=== PATIENT | female | born 1945 | race Caucasian/White ===

== ENCOUNTER → 2016-02-11 | Outpatient (CLI) | payer OTHER ==
[~2016-02-11] MED LIST: ACET-1311 PO; AMLO-110 PO; AMOX875T PO; ATRIN INH; BISA10SU38 PR; CBCI IV; CHOL20007 PO; CLC100X PO; CMBIN INH; CPR500 PO; CRG3125 PO; DAPT500I INJ; DILANTIN PO; DLN30 PO; DULCOLOX SUPP RE; DULO-24 PO; EXELON PO; FERR1TAB13 PO; FRRS300 PO; FURO-85 PO; GABA1CAP5 PO; HLD1X PO; IPRA1AER2 INH; LCTX PO; METO25TA3 PO; MOML PO; MRLP17X PO; MULT-506 PO; NITR100C41 PO; ONDA8TAB6 PO; OXYC1TAB3 PO; PHEN-310 PO; PHEN64.8 PO; POLY335019 PO; PROC1TAB5 PO; QUET1TAB91 PO; RIVA1.5C6 PO; RIVASTIGMINE PO; SDMC1 PO; SENN1TAB66 PO; SODI1000 PO; SODIENE PR; ZNTT/150 PO
[2016-02-11 08:27] LABS: HEMATOCRIT 26.9 % (37-47); MEAN CORPUSCULAR HEMOGLOBIN 29.8 pg (25-34); MEAN CORPUSCULAR HGB CONC 33.1 g/dl (32-36); MEAN PLATELET VOLUME 10.5 fL (7.4-10.4); PLATELET COUNT 243 K/uL (130-400); RED BLOOD COUNT 2.99 M/uL (4.2-5.4); WHITE BLOOD COUNT 4.95 K/uL (4.8-10.8)
== END ==
LOC: C.LABCC 07:49
PROVIDERS: ATTEND Internal Medicine
DX: D64.9 Anemia, unspecified (principal)

== ENCOUNTER → 2016-02-13 | Outpatient (CLI) | payer OTHER ==
[~2016-02-13] MED LIST changes: +AMLO2.5T PO; -NITR100C41 PO; +NITR100C43 PO
[2016-02-13 12:09] LABS: BASO % 1.4 %; BASO ABS # 0.08 K/uL (0-0.2); COMPLETE YES; EOS % 6.3 %; HEMATOCRIT 27.9 % (37-47); IG% 0.2 %; LYMPH % 31.1 %; LYMPH ABS # 1.72 K/uL (1.2-3.4); MEAN CELL VOLUME 90.6 fL (80-100); MEAN CORPUSCULAR HEMOGLOBIN 30.2 pg (25-34); MEAN CORPUSCULAR HGB CONC 33.3 g/dl (32-36); MEAN PLATELET VOLUME 10.4 fL (7.4-10.4); PLATELET COUNT 269 K/uL (130-400); RED BLOOD COUNT 3.08 M/uL (4.2-5.4); WHITE BLOOD COUNT 5.53 K/uL (4.8-10.8)
== END ==
LOC: C.LABCC 11:44
PROVIDERS: ATTEND Internal Medicine
DX: R31.9 Hematuria, unspecified (principal)

== ENCOUNTER → 2016-02-18 | Outpatient (CLI) | payer OTHER ==
[~2016-02-18] MED LIST changes: -AMLO2.5T PO; +NITR100C41 PO; -NITR100C43 PO
[2016-02-18 08:47] LABS: BASO % 1.3 %; BASO ABS # 0.06 K/uL (0-0.2); COMPLETE YES; EOS % 6.9 %; HEMATOCRIT 27.4 % (37-47); IG% 0.2 %; LYMPH % 38.8 %; MEAN CELL VOLUME 89.5 fL (80-100); MEAN CORPUSCULAR HEMOGLOBIN 30.1 pg (25-34); MEAN CORPUSCULAR HGB CONC 33.6 g/dl (32-36); MEAN PLATELET VOLUME 10.4 fL (7.4-10.4); MONO % 9.7 %; NEUT % 43.1 %; PLATELET COUNT 235 K/uL (130-400); RED BLOOD COUNT 3.06 M/uL (4.2-5.4); WHITE BLOOD COUNT 4.64 K/uL (4.8-10.8)
== END ==
LOC: C.LABCC 08:18
PROVIDERS: ATTEND Internal Medicine
DX: D64.9 Anemia, unspecified (principal)

== ENCOUNTER → 2016-02-20 | Outpatient (CLI) | payer OTHER ==
[~2016-02-20] MED LIST changes: -CLC100X PO
[2016-02-20 09:10] LABS: BASO % 0.7 %; BASO ABS # 0.04 K/uL (0-0.2); COMPLETE YES; HEMATOCRIT 28.9 % (37-47); IG% 0.2 %; LYMPH % 29.1 %; LYMPH ABS # 1.56 K/uL (1.2-3.4); MEAN CELL VOLUME 91.2 fL (80-100); MEAN CORPUSCULAR HEMOGLOBIN 30.3 pg (25-34); MEAN CORPUSCULAR HGB CONC 33.2 g/dl (32-36); MEAN PLATELET VOLUME 10.4 fL (7.4-10.4); PLATELET COUNT 226 K/uL (130-400); RED BLOOD COUNT 3.17 M/uL (4.2-5.4); WHITE BLOOD COUNT 5.37 K/uL (4.8-10.8)
== END ==
LOC: C.LABCC 08:56
PROVIDERS: ATTEND Internal Medicine
DX: R31.9 Hematuria, unspecified (principal)

== ENCOUNTER → 2016-02-21 | Outpatient (CLI) | payer OTHER ==
[2016-02-21 08:46] LABS: PHENOBARBITAL 13.2 mcg/mL (15.0-40.0)
== END ==
LOC: C.LABCC 07:50
PROVIDERS: ATTEND Internal Medicine
DX: G40.909 Epilepsy, unspecified, not intractable, without status epilepticus (principal)

== ENCOUNTER 2016-03-03 06:50 | Day surgery (SDC) | payer OTHER ==
[2016-02-18 09:04] VITALS: BMI 29.0
--- NOTE | 2016-02-18 09:38 | PAT Medication Instructions ---
Service Date Feb 18, 2016. Current Home Medication List Acetaminophen (Tylenol), 650 MG PO Q6 PRN for Pain Bisacodyl (Dulcolax), 1 SUPP NM PRN Duloxetine Hcl (Cymbalta), 40 MG PO QAM Furosemide (Lasix), 20 MG PO QAM Gabapentin (Neurontin), 400 MG PO TID Haloperidol (Haloperidol), 1 MG PO TID Ipratropium/Albuterol (Combivent), 2 PUFFS INH Q4 PRN for WHILE AWAKE FOR COPD Magnesium Hydroxide (Milk Of Magnesia), 30 ML PO PRN Multivitamin (Multivitamin), 1 TABLET PO QAM Oxycodone Ir (Roxicodone Ir), 5 MG PO Q8 PRN for Pain Phenobarbital (Phenobarbital), 64.8 MG PO DAILY Phenytoin Sodium (Dilantin), 60 MG PO TID Quetiapine Fumarate (Seroquel), 25 MG PO HS Ranitidine (Zantac), 150 MG PO BID Sennosides-Docusate Sodium (Senna/Docusate Sodium), 1 TAB PO BID Sodium Chloride (External) (Sodium Chloride), 1,000 MG PO QAM Sodium Phosphate/Biphosphate (Fleet Enema), 1 EA NM DAILY PRN for PRN [Exelon], 1.5 MG PO BID Medication Instructions For Your Scheduled Surgery - Hold the following medications the morning of surgery: Bisacodyl (Dulcolax), 1 SUPP NM PRN Furosemide (Lasix), 20 MG PO QAM Multivitamin (Multivitamin), 1 TABLET PO QAM Magnesium Hydroxide (Milk Of Magnesia), 30 ML PO PRN Sennosides-Docusate Sodium (Senna/Docusate Sodium), 1 TAB PO BID Sodium Chloride (External) (Sodium Chloride), 1,000 MG PO QAM Sodium Phosphate/Biphosphate (Fleet Enema), 1 EA NM DAILY PRN for PRN - Take the following medications the morning of surgery with a sip of water OTHERWISE NOTHING TO EAT OR DRINK AFTER MIDNIGHT: Acetaminophen (Tylenol), 650 MG PO Q6 PRN for Pain (may take if needed up to 4 hours prior to surgery) Duloxetine Hcl (Cymbalta), 40 MG PO QAM Phenytoin Sodium (Dilantin), 60 MG PO TID Ranitidine (Zantac), 150 MG PO BID Gabapentin (Neurontin), 400 MG PO TID Haloperidol (Haloperidol), 1 MG PO TID Oxycodone Ir (Roxicodone Ir), 5 MG PO Q8 PRN for Pain (may take if needed up to 4 hours prior to surgery) [Exelon], 1.5 MG PO BID Ipratropium/Albuterol (Combivent), 2 PUFFS INH Q4 PRN for WHILE AWAKE FOR COPD - Take the following medications as scheduled the night before surgery: Acetaminophen (Tylenol), 650 MG PO Q6 PRN for Pain Bisacodyl (Dulcolax), 1 SUPP NM PRN Phenytoin Sodium (Dilantin), 60 MG PO TID Ranitidine (Zantac), 150 MG PO BID Gabapentin (Neurontin), 400 MG PO TID Haloperidol (Haloperidol), 1 MG PO TID Oxycodone Ir (Roxicodone Ir), 5 MG PO Q8 PRN for Pain Quetiapine Fumarate (Seroquel), 25 MG PO HS [Exelon], 1.5 MG PO BID Phenobarbital (Phenobarbital), 64.8 MG PO DAILY Magnesium Hydroxide (Milk Of Magnesia), 30 ML PO PRN Sennosides-Docusate Sodium (Senna/Docusate Sodium), 1 TAB PO BID Ipratropium/Albuterol (Combivent), 2 PUFFS INH Q4 PRN for WHILE AWAKE FOR COPD Sodium Phosphate/Biphosphate (Fleet Enema), 1 EA NM DAILY PRN for PRN If you have any questions please call us at [phone] (Nae Newby PA-C ) or [phone] or [phone]
--- NOTE | 2016-02-18 10:33 | DIAGNOSTIC IMAGING REPORT ---
TWO VIEW CHEST CLINICAL HISTORY: Preoperative examination. FINDINGS: PA and lateral chest radiographs are compared to study dated 01/17/2012. The heart is mildly enlarged and there is atherosclerotic calcification of the thoracic aorta. The pulmonary vasculature is noncongested. Chronic interstitial thickening is unchanged. There is chronic elevation of left hemidiaphragm with left basilar atelectasis. No airspace consolidation or large pleural effusion is identified. There is no pneumothorax. The skeletal structures are osteopenic. Degenerative change and kyphoscoliosis are noted in the thoracic spine. Compression deformities are seen in the lower thoracic and upper lumbar region. Fusion hardware is noted in the lower cervical spine. Chronic deformity of the right proximal humerus is similar to previous. Surgical clips are present in the right upper quadrant of the abdomen. IMPRESSION: Cardiomegaly and chronic changes as above. There is no active disease in the chest. Electronically signed by: Buzz Alvarez M.D. 02/18/2016 10:31 AM Dictated Date/Time: 02/18/2016 10:30 AM
[2016-02-18 11:02] LABS: BASO % 0.7 %; BASO ABS # 0.03 K/uL (0-0.2); COMPLETE YES; EOS % 3.8 %; HEMATOCRIT 28.4 % (37-47); LYMPH % 26.3 %; LYMPH ABS # 1.17 K/uL (1.2-3.4); MEAN CELL VOLUME 89.6 fL (80-100); MEAN CORPUSCULAR HGB CONC 32.4 g/dl (32-36); MEAN PLATELET VOLUME 10.1 fL (7.4-10.4); MONO % 11.5 %; NEUT % 57.7 %; PLATELET COUNT 225 K/uL (130-400); RED BLOOD COUNT 3.17 M/uL (4.2-5.4); WHITE BLOOD COUNT 4.45 K/uL (4.8-10.8)
[2016-02-18 11:15] LABS: URINE APPEARANCE CLEAR (CLEAR); URINE BILIRUBIN NEG (NEG); URINE COLOR YELLOW; URINE NITRITE NEG (NEG); URINE PH 5.5 (4.5-7.5); UROBILINOGEN NEG (NEG)
[2016-02-18 11:27] LABS: BUN/CREATININE RATIO 8.4 (10-20); CALCIUM 8.6 mg/dl (8.5-10.1); CREATININE 1.9 mg/dl (0.60-1.20); POTASSIUM 3.2 mmol/L (3.5-5.1)
[2016-02-18 11:44] LABS: MANUAL MICROSCOPIC REQUIRED? NO; REVIEW REQ? NO
[~2016-03-03] VITALS: Ht 157.5 cm; Wt 73.4 kg
[~2016-03-03 06:50] MED LIST changes: -AMLO-110 PO; -AMOX875T PO; -ATRIN INH; -CBCI IV; -CHOL20007 PO; +CIPROFLOXACIN / D5W 400 MG IV SCH; -CPR500 PO; -CRG3125 PO; -DAPT500I INJ; -DILANTIN PO; -DULCOLOX SUPP RE; -FERR1TAB13 PO; -FRRS300 PO; -IPRA1AER2 INH; -LCTX PO; -METO25TA3 PO; -MRLP17X PO; -NITR100C41 PO; -ONDA8TAB6 PO; -PHEN-310 PO; -POLY335019 PO; -PROC1TAB5 PO; -RIVA1.5C6 PO; -RIVASTIGMINE PO; -SDMC1 PO; +SODIUM CHLORIDE 0.9% 1000ML 1,000 ML IV SCH
[2016-03-03 07:23] VITALS: BP_SYST 168; BP_SYST 180; BP_DIAS 63; BP_DIAS 74; PULSE 59; TEMP 36.8; O2SAT 94; Ht 157.5 cm; Wt 73.4 kg
[2016-03-03] MEDS ORDERED: FENTANYL CITRATE INJ 50 MCG/1 ML 2 ML VIAL ONE (07:52)
[2016-03-03] MEDS ORDERED: PROPOFOL IV EMULSION 10 MG/ML 20 ML VIAL IV ONE (07:55)
[2016-03-03] MEDS ORDERED: ONDANSETRON INJ 2 MG/ML 2 ML VIAL ONE (07:55)
[2016-03-03] MEDS ORDERED: DEXAMETHASONE SOD INJ 4 MG/ML VIAL ONE (07:55)
[2016-03-03] MEDS ORDERED: LIDOCAINE HCL 2% 2 ML VIAL (20MG/ML) ONE (07:55)
--- NOTE | 2016-03-03 08:30 | History & Physical Bridge Note ---
H&P Re-Evaluation Bridge Note: I have examined the patient, reviewed the History & Physical and in the interval since the performance of the History & Physical I have noted the following changes of clinical significance: No changes noted
[2016-03-03] MEDS ORDERED: EpHEDrine SULFATE INJ 50 MG/ML AMP IV PRN (09:15)
[2016-03-03] MEDS ORDERED: PROMETHAZINE HCL INJ 12.5 MG in SODIUM CHLORIDE 0.9% 50ML 50 ML IV PRN (09:15)
[2016-03-03] MEDS ORDERED: FENTANYL CITRATE INJ 50 MCG/1 ML 2 ML VIAL IV PRN (09:15)
[2016-03-03] MEDS ORDERED: ATROPINE SULFATE 0.1 MG/ML 5ML SYR IV PRN (09:15)
[2016-03-03] MEDS ORDERED: NALOXONE HCL 0.4 MG/1 ML VIAL/CARP IV PRN (09:15)
[2016-03-03] MEDS ORDERED: ONDANSETRON INJ 2 MG/ML 2 ML VIAL IV PRN (09:15)
[2016-03-03] MEDS ORDERED: FLUMAZENIL 0.1 MG/1 ML 10 ML VIAL IV PRN (09:15)
[2016-03-03] MEDS ORDERED: LABETALOL HCL IV 5 MG/ML 20ML IV PRN (09:15)
[2016-03-03] MEDS ORDERED: EpHEDrine SULFATE INJ 50 MG/ML AMP ONE (09:20)
[2016-03-03] MEDS ORDERED: EpHEDrine SULFATE 50MG/5ML SYR ONE (09:20)
[2016-03-03] MEDS ORDERED: PHENYLEPHRINE 100MCG/ML 5ML SYR ONE (09:20)
[2016-03-03] MEDS ORDERED: WATER, STERILE FOR INJ 10 ML VIAL ONE (09:28)
--- NOTE | 2016-03-03 10:16 | [facility] Post Operative Brief Note ---
Immediate Operative Summary Operative Date Mar 03, 2016. Pre-Operative Diagnosis Hematuria Post-Operative Diagnosis Hematuria Procedure(s) Performed Cystoscopy, Left retrograde ureteroscopy brush biopsy stent Surgeon Dr. Kelvin Fagan [employer] Ha[employer] Operator Surgeon(s) None Estimated Blood Loss 1cc Findings distal left ureteral tumor Specimens brush biopsy tumor Drains 6f stent left ureter
--- NOTE | 2016-03-03 10:18 | Discharge Instructions ---
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 Post Anesthesia Instructions: If you have had General Anesthesia or IV Sedation: * Do not drive today. * Resume driving when surgeon permits. * Do not make important decisions or sign legal documents today. * Call surgeon for: 1. Temperature elevations greater than 101 degrees F. 2. Uncontrollable pain. 3. Excessive bleeding. 4. Persistent nausea and vomiting. 5. Medication intolerance (nausea, vomiting or rash). * For nausea and vomiting use only clear liquids such as: tea, soda, bouillon until nausea subsides, then gradually increase diet as tolerated. * If you have any concerns or questions, call your surgeon's office. If physician is unavailable and it is an emergency, call 911 or go to the nearest emergency room. . Diet Recommendations Recommended Home Diet: resume previous diet Procedures Procedures Performed: Cystoscopy, Left retrograde ureteroscopy brush biopsy stent Pending Studies Studies pending at discharge: no Medical Emergencies . Who to Call and When: Medical Emergencies: If at any time you feel your situation is an emergency, please call 911 immediately. . Non-Emergent Contact Non-Emergency issues call your: Urologist . . "Provider Documentation" section prepared by Kelvin Fagan.
[2016-03-03] MEDS ORDERED: OXYCODONE/ACETAMINOPHEN 5-325 TAB PO PRN (10:30)
--- NOTE | 2016-03-03 11:01 | Anesthesiology Progress Note ---
Anesthesia Post Op Note Date & Time Mar 03, 2016 at 11:00 Vital Signs Pain Intensity: 0 Vital Signs Past 12 Hours Date Time Temp Pulse Resp B/P Pulse Ox O2 Delivery O2 Flow Rate FiO2 03/03/16 10:47 36.3 18 130/72 98 2 03/03/16 10:43 128/59 03/03/16 10:39 68 20 03/03/16 10:39 68 20 98 03/03/16 10:38 132/54 03/03/16 10:34 70 15 03/03/16 10:34 70 15 98 03/03/16 10:33 133/67 03/03/16 10:29 70 11 03/03/16 10:29 70 11 98 03/03/16 10:28 137/60 03/03/16 10:24 73 22 03/03/16 10:24 73 22 91 03/03/16 10:23 140/73 03/03/16 10:19 68 19 03/03/16 10:19 68 19 100 03/03/16 10:18 146/64 03/03/16 10:14 36.0 67 16 140/62 100 Mask 10 03/03/16 10:14 68 13 100 03/03/16 10:14 68 13 03/03/16 07:23 36.8 59 18 168/63 94 Room Air Notes Mental Status: alert / awake / arousable, participated in evaluation Pt Amnestic to Procedure: Yes Nausea / Vomiting: adequately controlled Pain: adequately controlled Airway Patency, RR, SpO2: stable & adequate BP & HR: stable & adequate Hydration State: stable & adequate Anesthetic Complications: no major complications apparent
[2016-03-03 11:10] VITALS: BP 134/57; PULSE 69; TEMP 36.4; O2SAT 94
[2016-03-03 11:45] VITALS: BP 135/50; PULSE 70; O2SAT 92
--- NOTE | 2016-03-03 12:01 | DIAGNOSTIC IMAGING REPORT ---
RETROGRADE INCLUDES KUB HISTORY: Hydronephrosis. FLUOROSCOPY TIME: 71 seconds. FINDINGS: 6 fluoroscopic spot images were submitted for review. Initial images demonstrate retrograde contrast opacification of the distal left ureter. The distal left ureter is distended. This is followed by placement of a right lower and the left ureter and balloon dilatation at the ureterovesical junction. A left ureteral stent was identified and appears be located within the left renal pelvis. Only the proximal portion of the stent was visualized on this study. IMPRESSION: Fluoroscopy provided for balloon dilatation of the distal left ureter and a left ureteral stent placement. Electronically signed by: Dereck Vick M.D. 03/03/2016 11:59 AM Dictated Date/Time: 03/03/2016 11:57 AM
[2016-03-03 12:10] VITALS: BP 136/59; PULSE 69; TEMP 36.5; O2SAT 93
--- NOTE | 2016-03-05 13:30 | OPERATIVE REPORT ---
DATE OF OPERATION: 03/03/2016 PREOPERATIVE DIAGNOSIS: Left hydroureteronephrosis in a solitary kidney. POSTOPERATIVE DIAGNOSIS: Same plus a distal ureteral tumor. PROCEDURE: Cystoscopy, left retrograde pyelogram, left ureteroscopy with brush biopsy of abnormal mucosa and placement of indwelling double J left ureteral stent 6-Malagasy x multilength. FINDINGS: Cystoscopic exam revealed normal urethra. Bladder showed no urethral abnormalities. Left retrograde showed a filling defect in the distal left ureter with proximal hydroureteronephrosis. Ureteroscopy confirmed that this was a tumor. SURGEON: Dr. Fagan. ANESTHESIA: General. DRAINS: 6 Malagasy x multilength left ureteral stent. COMPLICATIONS: None. SPECIMENS: [place] biopsy left ureteral tumor. INDICATIONS: The patient is a 70-year-old white female who was seen in the office for evaluation of hematuria. She has had a right nephrectomy in the past for renal cell carcinoma. Workup including a CT showed left-sided hydroureteronephrosis down to the level of the bladder. She is being brought in now for cystoscopy, retrograde and ureteroscopy. OPERATION AND FINDINGS: PROCEDURE: After the induction of an adequate general anesthetic and appropriate time-out, the patient was placed in the dorsal lithotomy position, lower abdomen and genitalia were prepped with Hibiclens, draped in a sterile fashion. Using a 22-Malagasy cystoscope, routine cystoscopic exam was performed with the above noted findings with the 30 and 70 degree lenses. Next, using a 4.8 Malagasy cone tipped catheter, a left retrograde pyelogram was performed with the above noted findings. Next, the cone tipped catheter was removed and a 0.038 guidewire was passed up the left ureter under fluoroscopic guidance until positioned in the renal pelvis. The ureter was very tortuous. Initially tried just to do ureteroscopy but was unable to get a scope to enter into the ureteral orifice, so a balloon dilator was used to dilate the intramural tunnel, which was dilated to 10 atmospheres and then until all wasting was gone and then deflated and removed. Rigid ureteroscopy was then done, appeared to be tumor in the distal ureter. I did take pictures of it but apparently they did not print. I then used brush to biopsy the abnormal area. That was handed off the table as a specimen and then the guidewire was rethreaded through the cystoscope and a 6-Malagasy multilength stent was passed up the left ureter until positioned in the renal pelvis confirmed by fluoroscopy. The guidewire was removed. There was good curl at the bladder level. The patient's bladder was then drained, cystoscope and sheath were removed. All needle, sponge and instrument counts were correct at the end of the case. The patient tolerated the procedure well and went to the recovery room in stable condition. I attest to the content of the Intraoperative Record and any orders documented therein. Any exceptio ns are noted below.
[2016-04-28] MEDS ORDERED: RIVASTIGMINE PO (14:44)
[2016-04-28] MEDS ORDERED: DILANTIN PO (14:44)
[2016-04-28] MEDS ORDERED: AMLO-110 PO (14:44)
[2016-04-28] MEDS ORDERED: METO25TA3 PO (14:44)
[2016-04-28] MEDS ORDERED: DULCOLOX SUPP RE (14:45)
[2016-07-01] MEDS ORDERED: CHOL20007 PO (09:56)
[2016-07-01] MEDS ORDERED: LCTX PO (09:56)
[2016-07-01] MEDS ORDERED: AMOX875T PO (09:56)
[2016-07-04] MEDS ORDERED: NITR100C41 PO (04:39)
[2016-07-08] MEDS ORDERED: FRRS300 PO (09:47)
[2016-07-08] MEDS ORDERED: CBCI IV (09:47)
[2016-07-08] MEDS ORDERED: OXYC1TAB3 PO (09:47)
[2016-07-08] MEDS ORDERED: MRLP17X PO (09:48)
[2016-07-27] MEDS ORDERED: OXYC1TAB3 PO (11:29)
[2016-07-27] MEDS ORDERED: CPR500 PO (11:29)
[2016-10-03] MEDS ORDERED: OXYC1TAB3 PO (13:42)
[2016-10-03] MEDS ORDERED: AMLO-110 PO (13:42)
[2016-10-03] MEDS ORDERED: CRG3125 PO (13:42)
== END 2016-03-03 12:30 ==
LOC: C.ACU 06:50
PROVIDERS: ATTEND Urology
DX: C66.2 Malignant neoplasm of left ureter (principal); R31.9 Hematuria, unspecified; Z85.528 Personal history of other malignant neoplasm of kidney; Z90.5 Acquired absence of kidney; G40.909 Epilepsy, unspecified, not intractable, without status epilepticus; H61.23 Impacted cerumen, bilateral; H90.3 Sensorineural hearing loss, bilateral; J44.9 Chronic obstructive pulmonary disease, unspecified; I10 Essential (primary) hypertension; E03.9 Hypothyroidism, unspecified; F03.90 Unspecified dementia, unspecified severity, without behavioral disturbance, psychotic disturbance, mood disturbance, and anxiety; Z79.899 Other long term (current) drug therapy; N32.89 Other specified disorders of bladder

== ENCOUNTER → 2016-03-06 | Outpatient (CLI) | payer OTHER ==
[~2016-03-06] MED LIST changes: +AMLO-110 PO; +AMOX875T PO; +ATRIN INH; +CBCI IV; +CHOL20007 PO; -CIPROFLOXACIN / D5W 400 MG IV SCH; +CPR500 PO; +CRG3125 PO; +DAPT500I INJ; +DILANTIN PO; +DULCOLOX SUPP RE; +FERR1TAB13 PO; +FRRS300 PO; +IPRA1AER2 INH; +LCTX PO; +METO25TA3 PO; +MRLP17X PO; +NITR100C41 PO; +ONDA8TAB6 PO; +PHEN-310 PO; +POLY335019 PO; +PROC1TAB5 PO; +RIVA1.5C6 PO; +RIVASTIGMINE PO; +SDMC1 PO; -SODIUM CHLORIDE 0.9% 1000ML 1,000 ML IV SCH
[2016-03-06 08:51] LABS: BASO ABS # 0.05 K/uL (0-0.2); EOS % 6.3 %; HEMATOCRIT 24.8 % (37-47); LYMPH % 37.7 %; LYMPH ABS # 1.87 K/uL (1.2-3.4); MEAN CELL VOLUME 88.3 fL (80-100); MEAN CORPUSCULAR HEMOGLOBIN 29.5 pg (25-34); MEAN CORPUSCULAR HGB CONC 33.5 g/dl (32-36); MEAN PLATELET VOLUME 10.8 fL (7.4-10.4); MONO % 11.9 %; NEUT % 43.1 %; PLATELET COUNT 198 K/uL (130-400); RED BLOOD COUNT 2.81 M/uL (4.2-5.4); WHITE BLOOD COUNT 4.96 K/uL (4.8-10.8)
[2016-03-06 09:12] LABS: COMPLETE YES; LARGE PLATELETS 1+
== END ==
LOC: C.LABCC 08:38
PROVIDERS: ATTEND Internal Medicine
DX: D64.9 Anemia, unspecified (principal)

== ENCOUNTER → 2016-03-11 | Outpatient (CLI) | payer OTHER ==
[2016-03-11 08:10] LABS: BASO % 0.8 %; BASO ABS # 0.04 K/uL (0-0.2); COMPLETE YES; EOS % 6.7 %; HEMATOCRIT 27.5 % (37-47); IG% 0.2 %; LYMPH % 37.1 %; LYMPH ABS # 1.87 K/uL (1.2-3.4); MEAN CELL VOLUME 90.2 fL (80-100); MEAN CORPUSCULAR HEMOGLOBIN 29.5 pg (25-34); MEAN CORPUSCULAR HGB CONC 32.7 g/dl (32-36); MEAN PLATELET VOLUME 10.6 fL (7.4-10.4); MONO % 10.3 %; NEUT % 44.9 %; PLATELET COUNT 258 K/uL (130-400); RED BLOOD COUNT 3.05 M/uL (4.2-5.4); WHITE BLOOD COUNT 5.04 K/uL (4.8-10.8)
[2016-03-11 08:17] LABS: BLOOD UREA NITROGEN 19 mg/dl (7-18); BUN/CREATININE RATIO 11.9 (10-20); CALCIUM 8.5 mg/dl (8.5-10.1); CARBON DIOXIDE 25 mmol/L (21-32); CHLORIDE 109 mmol/L (98-107); GLUCOSE 88 mg/dl (70-99); POTASSIUM 3.8 mmol/L (3.5-5.1); SODIUM 144 mmol/L (136-145)
== END ==
LOC: C.LABCC 07:52
PROVIDERS: ATTEND Internal Medicine
DX: N18.9 Chronic kidney disease, unspecified (principal)

== ENCOUNTER → 2016-03-14 | Outpatient (CLI) | payer OTHER ==
[2016-03-14 08:22] LABS: BASO % 1.1 %; BASO ABS # 0.06 K/uL (0-0.2); COMPLETE YES; EOS % 6.8 %; HEMATOCRIT 30.7 % (37-47); LYMPH % 43.1 %; LYMPH ABS # 2.36 K/uL (1.2-3.4); MEAN CELL VOLUME 90.8 fL (80-100); MEAN CORPUSCULAR HEMOGLOBIN 29.9 pg (25-34); MEAN CORPUSCULAR HGB CONC 32.9 g/dl (32-36); MEAN PLATELET VOLUME 10.4 fL (7.4-10.4); MONO % 9.9 %; NEUT % 39.1 %; PLATELET COUNT 275 K/uL (130-400); RED BLOOD COUNT 3.38 M/uL (4.2-5.4); WHITE BLOOD COUNT 5.48 K/uL (4.8-10.8)
== END ==
LOC: C.LABCC 08:09
PROVIDERS: ATTEND Internal Medicine
DX: D64.9 Anemia, unspecified (principal)

== ENCOUNTER → 2016-04-24 | Outpatient (CLI) | payer OTHER ==
[2016-04-24 08:51] LABS: BASO % 0.5 %; BASO ABS # 0.03 K/uL (0-0.2); COMPLETE YES; EOS % 7.2 %; HEMATOCRIT 33.2 % (37-47); IG% 0.2 %; LYMPH % 40.9 %; LYMPH ABS # 2.28 K/uL (1.2-3.4); MEAN CELL VOLUME 88.1 fL (80-100); MEAN PLATELET VOLUME 10.3 fL (7.4-10.4); MONO % 10.1 %; NEUT % 41.1 %; PLATELET COUNT 213 K/uL (130-400); RED BLOOD COUNT 3.77 M/uL (4.2-5.4); WHITE BLOOD COUNT 5.57 K/uL (4.8-10.8)
[2016-04-24 09:05] LABS: ALT/SGPT 14 U/L (12-78); AST/SGOT 15 U/L (15-37); BLOOD UREA NITROGEN 8 mg/dl (7-18); BUN/CREATININE RATIO 8.4 (10-20); CALCIUM 8.9 mg/dl (8.5-10.1); CARBON DIOXIDE 26 mmol/L (21-32); CHLORIDE 104 mmol/L (98-107); CREATININE 0.91 mg/dl (0.60-1.20); GLUCOSE 88 mg/dl (70-99); POTASSIUM 3.7 mmol/L (3.5-5.1); SODIUM 139 mmol/L (136-145)
[2016-04-24 09:15] LABS: ALB/GLOB RATIO 0.9 (0.9-2); ALKALINE PHOSPHATASE 190 U/L (45-117); FERRITIN 11.2 ng/ml (8.0-388.0); TOTAL IRON BINDING CAPACITY 255 mcg/dl (250-450)
== END ==
LOC: C.LABCC 08:26
PROVIDERS: ATTEND Internal Medicine
DX: D64.9 Anemia, unspecified (principal); G40.909 Epilepsy, unspecified, not intractable, without status epilepticus; F20.9 Schizophrenia, unspecified; Z51.81 Encounter for therapeutic drug level monitoring; Z79.899 Other long term (current) drug therapy

== ENCOUNTER → 2016-04-27 | Outpatient (CLI) | payer OTHER ==
[~2016-04-27] MED LIST changes: +AMLO2.5T PO; -NITR100C41 PO; +NITR100C43 PO
[2016-04-28 01:26] LABS: MANUAL MICROSCOPIC REQUIRED? YES; URINE APPEARANCE CLEAR (CLEAR); URINE BILIRUBIN NEG (NEG); URINE COLOR YELLOW; URINE NITRITE NEG (NEG); URINE PH 5.5 (4.5-7.5); URINE SPECIFIC GRAVITY <= 1.005 (1.000-1.030); UROBILINOGEN NEG (NEG)
[2016-04-28 01:37] LABS: REVIEW REQ? NO
[2016-04-28 01:57] LABS: URINE BACTERIA NEG (NEG); URINE RBC 0-4 /hpf (0-4); ZZUR CULT IF INDIC CLEAN CATCH NO
== END | disposition home or self-care (01) ==
LOC: C.LABCC 20:15
PROVIDERS: ATTEND Internal Medicine
DX: D64.9 Anemia, unspecified (principal); F20.9 Schizophrenia, unspecified

== ENCOUNTER 2016-04-30 11:02 | Inpatient (IN) | payer OTHER ==
[~2016-04-30] VITALS: Ht 157.5 cm; Wt 74.6 kg
[2016-04-30] VITALS (7 sets, daily range): BP systolic 95–170; BP diastolic 56–78; PULSE 80–108; TEMP 36.6–39.2; O2SAT 79–100; Ht 157.5 cm; Wt 74.6 kg
[~2016-04-30 11:02] MED LIST changes: -AMLO2.5T PO; -AMOX875T PO; -ATRIN INH; -BISA10SU38 PR; -CBCI IV; -CHOL20007 PO; -CPR500 PO; -CRG3125 PO; -DAPT500I INJ; -DILANTIN PO; -EXELON PO; -FERR1TAB13 PO; -FRRS300 PO; -FURO-85 PO; -IPRA1AER2 INH; -LCTX PO; -MRLP17X PO; -NITR100C43 PO; -ONDA8TAB6 PO; -PHEN-310 PO; -POLY335019 PO; -PROC1TAB5 PO; -RIVA1.5C6 PO; -SDMC1 PO
[2016-04-30] MEDS ORDERED: SODIUM CHLORIDE 0.9% 1000ML 500 ML IV ONE (11:19)
--- NOTE | 2016-04-30 11:50 | EMERGENCY ROOM VISIT NOTE ---
History Report prepared by Corina: Cordell Berg Under the Supervision of: Dr. Paulo Villa M.D. First contact with patient: 11:08 Chief Complaint: FEVER Stated Complaint: FEVER/AMS History of Present Illness The patient is a 70 year old female who presents to the Emergency Room with complaints of a constant fever since yesterday. Per the nursing staff states that the patient was diagnosed with a UTI yesterday, and put on oral antibiotics. Additionally the nursing staff states that the patient was hypotensive this morning. They state that the patient has a history of a nephrectomy and renal cancer. The nursing staff states that the patient additionally fell this morning, and she does not remember falling. The patient denies any leg pain and shortness of breath. She additionally states that she could not sleep well last night Source of History: patient, nursing staff Onset: yesterday Position: other (global) Quality: other (fever) Timing: constant Associated Symptoms: No SOB Review of Systems All systems have been listed, reviewed, and are negative other than those previously mentioned. Please see Additional Medical History Sheet. 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 (15) Seizure (16) Seizure (17) Sepsis (18) Spinal Surgery (19) UTI (urinary tract infection) Family History Hypertension Social History Smoking Status: Former Smoker Alcohol Use: none Drug Use: none Marital Status: Housing Status: assisted living Occupation Status: retired, disabled Current/Historical Medications Scheduled Amlodipine (Norvasc), 5 MG PO QAM Duloxetine Hcl (Cymbalta), 40 MG PO QAM Gabapentin (Neurontin), 400 MG PO TID Haloperidol (Haloperidol), 1 MG PO TID Ipratropium-Albuterol (Combivent Respimat), 1 PUFFS INH QID Magnesium Hydroxide (Milk Of Magnesia), 30 ML PO PRN Metoprolol Succ (Toprol Xl) (Toprol-Xl), 25 MG PO QAM Multivitamin (Multivitamin), 1 TABLET PO QAM Phenobarbital (Phenobarbital), 64.8 MG PO DAILY Phenytoin Sodium (Dilantin), 60 MG PO TID Quetiapine Fumarate (Seroquel), 25 MG PO HS Ranitidine (Zantac), 150 MG PO BID Rivastigmine Tartrate (Exelon), 1.5 MG PO BID Sennosides-Docusate Sodium (Senna/Docusate Sodium), 1 TAB PO BID Sodium Chloride (Sodium Chloride), 1 TAB PO DAILY Scheduled PRN Acetaminophen (Tylenol), 650 MG PO Q6 PRN for Pain Oxycodone Ir (Roxicodone Ir), 5 MG PO Q8 PRN for Pain Allergies Coded Allergies: Banana (Verified Allergy, Unknown, RAW -ROOF OF MOUTH SWELLS, 04/30/16) Sulfa Antibiotics (Verified Allergy, Unknown, mouth swells, bumps on roof of mouth, 04/30/16) Physical Exam Vital Signs Date Time Temp Pulse Resp B/P Pulse Ox O2 Delivery O2 Flow Rate FiO2 04/30/16 13:39 78 18 143/64 95 Room Air 04/30/16 13:32 74 04/30/16 12:34 77 18 121/55 95 Room Air 04/30/16 12:16 74 18 99/45 92 Room Air 04/30/16 11:51 93 Room Air 04/30/16 11:11 70 04/30/16 11:06 37.1 73 16 88/44 91 Room Air Physical Exam GENERAL: Patient awake, alert, oriented x 3. Patient follows commands. Patient does not appear toxic. Patient is adequately hydrated and well- nourished. SKIN: No erythema, pallor, cyanosis or rash HEENT: Normal head, pupils equal, reactive to light and accommodation. Oral cavity us dry and posterior pharynx appears normal. Neck: Without adenopathy, no neck vein distention. LUNGS: Clear to auscultation. No wheezes, no rales, no rhonchi. HEART: No murmurs. No gallops. No rubs ABDOMEN: No masses, no rebound, no hepatomegaly or splenomegaly. EXTREMITIES: No signs of trauma. No pedal or pretibial edema. No calf or thigh tenderness. NEUROLOGIC: Cranial nerves II-XII within normal limits. No gross motor sensory function deficits. Medical Decision & Procedures ER Provider Diagnostic Interpretation: X ray results are stated below per my interpretation and the radiologist's interpretation. SINGLE VIEW CHEST CLINICAL HISTORY: Sepsis. FINDINGS: An AP, portable, upright chest radiograph is compared to study dated 02/18/2016. The examination is degraded by portable technique and patient rotation. A right subclavian central venous catheter is new from previous. The heart is enlarged and there is atherosclerotic calcification of the thoracic aorta. The pulmonary vasculature is noncongested. There is chronic interstitial thickening and elevation of left hemidiaphragm with left basilar atelectasis. No airspace consolidation is seen typical for pneumonia and there is no large pleural effusion. No pneumothorax is seen. The skeletal structures are osteopenic. Advanced degenerative change is noted in the thoracic spine. Chronic posttraumatic deformity is present in the right shoulder. Fusion hardware is seen in the lower cervical spine. Surgical clips are noted in the upper abdomen. IMPRESSION: Cardiomegaly and chronic changes as above. There is no acute cardiopulmonary abnormality. Electronically signed by: Buzz Alvarez M.D. 04/30/2016 12:00 PM Dictated Date/Time: 04/30/2016 11:57 AM Laboratory Results 04/30/16 11:40 Red Blood Count 3.50, Mean Corpuscular Volume 88.0, Mean Corpuscular Hemoglobin 30.0, Mean Corpuscular Hemoglobin Concent 34.1, Mean Platelet Volume 10.0, Neutrophils (%) (Auto) 80.3, Lymphocytes (%) (Auto) 9.0, Monocytes (%) (Auto) 10.0, Eosinophils (%) (Auto) 0.1, Basophils (%) (Auto) 0.2, Neutrophils # (Auto ) 15.40, Lymphocytes # (Auto) 1.73, Monocytes # (Auto) 1.91, Eosinophils # (Auto ) 0.01, Basophils # (Auto) 0.03 04/30/16 11:40 Test 04/30/16 11:40 04/30/16 11:47 04/30/16 12:13 White Blood Count 19.15 K/uL (4.8-10.8) Red Blood Count 3.50 M/uL (4.2-5.4) Hemoglobin 10.5 g/dL (12.0-16.0) Hematocrit 30.8 % (37-47) Mean Corpuscular Volume 88.0 fL (80-100) Mean Corpuscular Hemoglobin 30.0 pg (25-34) Mean Corpuscular Hemoglobin Concent 34.1 g/dl (32-36) Platelet Count 188 K/uL (130-400) Mean Platelet Volume 10.0 fL (7.4-10.4) Neutrophils (%) (Auto) 80.3 % Lymphocytes (%) (Auto) 9.0 % Monocytes (%) (Auto) 10.0 % Eosinophils (%) (Auto) 0.1 % Basophils (%) (Auto) 0.2 % Neutrophils # (Auto) 15.40 K/uL (1.4-6.5) Lymphocytes # (Auto) 1.73 K/uL (1.2-3.4) Monocytes # (Auto) 1.91 K/uL (0.11-0.59) Eosinophils # (Auto) 0.01 K/uL (0-0.5) Basophils # (Auto) 0.03 K/uL (0-0.2) RDW Standard Deviation 45.1 fL (36.4-46.3) RDW Coefficient of Variation 13.9 % (11.5-14.5) Immature Granulocyte % (Auto) 0.4 % Immature Granulocyte # (Auto) 0.07 K/uL (0.00-0.02) Prothrombin Time 13.9 SECONDS (9.0-12.0) Prothromb Time International Ratio 1.3 (0.9-1.1) Activated Partial Thromboplast Time 31.8 SECONDS (21.0-31.0) Partial Thromboplastin Ratio 1.2 Anion Gap 8.0 mmol/L (3-11) Est Creatinine Clear Calc Drug Dose 18.1 ml/min Estimated GFR () 19.9 Estimated GFR (Non- 17.2 BUN/Creatinine Ratio 8.1 (10-20) Calcium Level 8.0 mg/dl (8.5-10.1) Total Bilirubin 0.3 mg/dl (0.2-1) Aspartate Amino Transf (AST/SGOT) 8 U/L (15-37) Alanine Aminotransferase (ALT/SGPT) 11 U/L (12-78) Alkaline Phosphatase 135 U/L (45-117) Total Protein 6.9 gm/dl (6.4-8.2) Albumin 2.8 gm/dl (3.4-5.0) Globulin 4.1 gm/dl (2.5-4.0) Albumin/Globulin Ratio 0.7 (0.9-2) Bedside Lactic Acid Venous 1.28 mmol/L (0.90-1.70) Urine Color YELLOW Urine Appearance CLOUDY (CLEAR) Urine pH 6.5 (4.5-7.5) Urine Specific [place] 1.008 (1.000-1.030) Urine Protein 2+ (NEG) Urine Glucose (UA) NEG (NEG) Urine Ketones NEG (NEG) Urine Occult Blood 2+ (NEG) Urine Nitrite POS (NEG) Urine Bilirubin NEG (NEG) Urine Urobilinogen NEG (NEG) Urine Leukocyte Esterase LARGE (NEG) Urine WBC (Auto) >30 /hpf (0-5) Urine RBC (Auto) 0-4 /hpf (0-4) Urine Hyaline Casts (Auto) 1-5 /lpf (0-5) Urine Epithelial Cells (Auto) 0-5 /lpf (0-5) Urine Bacteria (Auto) 2+ (NEG) Laboratory results as stated above per my review. Medications Administered Medications (Trade) Dose Ordered Sig/Benito Route Start Time Stop Time Status Last Admin Dose Admin Sodium Chloride 500 ml @ 999 mls/hr Q31M ONCE IV 04/30/16 11:19 04/30/16 11:49 DC 04/30/16 11:10 999 MLS/HR Sodium Chloride 1,000 ml @ 500 mls/hr Q2H STAT IV 04/30/16 12:34 04/30/16 14:33 DC 04/30/16 12:38 500 MLS/HR Daptomycin/Sodium Chloride (Cubicin IV/Nss 50ml) 59 ml @ 120 mls/hr NOW STAT IV 04/30/16 13:04 04/30/16 13:33 DC 04/30/16 13:35 120 MLS/HR Piperacillin Sod/ Tazobactam Sod (Zosyn Iv) 4.5 gm NOW STAT IV 04/30/16 13:37 04/30/16 13:38 DC 04/30/16 13:45 4.5 GM Procedure Central Venous Catheter Indication: Hypotension/ sepsis Catheter type: triple lumen Location: Right Subclavian Verbal consent was obtained after the risks and benefits were explained. At this time, the risks of the procedure are less than the risks of NOT performing the procedure. The patient was placed in the Trendelenburg position and the skin was prepped in the standard fashion with chlorhexidine and full sterile drapes applied. The proper landmarks were identified. She was anesthetized with 1% lidocaine without epinephrine, and the needle was inserted through the skin in the standard fashion. The needle was carefully advanced into blood vessel lumen. The guidewire was placed uneventfully. The vessel is dilated and the catheter was placed. It was sutured into position. There was good blood return from all ports. The patient tolerated the procedure well and there were no complications. Post procedure x-ray was normal. ECG Indication: other (fever) Rate (beats per minute): 71 Rhythm: normal sinus Findings: 1st degree AV block, no ectopy ED Course 1113: Past medical records reviewed. The patient was evaluated in room C9. A complete history and physical examination was performed. 1119: Sodium Chloride 500 ml @ 999 mls/hr IV 1234: Sodium Chloride 1000 ml @ 500 mls/hr IV 1304: Daptomycin 450mg/ Sodium Chloride 59ml @ 120 mls/hr IV 1337: Zosyn 4.5gm IV 1357: I discussed the patient's case with Dr. Doss. He is going to evaluate the patient for further treatment 1435: I reevaluated the patient, and she is doing better. Her blood pressure is much better at 171/90. Medical Decision Nurses notes reviewed. Medical history sheet reviewed. Differential diagnosis includes but is not limited to: UTI, pyelonephritis, sepsis, metabolic disorder. The patient is here with fever and hypotension. She was evaluated for sepsis. Because of her hypotension a central line was placed in a right subclavian area. The patient tolerated the procedure well. She was given large volumes of fluid. Multiple labs and imaging were obtained. Please see above. The patient's white count is elevated. Lactic acid is not elevated. Antibiotics were administered after blood cultures were obtained. Most likely the source of her fever/sepsis is her urine. I discussed care with the patient and with the hospitalist. Blood pressure rebounded significantly prior to her leaving the ED. Consults Time Called: 1350 Consulting Physician: Win Dang Returned Call: [phone] I discussed the patient's case with Dr. Doss. He is going to evaluate the patient for further treatment. Impression Primary Impression: Sepsis Additional Impressions: UTI (urinary tract infection) Renal insufficiency Scribe Attestation The scribe's documentation has been prepared under my direction and personally reviewed by me in its entirety. I confirm that the note above accurately reflects all work, treatment, procedures, and medical decision making performed by me. Departure Information Dispostion Being Evaluated By Hospitalist Referrals [facility] (PCP) Patient Instructions My [facility] Health Problem Qualifiers
[2016-04-30 11:54] LABS: BASO % 0.2 %; BASO ABS # 0.03 K/uL (0-0.2); COMPLETE YES; EOS % 0.1 %; HEMATOCRIT 30.8 % (37-47); IG% 0.4 %; LYMPH ABS # 1.73 K/uL (1.2-3.4); MEAN CORPUSCULAR HGB CONC 34.1 g/dl (32-36); NEUT % 80.3 %; PLATELET COUNT 188 K/uL (130-400); WHITE BLOOD COUNT 19.15 K/uL (4.8-10.8)
--- NOTE | 2016-04-30 12:01 | DIAGNOSTIC IMAGING REPORT ---
SINGLE VIEW CHEST CLINICAL HISTORY: Sepsis. FINDINGS: An AP, portable, upright chest radiograph is compared to study dated 02/18/2016. The examination is degraded by portable technique and patient rotation. A right subclavian central venous catheter is new from previous. The heart is enlarged and there is atherosclerotic calcification of the thoracic aorta. The pulmonary vasculature is noncongested. There is chronic interstitial thickening and elevation of left hemidiaphragm with left basilar atelectasis. No airspace consolidation is seen typical for pneumonia and there is no large pleural effusion. No pneumothorax is seen. The skeletal structures are osteopenic. Advanced degenerative change is noted in the thoracic spine. Chronic posttraumatic deformity is present in the right shoulder. Fusion hardware is seen in the lower cervical spine. Surgical clips are noted in the upper abdomen. IMPRESSION: Cardiomegaly and chronic changes as above. There is no acute cardiopulmonary abnormality. Electronically signed by: Buzz Alvarez M.D. 04/30/2016 12:00 PM Dictated Date/Time: 04/30/2016 11:57 AM
[2016-04-30 12:09] LABS: INR 1.3 (0.9-1.1); PARTIAL THROMBOPLASTIN RATIO 1.2; PROTHROMBIN TIME (PATIENT) 13.9 SECONDS (9.0-12.0)
[2016-04-30 12:18] LABS: BUN/CREATININE RATIO 8.1 (10-20); CREATININE 2.7 mg/dl (0.60-1.20)
[2016-04-30 12:20] LABS: ALB/GLOB RATIO 0.7 (0.9-2)
[2016-04-30] MEDS ORDERED: SODIUM CHLORIDE 0.9% 1000ML 1,000 ML IV STA (12:34)
[2016-04-30] MEDS ORDERED: IPRA1AER2 INH (12:55)
[2016-04-30] MEDS ORDERED: ATRIN INH (12:55)
[2016-04-30] MEDS ORDERED: DAPTOmycin IV 450 MG in SODIUM CHLORIDE 0.9% 50ML 50 ML IV STA (13:04)
[2016-04-30] MEDS ORDERED: RIVA1.5C6 PO (13:06)
[2016-04-30] MEDS ORDERED: SDMC1 PO (13:06)
[2016-04-30 13:16] LABS: URINE APPEARANCE CLOUDY (CLEAR); URINE BILIRUBIN NEG (NEG); URINE COLOR YELLOW; URINE EPITHELIAL CELL AUTO 0-5 /lpf (0-5); URINE NITRITE POS (NEG); URINE PH 6.5 (4.5-7.5); URINE SPECIFIC GRAVITY 1.008 (1.000-1.030); UROBILINOGEN NEG (NEG); ZZURINE CULT IF INDIC CATH YES
[2016-04-30] MEDS ORDERED: PIPERACILLIN/TAZOBACTAM 4.5 GM/100ML D5W IV STA (13:37)
[2016-04-30 13:39] LABS: MANUAL MICROSCOPIC REQUIRED? NO; REVIEW REQ? NO
[2016-04-30] MEDS ORDERED: OXYCODONE HCL IR 5 MG TAB (IMMEDIATE RELEASE) PO PRN (14:15)
[2016-04-30] MEDS ORDERED: MAGNESIUM HYDROXIDE SUSP 30 ML UDC PO PRN (14:15)
[2016-04-30] MEDS ORDERED: ONDANSETRON INJ 2 MG/ML 2 ML VIAL IV PRN (14:15)
--- NOTE | 2016-04-30 14:26 | History and Physical ---
History & Physical Date & Time of Service: Apr 30, 2016 at 14:15 Chief Complaint: Fever/Ams Primary Care Physician: Lewis [facility] History of Present Illness Source: patient Pt is a 70 yo female with hx of schizophrenia, CKD, DM, seizure D/O, who presents to the ER from [facility] with complaints of a constant fever that started yesterday. Pt is a poor historian thus hx obtained from ER records and detention noted. Pt was recently diagnosed with UTI yesterday and was placed on PO antibiotic. Fevers however continued throughout the day, and pt was noted to be severely hypotensive this AM and thusly fell this AM. No LOC reported and pt denies any pain. Upon questioning, pt denies any distress, and does not recall why she is here. She is alert and oriented only to name. Pt denies any headache, fever, chills, abd pain, sob, or urinary sx. 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 Status: Chronic (15) Seizure Status: Chronic (16) Seizure Status: Resolved (17) Spinal Surgery Status: Resolved Family History Hypertension Social History Smoking Status: Former Smoker Drug Use: none Marital Status: Housing status: detention Occupational Status: retired, disabled Immunizations History of Influenza Vaccine: Unknown Influenza Vaccine Date: Nov 10, 2004 History of Tetanus Vaccine?: Unknown History of Pneumococcal: Unknown History of Hepatitis B Vaccine: Unknown Multi-Drug Resistant Organisms History of MDRO: No Allergies Coded Allergies: Banana (Verified Allergy, Unknown, RAW -ROOF OF MOUTH SWELLS, 04/30/16) Sulfa Antibiotics (Verified Allergy, Unknown, mouth swells, bumps on roof of mouth, 04/30/16) Home Medications Scheduled Amlodipine (Norvasc), 5 MG PO QAM Duloxetine Hcl (Cymbalta), 40 MG PO QAM Gabapentin (Neurontin), 400 MG PO TID Haloperidol (Haloperidol), 1 MG PO TID Ipratropium-Albuterol (Combivent Respimat), 1 PUFFS INH QID Magnesium Hydroxide (Milk Of Magnesia), 30 ML PO PRN Metoprolol Succ (Toprol Xl) (Toprol-Xl), 25 MG PO QAM Multivitamin (Multivitamin), 1 TABLET PO QAM Phenobarbital (Phenobarbital), 64.8 MG PO DAILY Phenytoin Sodium (Dilantin), 60 MG PO TID Quetiapine Fumarate (Seroquel), 25 MG PO HS Ranitidine (Zantac), 150 MG PO BID Rivastigmine Tartrate (Exelon), 1.5 MG PO BID Sennosides-Docusate Sodium (Senna/Docusate Sodium), 1 TAB PO BID Sodium Chloride (Sodium Chloride), 1 TAB PO DAILY Scheduled PRN Acetaminophen (Tylenol), 650 MG PO Q6 PRN for Pain Oxycodone Ir (Roxicodone Ir), 5 MG PO Q8 PRN for Pain Review of Systems Constitutional: No chills, No fever Eyes: No eye pain, No worsening of vision ENT: No hearing loss, No nasal symptoms Respiratory: No cough, No sputum Cardiovascular: No chest pain, No orthopnea Abdomen: No nausea, No pain Musculoskeletal: No joint pain, No muscle pain Genitourinary - Female: No dysuria, No urinary frequency, No urinary urgency Neurologic: No paralysis, No weakness Integumentary: No itch, No rash Physical Exam Vital Signs Date Time Temp Pulse Resp B/P Pulse Ox O2 Delivery O2 Flow Rate FiO2 04/30/16 13:39 78 18 143/64 95 Room Air 04/30/16 13:32 74 04/30/16 12:34 77 18 121/55 95 Room Air 04/30/16 12:16 74 18 99/45 92 Room Air 04/30/16 11:51 93 Room Air 04/30/16 11:11 70 04/30/16 11:06 37.1 73 16 88/44 91 Room Air General Appearance: WD/WN, no apparent distress Neck: supple, no adenopathy Respiratory/Chest: lungs clear, normal breath sounds Cardiovascular: no edema, no gallop Abdomen/GI: non tender, soft Back: normal inspection, no CVA tenderness Neurologic/Psych: alert, + disoriented Diagnostics Laboratory Results Results Past 24 Hours Test 04/30/16 11:40 04/30/16 11:47 04/30/16 12:13 Range/Units White Blood Count 19.15 4.8-10.8 K/uL Red Blood Count 3.50 4.2-5.4 M/uL Hemoglobin 10.5 12.0-16.0 g/dL Hematocrit 30.8 37-47 % Mean Corpuscular Volume 88.0 80-100 fL Mean Corpuscular Hemoglobin 30.0 25-34 pg Mean Corpuscular Hemoglobin Concent 34.1 32-36 g/dl Platelet Count 188 130-400 K/uL Mean Platelet Volume 10.0 7.4-10.4 fL Neutrophils (%) (Auto) 80.3 % Lymphocytes (%) (Auto) 9.0 % Monocytes (%) (Auto) 10.0 % Eosinophils (%) (Auto) 0.1 % Basophils (%) (Auto) 0.2 % Neutrophils # (Auto) 15.40 1.4-6.5 K/uL Lymphocytes # (Auto) 1.73 1.2-3.4 K/uL Monocytes # (Auto) 1.91 0.11-0.59 K/uL Eosinophils # (Auto) 0.01 0-0.5 K/uL Basophils # (Auto) 0.03 0-0.2 K/uL RDW Standard Deviation 45.1 36.4-46.3 fL RDW Coefficient of Variation 13.9 11.5-14.5 % Immature Granulocyte % (Auto) 0.4 % Immature Granulocyte # (Auto) 0.07 0.00-0.02 K/uL Prothrombin Time 13.9 9.0-12.0 SECONDS Prothromb Time International Ratio 1.3 0.9-1.1 Activated Partial Thromboplast Time 31.8 21.0-31.0 SECONDS Partial Thromboplastin Ratio 1.2 Sodium Level 138 136-145 mmol/L Potassium Level 4.0 3.5-5.1 mmol/L Chloride Level 103 98-107 mmol/L Carbon Dioxide Level 27 21-32 mmol/L Anion Gap 8.0 3-11 mmol/L Blood Urea Nitrogen 22 7-18 mg/dl Creatinine 2.70 0.60-1.20 mg/dl Est Creatinine Clear Calc Drug Dose 18.1 ml/min Estimated GFR () 19.9 Estimated GFR (Non- 17.2 BUN/Creatinine Ratio 8.1 10-20 Random Glucose 115 70-99 mg/dl Calcium Level 8.0 8.5-10.1 mg/dl Total Bilirubin 0.3 0.2-1 mg/dl Aspartate Amino Transf (AST/SGOT) 8 15-37 U/L Alanine Aminotransferase (ALT/SGPT) 11 12-78 U/L Alkaline Phosphatase 135 45-117 U/L Total Protein 6.9 6.4-8.2 gm/dl Albumin 2.8 3.4-5.0 gm/dl Globulin 4.1 2.5-4.0 gm/dl Albumin/Globulin Ratio 0.7 0.9-2 Bedside Lactic Acid Venous 1.28 0.90-1.70 mmol/L Urine Color YELLOW Urine Appearance CLOUDY CLEAR Urine pH 6.5 4.5-7.5 Urine Specific [place] 1.008 1.000-1.030 Urine Protein 2+ NEG Urine Glucose (UA) NEG NEG Urine Ketones NEG NEG Urine Occult Blood 2+ NEG Urine Nitrite POS NEG Urine Bilirubin NEG NEG Urine Urobilinogen NEG NEG Urine Leukocyte Esterase LARGE NEG Urine WBC (Auto) >30 0-5 /hpf Urine RBC (Auto) 0-4 0-4 /hpf Urine Hyaline Casts (Auto) 1-5 0-5 /lpf Urine Epithelial Cells (Auto) 0-5 0-5 /lpf Urine Bacteria (Auto) 2+ NEG Microbiology Results 04/30/16 Blood Culture, Received Pending 04/30/16 Blood Culture, Received Pending 04/30/16 Urine Culture, Received Pending Impression Assessment and Plan Pt is a 70 yo female who presents from [facility] with 1 day hx of fevers, hypotension noted to be in sepsis upon arrival to ER Severe sepsis with hypotension likely secondary to urinary source. WBC on admission is 19. Afebrile byt BP on arrival 88/44. Due to poor access central line was placed. Lactate WNL. COnt on zosyn renally dosed that was started in ER. Will also cont IV NS at 100 cc/hr. Blood cx pending Urine cx pending CKD stage 3 - Cont IVF, baseline Cr 1.6-1.9. Likely worsening from sepsis with hypotension as noted above. Cont to trend PRP COPD - Cont combivent at this time. Stable Seizure D/O - Cont dilantin and phenobarb, check level Schizophrenia - Cont haldol and seroquel HTN - Hold all antihypertensives due to sepsis Hx of renal cell CA and nephrectomy FULL CODE VTE Prophylaxis VTE Risk Assessment Done? Y/N: Yes Risk Level: Moderate
[2016-04-30] MEDS ORDERED: PIPERACILL/TAZOBAC CONSULT ACTIVE PRN (14:45)
[2016-04-30] MEDS: SODIUM CHLORIDE 0.9% 1000ML 1,000 ML IV SCH (15:40)
[2016-04-30] MEDS: ACETAMINOPHEN 325 MG TAB PO PRN (15:47)
[2016-04-30 16:20] LABS: PHENOBARBITAL 13.8 mcg/mL (15.0-40.0)
[2016-04-30] MEDS: IPRATROPIUM BROMIDE/ALBUTEROL respimat INH INH SCH ×2 (17:00→20:24)
[2016-04-30] MEDS: PHENYTOIN SODIUM ER 30 MG CAP PO SCH (20:39)
[2016-04-30] MEDS: RIVASTIGMINE TARTRATE (EXELON) 1.5 MG CAP PO SCH (20:40)
[2016-04-30] MEDS: GABAPENTIN 400 MG CAP PO SCH (20:41)
[2016-04-30] MEDS: DOCUSATE SODIUM/SENNA 50/8.6MG TAB PO SCH (20:41)
[2016-04-30] MEDS: QUETIAPINE FUMARATE 25 MG TAB PO SCH (20:42)
[2016-04-30] MEDS: RANITIDINE HCL 150 MG TAB PO SCH (20:42)
[2016-04-30] MEDS: HALOPERIDOL 1 MG TAB PO SCH (20:44)
[2016-04-30] MEDS ORDERED: HALOPERIDOL 1 MG TAB PO SCH (21:00)
[2016-04-30] MEDS: HEPARIN SOD 5000 UNIT/0.5 ML CARP SQ SCH (22:38)
[2016-04-30] MEDS: PIPERACILL/TAZOBAC IV 3.375 GM in DEXTROSE 5% 100ML 100 ML IV SCH (22:39)
[2016-05-01] VITALS (10 sets, daily range): BP systolic 95–161; BP diastolic 59–78; PULSE 69–102; TEMP 36.3–39.3; O2SAT 91–100
[2016-05-01] MEDS: SODIUM CHLORIDE 0.9% 1000ML 1,000 ML IV SCH ×3 (01:44→21:26)
[2016-05-01] MEDS: HEPARIN SOD 5000 UNIT/0.5 ML CARP SQ SCH ×3 (05:47→21:26)
[2016-05-01 06:17] LABS: BASO % 0.1 %; BASO ABS # 0.02 K/uL (0-0.2); COMPLETE YES; EOS % 0.3 %; HEMATOCRIT 29.2 % (37-47); IG% 0.3 %; LYMPH % 4.4 %; MEAN CELL VOLUME 88.2 fL (80-100); MEAN CORPUSCULAR HEMOGLOBIN 29.9 pg (25-34); MEAN CORPUSCULAR HGB CONC 33.9 g/dl (32-36); MEAN PLATELET VOLUME 9.9 fL (7.4-10.4); MONO % 5.1 %; NEUT % 89.8 %; PLATELET COUNT 142 K/uL (130-400); RED BLOOD COUNT 3.31 M/uL (4.2-5.4); WHITE BLOOD COUNT 20.27 K/uL (4.8-10.8)
[2016-05-01 06:51] LABS: BUN/CREATININE RATIO 9.9 (10-20); CALCIUM 7.6 mg/dl (8.5-10.1); CREATININE 2.4 mg/dl (0.60-1.20); POTASSIUM 3.9 mmol/L (3.5-5.1)
[2016-05-01] MEDS: ACETAMINOPHEN 325 MG TAB PO PRN ×2 (07:35→19:35)
--- NOTE | 2016-05-01 07:51 | Clinical Documentation Query ---
CLINICAL DOCUMENTATION QUERY 70 year old female who presents to the Emergency Room with complaints of a constant fever and constant confusion. She has been diagnosed with Severe sepsis 2/2 urinary source. Query #1/2 In your clinical opinion is this patient being managed for: ( ) Metabolic/Septic encephalopathy treated with IVF's and IV antibiotics. ( ) Other explanation of clinical findings (Please Explain) ( ) Unable to determine (Please Define) ( ) Need to Discuss ( ) Not Agree The medical record reflects the following clinical findings, treatment, and risk factors. Clinical Indicators: Confusion. H&P PE revealed patient is alert and disoriented. Nursing assessments show patient is Oriented to self, disoriented and confused. Fever 39.2, Hypotension 88/44, hypoxia 79%, leukocytosis 20.27, and ILIA (BUN 22, Creatinine 2.70, GFR 17.2) are all present. Treatment: multiple IVF boluses, IV Daptomycin, IV Zosyn, Haldol, Tylenol, Risk Factors: Age, Sepsis, ILIA, Hypoxia, Metabolic Encephalopathy Risk Factors: * severe electrolyte imbalances, * acute and chronic renal failure, * sepsis, * hypoxia, * severe nutritional deficiencies, * SIRS d/t a non-infection process (walters, trauma) Clinical Indicators: The main features of reversible metabolic encephalopathy are confusion, typified by disorientation and inattentiveness and accompanied in certain special instances by asterixis, tremor, and myoclonus, usually without signs of focal cerebral disease. This state may progress in stages to one of stupor and coma. Slowing of the background rhythms in the electroencephalogram (EEG) reflects the severity of the metabolic disturbance. Seizures may or may not occur, most being associated with particular underlying causes of encephalopathy such as hyponatremia and hyperosmolarity. Treatment: * Metabolic encephalopathy is reversible if treated promptly and prior to permanent brain damage. * The primary plan of care is treatment of the underlying cause. Ref: Wolfgang and Armaan's Principles of Neurology 10th edition, 2014 [facility] Query #2/2 In your clinical opinion is this patient being managed for: ( ) ILIA on CKD 3 treated with IVF's and daily PRP monitoring. ( ) Other explanation of clinical findings (Please Explain) ( ) Unable to determine (Please Define) ( ) Need to Discuss ( ) Not Agree The medical record reflects the following clinical findings, treatment, and risk factors. Clinical Indicators: BUN 22, Creatinine 2.70, GFR 17.2, Cumulative labs over past year reveal a creatinine baseline around 1.90. Treatment: multiple IVF boluses, daily PRP's Risk Factors: Age, sepsis, hypotension, underlying CKD 3 Please clarify and document your clinical opinion in the progress notes and discharge summary. Terms such as "probable", "suspected", "likely", "questionable", "possible", or "still to be ruled out" are acceptable. IF IN AGREEMENT, YOU MUST DOCUMENT ABOVE DIAGNOSTIC STATEMENT IN DAILY PROGRESS NOTES AND DISCHARGE SUMMARY. This document is not part of the patient's record. MIESHA Criteria * The MIESHA criteria differ from the RIFLE criteria in several ways. The RIFLE criteria are defined as changes within 7 days, while the MIESHA criteria suggest using 48 hours. * The MIESHA classification includes less severe injury in the criteria and MIESHA also avoids using the glomerular filtration rate as a marker in ILIA, as there is no dependable way to measure glomerular filtration rate and estimated glomerular filtration rate are unreliable in ILIA. * The criteria: Abrupt (within 48 h) reduction in kidney function currently defined as an absolute increase in serum creatinine of 0.3 mg/dL or more (=26.4 umol/L) or A percentage increase in serum creatinine of 50% or more (1.5-fold from baseline) or A reduction in urine output (documented oliguria of < 0.5 mL/kg/h for >6 h) * *volume status must be optimized and urinary tract obstruction excluded when using oliguria as diagnostic criteria. KDIGO Criteria * In 2012 the Kidney Disease Improving Global Outcomes (KDIGO) released their clinical practice guidelines for acute kidney injury (ILIA), which build off of the RIFLE criteria and the MIESAH criteria. * KDIGO defines ILIA as any of the following: Increase in serum creatinine by 0.3mg/dL or more within 48 hours or Increase in serum creatinine to 1.5 times baseline or more within the last 7 days or Urine output less than 0.5 mL/kg/h for 6 hours Thank You, Isaias Rodriguez, ERLIN [phone]
[2016-05-01] MEDS ORDERED: METOPROLOL SUCC 25MG EXT REL TAB PO SCH (09:00)
[2016-05-01] MEDS: DULOXETINE HCL 20 MG CAP PO SCH (09:44)
[2016-05-01] MEDS: PHENYTOIN SODIUM ER 30 MG CAP PO SCH ×3 (09:45→20:37)
[2016-05-01] MEDS: RIVASTIGMINE TARTRATE (EXELON) 1.5 MG CAP PO SCH ×2 (09:46→20:38)
[2016-05-01] MEDS: GABAPENTIN 400 MG CAP PO SCH ×3 (09:47→20:36)
[2016-05-01] MEDS: HALOPERIDOL 1 MG TAB PO SCH ×3 (09:47→20:38)
[2016-05-01] MEDS: PHENOBARBITAL 32.4 MG TAB PO SCH (09:48)
[2016-05-01] MEDS: DOCUSATE SODIUM/SENNA 50/8.6MG TAB PO SCH ×2 (09:48→20:37)
[2016-05-01] MEDS: SODIUM CHLORIDE 1 GM TAB PO SCH (09:49)
[2016-05-01] MEDS: RANITIDINE HCL 150 MG TAB PO SCH ×2 (09:49→20:37)
[2016-05-01] MEDS: PIPERACILL/TAZOBAC IV 3.375 GM in DEXTROSE 5% 100ML 100 ML IV SCH ×2 (09:50→21:25)
[2016-05-01] MEDS: IPRATROPIUM BROMIDE/ALBUTEROL respimat INH INH SCH ×4 (09:53→20:36)
--- NOTE | 2016-05-01 10:40 | Hospitalist Progress Note ---
Hospitalist Progress Note Date of Service May 01, 2016. Subjective Pt evaluation today including: conversation w/ patient, chart review, lab review Voiding: mejia catheter in place All Other Systems: Reviewed and Negative Medications Medications (Trade) Dose Ordered Sig/Benito Route Start Time Stop Time Status Last Admin Dose Admin Sodium Chloride 500 ml @ 999 mls/hr Q31M ONCE IV 04/30/16 11:19 04/30/16 11:49 DC 04/30/16 11:10 999 MLS/HR Sodium Chloride 1,000 ml @ 500 mls/hr Q2H STAT IV 04/30/16 12:34 04/30/16 14:33 DC 04/30/16 12:38 500 MLS/HR Daptomycin/Sodium Chloride (Cubicin IV/Nss 50ml) 59 ml @ 120 mls/hr NOW STAT IV 04/30/16 13:04 04/30/16 13:33 DC 04/30/16 13:35 120 MLS/HR Piperacillin Sod/ Tazobactam Sod (Zosyn Iv) 4.5 gm NOW STAT IV 04/30/16 13:37 04/30/16 13:38 DC 04/30/16 13:45 4.5 GM Heparin Sodium (Porcine) 5000 unit 5,000 unit Q8 SQ 04/30/16 22:00 05/30/16 21:59 05/01/16 05:47 5,000 UNIT Sodium Chloride (Nss 1000ml) 1,000 ml @ 100 mls/hr Q10H IV 04/30/16 15:30 05/30/16 15:29 05/01/16 01:44 100 MLS/HR Acetaminophen (Tylenol Tab) 650 mg Q4H PRN PO 04/30/16 14:15 05/30/16 14:14 05/01/16 07:35 650 MG Duloxetine HCl (Cymbalta Cap) 40 mg QAM PO 05/01/16 09:00 05/31/16 08:59 05/01/16 09:44 40 MG Gabapentin (Neurontin Cap) 400 mg TID PO 04/30/16 21:00 05/30/16 20:59 05/01/16 09:47 400 MG Albuterol/ Ipratropium (Combivent Respimat Inh) 1 puffs QID INH 04/30/16 17:00 05/30/16 16:59 05/01/16 09:53 1 PUFFS Phenytoin Sodium (Dilantin Er Cap) 60 mg TID PO 04/30/16 21:00 05/30/16 20:59 05/01/16 09:45 60 MG Quetiapine Fumarate (seroQUEL TAB) 25 mg HS PO 04/30/16 21:00 05/30/16 20:59 04/30/16 20:42 25 MG Ranitidine HCl (zANTac TAB) 150 mg BID PO 04/30/16 21:00 05/30/16 20:59 05/01/16 09:49 150 MG Senna/Docusate Sodium (Senokot S Tab) 1 tab BID PO 04/30/16 21:00 05/30/16 20:59 05/01/16 09:48 1 TAB Sodium Chloride (Sodium Chloride Tab) 1 gm DAILY PO 05/01/16 09:00 05/31/16 08:59 05/01/16 09:49 1 GM Phenobarbital (Phenobarbital Tab) 64.8 mg DAILY PO 05/01/16 09:00 05/31/16 08:59 05/01/16 09:48 64.8 MG Rivastigmine Tartrate 1.5 mg 1.5 mg BID PO 04/30/16 21:00 05/30/16 20:59 05/01/16 09:46 1.5 MG Piperacillin Sod/ Tazobactam Sod/ Dextrose (Zosyn Iv/D5 100ml) 115 ml @ 28.75 mls/ hr Q12@1000,2200 IV 04/30/16 22:00 05/05/16 21:59 05/01/16 09:50 28.75 MLS/HR Haloperidol (Haldol Tab) 1 mg TID PO 04/30/16 21:00 05/30/16 20:59 05/01/16 09:47 1 MG Objective Vital Signs Date Time Temp Pulse Resp B/P Pulse Ox O2 Delivery O2 Flow Rate FiO2 05/01/16 08:22 Room Air 05/01/16 08:00 Room Air 05/01/16 07:36 38.3 92 24 161/78 91 Room Air 147/66 05/01/16 04:00 Room Air 05/01/16 03:05 36.3 69 20 103/63 93 Room Air 05/01/16 00:00 Room Air 04/30/16 23:08 36.6 80 17 98/60 92 Room Air 04/30/16 20:00 96 Nasal Cannula 2.0 04/30/16 18:57 37.4 84 20 95/61 96 Nasal Cannula 2.0 04/30/16 16:45 39.2 104 16 109/56 100 Nasal Cannula 4.0 04/30/16 16:00 100 Nasal Cannula 4.0 04/30/16 15:42 37.8 137/78 79 04/30/16 15:18 39.2 108 18 170/66 91 Room Air 04/30/16 15:00 89 18 150/67 94 Room Air 04/30/16 14:30 86 18 93 Room Air 04/30/16 13:39 78 18 143/64 95 Room Air 04/30/16 13:32 74 04/30/16 12:34 77 18 121/55 95 Room Air 04/30/16 12:16 74 18 99/45 92 Room Air 04/30/16 11:51 93 Room Air 04/30/16 11:11 70 04/30/16 11:06 37.1 73 16 88/44 91 Room Air Physical Exam General Appearance: WD/WN, no apparent distress Eyes: sclerae normal ENT: hearing grossly normal Neck: supple Respiratory/Chest: lungs clear Cardiovascular: regular rate, rhythm Abdomen: normal bowel sounds Extremities: normal range of motion Neurologic/Psychiatric: alert Skin: normal color Laboratory Results Last 24 Hours Test 04/30/16 11:40 04/30/16 11:47 04/30/16 12:13 04/30/16 15:20 White Blood Count 19.15 K/uL Red Blood Count 3.50 M/uL Hemoglobin 10.5 g/dL Hematocrit 30.8 % Mean Corpuscular Volume 88.0 fL Mean Corpuscular Hemoglobin 30.0 pg Mean Corpuscular Hemoglobin Concent 34.1 g/dl Platelet Count 188 K/uL Mean Platelet Volume 10.0 fL Neutrophils (%) (Auto) 80.3 % Lymphocytes (%) (Auto) 9.0 % Monocytes (%) (Auto) 10.0 % Eosinophils (%) (Auto) 0.1 % Basophils (%) (Auto) 0.2 % Neutrophils # (Auto) 15.40 K/uL Lymphocytes # (Auto) 1.73 K/uL Monocytes # (Auto) 1.91 K/uL Eosinophils # (Auto) 0.01 K/uL Basophils # (Auto) 0.03 K/uL RDW Standard Deviation 45.1 fL RDW Coefficient of Variation 13.9 % Immature Granulocyte % (Auto) 0.4 % Immature Granulocyte # (Auto) 0.07 K/uL Prothrombin Time 13.9 SECONDS Prothromb Time International Ratio 1.3 Activated Partial Thromboplast Time 31.8 SECONDS Partial Thromboplastin Ratio 1.2 Sodium Level 138 mmol/L Potassium Level 4.0 mmol/L Chloride Level 103 mmol/L Carbon Dioxide Level 27 mmol/L Anion Gap 8.0 mmol/L Blood Urea Nitrogen 22 mg/dl Creatinine 2.70 mg/dl Est Creatinine Clear Calc Drug Dose 18.1 ml/min Estimated GFR () 19.9 Estimated GFR (Non- 17.2 BUN/Creatinine Ratio 8.1 Random Glucose 115 mg/dl Calcium Level 8.0 mg/dl Total Bilirubin 0.3 mg/dl Aspartate Amino Transf (AST/SGOT) 8 U/L Alanine Aminotransferase (ALT/SGPT) 11 U/L Alkaline Phosphatase 135 U/L Total Protein 6.9 gm/dl Albumin 2.8 gm/dl Globulin 4.1 gm/dl Albumin/Globulin Ratio 0.7 Bedside Lactic Acid Venous 1.28 mmol/L Urine Color YELLOW Urine Appearance CLOUDY Urine pH 6.5 Urine Specific [place] 1.008 Urine Protein 2+ Urine Glucose (UA) NEG Urine Ketones NEG Urine Occult Blood 2+ Urine Nitrite POS Urine Bilirubin NEG Urine Urobilinogen NEG Urine Leukocyte Esterase LARGE Urine WBC (Auto) >30 /hpf Urine RBC (Auto) 0-4 /hpf Urine Hyaline Casts (Auto) 1-5 /lpf Urine Epithelial Cells (Auto) 0-5 /lpf Urine Bacteria (Auto) 2+ Phenytoin (Dilantin) Level 8.0 mcg/mL Phenobarbital Level 13.8 mcg/mL Test 05/01/16 06:10 White Blood Count 20.27 K/uL Red Blood Count 3.31 M/uL Hemoglobin 9.9 g/dL Hematocrit 29.2 % Mean Corpuscular Volume 88.2 fL Mean Corpuscular Hemoglobin 29.9 pg Mean Corpuscular Hemoglobin Concent 33.9 g/dl Platelet Count 142 K/uL Mean Platelet Volume 9.9 fL Neutrophils (%) (Auto) 89.8 % Lymphocytes (%) (Auto) 4.4 % Monocytes (%) (Auto) 5.1 % Eosinophils (%) (Auto) 0.3 % Basophils (%) (Auto) 0.1 % Neutrophils # (Auto) 18.20 K/uL Lymphocytes # (Auto) 0.90 K/uL Monocytes # (Auto) 1.03 K/uL Eosinophils # (Auto) 0.06 K/uL Basophils # (Auto) 0.02 K/uL RDW Standard Deviation 46.0 fL RDW Coefficient of Variation 14.2 % Immature Granulocyte % (Auto) 0.3 % Immature Granulocyte # (Auto) 0.06 K/uL Sodium Level 139 mmol/L Potassium Level 3.9 mmol/L Chloride Level 107 mmol/L Carbon Dioxide Level 22 mmol/L Anion Gap 10.0 mmol/L Blood Urea Nitrogen 24 mg/dl Creatinine 2.40 mg/dl Est Creatinine Clear Calc Drug Dose 20.4 ml/min Estimated GFR () 22.9 Estimated GFR (Non- 19.8 BUN/Creatinine Ratio 9.9 Random Glucose 91 mg/dl Calcium Level 7.6 mg/dl Diagnostic Results SINGLE VIEW CHEST CLINICAL HISTORY: Sepsis. FINDINGS: An AP, portable, upright chest radiograph is compared to study dated 02/18/2016. The examination is degraded by portable technique and patient rotation. A right subclavian central venous catheter is new from previous. The heart is enlarged and there is atherosclerotic calcification of the thoracic aorta. The pulmonary vasculature is noncongested. There is chronic interstitial thickening and elevation of left hemidiaphragm with left basilar atelectasis. No airspace consolidation is seen typical for pneumonia and there is no large pleural effusion. No pneumothorax is seen. The skeletal structures are osteopenic. Advanced degenerative change is noted in the thoracic spine. Chronic posttraumatic deformity is present in the right shoulder. Fusion hardware is seen in the lower cervical spine. Surgical clips are noted in the upper abdomen. IMPRESSION: Cardiomegaly and chronic changes as above. There is no acute cardiopulmonary abnormality. Electronically signed by: Buzz Alvarez M.D. 04/30/2016 12:00 PM Assessment and Plan (1) Sepsis Assessment & Plan: Patient presented with sepsis from a urinary source and has responded well to iv hydration and broad spectrum antibiotics, gram negative rods are growing in the urine I am awaiting ID with sensitivities prior to changing Zosyn. She is clinically responding to Zosyn. (2) UTI (urinary tract infection) Assessment & Plan: continue zosyn await culture results bactrim allergy (3) Renal insufficiency Assessment & Plan: Acute renal failure secondary to sepsis responding to iv hydration. creatine was .91 earlier this month will continue iv hydration.
[2016-05-01] MEDS: QUETIAPINE FUMARATE 25 MG TAB PO SCH (20:38)
[2016-05-02] VITALS (13 sets, daily range): BP systolic 119–185; BP diastolic 65–83; PULSE 83–99; TEMP 36.5–39.1; O2SAT 91–94
[2016-05-02] MEDS: ACETAMINOPHEN 325 MG TAB PO PRN ×2 (03:54→20:47)
[2016-05-02] MEDS: HEPARIN SOD 5000 UNIT/0.5 ML CARP SQ SCH (06:09)
[2016-05-02 06:39] LABS: BUN/CREATININE RATIO 10.4 (10-20); CALCIUM 7.6 mg/dl (8.5-10.1); POTASSIUM 3.5 mmol/L (3.5-5.1)
[2016-05-02 07:12] LABS: HEMATOCRIT 26.3 % (37-47); MEAN CELL VOLUME 87.1 fL (80-100); MEAN CORPUSCULAR HEMOGLOBIN 29.5 pg (25-34); MEAN CORPUSCULAR HGB CONC 33.8 g/dl (32-36); MEAN PLATELET VOLUME 10.4 fL (7.4-10.4); PLATELET COUNT 146 K/uL (130-400); RED BLOOD COUNT 3.02 M/uL (4.2-5.4); WHITE BLOOD COUNT 8.76 K/uL (4.8-10.8)
[2016-05-02 07:13] LABS: BASO % 0.2 %; BASO ABS # 0.02 K/uL (0-0.2); COMPLETE YES; EOS % 0.1 %; IG% 0.2 %; LYMPH % 7.4 %; LYMPH ABS # 0.65 K/uL (1.2-3.4); MONO % 5.4 %; NEUT % 86.7 %
[2016-05-02] MEDS: DULOXETINE HCL 20 MG CAP PO SCH (09:11)
[2016-05-02] MEDS: RIVASTIGMINE TARTRATE (EXELON) 1.5 MG CAP PO SCH ×2 (09:11→20:45)
[2016-05-02] MEDS: DOCUSATE SODIUM/SENNA 50/8.6MG TAB PO SCH ×2 (09:11→20:45)
[2016-05-02] MEDS: GABAPENTIN 400 MG CAP PO SCH ×3 (09:11→20:45)
[2016-05-02] MEDS: IPRATROPIUM BROMIDE/ALBUTEROL respimat INH INH SCH ×4 (09:11→20:46)
[2016-05-02] MEDS: SODIUM CHLORIDE 0.9% 1000ML 1,000 ML IV SCH ×2 (09:11→17:43)
[2016-05-02] MEDS: PHENYTOIN SODIUM ER 30 MG CAP PO SCH ×3 (09:12→20:45)
[2016-05-02] MEDS: RANITIDINE HCL 150 MG TAB PO SCH ×2 (09:12→20:45)
[2016-05-02] MEDS: SODIUM CHLORIDE 1 GM TAB PO SCH (09:12)
[2016-05-02] MEDS: HALOPERIDOL 1 MG TAB PO SCH ×3 (09:12→20:45)
[2016-05-02] MEDS: PIPERACILL/TAZOBAC IV 3.375 GM in DEXTROSE 5% 100ML 100 ML IV SCH (09:21)
[2016-05-02] MEDS: PHENOBARBITAL 32.4 MG TAB PO SCH (09:21)
[2016-05-02] MEDS ORDERED: NURSING VERBAL MED ORDER ONE (11:30)
[2016-05-02 14:26] LABS: BASO % 0.3 %; BASO ABS # 0.02 K/uL (0-0.2); EOS % 0.3 %; HEMATOCRIT 26.6 % (37-47); IG% 0.3 %; LYMPH % 9.4 %; LYMPH ABS # 0.65 K/uL (1.2-3.4); MEAN CORPUSCULAR HEMOGLOBIN 29.4 pg (25-34); MEAN PLATELET VOLUME 9.7 fL (7.4-10.4); MONO % 3.8 %; NEUT % 85.9 %; PLATELET COUNT 138 K/uL (130-400); RED BLOOD COUNT 3.13 M/uL (4.2-5.4); WHITE BLOOD COUNT 6.92 K/uL (4.8-10.8)
[2016-05-02 14:37] LABS: COMPLETE YES; MEAN CORPUSCULAR HGB CONC 34.6 g/dl (32-36)
[2016-05-02] MEDS ORDERED: AMLODIPINE BESYLATE 5 MG TAB PO ONE (17:30)
[2016-05-02] MEDS: CEFTRIAXONE SOD INJ 2000 MG in DEXTROSE 5% 50ML IV SCH (19:53)
[2016-05-02] MEDS: QUETIAPINE FUMARATE 25 MG TAB PO SCH (20:45)
--- NOTE | 2016-05-02 21:03 | Hospitalist Progress Note ---
Hospitalist Progress Note Date of Service May 02, 2016. Subjective Pt evaluation today including: conversation w/ patient patient still not feeling well low grade temp Constitutional: + fever All Other Systems: Reviewed and Negative Objective Vital Signs Date Time Temp Pulse Resp B/P Pulse Ox O2 Delivery O2 Flow Rate FiO2 05/02/16 19:39 38.0 99 21 152/70 92 Room Air 05/02/16 17:30 96 185/83 05/02/16 16:00 93 Room Air 05/02/16 16:00 37.5 89 20 162/79 93 Room Air 05/02/16 12:53 37.3 84 19 134/71 93 Room Air 05/02/16 12:05 91 Room Air 05/02/16 08:13 37.5 83 20 119/65 91 05/02/16 07:15 Room Air 05/02/16 04:59 37.8 93 17 119/73 05/02/16 04:00 Room Air 05/02/16 03:51 39.1 95 18 181/77 93 Room Air 05/02/16 01:45 36.5 05/02/16 00:28 38.0 05/02/16 00:02 38.2 87 18 132/67 92 Room Air 05/02/16 00:00 Room Air 05/01/16 21:22 38.7 102 16 102/62 93 Physical Exam General Appearance: no apparent distress Eyes: sclerae normal ENT: hearing grossly normal Neck: trachea midline Respiratory/Chest: chest non-tender Cardiovascular: regular rate, rhythm Abdomen: normal bowel sounds, non tender Laboratory Results Last 24 Hours Test 05/02/16 05:54 05/02/16 14:12 White Blood Count 8.76 K/uL 6.92 K/uL Red Blood Count 3.02 M/uL 3.13 M/uL Hemoglobin 8.9 g/dL 9.2 g/dL Hematocrit 26.3 % 26.6 % Mean Corpuscular Volume 87.1 fL 85.0 fL Mean Corpuscular Hemoglobin 29.5 pg 29.4 pg Mean Corpuscular Hemoglobin Concent 33.8 g/dl 34.6 g/dl Platelet Count 146 K/uL 138 K/uL Mean Platelet Volume 10.4 fL 9.7 fL Neutrophils (%) (Auto) 86.7 % 85.9 % Lymphocytes (%) (Auto) 7.4 % 9.4 % Monocytes (%) (Auto) 5.4 % 3.8 % Eosinophils (%) (Auto) 0.1 % 0.3 % Basophils (%) (Auto) 0.2 % 0.3 % Neutrophils # (Auto) 7.59 K/uL 5.95 K/uL Lymphocytes # (Auto) 0.65 K/uL 0.65 K/uL Monocytes # (Auto) 0.47 K/uL 0.26 K/uL Eosinophils # (Auto) 0.01 K/uL 0.02 K/uL Basophils # (Auto) 0.02 K/uL 0.02 K/uL RDW Standard Deviation 45.1 fL 43.8 fL RDW Coefficient of Variation 14.2 % 14.2 % Immature Granulocyte % (Auto) 0.2 % 0.3 % Immature Granulocyte # (Auto) 0.02 K/uL 0.02 K/uL Red Blood Cell Morphology Unremarkable Sodium Level 137 mmol/L Potassium Level 3.5 mmol/L Chloride Level 107 mmol/L Carbon Dioxide Level 22 mmol/L Anion Gap 8.0 mmol/L Blood Urea Nitrogen 21 mg/dl Creatinine 2.00 mg/dl Est Creatinine Clear Calc Drug Dose 24.6 ml/min Estimated GFR () 28.6 Estimated GFR (Non- 24.7 BUN/Creatinine Ratio 10.4 Random Glucose 95 mg/dl Calcium Level 7.6 mg/dl Assessment and Plan (1) Sepsis Assessment & Plan: Sensitivities discussed with pharmacy will change zosyn to ceftriaxone. (2) UTI (urinary tract infection) (3) Renal insufficiency Assessment & Plan: continue iv hydration
[2016-05-03] VITALS (10 sets, daily range): BP systolic 135–174; BP diastolic 71–84; PULSE 70–87; TEMP 36.6–37.1; O2SAT 93–98
[2016-05-03] MEDS: SODIUM CHLORIDE 0.9% 1000ML 1,000 ML IV SCH ×2 (04:12→13:12)
[2016-05-03 06:37] LABS: BASO % 0.3 %; BASO ABS # 0.02 K/uL (0-0.2); COMPLETE YES; HEMATOCRIT 27.3 % (37-47); IG% 0.3 %; LYMPH % 11.3 %; LYMPH ABS # 0.76 K/uL (1.2-3.4); MEAN CELL VOLUME 84.3 fL (80-100); MEAN CORPUSCULAR HEMOGLOBIN 29.6 pg (25-34); MEAN CORPUSCULAR HGB CONC 35.2 g/dl (32-36); MEAN PLATELET VOLUME 9.6 fL (7.4-10.4); MONO % 10.4 %; NEUT % 76.7 %; PLATELET COUNT 143 K/uL (130-400); RED BLOOD COUNT 3.24 M/uL (4.2-5.4)
[2016-05-03 07:10] LABS: BUN/CREATININE RATIO 9.4 (10-20); CREATININE 1.8 mg/dl (0.60-1.20); POTASSIUM 3.3 mmol/L (3.5-5.1)
[2016-05-03] MEDS: SODIUM CHLORIDE 1 GM TAB PO SCH (07:17)
[2016-05-03] MEDS: RIVASTIGMINE TARTRATE (EXELON) 1.5 MG CAP PO SCH ×2 (07:17→21:20)
[2016-05-03] MEDS: IPRATROPIUM BROMIDE/ALBUTEROL respimat INH INH SCH ×4 (07:17→21:20)
[2016-05-03] MEDS: DULOXETINE HCL 20 MG CAP PO SCH (07:18)
[2016-05-03] MEDS: HALOPERIDOL 1 MG TAB PO SCH ×3 (07:18→21:21)
[2016-05-03] MEDS: DOCUSATE SODIUM/SENNA 50/8.6MG TAB PO SCH ×2 (07:18→21:21)
[2016-05-03] MEDS: RANITIDINE HCL 150 MG TAB PO SCH ×2 (07:18→21:20)
[2016-05-03] MEDS: PHENYTOIN SODIUM ER 30 MG CAP PO SCH ×3 (07:19→21:20)
[2016-05-03] MEDS: GABAPENTIN 400 MG CAP PO SCH ×3 (07:19→21:20)
[2016-05-03] MEDS: PHENOBARBITAL 32.4 MG TAB PO SCH (08:02)
[2016-05-03] MEDS ORDERED: METOPROLOL SUCC 25MG EXT REL TAB PO SCH (09:00)
[2016-05-03] MEDS: ACETAMINOPHEN 325 MG TAB PO PRN (11:37)
--- NOTE | 2016-05-03 16:14 | Hospitalist Progress Note ---
Hospitalist Progress Note Date of Service May 03, 2016. Subjective Pt evaluation today including: conversation w/ patient, lab review patient complaining of pain from the mejia will dc Medications Medications (Trade) Dose Ordered Sig/Benito Route Start Time Stop Time Status Last Admin Dose Admin Ceftriaxone Sodium/Dextrose (Rocephin Inj/D5 50ml) 70 ml @ 140 mls/hr DAILY@1999 IV 05/02/16 20:00 05/07/16 19:59 05/02/16 19:53 140 MLS/HR Amlodipine Besylate (Norvasc Tab) 5 mg NOW ONCE PO 05/02/16 17:30 05/02/16 17:36 DC 05/02/16 18:12 5 MG Metoprolol Succinate (Toprol Xl Tab) 25 mg QAM PO 05/03/16 09:00 06/02/16 08:59 05/03/16 07:22 25 MG Objective Vital Signs Date Time Temp Pulse Resp B/P Pulse Ox O2 Delivery O2 Flow Rate FiO2 05/03/16 12:00 94 Room Air 05/03/16 11:51 36.7 75 18 160/77 96 Room Air 05/03/16 08:00 94 Room Air 05/03/16 07:56 36.9 82 18 162/80 94 Room Air 05/03/16 04:00 Room Air 05/03/16 03:53 36.7 79 19 135/71 93 Room Air 05/03/16 00:01 94 Room Air 05/02/16 22:58 37.6 96 18 127/74 94 Room Air 05/02/16 22:25 37.6 05/02/16 20:00 Room Air 05/02/16 19:39 38.0 99 21 152/70 92 Room Air 05/02/16 17:30 96 185/83 Physical Exam General Appearance: WD/WN, no apparent distress ENT: hearing grossly normal Neck: trachea midline Respiratory/Chest: lungs clear Cardiovascular: regular rate, rhythm Abdomen: normal bowel sounds, non tender Extremities: non-tender Laboratory Results Last 24 Hours Test 05/03/16 06:05 White Blood Count 6.70 K/uL Red Blood Count 3.24 M/uL Hemoglobin 9.6 g/dL Hematocrit 27.3 % Mean Corpuscular Volume 84.3 fL Mean Corpuscular Hemoglobin 29.6 pg Mean Corpuscular Hemoglobin Concent 35.2 g/dl Platelet Count 143 K/uL Mean Platelet Volume 9.6 fL Neutrophils (%) (Auto) 76.7 % Lymphocytes (%) (Auto) 11.3 % Monocytes (%) (Auto) 10.4 % Eosinophils (%) (Auto) 1.0 % Basophils (%) (Auto) 0.3 % Neutrophils # (Auto) 5.13 K/uL Lymphocytes # (Auto) 0.76 K/uL Monocytes # (Auto) 0.70 K/uL Eosinophils # (Auto) 0.07 K/uL Basophils # (Auto) 0.02 K/uL RDW Standard Deviation 44.2 fL RDW Coefficient of Variation 14.2 % Immature Granulocyte % (Auto) 0.3 % Immature Granulocyte # (Auto) 0.02 K/uL Sodium Level 141 mmol/L Potassium Level 3.3 mmol/L Chloride Level 110 mmol/L Carbon Dioxide Level 21 mmol/L Anion Gap 10.0 mmol/L Blood Urea Nitrogen 17 mg/dl Creatinine 1.80 mg/dl Est Creatinine Clear Calc Drug Dose 27.4 ml/min Estimated GFR () 32.5 Estimated GFR (Non- 28.0 BUN/Creatinine Ratio 9.4 Random Glucose 88 mg/dl Calcium Level 8.0 mg/dl Assessment and Plan (1) Sepsis Assessment & Plan: resolving continue ceftriaxone for Ecoli UTI. CHRISTIAN mejia (2) UTI (urinary tract infection) (3) Renal insufficiency improving with iv hydration
[2016-05-03] MEDS: QUETIAPINE FUMARATE 25 MG TAB PO SCH (21:20)
[2016-05-03] MEDS: CEFTRIAXONE SOD INJ 2000 MG in DEXTROSE 5% 50ML IV SCH (21:20)
[2016-05-04] VITALS (11 sets, daily range): BP systolic 129–174; BP diastolic 68–83; PULSE 64–117; TEMP 36.5–37.7; O2SAT 93–98
[2016-05-04] MEDS: SODIUM CHLORIDE 0.9% 1000ML 1,000 ML IV SCH ×3 (00:19→20:53)
[2016-05-04] MEDS ORDERED: METOPROLOL SUCC 50MG EXT REL TAB PO STA (01:27)
[2016-05-04] MEDS: ACETAMINOPHEN 325 MG TAB PO PRN (03:53)
[2016-05-04 06:20] LABS: BASO % 0.4 %; BASO ABS # 0.02 K/uL (0-0.2); COMPLETE YES; EOS % 3.4 %; IG% 0.2 %; LYMPH % 16.2 %; LYMPH ABS # 0.77 K/uL (1.2-3.4); MEAN CELL VOLUME 85.4 fL (80-100); MEAN CORPUSCULAR HEMOGLOBIN 29.3 pg (25-34); MEAN CORPUSCULAR HGB CONC 34.3 g/dl (32-36); MEAN PLATELET VOLUME 10.1 fL (7.4-10.4); MONO % 20.6 %; NEUT % 59.2 %; PLATELET COUNT 153 K/uL (130-400); RED BLOOD COUNT 3.28 M/uL (4.2-5.4); WHITE BLOOD COUNT 4.76 K/uL (4.8-10.8)
[2016-05-04 06:50] LABS: BUN/CREATININE RATIO 9.5 (10-20); CALCIUM 8.1 mg/dl (8.5-10.1); CREATININE 1.5 mg/dl (0.60-1.20)
[2016-05-04] MEDS: RANITIDINE HCL 150 MG TAB PO SCH ×2 (07:18→21:09)
[2016-05-04] MEDS: GABAPENTIN 400 MG CAP PO SCH ×3 (07:18→21:08)
[2016-05-04] MEDS: METOPROLOL SUCC 25MG EXT REL TAB PO SCH ×2 (07:18→21:09)
[2016-05-04] MEDS: DULOXETINE HCL 20 MG CAP PO SCH (07:19)
[2016-05-04] MEDS: HALOPERIDOL 1 MG TAB PO SCH ×3 (07:19→21:08)
[2016-05-04] MEDS: PHENYTOIN SODIUM ER 30 MG CAP PO SCH ×3 (07:19→21:10)
[2016-05-04] MEDS: DOCUSATE SODIUM/SENNA 50/8.6MG TAB PO SCH ×2 (07:20→21:09)
[2016-05-04] MEDS: SODIUM CHLORIDE 1 GM TAB PO SCH (07:20)
[2016-05-04] MEDS: RIVASTIGMINE TARTRATE (EXELON) 1.5 MG CAP PO SCH ×2 (07:20→21:10)
[2016-05-04] MEDS: IPRATROPIUM BROMIDE/ALBUTEROL respimat INH INH SCH ×4 (07:21→21:07)
[2016-05-04] MEDS: PHENOBARBITAL 32.4 MG TAB PO SCH (07:22)
--- NOTE | 2016-05-04 16:40 | Hospitalist Progress Note ---
Hospitalist Progress Note Date of Service May 04, 2016. Subjective Pt evaluation today including: conversation w/ patient patient feels better All Other Systems: Reviewed and Negative Medications Medications (Trade) Dose Ordered Sig/Benito Route Start Time Stop Time Status Last Admin Dose Admin Metoprolol Succinate (Toprol Xl Tab) 25 mg BID PO 05/04/16 09:00 06/03/16 08:59 05/04/16 07:18 25 MG Metoprolol Succinate (Toprol Xl Tab) 25 mg NOW STAT PO 05/04/16 01:27 05/04/16 01:31 DC 05/04/16 02:33 25 MG Objective Vital Signs Date Time Temp Pulse Resp B/P Pulse Ox O2 Delivery O2 Flow Rate FiO2 05/04/16 16:00 94 Room Air 05/04/16 15:37 37.0 117 20 147/83 93 Room Air 05/04/16 12:22 36.7 67 18 148/82 98 Room Air 05/04/16 12:00 94 Room Air 05/04/16 08:14 36.6 64 18 139/68 93 Room Air 05/04/16 08:00 94 Room Air 05/04/16 04:43 36.5 05/04/16 04:02 Room Air 05/04/16 03:34 37.7 73 23 150/72 94 Room Air 05/04/16 01:00 78 174/75 05/04/16 00:02 Room Air 05/03/16 23:51 36.6 87 17 174/71 94 Room Air 05/03/16 20:01 36.6 70 16 154/84 98 Room Air 05/03/16 20:00 Room Air Physical Exam General Appearance: no apparent distress Eyes: normal inspection, sclerae normal Neck: supple, trachea midline Respiratory/Chest: lungs clear Cardiovascular: regular rate, rhythm Abdomen: normal bowel sounds, non tender Extremities: normal range of motion Neurologic/Psychiatric: alert, normal mood/affect Laboratory Results Last 24 Hours Test 05/04/16 05:49 White Blood Count 4.76 K/uL Red Blood Count 3.28 M/uL Hemoglobin 9.6 g/dL Hematocrit 28.0 % Mean Corpuscular Volume 85.4 fL Mean Corpuscular Hemoglobin 29.3 pg Mean Corpuscular Hemoglobin Concent 34.3 g/dl Platelet Count 153 K/uL Mean Platelet Volume 10.1 fL Neutrophils (%) (Auto) 59.2 % Lymphocytes (%) (Auto) 16.2 % Monocytes (%) (Auto) 20.6 % Eosinophils (%) (Auto) 3.4 % Basophils (%) (Auto) 0.4 % Neutrophils # (Auto) 2.82 K/uL Lymphocytes # (Auto) 0.77 K/uL Monocytes # (Auto) 0.98 K/uL Eosinophils # (Auto) 0.16 K/uL Basophils # (Auto) 0.02 K/uL RDW Standard Deviation 45.2 fL RDW Coefficient of Variation 14.4 % Immature Granulocyte % (Auto) 0.2 % Immature Granulocyte # (Auto) 0.01 K/uL Sodium Level 143 mmol/L Potassium Level 3.0 mmol/L Chloride Level 110 mmol/L Carbon Dioxide Level 23 mmol/L Anion Gap 10.0 mmol/L Blood Urea Nitrogen 14 mg/dl Creatinine 1.50 mg/dl Est Creatinine Clear Calc Drug Dose 33.0 ml/min Estimated GFR () 40.5 Estimated GFR (Non- 34.9 BUN/Creatinine Ratio 9.5 Random Glucose 93 mg/dl Calcium Level 8.1 mg/dl Assessment and Plan (1) Sepsis Assessment & Plan: Resolved will convert ceftriaxone to oral 1st generation cephalosporin on discharge. (2) UTI (urinary tract infection) (3) Renal insufficiency improving with iv hydration continue iv today check bmp tomorrow
[2016-05-04] MEDS: CEFTRIAXONE SOD INJ 2000 MG in DEXTROSE 5% 50ML IV SCH (21:03)
[2016-05-04] MEDS: QUETIAPINE FUMARATE 25 MG TAB PO SCH (21:11)
[2016-05-05 00:50] VITALS: BP 163/84; PULSE 63; TEMP 36.7; O2SAT 94
[2016-05-05] MEDS: SODIUM CHLORIDE 0.9% 1000ML 1,000 ML IV SCH ×2 (04:16→17:58)
[2016-05-05 06:05] LABS: BASO % 0.3 %; BASO ABS # 0.02 K/uL (0-0.2); COMPLETE YES; EOS % 3.8 %; HEMATOCRIT 28.4 % (37-47); IG% 0.2 %; LYMPH % 13.9 %; LYMPH ABS # 0.81 K/uL (1.2-3.4); MEAN CELL VOLUME 83.5 fL (80-100); MEAN CORPUSCULAR HEMOGLOBIN 28.8 pg (25-34); MEAN CORPUSCULAR HGB CONC 34.5 g/dl (32-36); MONO % 19.9 %; NEUT % 61.9 %; PLATELET COUNT 181 K/uL (130-400); WHITE BLOOD COUNT 5.83 K/uL (4.8-10.8)
[2016-05-05 06:44] LABS: BUN/CREATININE RATIO 8.5 (10-20); CALCIUM 7.9 mg/dl (8.5-10.1); CREATININE 1.2 mg/dl (0.60-1.20); POTASSIUM 2.9 mmol/L (3.5-5.1)
[2016-05-05 07:22] VITALS: BP 156/79; PULSE 66; TEMP 36.7; O2SAT 97
[2016-05-05 08:00] VITALS: O2SAT 97
[2016-05-05] MEDS: GABAPENTIN 400 MG CAP PO SCH ×3 (08:40→20:08)
[2016-05-05] MEDS: DOCUSATE SODIUM/SENNA 50/8.6MG TAB PO SCH ×2 (08:41→20:08)
[2016-05-05] MEDS: RIVASTIGMINE TARTRATE (EXELON) 1.5 MG CAP PO SCH ×2 (08:41→20:07)
[2016-05-05] MEDS: RANITIDINE HCL 150 MG TAB PO SCH ×2 (08:41→20:09)
[2016-05-05] MEDS: DULOXETINE HCL 20 MG CAP PO SCH (08:43)
[2016-05-05] MEDS: PHENYTOIN SODIUM ER 30 MG CAP PO SCH ×3 (08:43→20:06)
[2016-05-05] MEDS: IPRATROPIUM BROMIDE/ALBUTEROL respimat INH INH SCH ×4 (08:44→20:06)
[2016-05-05] MEDS: SODIUM CHLORIDE 1 GM TAB PO SCH (08:45)
[2016-05-05] MEDS: HALOPERIDOL 1 MG TAB PO SCH ×3 (08:45→20:07)
[2016-05-05] MEDS: PHENOBARBITAL 32.4 MG TAB PO SCH (08:52)
[2016-05-05] MEDS: METOPROLOL SUCC 25MG EXT REL TAB PO SCH ×2 (10:50→20:09)
[2016-05-05 16:00] VITALS: O2SAT 94
[2016-05-05 16:24] VITALS: BP 151/81; PULSE 58; TEMP 36.3; O2SAT 97
[2016-05-05 20:00] VITALS: O2SAT 97
[2016-05-05] MEDS: CEFTRIAXONE SOD INJ 2000 MG in DEXTROSE 5% 50ML IV SCH (20:06)
[2016-05-05] MEDS: QUETIAPINE FUMARATE 25 MG TAB PO SCH (21:43)
[2016-05-06] VITALS: O2SAT 97
[2016-05-06] MEDS: SODIUM CHLORIDE 0.9% 1000ML 1,000 ML IV SCH (01:05)
[2016-05-06 02:21] VITALS: BP 189/75; PULSE 62; TEMP 36.6; O2SAT 96
[2016-05-06 08:40] LABS: BASO % 0.5 %; BASO ABS # 0.03 K/uL (0-0.2); COMPLETE YES; EOS % 4.9 %; HEMATOCRIT 29.9 % (37-47); IG% 0.3 %; LYMPH % 16.6 %; LYMPH ABS # 0.98 K/uL (1.2-3.4); MEAN CELL VOLUME 85.2 fL (80-100); MEAN CORPUSCULAR HEMOGLOBIN 29.9 pg (25-34); MEAN CORPUSCULAR HGB CONC 35.1 g/dl (32-36); MEAN PLATELET VOLUME 9.8 fL (7.4-10.4); MONO % 13.4 %; NEUT % 64.3 %; PLATELET COUNT 258 K/uL (130-400); RED BLOOD COUNT 3.51 M/uL (4.2-5.4); WHITE BLOOD COUNT 5.91 K/uL (4.8-10.8)
[2016-05-06] MEDS: RANITIDINE HCL 150 MG TAB PO SCH ×2 (08:42→19:55)
[2016-05-06] MEDS: HALOPERIDOL 1 MG TAB PO SCH ×3 (08:42→19:54)
[2016-05-06] MEDS: DOCUSATE SODIUM/SENNA 50/8.6MG TAB PO SCH ×2 (08:42→19:55)
[2016-05-06] MEDS: DULOXETINE HCL 20 MG CAP PO SCH (08:43)
[2016-05-06] MEDS: PHENYTOIN SODIUM ER 30 MG CAP PO SCH ×3 (08:43→19:57)
[2016-05-06] MEDS: SODIUM CHLORIDE 1 GM TAB PO SCH (08:43)
[2016-05-06] MEDS: METOPROLOL SUCC 25MG EXT REL TAB PO SCH ×2 (08:43→19:55)
[2016-05-06] MEDS: GABAPENTIN 400 MG CAP PO SCH ×3 (08:43→19:57)
[2016-05-06] MEDS: IPRATROPIUM BROMIDE/ALBUTEROL respimat INH INH SCH ×4 (08:44→19:53)
[2016-05-06] MEDS: RIVASTIGMINE TARTRATE (EXELON) 1.5 MG CAP PO SCH ×2 (08:44→19:56)
[2016-05-06] MEDS: PHENOBARBITAL 32.4 MG TAB PO SCH (08:48)
[2016-05-06 08:56] VITALS: BP 185/82; PULSE 70; TEMP 36.6; O2SAT 97
[2016-05-06 08:59] LABS: BUN/CREATININE RATIO 4.9 (10-20); CALCIUM 8.4 mg/dl (8.5-10.1); CREATININE 1.3 mg/dl (0.60-1.20); POTASSIUM 2.7 mmol/L (3.5-5.1)
[2016-05-06 10:10] LABS: MAGNESIUM 1.8 mg/dl (1.8-2.4)
[2016-05-06 10:15] VITALS: BP 153/53
[2016-05-06] MEDS ORDERED: D5W AND 1/2NSS + 40MEQ KCL 1,000 ML IV SCH (11:30)
[2016-05-06] MEDS: POTASSIUM CHLORIDE 20 MEQ TABCR PO SCH ×2 (11:55→19:56)
--- NOTE | 2016-05-06 12:47 | Hospitalist Progress Note ---
Hospitalist Progress Note Date of Service May 06, 2016. (Inna Jhaveri ., HILARIOC) Subjective Pt evaluation today including: conversation w/ patient, physical exam, chart review, lab review, review of inpatient medication list Pain: None PO Intake: Tolerating PO diet Voiding: no voiding problems Patient reports feeling well. She states that she had some dysuria earlier this morning, although she just went to the bathroom prior to my examination and she states that it has resolved. Patient tolerating PO diet well. The patient denies fevers, chills, sweats, chest pain, palpitations, claudication, cough, wheezing, shortness of breath, nausea, vomiting, abdominal pain, hematuria, urinary retention, paralysis, weakness, numbness and tingling. Additional Comments: See HPI for pertinent positives and negatives. All other systems reviewed and negative. (Inna Jhaveri, REJI-C) Objective Vital Signs Date Time Temp Pulse Resp B/P Pulse Ox O2 Delivery O2 Flow Rate FiO2 05/06/16 08:56 36.6 70 16 185/82 97 05/06/16 08:00 Room Air 05/06/16 02:21 36.6 62 18 189/75 96 Room Air 0.0 05/06/16 00:00 97 Room Air 05/05/16 20:00 97 Room Air 05/05/16 16:24 36.3 58 18 151/81 97 Room Air 05/05/16 16:00 94 Room Air (Inna Jhaveri, REJI-C) Physical Exam General Appearance: WD/WN, no apparent distress, + obese Eyes: normal inspection, PERRL, sclerae normal ENT: normal ENT inspection, hearing grossly normal, pharynx normal Neck: supple, no JVD, trachea midline Respiratory/Chest: lungs clear, normal breath sounds, no respiratory distress Cardiovascular: regular rate, rhythm, no gallop, no murmur Abdomen: normal bowel sounds, non tender, soft Extremities: non-tender, normal inspection, + swelling (1+ pitting edema ) Neurologic/Psychiatric: alert, normal mood/affect, + disoriented (disoriented to time) Skin: normal color, warm/dry, no rash (Inna Jhaveri, REJI-C) Laboratory Results Last 24 Hours Test 05/06/16 08:00 White Blood Count 5.91 K/uL Red Blood Count 3.51 M/uL Hemoglobin 10.5 g/dL Hematocrit 29.9 % Mean Corpuscular Volume 85.2 fL Mean Corpuscular Hemoglobin 29.9 pg Mean Corpuscular Hemoglobin Concent 35.1 g/dl Platelet Count 258 K/uL Mean Platelet Volume 9.8 fL Neutrophils (%) (Auto) 64.3 % Lymphocytes (%) (Auto) 16.6 % Monocytes (%) (Auto) 13.4 % Eosinophils (%) (Auto) 4.9 % Basophils (%) (Auto) 0.5 % Neutrophils # (Auto) 3.80 K/uL Lymphocytes # (Auto) 0.98 K/uL Monocytes # (Auto) 0.79 K/uL Eosinophils # (Auto) 0.29 K/uL Basophils # (Auto) 0.03 K/uL RDW Standard Deviation 46.3 fL RDW Coefficient of Variation 14.7 % Immature Granulocyte % (Auto) 0.3 % Immature Granulocyte # (Auto) 0.02 K/uL Sodium Level 146 mmol/L Potassium Level 2.7 mmol/L Chloride Level 112 mmol/L Carbon Dioxide Level 25 mmol/L Anion Gap 9.0 mmol/L Blood Urea Nitrogen 6 mg/dl Creatinine 1.30 mg/dl Est Creatinine Clear Calc Drug Dose 38.1 ml/min Estimated GFR () 48.1 Estimated GFR (Non- 41.5 BUN/Creatinine Ratio 4.9 Random Glucose 104 mg/dl Calcium Level 8.4 mg/dl Magnesium Level 1.8 mg/dl (Inna Jhaveri, PA-C) Assessment and Plan (1) Sepsis (2) UTI (urinary tract infection) (3) Renal insufficiency 70 y/o female with a history of hypertension, seizure disorder, schizophrenia, dementia, COPD, history of renal cell carcinoma and left ureteral cancer who presented to the ED from [facility] with fevers, hypertension, UTI dx 1 day [employer] and a fall. Patient septicum arrival to the ED with hypotension, WBC>12k, and known infectious source. Sepsis secondary to UTI--improving -Admitted to telemetry. Transferred to [facility] on 05/04 -Urine culture positive for Escherichia coli -Blood cultures no growth 2 -Continue Rocephin 1 gm IV. Today day #7 of abx, will D/C after tonight's dose -Patient remains afebrile without leukocytosis Hypokalemia--worsening -Potassium 2.7 on 04/28 -Start KCl 20 mEq PO BID -Change IV fluids to D5 1/2NSS +40 mEq KCl at 100 cc/hr -Continue to monitor ILIA on CKD stage III--improving. Baseline creatinine 0.8-0.9 -Creatinine 2.7 on arrival -Creatinine down to 1.3 on 05/06 -Continue IVF as above HTN--hypertensive currently -Resume Norvasc 5 mg PO qd -Continue Toprol 25 mg PO qd Seizure disorder -Continue phenytoin 60 mg PO TID, phenobarbital 64.8 mg PO qd, and gabapentin 400 mg PO TID Schizophrenia -Continue haloperidol 1 mg PO TID, Cymbalta 40 mg PO qd, and Seroquel 25 mg PO qhs Dementia -Continue rivastigmine 1.5 mg PO BID COPD -Continue Combivent QID Code Status -Level I, FULL RESUSCITATION STATUS This chart was completed in part utilizing [employer] Speech Voice Recognition software. Attempts were made to minimize the grammatical errors, random word insertions, pronoun errors and incomplete sentences. Any formal questions or concerns about the content, text or information contained within the body of this dictation should be directly addressed to the provider for clarification. (Inna Jhaveri ., PA-C) Attending Attestation: Pt seen/examined, chart reviewed, care plan d/w REJI Jhaveri. I agree w/ the nelson components of her documentation. No events overnight. Patient pleasantly confused during the visit. Staff report no problems. VSS BPs high gen - nad mouth - MMM heart - RRR lungs - CTA b/l abd - soft ext - no edema skin - right subclavian CVC clean A/P: 1. recent sepsis / severe sepsis 2nd to UTI - resolved. 2. UTI - day #7 of abx; abx d/c today. 3. hypokalemia - mag normal. Replace IV + PO. 4. sepsis-associated ATN leading to acute kidney injury - daily the Cr continues to improved. BMP am. 5. hyperkalemia - change fluids to hypotonic; BMP am. dispo - [facility] Rufina DOWNS MD (Juan Miguel Downs MD)
[2016-05-06] MEDS ORDERED: AMLODIPINE BESYLATE 5 MG TAB PO ONE (15:30)
[2016-05-06 17:23] VITALS: BP 174/94; PULSE 62; TEMP 36.3; O2SAT 100
[2016-05-06] MEDS: QUETIAPINE FUMARATE 25 MG TAB PO SCH (19:58)
[2016-05-07] VITALS (8 sets, daily range): BP systolic 143–176; BP diastolic 63–81; PULSE 60–67; TEMP 36.4–36.8; O2SAT 93–97
[2016-05-07 05:48] LABS: BASO % 0.7 %; BASO ABS # 0.05 K/uL (0-0.2); COMPLETE YES; EOS % 6.1 %; HEMATOCRIT 28.2 % (37-47); IG% 0.1 %; LYMPH ABS # 1.31 K/uL (1.2-3.4); MEAN CELL VOLUME 85.5 fL (80-100); MEAN CORPUSCULAR HEMOGLOBIN 29.4 pg (25-34); MEAN CORPUSCULAR HGB CONC 34.4 g/dl (32-36); MEAN PLATELET VOLUME 9.7 fL (7.4-10.4); MONO % 12.9 %; NEUT % 61.2 %; PLATELET COUNT 282 K/uL (130-400); WHITE BLOOD COUNT 6.89 K/uL (4.8-10.8)
[2016-05-07 06:19] LABS: BUN/CREATININE RATIO 4.1 (10-20); CALCIUM 8.2 mg/dl (8.5-10.1); CREATININE 1.2 mg/dl (0.60-1.20); POTASSIUM 2.9 mmol/L (3.5-5.1)
[2016-05-07] MEDS: DULOXETINE HCL 20 MG CAP PO SCH (07:43)
[2016-05-07] MEDS: PHENYTOIN SODIUM ER 30 MG CAP PO SCH ×2 (07:43→13:19)
[2016-05-07] MEDS: HALOPERIDOL 1 MG TAB PO SCH ×2 (07:43→13:19)
[2016-05-07] MEDS: RIVASTIGMINE TARTRATE (EXELON) 1.5 MG CAP PO SCH (07:43)
[2016-05-07] MEDS: GABAPENTIN 400 MG CAP PO SCH ×2 (07:44→13:19)
[2016-05-07] MEDS: DOCUSATE SODIUM/SENNA 50/8.6MG TAB PO SCH (07:44)
[2016-05-07] MEDS: RANITIDINE HCL 150 MG TAB PO SCH (07:45)
[2016-05-07] MEDS: METOPROLOL SUCC 25MG EXT REL TAB PO SCH (07:45)
[2016-05-07] MEDS: PHENOBARBITAL 32.4 MG TAB PO SCH (07:47)
[2016-05-07] MEDS: IPRATROPIUM BROMIDE/ALBUTEROL respimat INH INH SCH ×2 (07:47→11:29)
[2016-05-07] MEDS ORDERED: POTASSIUM CHLORIDE 20 MEQ TABCR PO SCH (08:00)
[2016-05-07] MEDS ORDERED: AMLODIPINE BESYLATE 5 MG TAB PO SCH (08:00)
[2016-05-07] MEDS ORDERED: POTASSIUM CHLORIDE 20 MEQ TABCR PO ONE (10:15)
[2016-05-07] MEDS ORDERED: ACETAMINOPHEN 325 MG TAB PO ONE (10:45)
--- NOTE | 2016-05-07 11:15 | Discharge Instructions ---
Discharge Instructions Date of Service May 07, 2016. (Inna Jhaveri PA-C) Admission Reason for Admission: Sepsis, Uti (Inna Jhaveri PA-C) Discharge Discharge Diagnosis / Problem: Sepsis due to UTI (Inna Jhaveri PA-C) Discharge Goals Goal(s): Decrease discomfort, Improve function, Diagnostic testing, Therapeutic intervention (Inna Jhaveri PA-C) Activity Recommendations Activity Level: Assistance Required Therapies: Physical Therapy, Occupational Therapy Exercise/Sports Limitations: as tolerated Shower/Bathe: no limitations . (Inna Jhaveri PA-C) Additional Information Patient informed of condition: Yes Advance Directives: No DNR: No Level of Care: Skilled Communicable Disease: No Prognosis: Improving [place] Catheter: No (Inna Jhaveri PA-C) Instructions / Follow-Up Instructions / Follow-Up You were admitted to the hospital after presenting to the emergency room with fevers, low blood pressure and a serious infection, or sepsis. You had been diagnosed with a urinary tract infection (UTI) one day prior to arrival to the emergency room. This is likely the source of your sepsis. You were placed on IV antibiotics and IV fluids. Your urine was tested and was positive for an organism called Escherichia coli. You were treated with a week-long course of IV antibiotics, and your infection did seem to resolve. When he arrived. You also had impaired kidney function, likely due to your low blood pressure and sepsis. This has been improving with IV fluids and with the resolution of the infection. You also found to have a low serum potassium, which has been treated with oral and IV supplementation. Prior to discharge, your blood pressure became elevated. One of your blood pressure medications was increased in order to treat this. You are now medically stable to return to [facility]. Medications: *Please take amlodipine 5 mg by mouth twice a day. This is an increase from your previous dose, which was 5 mg once a day. *Continue your home medications as prescribed. Follow up: *Please follow-up with your primary care provider in one week regarding your hospital stay. Please seek medical attention if you experiences fevers, chills, sweats, chest pain, shortness of breath, lightheadedness, loss of consciousness, nausea, vomiting, numbness or tingling. (Inna Jhaveri PA-C) Instructions / Follow-Up Attending Attestation: Pt seen & examined and care plan d/w REJI Jhaveri. I agree with her discharge instructions as outlined. Juan Miguel Weiner MD (Juan Miguel Weiner MD) Current Hospital Diet Patient's current hospital diet: AHA Diet (Heart Healthy) (Inna Jhaveri PA-C) Discharge Diet Recommended Diet: AHA Diet (Heart Healthy) (Inna Jhaveri PA-C) Pending Studies Studies pending at discharge: no (Inna Jhaveri PA-C) Physician Orders On Transfer Special Precautions: Fall precautions Dressing Changes: Central line placed while inpatient. Routine bandage changes IV Therapy: None Vital Signs: Routine Additional Orders: Amlodipine increased to 5 mg PO BID (Inna Jhaveri PA-C) Medical Emergencies . Who to Call and When: Medical Emergencies: If at any time you feel your situation is an emergency, please call 911 immediately. . (Inna Jhaveri PA-C) Non-Emergent Contact Non-Emergency issues call your: Primary Care Provider Call Non-Emergent contact if: you have a fever, you have any medication questions . (Inna Jhaveri PA-C) Past History Medical & Surgical History: (1) Sepsis (2) UTI (urinary tract infection) (3) Renal insufficiency (Inna Jhaveri PA-C) . "Provider Documentation" section prepared by Inna Jhaveri. (Inna Jhaveri PA-C) Core Measure Problem Core Measures: None (Inna Jhaveri PA-C)
[2016-05-07] MEDS ORDERED: LOSARTAN POTASSIUM 25 MG TAB PO STA (12:35)
[2016-05-07 13:30] LABS: BUN/CREATININE RATIO 3.6 (10-20); CALCIUM 8.5 mg/dl (8.5-10.1); CREATININE 1.1 mg/dl (0.60-1.20); POTASSIUM 3.9 mmol/L (3.5-5.1)
[2016-05-07] MEDS ORDERED: AMLO-110 PO (13:38)
--- NOTE | 2016-05-07 13:51 | Discharge Summary ---
Discharge Summary Date of Service May 07, 2016. (Inna Jhaveri PA-C) Discharge Summary Admission Date: Apr 30, 2016 at 14:06 Discharge Date: May 07, 2016 Discharge Disposition: long term facility ([facility]) Principal Diagnosis: Sepsis secondary to UTI Problems/Secondary Diagnoses: (1) Dementia Status: Chronic (2) Osteoporosis Nos Status: Chronic (3) Paranoid Schizo-Chronic Status: Chronic Immunizations: Have You Had Influenza Vaccine: Unknown Influenza Vaccine Date: Nov 10, 2004 History of Tetanus Vaccine?: Unknown History of Pneumococcal: Unknown History of Hepatitis B Vaccine: Unknown (Inna Jhaveri PA-C) Problems/Secondary Diagnoses: 1. COPD 2. CAD with h/o [place] 3. depression 4. hypertension 5. h/o prior alcoholism 6. hypothyroidism 7. history of renal cell cancer 8. seizure disorder 9. CKD stage 3 10. acute kidney injury - resolved Procedures: central line placement Consultations: PT, OT (Juan Miguel Weiner MD) Medication Reconciliation Changed Medications: Amlodipine (Norvasc) 5 Mg Tab 5 MG PO BID for 30 Days, #60 TAB (Changed from: QAM) Continued Medications: Acetaminophen (Tylenol) 325 Mg Tab 650 MG PO Q6 PRN for Pain, 0 Refills NEEDED FOR MILD PAIN, DO NOT EXCEED 3000MG APAP/24 HOURS. Duloxetine Hcl (Cymbalta) 20 Mg Cap 40 MG PO QAM Gabapentin (Neurontin) 400 Mg Cap 400 MG PO TID GIVE AT 0030/0830/1630 Haloperidol (Haloperidol) 1 Mg Tab 1 MG PO TID GIVE AT 0130,0930,1630 Ipratropium-Albuterol (Combivent Respimat) 1 Aer Aer 1 PUFFS INH QID, INH Magnesium Hydroxide (Milk Of Magnesia) 30 Ml Susp 30 ML PO PRN, ML Metoprolol Succ (Toprol Xl) (Toprol-Xl) 25 Mg Tabcr 25 MG PO QAM, #30 TAB Multivitamin (Multivitamin) Tab 1 TABLET PO QAM, 0 Refills ONE A DAY WOMAN'S. Oxycodone Ir (Roxicodone Ir) 5 Mg Tab 5 MG PO Q8 PRN for Pain Phenobarbital (Phenobarbital) 64.8 Mg Tab 64.8 MG PO DAILY GIVE AT 2030 Phenytoin Sodium (Dilantin) 30 Mg Cap 60 MG PO TID [id number] Quetiapine Fumarate (Seroquel) 25 Mg Tab 25 MG PO HS Ranitidine (Zantac) 150 Mg Tab 150 MG PO BID DOSE TIMES 929 & 2029 Rivastigmine Tartrate (Exelon) 1.5 Mg Cap 1.5 MG PO BID, CAP 8911-4227 Sennosides-Docusate Sodium (Senna/Docusate Sodium) 1 Tab Tab 1 TAB PO BID Sodium Chloride (Sodium Chloride) 1 Gm Tab 1 TAB PO DAILY 929 Referrals At Discharge Follow up Referrals: Physician Referral - Within 1 Week with Jorje Romo M.D. Discharge Exam Patient complains of a 5/10 dull headache but otherwise reports feeling well. Patient is pleasant but disoriented. The patient denies fevers, chills, sweats , chest pain, palpitations, claudication, cough, wheezing, shortness of breath, nausea, vomiting, abdominal pain, dysuria, hematuria, urinary retention, paralysis, weakness, numbness and tingling. Review of Systems: Constitutional: No chills, No fever, No sweats Eyes: No diplopia, No eye pain, No worsening of vision ENT: No hearing loss, No sore throat, No trouble swallowing Respiratory: No cough, No shortness of breath, No wheezing Cardiovascular: No chest pain, No claudication, No palpitations Abdomen: No nausea, No pain, No vomiting Musculoskeletal: No calf pain, No joint pain, No muscle pain Genitourinary - Female: No dysuria, No hematuria, No urinary retention Neurologic: No numbness/tingling, No paralysis, No weakness Integumentary: No color change, No itch, No rash Physical Exam: General Appearance: WD/WN, no apparent distress, + obese Eyes: normal inspection, PERRL, EOMI ENT: normal ENT inspection, hearing grossly normal, pharynx normal Neck: supple, no JVD, trachea midline Respiratory/Chest: lungs clear, normal breath sounds, no respiratory distress Cardiovascular: regular rate, rhythm, no gallop, no murmur Abdomen / GI: normal bowel sounds, soft, + tenderness (RLQ mildly TTP) Extremities: normal inspection, no calf tenderness, no pedal edema Neurologic/Psychiatric: alert, normal mood/affect, + disoriented ( disoriented to time, somewhat oriented to place) Skin: normal color, warm/dry, no rash (Inna Jhaveri, ELKE) Hospital Course (1) Sepsis (2) UTI (urinary tract infection) (3) Renal insufficiency 70 y/o female with a history of hypertension, seizure disorder, schizophrenia, dementia, COPD, history of renal cell carcinoma and left ureteral cancer who presented to the ED from [facility] with fevers, hypertension, UTI dx 1 day [employer] and a fall. Patient septicum arrival to the ED with hypotension, WBC>12k, and known infectious source. Sepsis secondary to UTI--resolved -Admitted to telemetry. Transferred to [facility] on 05/04 -Urine culture positive for Escherichia coli -Blood cultures no growth 2 -Rocephin 1 gm IV. Patient received total of 7 days antibiotics while inpatient -Patient remains afebrile without leukocytosis Hypokalemia--resolved -Potassium 2.7 on 04/28 -KCl 20 mEq PO BID -D5 1/2NSS +40 mEq KCl at 100 cc/hr x 1 bag -Repeat potassium morning of 05/07 was 2.9, patient given total of KCl 60 mEq. Potassium checked again at 1200 and was 3.9 ILIA on CKD stage III--improving. Baseline creatinine 0.8-0.9 -Creatinine 2.7 on arrival -Creatinine down to 1.2 prior to discharge -Encourage PO hydration HTN--hypertensive currently -Increase amlodipine to 5 mg PO BID -Continue Toprol 25 mg PO qd Seizure disorder -Continue phenytoin 60 mg PO TID, phenobarbital 64.8 mg PO qd Chronic pain -Continue gabapentin 400 mg PO TID Schizophrenia -Continue haloperidol 1 mg PO TID and Seroquel 25 mg PO qhs Depression -Continue Cymbalta 40 mg PO qd Dementia -Continue rivastigmine 1.5 mg PO BID COPD -Continue Combivent QID Code Status -Level I, FULL RESUSCITATION STATUS Dispo -Patient a bed hold at [facility], medically stable to return. This chart was completed in part utilizing [employer] Speech Voice Recognition software. Attempts were made to minimize the grammatical errors, random word insertions, pronoun errors and incomplete sentences. Any formal questions or concerns about the content, text or information contained within the body of this dictation should be directly addressed to the provider for clarification. Total Time Spent: Greater than 30 minutes This includes examination of the patient, discharge planning, medication reconciliation, and communication with other providers. (Inna Jhaveri ., PA-C) Attending Discharge Note & Attestation: Pt seen/examined, chart reviewed, and care plan d/w REJI Jhaveri on day of discharge. I agree with the nelson components of her discharge summary. 70yo female with multiple medical problems including dementia and schizophrenia who presented with severe sepsis 2nd to e. coli UTI. She was treated in the customary fashion with copious hydration and IV antibiotic therapy. She made gradual improvement in all symptoms. She completed her full course of antibiotics while hospitalized. Other medical problems remained stable while here. Discharge exam - gen - NAD mouth - MMM neck - no JVD heart - RRR, s1, s2 lungs - CTA b/l abd - soft, NT, BS+ ext - no edema Juan Miguel Weiner MD Total Time Spent: Greater than 30 minutes (Juan Miguel Weiner MD) Discharge Instructions Please refer to the electronic Patient Visit Report (Discharge Instructions) for additional information. (Inna Jhaveri ., PA-C) Additional Copies To Jorje Romo M.D.
[2016-07-01] MEDS ORDERED: LCTX PO (09:56)
[2016-07-01] MEDS ORDERED: AMOX875T PO (09:56)
[2016-07-01] MEDS ORDERED: CHOL20007 PO (09:56)
[2016-07-04] MEDS ORDERED: NITR100C41 PO (04:39)
[2016-07-08] MEDS ORDERED: FRRS300 PO (09:47)
[2016-07-08] MEDS ORDERED: CBCI IV (09:47)
[2016-07-08] MEDS ORDERED: OXYC1TAB3 PO (09:47)
[2016-07-08] MEDS ORDERED: MRLP17X PO (09:48)
[2016-07-27] MEDS ORDERED: OXYC1TAB3 PO (11:29)
[2016-07-27] MEDS ORDERED: CPR500 PO (11:29)
== END 2016-05-07 16:47 | DRG 871 ==
LOC: ENRESERVTM → CANRESERV → ENRESERVDT → EDBD 11:02 → C.EDC 11:04 → C.2T 14:06 → C.MED 05-04 18:07 → C.MS4W 05-04 23:42
PROVIDERS: ADMIT Hospitalist; ATTEND Internal Medicine
DX: A41.51 Sepsis due to Escherichia coli [E. coli] (principal); N39.0 Urinary tract infection, site not specified; F20.0 Paranoid schizophrenia; N17.0 Acute kidney failure with tubular necrosis; N18.3 Chronic kidney disease, stage 3 (moderate); I12.9 Hypertensive chronic kidney disease with stage 1 through stage 4 chronic kidney disease, or unspecified chronic kidney disease; E11.21 Type 2 diabetes mellitus with diabetic nephropathy; J44.9 Chronic obstructive pulmonary disease, unspecified; F03.90 Unspecified dementia, unspecified severity, without behavioral disturbance, psychotic disturbance, mood disturbance, and anxiety; F32.9 Major depressive disorder, single episode, unspecified; F10.21 Alcohol dependence, in remission; I25.10 Atherosclerotic heart disease of native coronary artery without angina pectoris; Z87.891 Personal history of nicotine dependence; G40.909 Epilepsy, unspecified, not intractable, without status epilepticus; E87.6 Hypokalemia; R65.20 Severe sepsis without septic shock; I25.2 Old myocardial infarction

== ENCOUNTER 2016-05-15 06:47 | Inpatient (IN) | payer OTHER ==
[2016-04-28 14:48] VITALS: Ht 157.5 cm; Wt 69.4 kg
--- NOTE | 2016-04-28 15:25 | PAT Medication Instructions ---
Service Date Apr 28, 2016. Current Home Medication List Acetaminophen (Tylenol), 650 MG PO Q6 PRN for Pain Amlodipine (Norvasc), 5 MG PO QAM Duloxetine Hcl (Cymbalta), 40 MG PO QAM Gabapentin (Neurontin), 400 MG PO TID Haloperidol (Haloperidol), 1 MG PO TID Ipratropium/Albuterol (Combivent), 2 PUFFS INH Q4 PRN for WHILE AWAKE FOR COPD Magnesium Hydroxide (Milk Of Magnesia), 30 ML PO PRN Metoprolol Succ (Toprol Xl) (Toprol-Xl), 25 MG PO QAM Multivitamin (Multivitamin), 1 TABLET PO QAM Oxycodone Ir (Roxicodone Ir), 5 MG PO Q8 PRN for Pain Phenobarbital (Phenobarbital), 64.8 MG PO DAILY Phenytoin Sodium (Dilantin), 60 MG PO TID Quetiapine Fumarate (Seroquel), 25 MG PO HS Ranitidine (Zantac), 150 MG PO BID Sennosides-Docusate Sodium (Senna/Docusate Sodium), 1 TAB PO BID Sodium Chloride (External) (Sodium Chloride), 1,000 MG PO QAM Sodium Phosphate/Biphosphate (Fleet Enema), [address] DAILY PRN for PRN [Dulcolox Supp], 1 DOSE RE PRN [Rivastigmine], 1.5 MG PO BID Medication Instructions For Your Scheduled Surgery - Hold the following medications the morning of surgery: [Dulcolox Supp], 1 DOSE RE PRN Sodium Phosphate/Biphosphate (Fleet Enema), [address] DAILY PRN for PRN Sennosides-Docusate Sodium (Senna/Docusate Sodium), 1 TAB PO BID Ranitidine (Zantac), 150 MG PO BID Multivitamin (Multivitamin), 1 TABLET PO QAM Magnesium Hydroxide (Milk Of Magnesia), 30 ML PO PRN Sodium Chloride (External) (Sodium Chloride), 1,000 MG PO QAM - Take the following medications the morning of surgery with a sip of water: Phenytoin Sodium (Dilantin), 60 MG PO TID Phenobarbital (Phenobarbital), 64.8 MG PO DAILY Oxycodone Ir (Roxicodone Ir), 5 MG PO Q8 PRN for Pain (okay to take up to 4 hours prior to surgery if needed) Metoprolol Succ (Toprol Xl) (Toprol-Xl), 25 MG PO QAM Ipratropium/Albuterol (Combivent), 2 PUFFS INH Q4 PRN for WHILE AWAKE FOR COPD Haloperidol (Haloperidol), 1 MG PO TID Gabapentin (Neurontin), 400 MG PO TID Duloxetine Hcl (Cymbalta), 40 MG PO QAM Amlodipine (Norvasc), 5 MG PO QAM Acetaminophen (Tylenol), 650 MG PO Q6 PRN for Pain [Rivastigmine], 1.5 MG PO BID - Take the following medications as scheduled the night before surgery: [Dulcolox Supp], 1 DOSE RE PRN Sodium Phosphate/Biphosphate (Fleet Enema), [address] DAILY PRN for PRN Sennosides-Docusate Sodium (Senna/Docusate Sodium), 1 TAB PO BID Ranitidine (Zantac), 150 MG PO BID Quetiapine Fumarate (Seroquel), 25 MG PO HS Phenytoin Sodium (Dilantin), 60 MG PO TID Oxycodone Ir (Roxicodone Ir), 5 MG PO Q8 PRN for Pain Multivitamin (Multivitamin), 1 TABLET PO QAM Magnesium Hydroxide (Milk Of Magnesia), 30 ML PO PRN Ipratropium/Albuterol (Combivent), 2 PUFFS INH Q4 PRN for WHILE AWAKE FOR COPD Haloperidol (Haloperidol), 1 MG PO TID Gabapentin (Neurontin), 400 MG PO TID Acetaminophen (Tylenol), 650 MG PO Q6 PRN for Pain [Rivastigmine], 1.5 MG PO BID If you have any questions please call us at [phone] (Thania Alcantara PA-C) or [phone] or [phone]
[2016-04-28 16:23] LABS: URINE APPEARANCE TURBID (CLEAR); URINE BILIRUBIN NEG (NEG); URINE COLOR YELLOW; URINE NITRITE POS (NEG); URINE PH 6.5 (4.5-7.5); UROBILINOGEN NEG (NEG)
[2016-04-28 16:30] LABS: MANUAL MICROSCOPIC REQUIRED? NO; REVIEW REQ? NO
[~2016-05-15] VITALS: Ht 157.5 cm; Wt 69.4 kg
[2016-05-15] VITALS (8 sets, daily range): BP systolic 103–147; BP diastolic 61–78; PULSE 53–69; TEMP 36.4–36.8; O2SAT 87–100
[~2016-05-15 06:47] MED LIST changes: +CEFAZOLIN 2000 MG/60 ML D5W IV SCH; -CMBIN INH; -DULCOLOX SUPP RE; +HEPARIN SOD 5000 UNIT/0.5 ML CARP SQ SCH; +IPRA1AER2 INH; +LACTATED RINGER'S 1000ML 1,000 ML IV SCH; +RIVA1.5C6 PO; -RIVASTIGMINE PO; +SDMC1 PO; -SODI1000 PO; -SODIENE PR
[2016-05-15] MEDS ORDERED: AMLO-110 PO (07:25)
[2016-05-15 07:28] LABS: HEMATOCRIT 29.1 % (37-47); MEAN CELL VOLUME 88.2 fL (80-100); MEAN CORPUSCULAR HEMOGLOBIN 29.1 pg (25-34); MEAN PLATELET VOLUME 9.3 fL (7.4-10.4); PLATELET COUNT 415 K/uL (130-400); WHITE BLOOD COUNT 5.97 K/uL (4.8-10.8)
[2016-05-15 07:30] LABS: PARTIAL THROMBOPLASTIN RATIO 1.1; PROTHROMBIN TIME (PATIENT) 11.2 SECONDS (9.0-12.0)
[2016-05-15] MEDS ORDERED: LIDOCAINE HCL 2% 2 ML VIAL (20MG/ML) ONE (08:02)
[2016-05-15] MEDS ORDERED: PROPOFOL IV EMULSION 10 MG/ML 20 ML VIAL IV ONE (08:02)
[2016-05-15] MEDS ORDERED: CISATRACURIUM BESYLATE IV SOLN 2 MG/ML 10 ML VIAL ONE ×2 (08:02→10:57)
[2016-05-15] MEDS ORDERED: FENTANYL CITRATE INJ 50 MCG/1 ML 2 ML VIAL ONE (08:02)
[2016-05-15] MEDS ORDERED: MIDAZOLAM HCL 1 MG/ML 2ML VIAL ONE (08:02)
--- NOTE | 2016-05-15 08:03 | History & Physical Bridge Note ---
H&P Re-Evaluation Bridge Note: I have examined the patient, reviewed the History & Physical and in the interval since the performance of the History & Physical I have noted the following changes of clinical significance: No changes noted Plan for left distal ureterectomy with ureteral reimplant. Cystoscopy.
[2016-05-15] MEDS ORDERED: BUPIVACAINE 0.5 % 5 MG/1 ML MPF 30ML VIAL ONE (08:18)
[2016-05-15] MEDS ORDERED: GELATIN SPONGE SZ 100 ONE (08:18)
[2016-05-15] MEDS ORDERED: ONDANSETRON INJ 2 MG/ML 2 ML VIAL IV PRN ×2 (08:45→12:00)
[2016-05-15] MEDS ORDERED: MEPERIDINE HCL 25 MG/ML CARP IV PRN (08:45)
[2016-05-15] MEDS ORDERED: HYDROmorphone INJ 1 MG/ML SYR IV PRN ×2 (08:45→12:00)
[2016-05-15] MEDS ORDERED: ATROPINE SULFATE 0.1 MG/ML 5ML SYR IV PRN (08:45)
[2016-05-15] MEDS ORDERED: EpHEDrine SULFATE INJ 50 MG/ML AMP IV PRN (08:45)
[2016-05-15] MEDS ORDERED: EpHEDrine SULFATE 50MG/5ML SYR ONE (08:46)
[2016-05-15] MEDS ORDERED: PHENYLEPHRINE 100MCG/ML 5ML SYR ONE (08:46)
[2016-05-15] MEDS ORDERED: MAGNESIUM HYDROXIDE SUSP 30 ML UDC PO PRN (12:00)
[2016-05-15] MEDS ORDERED: OXYBUTYNIN CHLORIDE 5 MG TAB PO PRN (12:00)
[2016-05-15] MEDS ORDERED: ONDANSETRON INJ 2 MG/ML 2 ML VIAL ONE (12:06)
--- NOTE | 2016-05-15 12:09 | [facility] Post Operative Brief Note ---
Immediate Operative Summary Operative Date May 15, 2016. 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 Jorje Ken; Dr. Edward Chou Product Safety Coordinator Surgeon(s) RUDI Solis Estimated Blood Loss 100 mL Findings Distal left ureteral tumor - details as per dictation. Specimens Frozen Section #1: Left distal ureter margin (question of CIS) Sent to lab at 1027. Results called and reported to Dr. Ken at 1053. #2: Left distal ureter Special Information: Check margin opposite stitch Sent to lab at 1104. Results called and reported to Dr. Ken at 1135 (no evidence of malignancy) Permanent specimens A: Left ureter distal margin B: Left pelvic lymph nodes C: Left ureter Drains MONIQUE; mejia Anesthesia Gen Complication(s) None Disposition Recovery Room / PACU (stable)
[2016-05-15] MEDS: FENTANYL CITRATE INJ 50 MCG/1 ML 2 ML VIAL IV PRN ×2 (12:39→12:46)
[2016-05-15 12:46] LABS: HEMATOCRIT 27.7 % (37-47); MEAN CELL VOLUME 87.7 fL (80-100); MEAN CORPUSCULAR HEMOGLOBIN 28.5 pg (25-34); MEAN PLATELET VOLUME 9.5 fL (7.4-10.4); PLATELET COUNT 372 K/uL (130-400); RED BLOOD COUNT 3.16 M/uL (4.2-5.4)
[2016-05-15 12:53] LABS: MEAN CORPUSCULAR HGB CONC 32.5 g/dl (32-36)
--- NOTE | 2016-05-15 12:56 | OPERATIVE REPORT ---
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 PROCEDURE PERFORMED: 1. Cystoscopy. 2. Stent removal. 3. Robotic-assisted laparoscopic left distal ureterectomy with psoas hitch and ureteral reimplant. 4. Left pelvic lymph node dissection. ANESTHESIA: General. ESTIMATED BLOOD LOSS: 100 mL URINE OUTPUT: Not recorded. SPECIMEN: 1. Distal left ureter for frozen section. Initial return questioned CIS in the specimen. 2. Second frozen section of distal left ureter, no evidence of malignancy. 3. Permanent margin of distal left ureter. 4. Left distal ureteral segment. 5. Left pelvic lymph nodes. SURGEON: Dr. Jorje Ken. OPERATIONS ADMINISTRATIVE ASSISTANT: Dr. Edward Chou. SECOND OPERATIONS ADMINISTRATIVE ASSISTANT: RUDI Pyle. COMPLICATIONS: There were no complications. DESCRIPTION OF THE PROCEDURE: Amrita Brewer was identified in the preoperative holding area. Appropriate informed consents were reviewed and completed, and the patient was transported to the operating suite. Upon arrival, she received appropriate preoperative antibiotics in the form of Ancef. Adequate general anesthesia was achieved. She was placed in dorsal lithotomy position where she was sterilely prepped and draped in standard fashion. I began the case by passing a 22-[place]orese cystoscope per urethra. Full inspection of the bladder was carried out. There was mild irritation circumferentially around the bladder consistent with stent-driven cystitis. A left ureteral stent was easily seen protruding from the left ureteral orifice. There were no papillary tumors appreciated within the bladder at all. After examining the full bladder, I grasped the distal end of the stent, withdrew it. At that point, we concluded the cystoscopic portion of the case. Following appropriate sterile prep and drape to the entire abdomen, we began the second portion of our case. A Veress needle was passed per umbilicus. A Quintanilla catheter was inserted into the bladder. This was a 3-way catheter. After insufflating the abdomen to 15 mmHg, I entered with a supraumbilical 12 mm Visiport and 10 mm 0-degree lens. Inspection revealed no evidence of Veress trauma nor significant adhesive disease. I inspected the anterior abdominal wall for adhesions and everything was free. I placed ports essentially in a standard robotic prostatectomy template. I placed these each sequentially under direct vision without difficulty. We then docked the robot after placing the patient in steep Trendelenburg position. I was easily able to identify the left ureter which was extremely dilated and appeared to be quite tortuous. I was able to circumferentially dissect around to the level of the external iliac artery and elevate it, control this with a vessel loop. I then dissected distally following the ureter with care to preserve as much periureteral tissue as possible and I carried this down toward the bladder itself. As I neared the extreme distal ureter, I moved my dissection away from the ureter itself and I dissected onto the surrounding detrusor muscle. Before the ureter from the bladder, I placed a single 0 silk stitch approximately 5-6 cm above the level of the bladder. This was to control any proximal migration of disease tissue following my transection. Distally, I then dissected lateral to the ureter until I entered the mucosa. I was able to enter the mucosa and inspect from the inside of the bladder and see the ureteral orifice just medial to my cystotomy. I placed a 2-0 Vicryl stitch at that time through the mucosa and I continued to make a circumferential incision around the ureter with care to make sure I included the true ureteral orifice as well as the full intramural ureter. After entirely excising this, I collected the specimen in an EndoCatch bag and left it in the abdomen. Of note, I did resect the most proximal extent of this specimen, was excised from the remaining portion of the ureter and sent off the table as a frozen section. I then proceeded to close the bladder first with a layer of 2-0 Vicryl, followed by an imbricating layer utilizing a 3-0 V-Loc stitch. Of note, she is mononephric. There was limited concern of entrapment of the right ureter. I then tested the bladder by irrigating the bladder via the 3-way Quintanilla catheter and there was no evidence of any persistent leak. At that time, I concluded that closure. I did receive a call back from pathology revealing that there was some concern for carcinoma in situ in the distal margin specimen. I then turned my attention to the remaining portion of the ureter that was still intact and connected to the bladder neck, and I took an additional margin. I marked the distal aspect of this with a 4-0 Vicryl and asked for the specimen to be checked on the margin opposite the stitch. Ultimately, this was returned as no evidence of malignancy. I then proceeded to begin my lymph node dissection. Lymph node dissection was carried out by identifying the external iliac artery and vein, elevating the fat off both structures as well as behind them, and using a split and roll technique, removing the lymph node packet and the overlying fat. I carried this distally as far as the obturator nerve and traced the nerve up until it crossed underneath and behind the vessels. The intervening packet was completely excised utilizing a combination of monopolar and bipolar electrocautery. This was collected in an EndoCatch bag and placed in the upper abdomen. We then turned our attention to the psoas hitch. In the midst of lymph node dissection, the psoas muscle was well exposed. Of note, she is a relatively frail woman who has limited musculature and her psoas tendon was visualized but appeared to be quite thin. I dropped the bladder as I would for prostatectomy by incising the peritoneum lateral to the umbilical ligaments on the right and left and then ultimately incising the umbilical ligaments as well. I particularly mobilized the right lateral aspect of the bladder. Bladder was certainly quite redundant and easily able to be manipulated up to the psoas muscle. Utilizing a 2-0 V-Loc stitch, I placed a psoas hitch stitch through the tendon of the psoas muscle with care to avoid any entrapment of the genitofemoral nerve. I then passed this through the left lateral aspect of the bladder and adjacent to the dome and I sutured this in place, holding the bladder against the psoas muscle. A second 0 Vicryl stitch was placed approximately 2 cm away in the same fashion. Bladder appeared to be quite secure at that time without significant tension. I refilled the bladder at that time. This allowed it to be modestly distended. I made an incision in the dome of the bladder after manipulating the ureter down against it to see what appropriate location for a ureteral neocystostomy would be. I incised through the detrusor muscle and left the mucosa intact. As this was pooching up for an appropriate length, I then felt comfortable with my site. I turned my attention to the distal left ureter. I made a transverse incision approximately 1 cm proximal to the extreme distal end of this ureter. This was carried through approximately three-quarters of the ureteral wall. I left this intact and utilized this distal aspect as a handle to help manipulate the ureter. I then spatulated the posterior aspect of the ureter for approximately a centimeter and a half. Of note, this was an extremely hydronephrotic ureter which was probably already 1 cm at least in diameter. After the spatulation was completed, I placed a 3-0 Vicryl stitch from outside to inside through the crotch of the spatulation. I then placed this at the most posterior aspect of my cystotomy after opening the previously exposed bladder mucosa. This was sutured in place. I then proceeded to run the lateral edge of my anastomosis with this same 3-0 Vicryl stitch, connecting bladder mucosa and ureteral mucosa without difficulty. As I reached the other apex, I began a second stitch in that location, and before completing my medial aspect of the anastomosis, I placed a 6-[place]orese 22-32 cm double-J ureteral stent and advanced to the kidney without difficulty and we saw, after removing the wire, the 2 distal curls were tucked in through the bladder cystotomy without difficulty. I then completed my anastomosis by continuing to sew down the anterior aspect until I circumferentially closed this opening. After trimming my stitches, I placed a 2-0 Vicryl stitch just distal to this and I slightly imbricated the perivesical tissue around the anastomosis with care not to encroach upon this as I would like to leave this as a true refluxing anastomosis for further surveillance. At that time, there was excellent hemostasis. We placed a MONIQUE drain to the left lateral most robotic port and undocked the robot. Two specimens were extracted through the right lateral practice assistant port without difficulty. The fascia of the 12 mm practice assistant port and the 12 mm midline port was closed with a [id number] 0 Vicryl stitch. All incisions were infiltrated with 0.5% Marcaine, followed by closure with 4-0 Monocryl. The drain was sutured in place with 0 silk. Wounds were dressed with Dermabond and a dressing was placed around the MONIQUE. The patient was subsequently extubated and taken to the PACU in stable condition. There were no complications. I attest to the content of the Intraoperative Record and any orders documented therein. Any exceptio ns are noted below.
[2016-05-15] MEDS: IPRATROPIUM BROMIDE/ALBUTEROL respimat INH INH SCH ×3 (13:00→20:44)
--- NOTE | 2016-05-15 13:01 | DIAGNOSTIC IMAGING REPORT ---
KUB CLINICAL HISTORY: s/p distal ureterectomy and ureteral reimplantation with stent COMPARISON STUDY: CT of the abdomen and pelvis January 25, 2016 and retrograde exam March 03, 2016. FINDINGS: A left ureteral stent is in place. The distal aspect of the stent projects over the bladder. The proximal aspect the stent projects over the expected region of the upper aspect of the left renal pelvis. A pelvic surgical drain is in place. There are right sided surgical clips. There is no evidence for a bowel obstruction. There are no unexpected radiopaque foreign bodies. IMPRESSION: 1. Left ureteral stent in place. 2. No evidence for a bowel obstruction. 3. Pelvic surgical drain in place. Electronically signed by: Steffen Varela M.D. 05/15/2016 12:59 PM Dictated Date/Time: 05/15/2016 12:57 PM
--- NOTE | 2016-05-15 13:12 | Anesthesiology Progress Note ---
Anesthesia Post Op Note Date & Time May 15, 2016 at 13:11 Vital Signs Pain Intensity: 0 Vital Signs Past 12 Hours Date Time Temp Pulse Resp B/P Pulse Ox O2 Delivery O2 Flow Rate FiO2 05/15/16 13:03 36.6 05/15/16 13:01 115/46 05/15/16 12:58 57 16 98 05/15/16 12:58 57 16 05/15/16 12:56 120/44 05/15/16 12:53 60 16 05/15/16 12:53 60 16 97 05/15/16 12:52 59 16 05/15/16 12:52 59 16 97 05/15/16 12:51 114/48 05/15/16 12:47 60 16 99 05/15/16 12:47 60 16 05/15/16 12:46 125/51 05/15/16 12:42 60 16 100 05/15/16 12:42 60 16 05/15/16 12:41 134/55 05/15/16 12:37 60 19 05/15/16 12:37 60 19 100 05/15/16 12:36 123/57 05/15/16 12:33 132/52 05/15/16 12:32 63 14 100 05/15/16 12:32 63 14 05/15/16 12:27 64 13 99 05/15/16 12:27 64 13 05/15/16 12:26 131/54 05/15/16 12:22 67 22 100 05/15/16 12:22 67 22 05/15/16 12:21 137/55 05/15/16 12:18 137/59 05/15/16 12:17 71 05/15/16 12:17 71 100 05/15/16 12:17 36.6 70 14 137/59 100 Mask 10 05/15/16 07:30 36.8 69 20 147/78 95 Room Air Notes Mental Status: alert / awake / arousable, participated in evaluation Pt Amnestic to Procedure: Yes Nausea / Vomiting: adequately controlled Pain: adequately controlled Airway Patency, RR, SpO2: stable & adequate BP & HR: stable & adequate Hydration State: stable & adequate Anesthetic Complications: no major complications apparent
[2016-05-15 13:14] LABS: BUN/CREATININE RATIO 6.8 (10-20); CALCIUM 8.4 mg/dl (8.5-10.1); CREATININE 1.3 mg/dl (0.60-1.20); POTASSIUM 3.1 mmol/L (3.5-5.1)
[2016-05-15] MEDS ORDERED: NEOSTIGMINE METHYLSULFATE 5 MG/5 ML SYR ONE (13:28)
[2016-05-15] MEDS ORDERED: GLYCOPYRROLATE INJ 0.2 MG/ML VIAL ONE (13:28)
[2016-05-15] MEDS: LACTATED RINGER'S 1000ML 1,000 ML IV SCH ×2 (14:31→20:43)
--- NOTE | 2016-05-15 14:40 | Medical Consult ---
Consultation Date of Consultation: May 15, 2016. Attending Physician: Jorje Ken M.D. 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 Ken on 05/15. Patient is currently feeling well, with no complaints. According to patient/family, procedure went well. No BM/flatus post op. Patient is currently eating flavored ice. Patient denies any fever, chills, sweats, lightheadedness, dizziness, vision changes, CP, palpitations, edema, SOB, wheezing, cough, abdominal pain, nausea, vomiting, diarrhea, urinary symptoms, melena, numbness/tingling, weakness, muscle/joint pain, anxiety/depression, active bleeding, or new skin discoloration/changes. Past Medical/Surgical History Medical Problems: 1. COPD 2. CAD h/o MA 3. Depression 4. HTN 5. h/o alcoholism 6. Hypothyroidism 7. h/o renal cell cancer 8. Seizure disorder 9. CKD stage 3 10. Schizophrenia 11. Dementia 12. GERD Family History Hypertension Social History Smoking Status: Former Smoker Drug Use: none Marital Status: Housing Status: assisted living Occupation Status: retired, disabled Allergies Coded Allergies: Sulfa Antibiotics (Verified Allergy, Severe, mouth swells, bumps on roof of mouth, 05/15/16) Banana (Verified Allergy, Intermediate, RAW -ROOF OF MOUTH SWELLS, 05/15/16) Home Medications Reported Home Medications Medications Dose Route/Sig Max Daily Dose Days Date Category Dose Instructions Norvasc (Amlodipine Besylate) 5 Mg Tab 5 Mg PO BID 05/15/16 Reported Exelon (Rivastigmine Tartrate) 1.5 Mg Cap 1.5 Mg PO BID 04/30/16 Reported [id number] Sodium Chloride 1 Gm Tab 1 Tab PO DAILY 04/30/16 Reported 0930 Combivent Respimat (Ipratropium-Albuterol) 1 Aer Aer 1 Puffs INH QID 04/30/16 Reported Toprol-Xl (Metoprolol Succinate) 25 Mg Tabcr 25 Mg PO QAM 04/28/16 Reported Milk Of Magnesia (Magnesium Hydroxide) 30 Ml Susp 30 Ml PO PRN 02/18/16 Reported Neurontin (Gabapentin) 400 Mg Cap 400 Mg PO TID 09/25/14 Reported GIVE AT 0030/0830/1630 Haloperidol 1 Mg Tab 1 Mg PO TID 08/13/14 Reported GIVE AT 0130,0930,1630 Senna/Docusate Sodium (Sennosides-Docusate Sodium) 1 Tab Tab 1 Tab PO BID 08/13/14 Reported Roxicodone Ir (Oxycodone HCl) 5 Mg Tab 5 Mg PO Q8 PRN 04/27/14 Reported Dilantin (Phenytoin Sodium) 30 Mg Cap 60 Mg PO TID 04/27/14 Reported [id number] Phenobarbital 64.8 Mg Tab 64.8 Mg PO DAILY 01/05/14 Reported GIVE AT 2030 Zantac (Ranitidine HCl) 150 Mg Tab 150 Mg PO BID 02/13/13 Reported DOSE TIMES 0930 & 2030 Cymbalta (Duloxetine Hcl) 20 Mg Cap 40 Mg PO QAM 02/12/12 Reported Seroquel (Quetiapine Fumarate) 25 Mg Tab 25 Mg PO HS 01/17/12 Reported Tylenol (Acetaminophen) 325 Mg Tab 650 Mg PO Q6 PRN 11/03/10 Reported NEEDED FOR MILD PAIN, DO NOT EXCEED 3000MG APAP/24 HOURS. Multivitamin (Multivitamins) Tab 1 Tablet PO QAM 11/21/09 Reported ONE A DAY WOMAN'S. Current Inpatient Medications Current Inpatient Medications Medications (Trade) Dose Ordered Sig/Benito Route Start Time Stop Time Status Last Admin Dose Admin Cefazolin Sodium 60 ml @ 100 mls/hr PREOP IV 05/15/16 06:00 05/15/16 18:00 05/15/16 08:09 100 MLS/HR Lactated Ringer's (Lr 1000ml) 1,000 ml @ 15 mls/hr Q24H IV 05/15/16 06:00 05/16/16 05:59 05/15/16 07:30 15 MLS/HR Amlodipine Besylate (Norvasc Tab) 5 mg BID PO 05/15/16 21:00 06/14/16 20:59 UNV Duloxetine HCl (Cymbalta Cap) 40 mg QAM PO 05/16/16 09:00 06/15/16 08:59 UNV Gabapentin (Neurontin Cap) 400 mg TID PO 05/15/16 14:00 06/14/16 13:59 UNV Haloperidol (Haldol Tab) 1 mg TID PO 05/15/16 14:00 06/14/16 13:59 UNV Albuterol/ Ipratropium (Combivent Respimat Inh) 1 puffs QID INH 05/15/16 13:00 06/14/16 12:59 UNV Magnesium Hydroxide (Milk Of Magnesia Susp) 30 ml PRN PO 05/15/16 12:00 06/14/16 11:59 UNV Metoprolol Succinate (Toprol Xl Tab) 25 mg QAM PO 05/16/16 09:00 06/15/16 08:59 UNV Phenytoin Sodium (Dilantin Er Cap) 60 mg TID PO 05/15/16 14:00 06/14/16 13:59 UNV Quetiapine Fumarate (seroQUEL TAB) 25 mg HS PO 05/15/16 21:00 06/14/16 20:59 UNV Ranitidine HCl (zANTac TAB) 150 mg BID PO 05/15/16 21:00 06/14/16 20:59 UNV Sodium Chloride (Sodium Chloride Tab) 1 gm DAILY PO 05/16/16 09:00 06/15/16 08:59 UNV Non-Formulary Medication (Phenobarbital ) 64.8 mg DAILY PO 05/16/16 09:00 06/15/16 08:59 UNV Non-Formulary Medication (Rivastigmine Tartrate (Exelon)) 1.5 mg BID PO 05/15/16 21:00 06/14/16 20:59 UNV Acetaminophen 500 mg 500 mg Q6H PO 05/15/16 12:00 06/14/16 11:59 UNV Cefazolin Sodium/ Dextrose (Ancef Iv/D5 50ml) 55 ml @ 100 mls/hr Q8H IV 05/15/16 12:00 05/16/16 11:59 UNV Docusate Sodium (coLACE CAP) 100 mg BID PO 05/15/16 21:00 06/14/16 20:59 UNV Heparin Sodium (Porcine) (Heparin Sq 5000 Unit/0.5ml) 5,000 unit Q12H SQ 05/15/16 19:00 06/14/16 18:59 UNV Hydromorphone HCl 1 mg 1 mg Q2H PRN IV 05/15/16 12:00 05/29/16 11:59 UNV Lactated Ringer's (Lr 1000ml) 1,000 ml @ 110 mls/hr Q9H6M IV 05/15/16 11:53 06/14/16 11:52 UNV Ondansetron HCl (Zofran Inj) 4 mg Q6H PRN IV 05/15/16 12:00 06/14/16 11:59 UNV Oxybutynin Chloride (Ditropan Tab) 5 mg Q8 PRN PO 05/15/16 12:00 06/14/16 11:59 UNV Oxycodone/ Acetaminophen (Percocet 7.5-325MG Tab) Hold Tylenol if given Q4H PRN PO 05/15/16 12:00 05/29/16 11:59 UNV Physical Exam Date Time Temp Pulse Resp B/P Pulse Ox O2 Delivery O2 Flow Rate FiO2 05/15/16 13:45 Nasal Cannula 05/15/16 13:45 Nasal Cannula 3.0 05/15/16 13:45 36.4 64 12 108/61 93 Nasal Cannula 2.0 05/15/16 13:30 36.2 64 14 116/51 97 Nasal Cannula 3 05/15/16 13:15 36.6 60 14 115/46 93 Nasal Cannula 3 05/15/16 13:03 36.6 05/15/16 13:01 115/46 05/15/16 12:58 57 16 98 05/15/16 12:58 57 16 05/15/16 12:56 120/44 05/15/16 12:53 60 16 05/15/16 12:53 60 16 97 05/15/16 12:52 59 16 05/15/16 12:52 59 16 97 05/15/16 12:51 114/48 05/15/16 12:47 60 16 99 05/15/16 12:47 60 16 05/15/16 12:46 125/51 05/15/16 12:42 60 16 100 05/15/16 12:42 60 16 05/15/16 12:41 134/55 05/15/16 12:37 60 19 05/15/16 12:37 60 19 100 05/15/16 12:36 123/57 05/15/16 12:33 132/52 05/15/16 12:32 63 14 100 05/15/16 12:32 63 14 05/15/16 12:27 64 13 99 05/15/16 12:27 64 13 05/15/16 12:26 131/54 05/15/16 12:22 67 22 100 05/15/16 12:22 67 22 05/15/16 12:21 137/55 05/15/16 12:18 137/59 05/15/16 12:17 71 05/15/16 12:17 71 100 05/15/16 12:17 36.6 70 14 137/59 100 Mask 10 05/15/16 07:30 36.8 69 20 147/78 95 Room Air General Appearance: no apparent distress Head: normocephalic, atraumatic Eyes: PERRL ENT: hearing grossly normal Neck: supple Respiratory/Chest: lungs clear, no respiratory distress, no accessory muscle use Cardiovascular: regular rate, rhythm Abdomen/GI: normal bowel sounds, non tender, soft Extremities/Musculoskelatal: no calf tenderness, no pedal edema Neurologic/Psych: alert, + pertinent finding (flat affect ) Skin: normal color, warm/dry, no rash Laboratory Results Last 24 Hours Test 05/15/16 07:12 05/15/16 12:37 White Blood Count 5.97 K/uL 6.90 K/uL Red Blood Count 3.30 M/uL 3.16 M/uL Hemoglobin 9.6 g/dL 9.0 g/dL Hematocrit 29.1 % 27.7 % Mean Corpuscular Volume 88.2 fL 87.7 fL Mean Corpuscular Hemoglobin 29.1 pg 28.5 pg Mean Corpuscular Hemoglobin Concent 33.0 g/dl 32.5 g/dl RDW Standard Deviation 49.0 fL 48.6 fL RDW Coefficient of Variation 15.3 % 15.2 % Platelet Count 415 K/uL 372 K/uL Mean Platelet Volume 9.3 fL 9.5 fL Prothrombin Time 11.2 SECONDS Prothromb Time International Ratio 1.0 Activated Partial Thromboplast Time 27.7 SECONDS Partial Thromboplastin Ratio 1.1 Sodium Level 144 mmol/L Potassium Level 3.1 mmol/L Chloride Level 107 mmol/L Carbon Dioxide Level 28 mmol/L Anion Gap 9.0 mmol/L Blood Urea Nitrogen 9 mg/dl Creatinine 1.30 mg/dl Est Creatinine Clear Calc Drug Dose 36.8 ml/min Estimated GFR () 48.1 Estimated GFR (Non- 41.5 BUN/Creatinine Ratio 6.8 Random Glucose 117 mg/dl Calcium Level 8.4 mg/dl Assessment & Plan 70 y/o female, s/p cystoscopy, stent removal, left distal ureterectomy with psoas hitch ureteral reimplant and left pelvic lymph node dissection due to 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 Ken on 05/15 - Surgical management as per primary team - Follow PRP and CBC Hypokalemia of 3.1- appears to be chronic issue: - KCL supplement 20 mEq BID - Follow PRP, replace PRN COPD: - Continue Combivent - Wean from O2 at tolerated--> does NOT wear O2 supplement at home CAD w/ h/o MA: Continue Metoprolol 25 mg QAM CKD, stage III, baseline cr. 1.3-1.6- stable HTN: Continue Norvasc 5 mg BID Dementia/Schizophrenia/Depression: Continue Haloperidol 1 mg TID, Seroquel 25 mg HS, Cymbalta 40 mg QAM Seizure disorder: Continue Dilantin 60 mg TID GERD: Continue Zantac DVT prophylaxis: Heparin 5000 units SQ q12 hrs, NELA and SCDs Code Status: LEVEL I, FULL Dispo: Discharge as per primary team Thank you for this consultation. We will continue to follow throughout hospital stay. PA Physician Supervision Note: I interviewed and examined the patient. Discussed with Blanca MAC and agree with findings and plan as documented in the note. Any exceptions or clarifications are listed here: None 70 F with schizophrenia and dementia, s/p ureteral resection and re implantation for transitional cell carcinoma, doing well post op vitals stable car is reg abd is soft and non tender hypokalemia replete, COPD stable mdi CAD/htn stable Metoprolol, Norvasc Dementia/Schizophrenia/Depression: Haloperidol, Seroquel, Cymbalta Seizure disorder: Continue Dilantin 60 mg TID follow level Documented By: Sahil Garza
[2016-05-15] MEDS: CEFAZOLIN IV 1,000 MG in DEXTROSE 5% 50ML 50 ML IV SCH ×2 (16:05→23:43)
[2016-05-15] MEDS: RIVASTIGMINE TARTRATE (EXELON) 1.5 MG CAP PO SCH (16:07)
[2016-05-15] MEDS: HALOPERIDOL 1 MG TAB PO SCH ×2 (16:07→20:44)
[2016-05-15] MEDS: PHENYTOIN SODIUM ER 30 MG CAP PO SCH ×2 (16:07→20:44)
[2016-05-15] MEDS: GABAPENTIN 400 MG CAP PO SCH ×2 (16:07→20:44)
[2016-05-15] MEDS: OXYCODONE/ACETAMINOPHEN 7.5-325 TAB PO PRN (18:30)
[2016-05-15] MEDS: HEPARIN SOD 5000 UNIT/0.5 ML CARP SQ SCH (18:30)
[2016-05-15] MEDS: ACETAMINOPHEN 500 MG TAB PO SCH ×2 (18:31→23:42)
[2016-05-15] MEDS: PHENOBARBITAL 32.4 MG TAB PO SCH (20:43)
[2016-05-15] MEDS: CLOTRIMAZOLE/BETAMETHASONE CR 15 GM TUBE EXT SCH (20:43)
[2016-05-15] MEDS: RANITIDINE HCL 150 MG TAB PO SCH (20:44)
[2016-05-15] MEDS: QUETIAPINE FUMARATE 25 MG TAB PO SCH (20:44)
[2016-05-15] MEDS: DOCUSATE SODIUM 100 MG CAP PO SCH (20:44)
[2016-05-15] MEDS: AMLODIPINE BESYLATE 5 MG TAB PO SCH (20:44)
[2016-05-15] MEDS: POTASSIUM CHLORIDE 20 MEQ TABCR PO SCH (20:44)
[2016-05-16] VITALS (11 sets, daily range): BP systolic 90–122; BP diastolic 44–74; PULSE 63–74; TEMP 36.8–37.1; O2SAT 88–98
[2016-05-16] MEDS: LACTATED RINGER'S 1000ML 1,000 ML IV SCH ×3 (06:05→23:43)
[2016-05-16] MEDS: ACETAMINOPHEN 500 MG TAB PO SCH ×4 (06:06→23:43)
[2016-05-16] MEDS: HEPARIN SOD 5000 UNIT/0.5 ML CARP SQ SCH ×2 (06:08→18:54)
--- NOTE | 2016-05-16 07:41 | Progress Note ---
Progress Note Date of Service May 16, 2016. Progress Note S: Doing very well - minimal pain - good UOP - clearing appropriately - no nausea, tolerating her diet well O: Test 05/15/16 12:37 05/16/16 04:44 RDW Standard Deviation 48.6 fL (36.4-46.3) RDW Coefficient of Variation 15.2 % (11.5-14.5) Mean Platelet Volume 9.5 fL (7.4-10.4) Est Creatinine Clear Calc Drug Dose 36.8 ml/min Vital Signs Past 12 Hours Date Time Temp Pulse Resp B/P Pulse Ox O2 Delivery O2 Flow Rate FiO2 05/16/16 03:45 36.8 63 16 108/63 98 Nasal Cannula 2.0 05/16/16 00:00 Nasal Cannula 2.0 05/15/16 23:28 96 Nasal Cannula 2.0 05/15/16 23:25 36.4 61 18 103/63 87 Room Air 05/15/16 19:45 36.7 61 16 120/69 95 Room Air NAD Awake and alert - demented RRR abd soft - incisions appropriate, MONIQUE serosang - urine clearing A/p: POD # s/p distal left ureterectomy with psoas hitch and ureteral reimplant - progressing appropriately - pain controlled - tolerating her diet - ambulate today
[2016-05-16] MEDS: CEFAZOLIN IV 1,000 MG in DEXTROSE 5% 50ML 50 ML IV SCH (07:53)
[2016-05-16] MEDS: RIVASTIGMINE TARTRATE (EXELON) 1.5 MG CAP PO SCH ×2 (07:55→16:46)
[2016-05-16 08:05] LABS: BASO % 0.3 %; BASO ABS # 0.02 K/uL (0-0.2); EOS % 2.5 %; HEMATOCRIT 24.5 % (37-47); IG% 0.1 %; LYMPH % 17.8 %; LYMPH ABS # 1.23 K/uL (1.2-3.4); MEAN CELL VOLUME 88.8 fL (80-100); MEAN CORPUSCULAR HGB CONC 32.7 g/dl (32-36); MEAN PLATELET VOLUME 8.8 fL (7.4-10.4); MONO % 12.8 %; NEUT % 66.5 %; PLATELET COUNT 286 K/uL (130-400); RED BLOOD COUNT 2.76 M/uL (4.2-5.4)
[2016-05-16 08:25] LABS: COMPLETE YES
--- NOTE | 2016-05-16 08:40 | Anesthesiology Progress Note ---
Anesthesia Post Op Note Date & Time May 16, 2016 at 08:39 Vital Signs Pain Intensity: 0.0 Vital Signs Past 12 Hours Date Time Temp Pulse Resp B/P Pulse Ox O2 Delivery O2 Flow Rate FiO2 05/16/16 07:48 36.9 64 18 102/49 98 Nasal Cannula 2.0 05/16/16 03:45 36.8 63 16 108/63 98 Nasal Cannula 2.0 05/16/16 00:00 Nasal Cannula 2.0 05/15/16 23:28 96 Nasal Cannula 2.0 05/15/16 23:25 36.4 61 18 103/63 87 Room Air Notes Mental Status: alert / awake / arousable, participated in evaluation Pt Amnestic to Procedure: Yes Nausea / Vomiting: adequately controlled Pain: adequately controlled Airway Patency, RR, SpO2: stable & adequate BP & HR: stable & adequate Hydration State: stable & adequate Anesthetic Complications: no major complications apparent
[2016-05-16 08:43] LABS: BUN/CREATININE RATIO 6.4 (10-20); CREATININE 1.2 mg/dl (0.60-1.20); POTASSIUM 3.9 mmol/L (3.5-5.1)
--- NOTE | 2016-05-16 09:28 | Clinical Documentation Query ---
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 Ken. Preoperative hemoglobin and hematocrit were 9.6 g/dl and 29.1%. POD #1, repeat values are 8.0 g/dl and 24.5%. EBL for the procedure was 100 ml's with subsequently documented losses via MONIQUE drain of 80 ml's to date. Additional non-quantifiable losses likely in urine. She is being monitored with serial hematology and I/O including drain outputs. As appropriate, consider clarification as suggested below as this directly impacts DRG assignment. Thank you. In your clinical opinion is this patient being managed for: ( x ) Acute blood loss anemia ( ) Other explanation of clinical findings (Please Explain) ( ) Unable to determine (Please Define) ( ) Need to Discuss ( ) Not Agree The medical record reflects the following clinical findings, treatment, and risk factors. Clinical Indicators: As above Treatment:She is being monitored with serial hematology and I/O including drain outputs Risk Factors: Acute perioperative blood losses. Please clarify and document your clinical opinion in the progress notes and discharge summary. Terms such as "probable", "suspected", "likely", "questionable", "possible", or "still to be ruled out" are acceptable. IF IN AGREEMENT, YOU MUST DOCUMENT ABOVE DIAGNOSTIC STATEMENT IN DAILY PROGRESS NOTES AND DISCHARGE SUMMARY. This document is not part of the patient's record. Thank You, Sanju Koenig, ERLIN [phone]
[2016-05-16] MEDS: IPRATROPIUM BROMIDE/ALBUTEROL respimat INH INH SCH ×4 (09:31→20:45)
[2016-05-16] MEDS: CLOTRIMAZOLE/BETAMETHASONE CR 15 GM TUBE EXT SCH ×2 (09:31→20:45)
[2016-05-16] MEDS: PHENYTOIN SODIUM ER 30 MG CAP PO SCH ×3 (09:32→20:46)
[2016-05-16] MEDS: HALOPERIDOL 1 MG TAB PO SCH ×3 (09:32→20:46)
[2016-05-16] MEDS: POTASSIUM CHLORIDE 20 MEQ TABCR PO SCH ×2 (09:32→20:46)
[2016-05-16] MEDS: DOCUSATE SODIUM 100 MG CAP PO SCH ×2 (09:32→20:46)
[2016-05-16] MEDS: GABAPENTIN 400 MG CAP PO SCH ×3 (09:32→20:46)
[2016-05-16] MEDS: AMLODIPINE BESYLATE 5 MG TAB PO SCH ×2 (09:33→20:46)
[2016-05-16] MEDS: METOPROLOL SUCC 25MG EXT REL TAB PO SCH (09:33)
[2016-05-16] MEDS: RANITIDINE HCL 150 MG TAB PO SCH ×2 (09:33→20:45)
[2016-05-16] MEDS: SODIUM CHLORIDE 1 GM TAB PO SCH (09:34)
[2016-05-16] MEDS: DULOXETINE HCL 20 MG CAP PO SCH (09:35)
--- NOTE | 2016-05-16 12:01 | Hospitalist Progress Note ---
Hospitalist Progress Note Date of Service May 16, 2016. (Gina Rodriguez PA-C) Subjective Pt evaluation today including: conversation w/ patient, physical exam, chart review, lab review, review of studies, review of inpatient medication list Voiding: mejia catheter in place Patient seen and evaluated. No acute events overnight. Hemoglobin noted to be 8.0 on AM labs. Patient with normochromic/normocytic anemia - likely anemia of chronic disease Patient is hemodynamically stable, without lightheadedness/dizziness, SOB, or CP. Appears pale but in NAD. Will repeat H&H. Hematuria present in mejia bag. Verbalizes well control of pain. Tolerating diet. No acute complaints at this time. Additional Comments: REVIEW OF SYSTEMS: General/Constitutional: Denies fever/chills, fatigue, weakness ENT: Denies visual changes, nasal drainage, hearing loss, sore throat, trouble swallowing Cardiovascular: Denies chest pain, palpitations, edema Respiratory: Denies cough, sputum, SOB, wheezing, orthopnea GI: Denies nausea, vomiting, abdominal pain, constipation, diarrhea, melena/ hematochezia : + Hematuria; Denies dysuria, frequency Musculoskeletal: Denies joint/muscle aches, weakness, swelling Neurologic: Denies dizziness/lightheadedness, numbness/tingling, weakness Psychiatric: Deferred Endocrine: Deferred Hematologic/Lymphatic: Denies bleeding/clotting abnormalities Skin: Denies rash, itch, new skin changes, easy bruising Allergy/Immunologic: Deferred (Gina Rodriguez, REJI-C) Medications Current Inpatient Medications Medications (Trade) Dose Ordered Sig/Benito Route Start Time Stop Time Status Last Admin Dose Admin Amlodipine Besylate (Norvasc Tab) 5 mg BID PO 05/15/16 21:00 06/14/16 20:59 05/16/16 09:33 5 MG Duloxetine HCl (Cymbalta Cap) 40 mg QAM PO 05/16/16 09:00 06/15/16 08:59 05/16/16 09:35 40 MG Gabapentin (Neurontin Cap) 400 mg TID PO 05/15/16 14:00 06/14/16 13:59 05/16/16 09:32 400 MG Haloperidol (Haldol Tab) 1 mg TID PO 05/15/16 14:00 06/14/16 13:59 05/16/16 09:32 1 MG Albuterol/ Ipratropium (Combivent Respimat Inh) 1 puffs QID INH 05/15/16 13:00 06/14/16 12:59 05/16/16 09:31 1 PUFFS Magnesium Hydroxide (Milk Of Magnesia Susp) 30 ml DAILY PRN PO 05/15/16 12:00 06/14/16 11:59 Metoprolol Succinate (Toprol Xl Tab) 25 mg QAM PO 05/16/16 09:00 06/15/16 08:59 05/16/16 09:33 25 MG Phenytoin Sodium (Dilantin Er Cap) 60 mg TID PO 05/15/16 14:00 06/14/16 13:59 05/16/16 09:32 60 MG Quetiapine Fumarate (seroQUEL TAB) 25 mg HS PO 05/15/16 21:00 06/14/16 20:59 05/15/16 20:44 25 MG Ranitidine HCl (zANTac TAB) 150 mg BID PO 05/15/16 21:00 06/14/16 20:59 05/16/16 09:33 150 MG Sodium Chloride (Sodium Chloride Tab) 1 gm DAILY PO 05/16/16 09:00 06/15/16 08:59 05/16/16 09:34 1 GM Phenobarbital (Phenobarbital Tab) 64.8 mg DAILY@2030 PO 05/15/16 20:30 06/14/16 20:29 05/15/16 20:43 64.8 MG Rivastigmine Tartrate (Exelon Cap) 1.5 mg BID@0830,1630 PO 05/15/16 16:30 06/14/16 20:59 05/16/16 07:55 1.5 MG Acetaminophen 500 mg 500 mg Q6 PO 05/15/16 18:00 06/14/16 11:59 05/16/16 11:30 500 MG Cefazolin Sodium/ Dextrose (Ancef Iv/D5 50ml) 55 ml @ 100 mls/hr Q8H IV 05/15/16 16:00 05/16/16 15:59 05/16/16 07:53 100 MLS/HR Docusate Sodium (coLACE CAP) 100 mg BID PO 05/15/16 21:00 06/14/16 20:59 05/16/16 09:32 100 MG Heparin Sodium (Porcine) (Heparin Sq 5000 Unit/0.5ml) 5,000 unit Q12H SQ 05/15/16 19:00 06/14/16 18:59 05/16/16 06:08 5,000 UNIT Hydromorphone HCl 1 mg 1 mg Q2H PRN IV 05/15/16 12:00 05/29/16 11:59 05/16/16 09:07 1 MG Lactated Ringer's (Lr 1000ml) 1,000 ml @ 110 mls/hr Q9H6M IV 05/15/16 11:53 06/14/16 11:52 05/16/16 06:05 110 MLS/HR Ondansetron HCl (Zofran Inj) 4 mg Q6H PRN IV 05/15/16 12:00 06/14/16 11:59 Oxybutynin Chloride (Ditropan Tab) 5 mg Q8 PRN PO 05/15/16 12:00 06/14/16 11:59 Oxycodone/ Acetaminophen (Percocet 7.5-325MG Tab) Hold Tylenol if given Q4H PRN PO 05/15/16 12:00 05/29/16 11:59 05/15/16 18:30 2 TAB Potassium Chloride (Klor-Con Tab) 20 meq BID PO 05/15/16 21:00 06/14/16 20:59 05/16/16 09:32 20 MEQ Betamethasone/ Clotrimazole (Lotrisone Crm) 1 appln BID EXT 05/15/16 21:00 06/14/16 20:59 05/16/16 09:31 1 APPLN (Gina Rodriguez PA-C) Objective Vital Signs Date Time Temp Pulse Resp B/P Pulse Ox O2 Delivery O2 Flow Rate FiO2 05/16/16 11:05 36.8 69 16 122/64 91 Nasal Cannula 2.0 05/16/16 09:49 96 Nasal Cannula 2.0 05/16/16 09:45 88 Room Air 05/16/16 09:39 74 111/70 05/16/16 08:00 Nasal Cannula 2.0 05/16/16 07:48 36.9 64 18 102/49 98 Nasal Cannula 2.0 05/16/16 03:45 36.8 63 16 108/63 98 Nasal Cannula 2.0 05/16/16 00:00 Nasal Cannula 2.0 05/15/16 23:28 96 Nasal Cannula 2.0 05/15/16 23:25 36.4 61 18 103/63 87 Room Air 05/15/16 19:45 36.7 61 16 120/69 95 Room Air 05/15/16 16:46 36.4 53 16 113/67 100 Nasal Cannula 2.0 05/15/16 15:56 Room Air 05/15/16 15:45 36.4 59 16 111/66 100 Nasal Cannula 4.0 05/15/16 14:45 59 16 121/72 99 05/15/16 13:45 Nasal Cannula 05/15/16 13:45 Nasal Cannula 3.0 05/15/16 13:45 36.4 64 12 108/61 93 Nasal Cannula 2.0 05/15/16 13:30 36.2 64 14 116/51 97 Nasal Cannula 3 05/15/16 13:15 36.6 60 14 115/46 93 Nasal Cannula 3 05/15/16 13:03 36.6 05/15/16 13:01 115/46 05/15/16 12:58 57 16 98 05/15/16 12:58 57 16 05/15/16 12:56 120/44 05/15/16 12:53 60 16 05/15/16 12:53 60 16 97 05/15/16 12:52 59 16 05/15/16 12:52 59 16 97 05/15/16 12:51 114/48 05/15/16 12:47 60 16 99 05/15/16 12:47 60 16 05/15/16 12:46 125/51 05/15/16 12:42 60 16 100 05/15/16 12:42 60 16 05/15/16 12:41 134/55 05/15/16 12:37 60 19 05/15/16 12:37 60 19 100 05/15/16 12:36 123/57 05/15/16 12:33 132/52 05/15/16 12:32 63 14 100 05/15/16 12:32 63 14 05/15/16 12:27 64 13 99 05/15/16 12:27 64 13 05/15/16 12:26 131/54 05/15/16 12:22 67 22 100 05/15/16 12:22 67 22 05/15/16 12:21 137/55 05/15/16 12:18 137/59 05/15/16 12:17 71 05/15/16 12:17 71 100 05/15/16 12:17 36.6 70 14 137/59 100 Mask 10 (Gina Rodriguez PA-C) Physical Exam Notes: PHYSICAL EXAM:: General Appearance: WDWN in NAD HEENT: Head is normocephalic/atraumatic; EOMI; PERRLA; Hearing grossly intact; Mucous membranes moist; Pharynx negative for exudate/lesions Neck: Supple; Trachea midline; Neg JVD; Neg lymphadenopathy Heart: RRR with no M/G/R Lungs: CTA in all lung brenner bilaterally; Respirations unlabored; Neg accessory muscle use Abdomen: Soft, non-tender, non-distended; Positive BS x 4 quadrants; Neg organomegaly : + Mejia catheter placed with adequate output and hematuria Extremities: Neg cyanosis or edema Neurological: Speech clear; Gross motor/sensory function intact; Neg focal neurologic deficits; + Resting tremor of upper extremities bilat Psychiatric: Appropriate mood/affect Skin: Normal Color; Warm/Dry; Neg rashes, ecchymosis, lacerations/ulcerations (Gina Rodriguez, PA-C) Laboratory Results Last 24 Hours Test 05/15/16 12:37 05/16/16 07:57 White Blood Count 6.90 K/uL 6.90 K/uL Red Blood Count 3.16 M/uL 2.76 M/uL Hemoglobin 9.0 g/dL 8.0 g/dL Hematocrit 27.7 % 24.5 % Mean Corpuscular Volume 87.7 fL 88.8 fL Mean Corpuscular Hemoglobin 28.5 pg 29.0 pg Mean Corpuscular Hemoglobin Concent 32.5 g/dl 32.7 g/dl RDW Standard Deviation 48.6 fL 49.6 fL RDW Coefficient of Variation 15.2 % 15.3 % Platelet Count 372 K/uL 286 K/uL Mean Platelet Volume 9.5 fL 8.8 fL Sodium Level 144 mmol/L 142 mmol/L Potassium Level 3.1 mmol/L 3.9 mmol/L Chloride Level 107 mmol/L 106 mmol/L Carbon Dioxide Level 28 mmol/L 28 mmol/L Anion Gap 9.0 mmol/L 8.0 mmol/L Blood Urea Nitrogen 9 mg/dl 8 mg/dl Creatinine 1.30 mg/dl 1.20 mg/dl Est Creatinine Clear Calc Drug Dose 36.8 ml/min 39.8 ml/min Estimated GFR () 48.1 53.0 Estimated GFR (Non- 41.5 45.8 BUN/Creatinine Ratio 6.8 6.4 Random Glucose 117 mg/dl 90 mg/dl Calcium Level 8.4 mg/dl 8.0 mg/dl Neutrophils (%) (Auto) 66.5 % Lymphocytes (%) (Auto) 17.8 % Monocytes (%) (Auto) 12.8 % Eosinophils (%) (Auto) 2.5 % Basophils (%) (Auto) 0.3 % Neutrophils # (Auto) 4.59 K/uL Lymphocytes # (Auto) 1.23 K/uL Monocytes # (Auto) 0.88 K/uL Eosinophils # (Auto) 0.17 K/uL Basophils # (Auto) 0.02 K/uL Immature Granulocyte % (Auto) 0.1 % Immature Granulocyte # (Auto) 0.01 K/uL Phenytoin (Dilantin) Level 5.7 mcg/mL (Gina Rodriguez, PAEdnaC) Assessment and Plan S/P Cystoscopy/Stent Removal/L Distal Ureterectomy/Ureteral Implant/Lymph Node Dissection / CA (05/15) - Surgical management as per primary team - Follow PRP and CBC Chronic Normochromic/Normocytic Anemia: - Hgb at 8.0 - currently hemodynamically stable and is asymptomatic - Repeat H&H - continue to monitor Hypokalemia - Chronic Component?: RESOLVED - KCL 20 mEq BID - Follow BMP - replete as necessary COPD: - Continue Combivent - Wean from O2 at tolerated--> does NOT wear O2 supplement at home CKD, Stage III: Baseline Cr. 1.3-1.6 - STABLE HTN and CAD S/P MO: - Norvasc 5 mg BID and metoprolol succinate 25 mg daily Dementia/Schizophrenia/Depression: - Haloperidol 1 mg TID, Seroquel 25 mg HS, Cymbalta 40 mg QAM - Rivastigmine tartrate 1.5 mg BID Seizure disorder: - Phenobarbital 64.8 mg daily and Dilantin 60 mg TID DVT prophylaxis: Heparin 5000 units SQ q12 hrs, NELA and SCDs Code Status: FULL RESUSCITATION Dispo: Discharge as per primary team (Gina Rodriguez, PA-C) i personally examined pt and verified all nelson points w Sagar Rodriguez PAC feeling OK - no cp no sob no pressure no lightheaded no fatigue, d/w son as well w pt's permission vitals noted see EMR, nad, no pallor or icterus, breathign unlabored anemia - acute (blood loss expected w surgery) on chronic -no indications to require transfusion at this time -continue to follow otherwise as above (Mohan Rashid, D.O.)
[2016-05-16] MEDS: OXYCODONE/ACETAMINOPHEN 7.5-325 TAB PO PRN (13:09)
[2016-05-16 14:59] LABS: HEMATOCRIT 24.4 % (37-47)
--- NOTE | 2016-05-16 19:49 | Progress Note ---
Progress Note Date of Service May 16, 2016. Progress Note Continues to progress needs to ambulate - going to try this now - tolerating PO - pain well controlled - passed some flatus? no BM yet
[2016-05-16] MEDS: PHENOBARBITAL 32.4 MG TAB PO SCH (20:44)
[2016-05-16] MEDS: QUETIAPINE FUMARATE 25 MG TAB PO SCH (20:53)
[2016-05-17] MEDS: OXYCODONE/ACETAMINOPHEN 7.5-325 TAB PO PRN (05:49)
[2016-05-17] MEDS: ACETAMINOPHEN 500 MG TAB PO SCH ×3 (05:50→18:32)
[2016-05-17 05:51] LABS: BASO % 0.5 %; BASO ABS # 0.04 K/uL (0-0.2); EOS % 3.2 %; HEMATOCRIT 24.5 % (37-47); IG% 0.3 %; LYMPH % 14.2 %; LYMPH ABS # 1.05 K/uL (1.2-3.4); MEAN CELL VOLUME 90.7 fL (80-100); MEAN CORPUSCULAR HEMOGLOBIN 29.3 pg (25-34); MEAN CORPUSCULAR HGB CONC 32.2 g/dl (32-36); MEAN PLATELET VOLUME 9.5 fL (7.4-10.4); MONO % 11.9 %; NEUT % 69.9 %; PLATELET COUNT 260 K/uL (130-400)
[2016-05-17] MEDS: HEPARIN SOD 5000 UNIT/0.5 ML CARP SQ SCH ×2 (06:23→18:33)
[2016-05-17 06:31] LABS: BUN/CREATININE RATIO 6.7 (10-20); CALCIUM 8.1 mg/dl (8.5-10.1); CREATININE 1.2 mg/dl (0.60-1.20); POTASSIUM 4.2 mmol/L (3.5-5.1)
[2016-05-17 06:46] LABS: COMPLETE YES
[2016-05-17 07:56] VITALS: BP 97/56; PULSE 60; TEMP 37; O2SAT 96
[2016-05-17] MEDS: METOPROLOL SUCC 25MG EXT REL TAB PO SCH (09:00)
[2016-05-17] MEDS: AMLODIPINE BESYLATE 5 MG TAB PO SCH ×2 (09:00→20:46)
[2016-05-17] MEDS: IPRATROPIUM BROMIDE/ALBUTEROL respimat INH INH SCH ×4 (09:01→20:45)
[2016-05-17] MEDS: LACTATED RINGER'S 1000ML 1,000 ML IV SCH ×2 (09:04→18:32)
[2016-05-17] MEDS: SODIUM CHLORIDE 1 GM TAB PO SCH (09:05)
[2016-05-17] MEDS: GABAPENTIN 400 MG CAP PO SCH ×3 (09:06→20:46)
[2016-05-17] MEDS: POTASSIUM CHLORIDE 20 MEQ TABCR PO SCH ×2 (09:06→20:46)
[2016-05-17] MEDS: HALOPERIDOL 1 MG TAB PO SCH ×3 (09:06→20:46)
[2016-05-17] MEDS: PHENYTOIN SODIUM ER 30 MG CAP PO SCH ×3 (09:07→20:46)
[2016-05-17] MEDS: DULOXETINE HCL 20 MG CAP PO SCH (09:07)
[2016-05-17 09:08] VITALS: BP 99/52; PULSE 60
[2016-05-17] MEDS: RIVASTIGMINE TARTRATE (EXELON) 1.5 MG CAP PO SCH ×2 (09:30→16:35)
[2016-05-17] MEDS: RANITIDINE HCL 150 MG TAB PO SCH ×2 (09:31→20:46)
[2016-05-17] MEDS: CLOTRIMAZOLE/BETAMETHASONE CR 15 GM TUBE EXT SCH ×2 (09:31→20:46)
[2016-05-17] MEDS: DOCUSATE SODIUM 100 MG CAP PO SCH ×2 (09:31→20:46)
[2016-05-17 10:54] VITALS: O2SAT 96
--- NOTE | 2016-05-17 10:59 | Progress Note ---
Progress Note Date of Service May 17, 2016. Progress Note Progressing well - no pain - urine clearing - MONIQUE output approp - tolerating PO intake (but limited appetite) - has been unsteady on her feet with ambulation O: 05/17/16 05:36 Red Blood Count 2.70, Mean Corpuscular Volume 90.7, Mean Corpuscular Hemoglobin 29.3, Mean Corpuscular Hemoglobin Concent 32.2, Mean Platelet Volume 9.5, Neutrophils (%) (Auto) 69.9, Lymphocytes (%) (Auto) 14.2, Monocytes (%) (Auto) 11.9, Eosinophils (%) (Auto) 3.2, Basophils (%) (Auto) 0.5, Neutrophils # (Auto ) 5.17, Lymphocytes # (Auto) 1.05, Monocytes # (Auto) 0.88, Eosinophils # (Auto ) 0.24, Basophils # (Auto) 0.04 05/17/16 05:36 Test 05/17/16 05:36 05/17/16 10:00 White Blood Count 7.40 K/uL (4.8-10.8) Red Blood Count 2.70 M/uL (4.2-5.4) Hemoglobin 7.9 g/dL (12.0-16.0) Hematocrit 24.5 % (37-47) Mean Corpuscular Volume 90.7 fL (80-100) Mean Corpuscular Hemoglobin 29.3 pg (25-34) Mean Corpuscular Hemoglobin Concent 32.2 g/dl (32-36) Platelet Count 260 K/uL (130-400) Mean Platelet Volume 9.5 fL (7.4-10.4) Neutrophils (%) (Auto) 69.9 % Lymphocytes (%) (Auto) 14.2 % Monocytes (%) (Auto) 11.9 % Eosinophils (%) (Auto) 3.2 % Basophils (%) (Auto) 0.5 % Neutrophils # (Auto) 5.17 K/uL (1.4-6.5) Lymphocytes # (Auto) 1.05 K/uL (1.2-3.4) Monocytes # (Auto) 0.88 K/uL (0.11-0.59) Eosinophils # (Auto) 0.24 K/uL (0-0.5) Basophils # (Auto) 0.04 K/uL (0-0.2) RDW Standard Deviation 50.4 fL (36.4-46.3) RDW Coefficient of Variation 15.2 % (11.5-14.5) Immature Granulocyte % (Auto) 0.3 % Immature Granulocyte # (Auto) 0.02 K/uL (0.00-0.02) Red Blood Cell Morphology Unremarkable Anion Gap 5.0 mmol/L (3-11) Est Creatinine Clear Calc Drug Dose 39.8 ml/min Estimated GFR () 53.0 Estimated GFR (Non- 45.8 BUN/Creatinine Ratio 6.7 (10-20) Calcium Level 8.1 mg/dl (8.5-10.1) 25-Hydroxy Vitamin D Total 23.0 ng/ml (30-100) Vital Signs Past 12 Hours Date Time Temp Pulse Resp B/P Pulse Ox O2 Delivery O2 Flow Rate FiO2 05/17/16 09:08 60 99/52 05/17/16 07:56 37.0 60 16 97/56 96 Room Air 05/17/16 07:20 Nasal Cannula 2.0 05/16/16 23:54 37.0 64 18 122/74 92 2.0 05/16/16 23:53 37.0 05/16/16 23:50 Room Air NAD AAOx3 no resp distress rrr abd soft - incisions approp - MONIQUE serosang - urine essentially clear A/P: s/p distal ureterectomy with psoas hitch and ureteral reimplant - progressing well - advance diet - PT/OT consult placed yesterday - will likely need their assistance with ambulation/mobility - resident of [facility] - I'd like her to be a little more mobile prior to d/ c home
[2016-05-17 11:39] VITALS: BP 125/75; PULSE 60; TEMP 36.9; O2SAT 100
[2016-05-17 17:00] VITALS: BP 144/76; PULSE 64; TEMP 36.9; O2SAT 100
--- NOTE | 2016-05-17 18:36 | Progress Note ---
Subjective Date of Service: May 17, 2016. Subjective Pt evaluation today including: conversation w/ patient, conversation w/ family , physical exam, chart review, lab review, review of inpatient medication list feeling well overall no lightheaded no weak no dizzy no other sx son present updated pt and family medically appearing stable pleased with progress thus far Problem List Medical Problems: (1) Dementia Status: Chronic (2) Osteoporosis Nos Status: Chronic (3) Paranoid Schizo-Chronic Status: Chronic (4) Renal insufficiency Status: Acute Review of Systems ros otherwise negative except for as above Objective Vital Signs Date Time Temp Pulse Resp B/P Pulse Ox O2 Delivery O2 Flow Rate FiO2 05/17/16 17:00 36.9 64 144/76 100 Nasal Cannula 2.0 05/17/16 15:45 Nasal Cannula 2.0 05/17/16 11:39 36.9 60 16 125/75 100 Nasal Cannula 2.0 05/17/16 10:54 96 Nasal Cannula 2.0 05/17/16 09:08 60 99/52 05/17/16 07:56 37.0 60 16 97/56 96 Nasal Cannula 2.0 05/17/16 07:20 Nasal Cannula 2.0 05/16/16 23:54 37.0 64 18 122/74 92 2.0 05/16/16 23:53 37.0 05/16/16 23:50 Room Air 05/16/16 19:46 94 Room Air Physical Exam General Appearance: no apparent distress Eyes: EOMI ENT: hearing grossly normal Neck: trachea midline Respiratory/Chest: no respiratory distress, no accessory muscle use Extremities: normal range of motion Neurologic/Psychiatric: county historian II-XII nml as tested, alert, normal mood/affect Skin: normal color, warm/dry Laboratory Results Last 24 Hours Test 05/17/16 05:36 05/17/16 10:00 White Blood Count 7.40 K/uL Red Blood Count 2.70 M/uL Hemoglobin 7.9 g/dL Hematocrit 24.5 % Mean Corpuscular Volume 90.7 fL Mean Corpuscular Hemoglobin 29.3 pg Mean Corpuscular Hemoglobin Concent 32.2 g/dl Platelet Count 260 K/uL Mean Platelet Volume 9.5 fL Neutrophils (%) (Auto) 69.9 % Lymphocytes (%) (Auto) 14.2 % Monocytes (%) (Auto) 11.9 % Eosinophils (%) (Auto) 3.2 % Basophils (%) (Auto) 0.5 % Neutrophils # (Auto) 5.17 K/uL Lymphocytes # (Auto) 1.05 K/uL Monocytes # (Auto) 0.88 K/uL Eosinophils # (Auto) 0.24 K/uL Basophils # (Auto) 0.04 K/uL RDW Standard Deviation 50.4 fL RDW Coefficient of Variation 15.2 % Immature Granulocyte % (Auto) 0.3 % Immature Granulocyte # (Auto) 0.02 K/uL Red Blood Cell Morphology Unremarkable Sodium Level 139 mmol/L Potassium Level 4.2 mmol/L Chloride Level 104 mmol/L Carbon Dioxide Level 30 mmol/L Anion Gap 5.0 mmol/L Blood Urea Nitrogen 8 mg/dl Creatinine 1.20 mg/dl Est Creatinine Clear Calc Drug Dose 39.8 ml/min Estimated GFR () 53.0 Estimated GFR (Non- 45.8 BUN/Creatinine Ratio 6.7 Random Glucose 108 mg/dl Calcium Level 8.1 mg/dl 25-Hydroxy Vitamin D Total 23.0 ng/ml Assessment and Plan S/P Cystoscopy/Stent Removal/L Distal Ureterectomy/Ureteral Implant/Lymph Node Dissection / CA (05/15) - Surgical management as per primary team - Follow PRP and CBC Chronic Normochromic/Normocytic Anemia with worsening due to acute blood loss ( anticipated): - Hgb has been stable in 8 range. (currently 7.9) - no symptoms. BP was slightly low but totally asymptomatic - continue to follow Hypokalemia - Chronic Component?: RESOLVED - KCL 20 mEq BID - Follow BMP - replete as necessary further vitamin d deficiency - drisdol weekly, D3 daily, repeat level 3 months COPD: - Continue Combivent - Wean from O2 at tolerated--> does NOT wear O2 supplement at home - appearing stable and no sob CKD, Stage III: Baseline Cr. 1.3-1.6 - STABLE HTN and CAD S/P MD: - Norvasc 5 mg BID and metoprolol succinate 25 mg daily, BP control reasonable Dementia/Schizophrenia/Depression: - Haloperidol 1 mg TID, Seroquel 25 mg HS, Cymbalta 40 mg QAM - Rivastigmine tartrate 1.5 mg BID - seems to be doing well despite surgery and hospital setting Seizure disorder: - Phenobarbital 64.8 mg daily and Dilantin 60 mg TID DVT prophylaxis: Heparin 5000 units SQ q12 hrs (given on significant ongoing blood loss favorable to continue), NELA and SCDs Code Status: FULL RESUSCITATION
[2016-05-17] MEDS: PHENOBARBITAL 32.4 MG TAB PO SCH (20:45)
[2016-05-17] MEDS: QUETIAPINE FUMARATE 25 MG TAB PO SCH (20:45)
[2016-05-17 23:36] VITALS: BP 109/61; PULSE 56; TEMP 36.2; O2SAT 100
[2016-05-18] MEDS: LACTATED RINGER'S 1000ML 1,000 ML IV SCH ×2 (03:19→11:48)
[2016-05-18] MEDS: ACETAMINOPHEN 500 MG TAB PO SCH ×3 (05:59→11:47)
[2016-05-18] MEDS: HEPARIN SOD 5000 UNIT/0.5 ML CARP SQ SCH (06:03)
[2016-05-18 07:02] VITALS: BP 113/65; PULSE 61; TEMP 36.3; O2SAT 99
[2016-05-18 08:44] LABS: BASO % 0.2 %; BASO ABS # 0.02 K/uL (0-0.2); EOS % 4.1 %; IG% 0.4 %; LYMPH % 17.4 %; LYMPH ABS # 1.45 K/uL (1.2-3.4); MEAN CELL VOLUME 91.2 fL (80-100); MEAN CORPUSCULAR HEMOGLOBIN 28.8 pg (25-34); MONO % 14.4 %; NEUT % 63.5 %; PLATELET COUNT 243 K/uL (130-400); RED BLOOD COUNT 2.85 M/uL (4.2-5.4); WHITE BLOOD COUNT 8.34 K/uL (4.8-10.8)
[2016-05-18 08:49] LABS: MEAN CORPUSCULAR HGB CONC 31.5 g/dl (32-36)
[2016-05-18] MEDS ORDERED: ERGOCALCIFEROL 50,000 INTER.UNIT CAP PO SCH (09:00)
[2016-05-18] MEDS ORDERED: CHOLECALCIFEROL 1000 INTER.UNIT TAB PO SCH (09:00)
[2016-05-18 09:04] LABS: BUN/CREATININE RATIO 9.6 (10-20)
[2016-05-18 09:09] LABS: COMPLETE YES
[2016-05-18] MEDS: HALOPERIDOL 1 MG TAB PO SCH (09:21)
[2016-05-18] MEDS: DULOXETINE HCL 20 MG CAP PO SCH (09:21)
[2016-05-18] MEDS: POTASSIUM CHLORIDE 20 MEQ TABCR PO SCH (09:21)
[2016-05-18] MEDS: PHENYTOIN SODIUM ER 30 MG CAP PO SCH (09:22)
[2016-05-18] MEDS: SODIUM CHLORIDE 1 GM TAB PO SCH (09:22)
[2016-05-18] MEDS: CLOTRIMAZOLE/BETAMETHASONE CR 15 GM TUBE EXT SCH (09:22)
[2016-05-18] MEDS: AMLODIPINE BESYLATE 5 MG TAB PO SCH (09:22)
[2016-05-18] MEDS: METOPROLOL SUCC 25MG EXT REL TAB PO SCH (09:22)
[2016-05-18] MEDS: IPRATROPIUM BROMIDE/ALBUTEROL respimat INH INH SCH ×2 (09:22→11:48)
[2016-05-18] MEDS: RIVASTIGMINE TARTRATE (EXELON) 1.5 MG CAP PO SCH (09:22)
[2016-05-18] MEDS: RANITIDINE HCL 150 MG TAB PO SCH (09:22)
[2016-05-18] MEDS: DOCUSATE SODIUM 100 MG CAP PO SCH (09:22)
[2016-05-18] MEDS: GABAPENTIN 400 MG CAP PO SCH (09:22)
--- NOTE | 2016-05-18 09:22 | Discharge Instructions ---
Discharge Instructions Date of Service May 18, 2016. Admission Reason for Admission: Ureteral Tumor Discharge Discharge Diagnosis / Problem: ureteral tumor Discharge Goals Goal(s): Improve disease control, Prevent Disease Progression Activity Recommendations Activity Limitations: resume your previous activity Lifting Limitations: no more than 25 pounds Exercise/Sports Limitations: gradually increase as tolerated Shower/Bathe: no limitations . Instructions / Follow-Up Instructions / Follow-Up Dr. Ken's office will contact you to arrange for catheter removal next week Current Hospital Diet Hospital Diet(s): Regular Diet Discharge Diet Recommended Diet: Regular Diet Procedures Procedures Performed: Cystoscopy, Stent Removal, Left Distal ureterectomy with psoas hitch ureteral reimplant and left pelvic lymph node dissection DaVinci Pending Studies Studies pending at discharge: no Medical Emergencies . Who to Call and When: Medical Emergencies: If at any time you feel your situation is an emergency, please call 911 immediately. . Non-Emergent Contact Non-Emergency issues call your: Urologist Call Non-Emergent contact if: you have a fever, temperature is above 101.5, your pain is not controlled, your pain is worsening . . "Provider Documentation" section prepared by Scott Moncada. VTE Core Measure Inpt VTE Proph given/why not?: Treatment not indicated
--- NOTE | 2016-05-18 09:48 | Discharge Summary ---
Discharge Summary Date of Service May 18, 2016. Discharge Summary Admission Date: May 15, 2016 at 08:00 Discharge Date: May 18, 2016 Discharge Disposition: long term facility Principal Diagnosis: Distal left ureteral tumor Procedures: distal left ureterectomy; psoas hitch ureteral reimplant Medication Reconciliation Continued Medications: Acetaminophen (Tylenol) 325 Mg Tab 650 MG PO Q6 PRN for Pain, 0 Refills NEEDED FOR MILD PAIN, DO NOT EXCEED 3000MG APAP/24 HOURS. Amlodipine (Norvasc) 5 Mg Tab 5 MG PO BID, TAB Duloxetine Hcl (Cymbalta) 20 Mg Cap 40 MG PO QAM Gabapentin (Neurontin) 400 Mg Cap 400 MG PO TID GIVE AT 0030/08/1630 Haloperidol (Haloperidol) 1 Mg Tab 1 MG PO TID GIVE AT 0130,929,163 Ipratropium-Albuterol (Combivent Respimat) 1 Aer Aer 1 PUFFS INH QID, INH Magnesium Hydroxide (Milk Of Magnesia) 30 Ml Susp 30 ML PO PRN, ML Metoprolol Succ (Toprol Xl) (Toprol-Xl) 25 Mg Tabcr 25 MG PO QAM, #30 TAB Multivitamin (Multivitamin) Tab 1 TABLET PO QAM, 0 Refills ONE A DAY WOMAN'S. Oxycodone Ir (Roxicodone Ir) 5 Mg Tab 5 MG PO Q8 PRN for Pain Phenobarbital (Phenobarbital) 64.8 Mg Tab 64.8 MG PO DAILY GIVE AT 2029 Phenytoin Sodium (Dilantin) 30 Mg Cap 60 MG PO TID [id number] Quetiapine Fumarate (Seroquel) 25 Mg Tab 25 MG PO HS Ranitidine (Zantac) 150 Mg Tab 150 MG PO BID DOSE TIMES 929 & 2029 Rivastigmine Tartrate (Exelon) 1.5 Mg Cap 1.5 MG PO BID, CAP 0276-1745 Sennosides-Docusate Sodium (Senna/Docusate Sodium) 1 Tab Tab 1 TAB PO BID Sodium Chloride (Sodium Chloride) 1 Gm Tab 1 TAB PO DAILY 929 Hospital Course Admitted for distal ureterectomy with reimplant - details of the procedure as dictated previously in the operative report, however, in summary, she tolerated the procedure well - she was in stable condition on the floor - returned to her baseline level of function over the next few days - minimal pain - urine cleared appropriately - labs were stable - good renal function - tolerating a diet - d/c home on POD #3 ([facility] [place]) - plan for voiding trial in my office next week Total time spent on discharge = This includes examination of the patient, discharge planning, medication reconciliation, and communication with other providers. Discharge Instructions Please see previously written d/c instructions
[2016-05-18 10:39] VITALS: BP 113/65; PULSE 61; TEMP 36.3; O2SAT 99
[2016-05-18 11:29] VITALS: O2SAT 94
--- NOTE | 2016-05-30 10:49 | EDITING REQUIRED CODING QUERY ---
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
[2016-07-01] MEDS ORDERED: LCTX PO (09:56)
[2016-07-01] MEDS ORDERED: CHOL20007 PO (09:56)
[2016-07-01] MEDS ORDERED: AMOX875T PO (09:56)
[2016-07-08] MEDS ORDERED: OXYC1TAB3 PO (09:47)
[2016-07-08] MEDS ORDERED: CBCI IV (09:47)
[2016-07-08] MEDS ORDERED: FRRS300 PO (09:47)
[2016-07-08] MEDS ORDERED: MRLP17X PO (09:48)
[2016-07-27] MEDS ORDERED: CPR500 PO (11:29)
[2016-07-27] MEDS ORDERED: OXYC1TAB3 PO (11:29)
[2016-10-03] MEDS ORDERED: CRG3125 PO (13:42)
[2016-10-03] MEDS ORDERED: OXYC1TAB3 PO (13:42)
[2016-10-03] MEDS ORDERED: AMLO-110 PO (13:42)
== END 2016-05-18 13:12 | DRG 657 ==
LOC: ENRESERVDT → ENRESERVTM → C.ACU 06:47 → C.MSW 08:00
PROVIDERS: ADMIT Urology; ATTEND Urology
PROC: 0TU Urinary System, Supplement (ICD-10-PCS; principal; 2016-05-15 08:15)
PROC: 0TT74ZZ Resection of Left Ureter, Percutaneous Endoscopic Approach (ICD-10-PCS; principal; 2016-05-15 08:15)
PROC: 8E0W4CZ Robotic Assisted Procedure of Trunk Region, Percutaneous Endoscopic Approach (ICD-10-PCS; principal; 2016-05-15 08:15)
PROC: 07BC4ZZ Excision of Pelvis Lymphatic, Percutaneous Endoscopic Approach (ICD-10-PCS; principal; 2016-05-15 08:15)
DX: C66.2 Malignant neoplasm of left ureter (principal); D62 Acute posthemorrhagic anemia; C77.5 Secondary and unspecified malignant neoplasm of intrapelvic lymph nodes; E87.6 Hypokalemia; J44.9 Chronic obstructive pulmonary disease, unspecified; I25.10 Atherosclerotic heart disease of native coronary artery without angina pectoris; N18.3 Chronic kidney disease, stage 3 (moderate); F32.9 Major depressive disorder, single episode, unspecified; I12.9 Hypertensive chronic kidney disease with stage 1 through stage 4 chronic kidney disease, or unspecified chronic kidney disease; F20.9 Schizophrenia, unspecified; F03.90 Unspecified dementia, unspecified severity, without behavioral disturbance, psychotic disturbance, mood disturbance, and anxiety; G40.909 Epilepsy, unspecified, not intractable, without status epilepticus; K21.9 Gastro-esophageal reflux disease without esophagitis; E03.9 Hypothyroidism, unspecified; M81.0 Age-related osteoporosis without current pathological fracture; E55.9 Vitamin D deficiency, unspecified; I25.2 Old myocardial infarction; Z85.528 Personal history of other malignant neoplasm of kidney; Z87.891 Personal history of nicotine dependence; R31.9 Hematuria, unspecified

== ENCOUNTER → 2016-06-23 | Outpatient (CLI) | payer OTHER ==
[~2016-06-23] MED LIST changes: +AMLO2.5T PO; +AMOX875T PO; +CBCI IV; -CEFAZOLIN 2000 MG/60 ML D5W IV SCH; +CHOL20007 PO; +CPR500 PO; +CRG3125 PO; +DAPT500I INJ; +FERR1TAB13 PO; +FRRS300 PO; -HEPARIN SOD 5000 UNIT/0.5 ML CARP SQ SCH; -LACTATED RINGER'S 1000ML 1,000 ML IV SCH; +LCTX PO; +MRLP17X PO; +NITR100C43 PO; +ONDA8TAB6 PO; +PHEN-310 PO; +POLY335019 PO; +PROC1TAB5 PO
[2016-06-23 10:22] LABS: PHENOBARBITAL 16.5 mcg/mL (15.0-40.0)
== END | disposition home or self-care (01) ==
LOC: C.LABCC 09:16
PROVIDERS: ATTEND Internal Medicine
DX: G40.909 Epilepsy, unspecified, not intractable, without status epilepticus (principal); E55.9 Vitamin D deficiency, unspecified

== ENCOUNTER → 2016-06-24 | Outpatient (CLI) | payer OTHER ==
[2016-06-24 11:45] LABS: BASO % 0.3 %; BASO ABS # 0.03 K/uL (0-0.2); COMPLETE YES; EOS % 6.2 %; HEMATOCRIT 29.9 % (37-47); IG% 0.1 %; LYMPH % 5.6 %; LYMPH ABS # 0.52 K/uL (1.2-3.4); MEAN CELL VOLUME 87.2 fL (80-100); MEAN CORPUSCULAR HEMOGLOBIN 28.9 pg (25-34); MEAN CORPUSCULAR HGB CONC 33.1 g/dl (32-36); MONO % 10.6 %; NEUT % 77.2 %; PLATELET COUNT 267 K/uL (130-400); RED BLOOD COUNT 3.43 M/uL (4.2-5.4); WHITE BLOOD COUNT 9.21 K/uL (4.8-10.8)
--- NOTE | 2016-06-25 14:16 | CODING QUERY NO DIAGNOSIS ---
TREATMENT RENDERED WITHOUT A DIAGNOSIS To promote full compliance with coding requirements relating to patient care, physician participation is requested in all cases of pediatric sports medicine specialist uncertainty. Please assist us with providing a diagnosis/symptom for the test(s) below: A diagnosis/symptom was not documented on your Order. A valid diagnosis/symptom is required to bill all insurances. Please remember that we are unable to code a diagnosis of rule out, probable, possible, questionable, or suspected. Tests that require a diagnosis: * CBC W/ AUTO DIFF DIAGNOSIS: * INFLUENZA VIR A OR B ANTIGEN DIAGNOSIS: * BLOOD CULTURE DIAGNOSIS: Provider Signature: Date: Thank you Payton Louise Lectorati Information Management Once completed, please kindly fax back to [phone] For questions please call [phone]
== END ==
LOC: C.LABCC 10:58
PROVIDERS: ATTEND Internal Medicine
DX: R50.9 Fever, unspecified (principal); R41.82 Altered mental status, unspecified

== ENCOUNTER 2016-06-25 10:07 | Emergency (ER) | payer OTHER ==
[~2016-06-25] VITALS: Ht 157.5 cm; Wt 69.0 kg
[~2016-06-25 10:07] MED LIST changes: -AMLO2.5T PO; -AMOX875T PO; -CBCI IV; -CHOL20007 PO; -CPR500 PO; -CRG3125 PO; -DAPT500I INJ; -FERR1TAB13 PO; -FRRS300 PO; -LCTX PO; -MRLP17X PO; -NITR100C43 PO; -ONDA8TAB6 PO; -PHEN-310 PO; -POLY335019 PO; -PROC1TAB5 PO
[2016-06-25 10:19] VITALS: TEMP 37.6; Ht 157.5 cm; Wt 69.0 kg
[2016-06-25] MEDS ORDERED: SODIUM CHLORIDE 0.9% 500ML 500 ML IV STA ×2 (11:18→14:08)
[2016-06-25 12:20] VITALS: O2SAT 95
--- NOTE | 2016-06-25 12:35 | DIAGNOSTIC IMAGING REPORT ---
CHEST ONE VIEW PORTABLE HISTORY: Evaluate Fever/Sepsis COMPARISON: Chest 04/30/2016. FINDINGS: Multiple old, healed right-sided rib fractures. Cervical spinal fusion hardware. No new focal lung consolidations to suggest pneumonia. Slight elevation of the left hemidiaphragm. No evidence for pulmonary edema. The heart is normal in size. Left basilar linear densities favor subsegmental atelectasis. There may be a trace left pleural effusion. Old, healed left-sided rib fractures. There is a catheter within the left upper quadrant and multiple upper abdominal skin abdirizak. Old, healed right humeral neck fracture. IMPRESSION: 1. No focal lung consolidations to suggest pneumonia. 2. Left basilar linear densities favor subsegmental atelectasis. There may be a trace left pleural effusion. Electronically signed by: Dereck Vick M.D. 06/25/2016 12:34 PM Dictated Date/Time: 06/25/2016 12:32 PM
[2016-06-25 12:51] LABS: BASO % 0.4 %; BASO ABS # 0.03 K/uL (0-0.2); COMPLETE YES; EOS % 7.3 %; HEMATOCRIT 28.8 % (37-47); IG% 0.2 %; LYMPH % 15.9 %; LYMPH ABS # 1.34 K/uL (1.2-3.4); MEAN CELL VOLUME 87.3 fL (80-100); MEAN CORPUSCULAR HEMOGLOBIN 27.6 pg (25-34); MEAN CORPUSCULAR HGB CONC 31.6 g/dl (32-36); MEAN PLATELET VOLUME 9.4 fL (7.4-10.4); MONO % 9.1 %; NEUT % 67.1 %; PLATELET COUNT 238 K/uL (130-400); WHITE BLOOD COUNT 8.44 K/uL (4.8-10.8)
[2016-06-25] MEDS ORDERED: DAPT500I INJ (13:01)
--- NOTE | 2016-06-25 13:11 | EMERGENCY ROOM VISIT NOTE ---
History First contact with patient: 11:05 Chief Complaint: ILLNESS Stated Complaint: FEVER History of Present Illness The patient is a 70 year old female who [facility] with concern for fevers. Past medical history significant for left ureteral high-grade transitional cell carcinoma she underwent cystoscopy and left distal ureterectomy on 05/15/2016. She has been doing well since her discharge from surgery up until yesterday when she began to have fevers. Patient is pleasantly demented and unable to provide much history, when asked if anything is bothering her she says no and she denies any fevers. Paperwork from [facility] notes documented fevers as high as 102.7, unknown if she received any antipyretics today, however nurse states that in report they were told she was given a dose of unknown IV antibiotics today. Review of Systems Review of systems Limited due to patient's dementia. Patient denies any complaints, specifically no chest pain, trouble breathing, abdominal pain, vomiting, diarrhea. 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 (19) UTI (urinary tract infection) Family History Hypertension Social History Smoking Status: Never Smoker Alcohol Use: none Drug Use: none Marital Status: Housing Status: assisted living Occupation Status: retired, disabled Current/Historical Medications Scheduled Amlodipine (Norvasc), 5 MG PO BID Amoxicillin & Pot Clavulanate (Augmentin 875-125 mg), 1 TAB PO BID Duloxetine Hcl (Cymbalta), 40 MG PO QAM Gabapentin (Neurontin), 400 MG PO TID Haloperidol (Haloperidol), 1 MG PO TID Ipratropium-Albuterol (Combivent Respimat), 1 PUFFS INH QID Magnesium Hydroxide (Milk Of Magnesia), 30 ML PO PRN Metoprolol Succ (Toprol Xl) (Toprol-Xl), 25 MG PO QAM Multivitamin (Multivitamin), 1 TABLET PO QAM Phenobarbital (Phenobarbital), 64.8 MG PO DAILY Phenytoin Sodium (Dilantin), 60 MG PO TID Quetiapine Fumarate (Seroquel), 25 MG PO HS Ranitidine (Zantac), 150 MG PO BID Rivastigmine Tartrate (Exelon), 1.5 MG PO BID Sennosides-Docusate Sodium (Senna/Docusate Sodium), 1 TAB PO BID Sodium Chloride (Sodium Chloride), 1 TAB PO DAILY Scheduled PRN Acetaminophen (Tylenol), 650 MG PO Q6 PRN for Pain Oxycodone Ir (Roxicodone Ir), 5 MG PO Q8 PRN for Pain Miscellaneous Medications Daptomycin (Daptomycin), 1 DOSE INJ Allergies Coded Allergies: Sulfa Antibiotics (Verified Allergy, Severe, mouth swells, bumps on roof of mouth, 06/25/16) Banana (Verified Allergy, Intermediate, RAW -ROOF OF MOUTH SWELLS, 06/25/16 ) Physical Exam Vital Signs Date Time Temp Pulse Resp B/P Pulse Ox O2 Delivery O2 Flow Rate FiO2 06/25/16 17:10 69 20 130/58 94 06/25/16 15:17 69 20 133/56 94 Room Air 06/25/16 14:13 67 16 127/65 97 Nasal Cannula 2.0 06/25/16 14:11 67 06/25/16 13:16 79 20 117/59 97 06/25/16 12:20 95 Room Air 2.0 06/25/16 12:13 77 16 126/68 92 Room Air 06/25/16 10:28 79 06/25/16 10:19 37.6 80 16 117/59 96 Room Air Physical Exam CONSTITUTIONAL: No acute distress. Well appearing and well nourished. Alert and oriented X person, pleasantly demented, with normal affect. HEENT: Normocephalic, atraumatic. Pupils equal, round and reactive to light, EOMI. TMs normal. Pharynx normal. Moist mucous membranes NECK: Supple, full active range of motion without discomfort. RESPIRATORY: Clear to auscultation bilaterally with no wheezing, crackles, rhonchi or stridor. Equal expansion bilaterally. CARDIOVASCULAR: Regular rate and rhythm with no murmurs, rubs or gallops. Normal peripheral perfusion. No edema. GASTROINTESTINAL: Soft, nontender, nondistended. Bowel sounds present in all quadrants. MUSCULOSKELETAL: Full range of motion of all joints without discomfort. INTEGUMENTARY: No rash or other significant dermatologic conditions noted. Normal skin turgor for age. NEUROLOGIC: Cranial nerves II-XII grossly intact. No focal neurologic deficits noted. Medical Decision & Procedures ER Provider Diagnostic Interpretation: CHEST ONE VIEW PORTABLE HISTORY: Evaluate Fever/Sepsis COMPARISON: Chest 04/30/2016. FINDINGS: Multiple old, healed right-sided rib fractures. Cervical spinal fusion hardware. No new focal lung consolidations to suggest pneumonia. Slight elevation of the left hemidiaphragm. No evidence for pulmonary edema. The heart is normal in size. Left basilar linear densities favor subsegmental atelectasis. There may be a trace left pleural effusion. Old, healed left-sided rib fractures. There is a catheter within the left upper quadrant and multiple upper abdominal skin abdirizak. Old, healed right humeral neck fracture. IMPRESSION: 1. No focal lung consolidations to suggest pneumonia. 2. Left basilar linear densities favor subsegmental atelectasis. There may be a trace left pleural effusion. Laboratory Results 06/25/16 12:28 Red Blood Count 3.30, Mean Corpuscular Volume 87.3, Mean Corpuscular Hemoglobin 27.6, Mean Corpuscular Hemoglobin Concent 31.6, Mean Platelet Volume 9.4, Neutrophils (%) (Auto) 67.1, Lymphocytes (%) (Auto) 15.9, Monocytes (%) (Auto) 9.1, Eosinophils (%) (Auto) 7.3, Basophils (%) (Auto) 0.4, Neutrophils # (Auto) 5.66, Lymphocytes # (Auto) 1.34, Monocytes # (Auto) 0.77, Eosinophils # (Auto) 0.62, Basophils # (Auto) 0.03 06/25/16 12:28 Test 06/25/16 12:28 06/25/16 13:40 White Blood Count 8.44 K/uL (4.8-10.8) Red Blood Count 3.30 M/uL (4.2-5.4) Hemoglobin 9.1 g/dL (12.0-16.0) Hematocrit 28.8 % (37-47) Mean Corpuscular Volume 87.3 fL (80-100) Mean Corpuscular Hemoglobin 27.6 pg (25-34) Mean Corpuscular Hemoglobin Concent 31.6 g/dl (32-36) Platelet Count 238 K/uL (130-400) Mean Platelet Volume 9.4 fL (7.4-10.4) Neutrophils (%) (Auto) 67.1 % Lymphocytes (%) (Auto) 15.9 % Monocytes (%) (Auto) 9.1 % Eosinophils (%) (Auto) 7.3 % Basophils (%) (Auto) 0.4 % Neutrophils # (Auto) 5.66 K/uL (1.4-6.5) Lymphocytes # (Auto) 1.34 K/uL (1.2-3.4) Monocytes # (Auto) 0.77 K/uL (0.11-0.59) Eosinophils # (Auto) 0.62 K/uL (0-0.5) Basophils # (Auto) 0.03 K/uL (0-0.2) RDW Standard Deviation 45.4 fL (36.4-46.3) RDW Coefficient of Variation 14.2 % (11.5-14.5) Immature Granulocyte % (Auto) 0.2 % Immature Granulocyte # (Auto) 0.02 K/uL (0.00-0.02) Anion Gap 7.0 mmol/L (3-11) Est Creatinine Clear Calc Drug Dose 34.0 ml/min Estimated GFR () 44.0 Estimated GFR (Non- 38.0 BUN/Creatinine Ratio 12.4 (10-20) Lactic Acid Level 0.8 mmol/L (0.4-2.0) Calcium Level 8.1 mg/dl (8.5-10.1) Total Bilirubin 0.4 mg/dl (0.2-1) Direct Bilirubin mg/dl (0-0.2) Aspartate Amino Transf (AST/SGOT) 25 U/L (15-37) Alanine Aminotransferase (ALT/SGPT) 16 U/L (12-78) Alkaline Phosphatase 143 U/L (45-117) Total Protein 7.5 gm/dl (6.4-8.2) Albumin 2.8 gm/dl (3.4-5.0) Lipase 211 U/L (73-393) Chemistry Specimen Hemolysis Phenytoin (Dilantin) Level 6.8 mcg/mL (10-20) Phenobarbital Level 17.8 mcg/mL (15.0-40.0) Urine Color DK YELLOW Urine Appearance CLEAR (CLEAR) Urine pH 6.0 (4.5-7.5) Urine Specific [place] 1.013 (1.000-1.030) Urine Protein 1+ (NEG) Urine Glucose (UA) NEG (NEG) Urine Ketones TRACE (NEG) Urine Occult Blood 2+ (NEG) Urine Nitrite NEG (NEG) Urine Bilirubin NEG (NEG) Urine Urobilinogen NEG (NEG) Urine Leukocyte Esterase MODERATE (NEG) Urine WBC (Auto) >30 /hpf (0-5) Urine RBC (Auto) 10-30 /hpf (0-4) Urine Hyaline Casts (Auto) 1-5 /lpf (0-5) Urine Epithelial Cells (Auto) 20-30 /lpf (0-5) Urine Bacteria (Auto) NEG (NEG) Medications Administered Medications (Trade) Dose Ordered Sig/[place] Route Start Time Stop Time Status Last Admin Dose Admin Sodium Chloride 500 ml @ 500 mls/hr Q1H STAT IV 06/25/16 11:18 06/25/16 12:17 DC 06/25/16 12:14 500 MLS/HR Sodium Chloride (Nss 500ml) 500 ml @ 999 mls/hr Q31M STAT IV 06/25/16 14:08 06/25/16 14:38 DC 06/25/16 15:16 999 MLS/HR Ceftriaxone Sodium (Rocephin Inj) 1 gm NOW STAT IV 06/25/16 15:10 06/25/16 15:12 DC 06/25/16 15:16 1 GM Medical Decision CC: Patient presenting with complaint of fevers Interpretation of Labs: Grossly unremarkable. Urinalysis concerning for UTI, given large amount of leukocytes but nitrites and bacteria negative, suspect Gram-positive more likely. Review of previous urine cultures shows a recent positive urine culture 3 weeks ago for enterococcus. Differential Diagnosis: Includes, but not limited to urinary tract infection, pneumonia, upper respiratory infection, bacteremia; patient does not appear septic. Summary: Patient was evaluated at bedside, history of physical exam performed. Orders were placed at bedside to evaluate for infection. Patient discussed with Dr. Bond, who agrees with my assessment and plan. Patient denies any complaints on exam, abdomen is soft and nontender. Lungs are clear. She appears well-hydrated. Evaluation of the chest x-ray unremarkable, no evidence of pneumonia. Labs reviewed, unremarkable, phenytoin and phenobarbital levels assessed, nontoxic. Urinalysis consistent with probable UTI. After review of her previous cultures , suspect possible enterococcus. Discussed with ED pharmacist, who recommends treating with Augmentin to cover for both gram-negative and gram-positive. Urine culture pending for confirmation. Patient tolerating by mouth well, requesting to go home. She is nontoxic- appearing with normal vital signs, I believe she is stable for discharge. She was provided with paper copy of Augmentin 10 days to treat her UTI. Patient reassessed multiple times throughout ED stay, remained stable and without any complaints. Impression Primary Impression: UTI (urinary tract infection) Departure Information Dispostion Home / Self-Care Condition GOOD Prescriptions Amoxicillin & Pot Clavulanate (Augmentin 875-125 mg) 1 Tab Tab 1 TAB PO BID for 10 Days, #20 TAB Prov: Heidi Bardales CRNP 06/25/16 Referrals [place] ([place]P) Patient Instructions ED UTI Cystitis Female, My [facility] Additional Instructions Please follow-up with your PCP next few days to be rechecked. You should have a basic metabolic panel lab drawn in the next 2 days to recheck your kidney function. Drink plenty of fluids to stay well hydrated. Take the antibiotics as prescribed for the full 10 days. This is to treat your urinary tract infection. Please return to the ER for any worsening symptoms, including severe pain, persistent vomiting and unable to keep down medications, persistent fevers while on antibiotics, send dehydration, feeling ill, increased confusion/ changes in mental status, or any other concerns. Problem Qualifiers Primary Impression: UTI (urinary tract infection) Urinary tract infection type: acute cystitis Hematuria presence: without hematuria Qualified Codes: N30.00 - Acute cystitis without hematuria
[2016-06-25 13:29] LABS: PHENOBARBITAL 17.8 mcg/mL (15.0-40.0)
[2016-06-25 13:41] LABS: ALKALINE PHOSPHATASE 143 U/L (45-117); ALT/SGPT 16 U/L (12-78); AST/SGOT 25 U/L (15-37); BLOOD UREA NITROGEN 17 mg/dl (7-18); BUN/CREATININE RATIO 12.4 (10-20); CALCIUM 8.1 mg/dl (8.5-10.1); CARBON DIOXIDE 26 mmol/L (21-32); CHLORIDE 103 mmol/L (98-107); GLUCOSE 101 mg/dl (70-99); POTASSIUM 3.8 mmol/L (3.5-5.1); SODIUM 136 mmol/L (136-145)
[2016-06-25 13:56] LABS: URINE APPEARANCE CLEAR (CLEAR); URINE BILIRUBIN NEG (NEG); URINE COLOR DK YELLOW; URINE EPITHELIAL CELL AUTO 20-30 /lpf (0-5); URINE NITRITE NEG (NEG); URINE SPECIFIC GRAVITY 1.013 (1.000-1.030); UROBILINOGEN NEG (NEG)
[2016-06-25 13:58] LABS: MANUAL MICROSCOPIC REQUIRED? NO; REVIEW REQ? NO
[2016-06-25] MEDS ORDERED: CEFTRIAXONE SOD INJ 1 GM ADDVIAL IV STA (15:10)
--- NOTE | 2016-06-25 15:59 | EMERGENCY ROOM VISIT NOTE ---
ED Visit Note First contact with patient: 11:05 Patient was seen by our PA/TRANSPORTATION PROJECT MANAGER. I was involved in the patient's care and did evaluate the patient myself. I was involved in the care throughout the ER stay. The patient presents with a reported fever. Workup here suggest a urinary infection. She is not toxic, she is not septic in appearance. She is not hypotensive. She would like to be discharged. She was given IV hydration, IV antibiotics and is being discharged on oral antibiotics. Close follow-up was suggested, if worsening, she should return.
[2016-06-25] MEDS ORDERED: AMOX875T PO (16:22)
[2016-06-25 17:10] VITALS: BP 130/58; PULSE 69; O2SAT 94
[2016-07-01] MEDS ORDERED: CHOL20007 PO (09:56)
[2016-07-01] MEDS ORDERED: LCTX PO (09:56)
[2016-07-01] MEDS ORDERED: AMOX875T PO (09:56)
[2016-07-08] MEDS ORDERED: CBCI IV (09:47)
[2016-07-08] MEDS ORDERED: FRRS300 PO (09:47)
[2016-07-08] MEDS ORDERED: OXYC1TAB3 PO (09:47)
[2016-07-08] MEDS ORDERED: MRLP17X PO (09:48)
[2016-07-27] MEDS ORDERED: CPR500 PO (11:29)
[2016-07-27] MEDS ORDERED: OXYC1TAB3 PO (11:29)
[2016-10-03] MEDS ORDERED: AMLO-110 PO (13:42)
[2016-10-03] MEDS ORDERED: CRG3125 PO (13:42)
[2016-10-03] MEDS ORDERED: OXYC1TAB3 PO (13:42)
== END 2016-06-25 17:24 | disposition home or self-care (01) ==
LOC: EDBD 10:07 → C.EDA 10:09
DX: N39.0 Urinary tract infection, site not specified (principal); Z85.54 Personal history of malignant neoplasm of ureter; Z90.6 Acquired absence of other parts of urinary tract; J44.9 Chronic obstructive pulmonary disease, unspecified; I25.10 Atherosclerotic heart disease of native coronary artery without angina pectoris; F32.9 Major depressive disorder, single episode, unspecified; I10 Essential (primary) hypertension; F10.21 Alcohol dependence, in remission; E03.9 Hypothyroidism, unspecified; I25.2 Old myocardial infarction; M81.0 Age-related osteoporosis without current pathological fracture; F20.0 Paranoid schizophrenia; Z87.440 Personal history of urinary (tract) infections; Z82.49 Family history of ischemic heart disease and other diseases of the circulatory system; Z79.899 Other long term (current) drug therapy; R50.9 Fever, unspecified

== ENCOUNTER → 2016-06-25 | Outpatient (CLI) | payer OTHER ==
[2016-06-25 19:20] LABS: URINE APPEARANCE CLOUDY (CLEAR); URINE BILIRUBIN NEG (NEG); URINE COLOR YELLOW; URINE EPITHELIAL CELL AUTO 20-30 /lpf (0-5); URINE NITRITE NEG (NEG); URINE SPECIFIC GRAVITY 1.009 (1.000-1.030); UROBILINOGEN NEG (NEG)
[2016-06-25 19:23] LABS: MANUAL MICROSCOPIC REQUIRED? NO; REVIEW REQ? YES
== END ==
LOC: C.LABCC 06-24 17:29 → EDSTATUS 06-27 12:50
PROVIDERS: ATTEND Internal Medicine
DX: R50.9 Fever, unspecified (principal)

== ENCOUNTER → 2016-06-26 | Outpatient (CLI) | payer OTHER ==
[~2016-06-26] MED LIST changes: +AMLO2.5T PO; +AMOX875T PO; +CBCI IV; +CHOL20007 PO; +CPR500 PO; +CRG3125 PO; +DAPT500I INJ; +FERR1TAB13 PO; +FRRS300 PO; +LCTX PO; +MRLP17X PO; +NITR100C43 PO; +ONDA8TAB6 PO; +PHEN-310 PO; +POLY335019 PO; +PROC1TAB5 PO
== END ==
LOC: C.LABCC 08:17
PROVIDERS: ATTEND Internal Medicine
DX: G40.909 Epilepsy, unspecified, not intractable, without status epilepticus (principal)

== ENCOUNTER → 2016-06-27 | Outpatient (CLI) | payer OTHER ==
[2016-06-27 08:47] LABS: BLOOD UREA NITROGEN 17 mg/dl (7-18); BUN/CREATININE RATIO 15.5 (10-20); CARBON DIOXIDE 23 mmol/L (21-32); CHLORIDE 98 mmol/L (98-107); GLUCOSE 93 mg/dl (70-99); POTASSIUM 3.6 mmol/L (3.5-5.1); SODIUM 132 mmol/L (136-145)
[2016-06-27 09:05] LABS: CALCIUM 8.8 mg/dl (8.5-10.1)
--- NOTE | 2016-07-18 16:40 | CODING QUERY NO DIAGNOSIS ---
TREATMENT RENDERED WITHOUT A DIAGNOSIS To promote full compliance with coding requirements relating to patient care, physician participation is requested in all cases of location man uncertainty. Please assist us with providing a diagnosis/symptom for the test(s) below: A diagnosis/symptom was not documented on your Order. A valid diagnosis/symptom is required to bill all insurances. Please remember that we are unable to code a diagnosis of rule out, probable, possible, questionable, or suspected. Tests that require a diagnosis: * PARTIAL RENAL PROFILE DIAGNOSIS: Provider Signature: Date: Thank you Payton Louise [facility] Information Management Once completed, please kindly fax back to [phone] For questions please call [phone]
== END ==
LOC: C.LABCC 08:23
PROVIDERS: ATTEND Internal Medicine
DX: C64.9 Malignant neoplasm of unspecified kidney, except renal pelvis (principal)

== ENCOUNTER → 2016-06-30 | Outpatient (CLI) | payer OTHER ==
[~2016-06-30] MED LIST changes: +OPTIRAY 300 IV PRN
--- NOTE | 2016-06-30 17:44 | DIAGNOSTIC IMAGING REPORT ---
ADDENDUM Follow-up imaging at 18 hours post initial injection shows persistent contrast within the left renal collecting system and left ureter to approximately level of the mid sacrum. Bladder is midline. IMPRESSION: Follow-up filming shows persistent distention of the proximal to mid left ureter as well as left renal collecting system. Etiology is uncertain. The left ureteral stent remains in superior in location Electronically signed by: Kelvin Almaraz M.D. 07/01/2016 9:52 AM Dictated Date/Time: 07/01/2016 9:51 AM ORIGINAL REPORT IVP W/OR W/O TOMOGRAMS CLINICAL HISTORY: D49.59 Ureteral [id number] renal neoplasm COMPARISON STUDY: 05/15/2016 FINDINGS: ] Right nephrectomy. Nonobstructive bowel pattern. Left ureteral stent somewhat high in position. Study is performed following intravenous injection of 100 cc nonionic contrast. There are findings of mild left renal hydronephrosis and hydroureter. Left ureteral stent occupies a position at the superior aspect left kidney. It potentially is within the renal parenchyma. Delayed imaging demonstrates moderate distention of the left ureter to approximately the mid left stent level. Patient will be scheduled for follow-up delayed filming. Bladder is mildly distended. IMPRESSION: 1. Postoperative right nephrectomy. 2. Left ureteral stent occupying a position higher than expected within the left kidney. 3. Moderate left hydroureteronephrosis with etiology of the obstructive change unclear. Contrast column extends to the mid sacrum 4. Patient will be scheduled for delayed filming with an addended report to be issued at that time. Electronically signed by: Kelvin Almaraz M.D. 06/30/2016 5:04 PM Dictated Date/Time: 06/30/2016 4:59 PM
== END | disposition home or self-care (01) ==
LOC: C.RAD 14:30
PROVIDERS: ATTEND Urology
DX: D49.59 Neoplasm of unspecified behavior of other genitourinary organ (principal)

== ENCOUNTER 2016-07-02 05:43 | Day surgery (SDC) | payer OTHER ==
[2016-07-01 09:56] VITALS: BMI 28.0
[~2016-07-02] VITALS: Ht 157.5 cm; Wt 69.5 kg
[~2016-07-02 05:43] MED LIST changes: -AMLO2.5T PO; -CBCI IV; -CPR500 PO; -CRG3125 PO; -FERR1TAB13 PO; -FRRS300 PO; +LACTATED RINGER'S 1000ML 1,000 ML IV SCH; -MRLP17X PO; -NITR100C43 PO; -ONDA8TAB6 PO; -OPTIRAY 300 IV PRN; -PHEN-310 PO; -POLY335019 PO; -PROC1TAB5 PO
[2016-07-02] MEDS ORDERED: LACTATED RINGER'S 1000ML 1,000 ML IV SCH (06:00)
[2016-07-02] MEDS ORDERED: CLINDAMYCIN 600 MG/54 ML D5W IV SCH (06:00)
[2016-07-02 06:21] LABS: BASO % 0.7 %; BASO ABS # 0.05 K/uL (0-0.2); HEMATOCRIT 26.8 % (37-47); IG% 0.1 %; LYMPH ABS # 1.35 K/uL (1.2-3.4); MEAN CELL VOLUME 83.5 fL (80-100); MEAN CORPUSCULAR HEMOGLOBIN 27.4 pg (25-34); MEAN PLATELET VOLUME 8.8 fL (7.4-10.4); MONO % 9.2 %; PLATELET COUNT 352 K/uL (130-400); RED BLOOD COUNT 3.21 M/uL (4.2-5.4); WHITE BLOOD COUNT 7.52 K/uL (4.8-10.8)
[2016-07-02 06:27] LABS: MEAN CORPUSCULAR HGB CONC 32.8 g/dl (32-36)
--- NOTE | 2016-07-02 06:35 | History and Physical ---
History & Physical Date July 02, 2016. Chief Complaint for port placement History of Present Illness The patient is a 70 year old female with a hx of recurrent Lt urothelial cancer. h/o Lt nephrectomy- remote and recent distal ureteral resection. 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 (19) UTI (urinary tract infection) Allergies Coded Allergies: Sulfa Antibiotics (Verified Allergy, Severe, mouth swells, bumps on roof of mouth, 07/02/16) Banana (Verified Allergy, Intermediate, RAW -ROOF OF MOUTH SWELLS, 07/02/16 ) Home Medications Scheduled Amlodipine (Norvasc), 5 MG PO BID Amoxicillin & Pot Clavulanate (Augmentin 875-125 mg), 1 TAB PO BID Cholecalciferol (Vitamin D3), 1 TAB PO QAM Duloxetine Hcl (Cymbalta), 40 MG PO QAM Gabapentin (Neurontin), 400 MG PO TID Haloperidol (Haloperidol), 1 MG PO TID Ipratropium-Albuterol (Combivent Respimat), 1 PUFFS INH QID Lactobacillus Acidophilus (Lactinex), 1 TAB PO QAM Magnesium Hydroxide (Milk Of Magnesia), 30 ML PO PRN Metoprolol Succ (Toprol Xl) (Toprol-Xl), 25 MG PO QAM Multivitamin (Multivitamin), 1 TABLET PO QAM Phenobarbital (Phenobarbital), 64.8 MG PO DAILY Phenytoin Sodium (Dilantin), 60 MG PO TID Quetiapine Fumarate (Seroquel), 25 MG PO HS Ranitidine (Zantac), 150 MG PO BID Rivastigmine Tartrate (Exelon), 1.5 MG PO BID Sennosides-Docusate Sodium (Senna/Docusate Sodium), 1 TAB PO BID Sodium Chloride (Sodium Chloride), 1 TAB PO DAILY Scheduled PRN Acetaminophen (Tylenol), 650 MG PO Q6 PRN for Pain Oxycodone Ir (Roxicodone Ir), 5 MG PO Q8 PRN for Pain Oxycodone Ir (Roxicodone Ir), 5 MG PO Q6H PRN for Pain Miscellaneous Medications Daptomycin (Daptomycin), 1 DOSE INJ Physical Examination Skin: warm/dry Eyes: sclerae normal Head: atraumatic Neck: supple Respiratory/Chest: normal breath sounds Cardiovascular: regular rate, rhythm Abdomen / GI: non tender Extremities: normal inspection Diagnosis Urothelial Ca- for chemotherapy In need of access port Plan of Treatment For access port placement
[2016-07-02 06:43] LABS: COMPLETE YES
[2016-07-02] MEDS ORDERED: EpHEDrine SULFATE INJ 50 MG/ML AMP IV PRN ×2 (07:00→08:00)
[2016-07-02] MEDS ORDERED: FENTANYL CITRATE INJ 50 MCG/1 ML 2 ML VIAL IV PRN ×2 (07:00→08:00)
[2016-07-02] MEDS ORDERED: ATROPINE SULFATE 0.1 MG/ML 5ML SYR IV PRN ×2 (07:00→08:00)
[2016-07-02] MEDS ORDERED: ONDANSETRON INJ 2 MG/ML 2 ML VIAL IV PRN ×2 (07:00→08:00)
[2016-07-02 07:30] VITALS: BP 136/61; PULSE 52; TEMP 36.9; O2SAT 96; Ht 157.5 cm; Wt 69.5 kg
[2016-07-02] MEDS ORDERED: LIDOCAINE HCL 2% 2 ML VIAL (20MG/ML) ONE (07:53)
[2016-07-02] MEDS ORDERED: PROPOFOL IV EMULSION 10 MG/ML 20 ML VIAL IV ONE (07:53)
[2016-07-02] MEDS ORDERED: FENTANYL CITRATE INJ 50 MCG/1 ML 2 ML VIAL ONE (07:53)
[2016-07-02] MEDS ORDERED: MIDAZOLAM HCL 1 MG/ML 2ML VIAL ONE (07:53)
[2016-07-02] MEDS ORDERED: OXYC1TAB3 PO (07:54)
[2016-07-02] MEDS ORDERED: HEPARIN SOD (PORCINE) 1000 UNIT/ML 10 ML VIAL ONE (07:56)
[2016-07-02] MEDS ORDERED: LIDOCAINE HCL 1% 20 ML VIAL ONE (07:56)
[2016-07-02] MEDS ORDERED: THROMBIN FOR SOLN 20000 UNIT KIT ONE (07:56)
[2016-07-02] MEDS ORDERED: CEFAZOLIN SOD 1 GM VIAL ONE (07:56)
--- NOTE | 2016-07-02 08:05 | Discharge Instructions ---
Discharge Instructions Date of Service July 02, 2016. Visit Reason for Visit: Ureteral Cancer Discharge Discharge Diagnosis / Problem: A-port placement Discharge Goals Goal(s): Improve disease control Activity Recommendations Activity Limitations: as noted below Shower/Bathe: keep incision dry (for 2 days) Anesthesia . Post Anesthesia Instructions: If you have had General Anesthesia or IV Sedation: * Do not drive today. * Resume driving when surgeon permits. * Do not make important decisions or sign legal documents today. * Call surgeon for: 1. Temperature elevations greater than 101 degrees F. 2. Uncontrollable pain. 3. Excessive bleeding. 4. Persistent nausea and vomiting. 5. Medication intolerance (nausea, vomiting or rash). * For nausea and vomiting use only clear liquids such as: tea, soda, bouillon until nausea subsides, then gradually increase diet as tolerated. * If you have any concerns or questions, call your surgeon's office. If physician is unavailable and it is an emergency, call 911 or go to the nearest emergency room. . Instructions / Follow-Up Instructions / Follow-Up May remove sutures at [place] in 2 weeks does not have to come to office unless necessary- call [phone] with questions Diet Recommendations Recommended Home Diet: no limitations Pending Studies Studies pending at discharge: no Medical Emergencies . Who to Call and When: Medical Emergencies: If at any time you feel your situation is an emergency, please call 911 immediately. . Non-Emergent Contact Non-Emergency issues call your: Surgeon Call Non-Emergent contact if: you have a fever, temperature is above 101.5, your pain is not controlled, wound has increased redness . . "Provider Documentation" section prepared by Kevin German. .
[2016-07-02] MEDS ORDERED: PHENYLEPHRINE 100MCG/ML 5ML SYR ONE (08:47)
[2016-07-02] MEDS ORDERED: EpHEDrine SULFATE 50MG/5ML SYR ONE (08:47)
--- NOTE | 2016-07-02 09:10 | [facility] Post Operative Brief Note ---
Immediate Operative Summary Operative Date July 02, 2016. Pre-Operative Diagnosis ureteral cancer Post-Operative Diagnosis ureteral cancer Procedure(s) Performed Insertion of left subclavian A-port Surgeon Dr. Ariel Bae Final Assembly Worker Surgeon(s) nurses Estimated Blood Loss 5ml Findings placed via Lt subclavian vein Specimens none Anesthesia local/ sedation Complication(s) None Disposition Recovery Room / PACU
[2016-07-02] MEDS ORDERED: HYDROCODONE/ACETAMOPHEN 5/325MG TAB PO PRN ×2 (09:15)
--- NOTE | 2016-07-02 09:44 | Anesthesiology Progress Note ---
Anesthesia Post Op Note Date & Time July 02, 2016 at 09:45 Vital Signs Pain Intensity: 0 Vital Signs Past 12 Hours Date Time Temp Pulse Resp B/P Pulse Ox O2 Delivery O2 Flow Rate FiO2 07/02/16 09:41 113/56 07/02/16 09:37 60 21 07/02/16 09:37 59 21 97 07/02/16 09:36 121/50 07/02/16 09:32 60 20 07/02/16 09:32 60 20 95 07/02/16 09:31 120/58 07/02/16 09:27 61 20 92 07/02/16 09:27 61 20 07/02/16 09:26 102/49 07/02/16 09:25 60 20 07/02/16 09:25 60 20 92 07/02/16 09:21 127/48 07/02/16 09:20 59 19 07/02/16 09:20 59 19 100 07/02/16 09:16 117/51 07/02/16 09:15 61 10 100 07/02/16 09:15 60 10 07/02/16 09:11 102/46 07/02/16 09:10 36.6 63 14 102/46 100 Mask 10 07/02/16 09:10 62 11 07/02/16 09:10 64 11 100 07/02/16 07:30 36.9 52 18 136/61 96 Room Air Notes Mental Status: alert / awake / arousable, participated in evaluation Pt Amnestic to Procedure: Yes Nausea / Vomiting: adequately controlled Pain: adequately controlled Airway Patency, RR, SpO2: stable & adequate BP & HR: stable & adequate Hydration State: stable & adequate Anesthetic Complications: no major complications apparent
--- NOTE | 2016-07-02 09:59 | DIAGNOSTIC IMAGING REPORT ---
SINGLE VIEW CHEST CLINICAL HISTORY: Status post infusion port placement. FINDINGS: An AP, portable, upright chest radiograph is compared to study dated 06/25/2016. The examination is degraded by portable technique and patient rotation. A left subclavian central venous infusion port is new from previous. The tip of the catheter projects over the right atrium. The heart is enlarged and there is atherosclerotic calcification of the thoracic aorta. The pulmonary vasculature is noncongested. There are low lung volumes with chronic interstitial thickening and elevation of left hemidiaphragm. There is bibasilar atelectasis. No airspace consolidation is seen typical for pneumonia and there is no large pleural effusion. No pneumothorax is seen post procedure. The skeletal structures are osteopenic. Advanced degenerative change is noted in the thoracic spine. Chronic posttraumatic deformity is present in the right shoulder. There are healed right-sided rib fractures. Fusion hardware is seen in the lower cervical spine. Surgical clips are noted in the upper abdomen. A catheter projects over the left upper quadrant. Numerous surgical clips are seen in the upper abdomen. IMPRESSION: 1. A left subclavian central venous infusion port is new from previous. The tip of the catheter projects over the right atrium at the level of the diaphragm. 2. No pneumothorax is identified post procedure. 3. Cardiomegaly without radiographic evidence of congestive failure. 4. Low lung volumes and chronic parenchymal changes as above. No acute cardiopulmonary abnormality is seen. Electronically signed by: Buzz Alvarez M.D. 07/02/2016 9:58 AM Dictated Date/Time: 07/02/2016 9:55 AM
[2016-07-02 10:00] VITALS: BP 121/55; PULSE 60; TEMP 36.6; O2SAT 96
[2016-07-02 10:30] VITALS: BP 119/55; PULSE 58; O2SAT 100
[2016-07-02 11:00] VITALS: BP 128/57; PULSE 58; TEMP 36.8; O2SAT 96
--- NOTE | 2016-07-02 16:13 | OPERATIVE REPORT ---
DATE OF OPERATION: 07/02/2016 NAME OF OPERATION: Port placement. PREOPERATIVE DIAGNOSIS: Urothelial cancer. POSTOPERATIVE DIAGNOSIS: Same. STAFF SURGEON: Dr. Bae. ANESTHESIA: 1% plain lidocaine with sedation. DESCRIPTION OF PROCEDURE: The patient was brought in the operating room and placed on the operating table in supine position. Her chest was prepped and draped in usual fashion. Using 1% plain lidocaine, skin and subcutaneous tissue over the left deltopectoral groove were anesthetized. Incision made carrying dissection down identifying the cephalic vein which was very small. It was unable to be used. Therefore, patient was placed in Trendelenburg position. Using a puncture technique, the left subclavian vein was localized, a wire passed under fluoroscopy. The needle then removed. A dilator and introducer passed over the wire under fluoroscopy. The dilator and wire removed and then the catheter passed through the introducer under fluoroscopy positioned appropriately. The introducer was removed. The catheter was aspirated and flushed with heparinized solution. A pocket was fashioned in the chest wall in the subcutaneous tissue. The port was attached to the catheter, placed into the pocket and secured to the tissue using 3-0 Prolene suture. The port was then aspirated and flushed with heparinized solution. Then the site irrigated with antibiotic solution. Subcutaneous tissue reapproximated using 2-0 plain catgut suture and then the skin reapproximated using 4-0 nylon suture. The patient was transferred to recovery room in stable condition. I attest to the content of the Intraoperative Record and any orders documented therein. Any exceptio ns are noted below.
[2016-07-08] MEDS ORDERED: OXYC1TAB3 PO (09:47)
[2016-07-08] MEDS ORDERED: CBCI IV (09:47)
[2016-07-08] MEDS ORDERED: FRRS300 PO (09:47)
[2016-07-08] MEDS ORDERED: MRLP17X PO (09:48)
[2016-07-27] MEDS ORDERED: CPR500 PO (11:29)
[2016-07-27] MEDS ORDERED: OXYC1TAB3 PO (11:29)
[2016-10-03] MEDS ORDERED: AMLO-110 PO (13:42)
[2016-10-03] MEDS ORDERED: CRG3125 PO (13:42)
[2016-10-03] MEDS ORDERED: OXYC1TAB3 PO (13:42)
== END 2016-07-02 11:03 | disposition home or self-care (01) ==
LOC: C.ACU 05:43
PROVIDERS: ATTEND Surgery
DX: C68.9 Malignant neoplasm of urinary organ, unspecified (principal); I12.9 Hypertensive chronic kidney disease with stage 1 through stage 4 chronic kidney disease, or unspecified chronic kidney disease; F03.90 Unspecified dementia, unspecified severity, without behavioral disturbance, psychotic disturbance, mood disturbance, and anxiety; N18.3 Chronic kidney disease, stage 3 (moderate); I25.10 Atherosclerotic heart disease of native coronary artery without angina pectoris; E03.9 Hypothyroidism, unspecified; J44.9 Chronic obstructive pulmonary disease, unspecified; Z98.890 Other specified postprocedural states; F32.9 Major depressive disorder, single episode, unspecified; F20.0 Paranoid schizophrenia; Z91.018 Allergy to other foods; Z88.2 Allergy status to sulfonamides; Z79.899 Other long term (current) drug therapy; Z68.28 Body mass index [BMI] 28.0-28.9, adult

== ENCOUNTER 2016-07-04 04:11 | Inpatient (IN) | payer OTHER ==
[~2016-07-04] VITALS: Ht 157.5 cm; Wt 70.7 kg
[~2016-07-04 04:11] MED LIST changes: -LACTATED RINGER'S 1000ML 1,000 ML IV SCH
[2016-07-04] MEDS ORDERED: NITR100C43 PO (04:39)
[2016-07-04 05:00] LABS: BASO % 0.2 %; BASO ABS # 0.03 K/uL (0-0.2); EOS % 3.2 %; HEMATOCRIT 23.5 % (37-47); IG% 0.2 %; LYMPH % 4.6 %; LYMPH ABS # 0.66 K/uL (1.2-3.4); MEAN CELL VOLUME 83.9 fL (80-100); MEAN CORPUSCULAR HEMOGLOBIN 28.9 pg (25-34); MEAN CORPUSCULAR HGB CONC 34.5 g/dl (32-36); MEAN PLATELET VOLUME 9.2 fL (7.4-10.4); MONO % 5.9 %; NEUT % 85.9 %; PLATELET COUNT 288 K/uL (130-400); WHITE BLOOD COUNT 14.48 K/uL (4.8-10.8)
[2016-07-04 05:16] LABS: BUN/CREATININE RATIO 7.9 (10-20); CALCIUM 7.7 mg/dl (8.5-10.1); CREATININE 1.6 mg/dl (0.60-1.20); POTASSIUM 3.2 mmol/L (3.5-5.1)
[2016-07-04 05:17] LABS: INR 1.2 (0.9-1.1); PARTIAL THROMBOPLASTIN RATIO 1.4; PROTHROMBIN TIME (PATIENT) 12.8 SECONDS (9.0-12.0)
--- NOTE | 2016-07-04 05:18 | EMERGENCY ROOM VISIT NOTE ---
History First contact with patient: 04:21 Chief Complaint: FEVER Stated Complaint: FEVER History of Present Illness The patient is a 70 year old female who presents to the Emergency Room with Fever. Patient was seen in the ED at [facility] on 06/25 for Fever 2/2 UTI and the patient was discharged home with a course of Bactrim. 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 Today she returns to the ED with after being found at [facility] to have a fever and also hypotensive blood pressure. She was found to have a temperature initially of 99.5 and was given Tylenol, and 2 hours later her temperature was found to be 101.5. She has been more confused lately and is acting similar to her mental status when she had urosepsis in the past. She is pleasantly demented and is oriented to place and person but not time. She denies all review of systems questions including fever and burning on urination. EMS stated that the patient had a fall described as sliding off of her bed without any head trauma or loss of consciousness. The patient states that she thinks she may have bumped her head on her bed and does complain of some tenderness over the right occipital region of her skill. Urine Cultures from a straight cath on 06/10 grew Vancomycin resistant enterococci , the Urine cultures from 06/25 showed no growth Review of Systems See HPI for pertinent positives and negatives. A total of ten systems were reviewed and were otherwise negative. 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 (19) UTI (urinary tract infection) Family History Hypertension Social History Smoking Status: Former Smoker Alcohol Use: none Drug Use: none Marital Status: Housing Status: assisted living Occupation Status: retired, disabled Current/Historical Medications Scheduled Amlodipine (Norvasc), 5 MG PO BID AT 0830 & 1630 Cholecalciferol (Vitamin D3), 1 TAB PO QAM Duloxetine Hcl (Cymbalta), 40 MG PO QAM Gabapentin (Neurontin), 400 MG PO TID Haloperidol (Haloperidol), 1 MG PO TID Ipratropium-Albuterol (Combivent Respimat), 1 PUFFS INH QID Lactobacillus Acidophilus (Lactinex), 1 TAB PO QAM Metoprolol Succ (Toprol Xl) (Toprol-Xl), 25 MG PO QAM Multivitamin (Multivitamin), 1 TABLET PO QAM Nitrofurantoin Macrocrystal (Nitrofurantoin), 100 MG PO BID Phenobarbital (Phenobarbital), 64.8 MG PO DAILY Phenytoin Sodium (Dilantin), 60 MG PO TID Quetiapine Fumarate (Seroquel), 25 MG PO HS Ranitidine (Zantac), 150 MG PO BID Rivastigmine Tartrate (Exelon), 1.5 MG PO BID Sennosides-Docusate Sodium (Senna/Docusate Sodium), 1 TAB PO BID AT 0830 & 1630 Sodium Chloride (Sodium Chloride), 1 TAB PO QAM Scheduled PRN Acetaminophen (Tylenol), 650 MG PO Q6 PRN for Pain or Fever Magnesium Hydroxide (Milk Of Magnesia), 30 ML PO PRN PRN for Constipation Oxycodone Ir (Roxicodone Ir), 5 MG PO Q6H PRN for Pain Allergies Coded Allergies: Sulfa Antibiotics (Verified Allergy, Severe, mouth swells, bumps on roof of mouth, 07/04/16) Banana (Verified Allergy, Intermediate, RAW -ROOF OF MOUTH SWELLS, 07/04/16 ) Physical Exam Vital Signs Date Time Temp Pulse Resp B/P Pulse Ox O2 Delivery O2 Flow Rate FiO2 07/04/16 06:24 37.1 68 16 119/56 93 Room Air 07/04/16 05:19 67 18 99/64 95 Room Air 07/04/16 05:17 95 Room Air 07/04/16 04:19 37.7 79 18 97/42 94 Room Air 07/04/16 04:17 68 Physical Exam GENERAL: Awake, alert, well-appearing, in no distress HENT: Normocephalic, atraumatic. EYES: Normal conjunctiva. Sclera non-icteric. NECK: Supple. No nuchal rigidity. Trachea midline RESPIRATORY: Clear to auscultation. CARDIAC: Regular rate, normal rhythm. Systolic Ejection murmur. Extremities warm and well perfused. Pulses equal. ABDOMEN: Soft, non-distended. No tenderness to palpation. No rebound or guarding. No masses. RECTAL: Deferred. MUSCULOSKELETAL: Chest examination reveals no tenderness. The back is symmetrical on inspection without obvious abnormality. There is no CVA tenderness to palpation. Port over left side of chest is c/d/i. LOWER EXTREMITIES: Calves are equal size bilaterally and non-tender. No edema. No discoloration. NEURO: Patient is oriented to place and person but not time. Pleasantly demented. SKIN: No rash or jaundice noted. Medical Decision & Procedures Laboratory Results 07/04/16 04:40 Red Blood Count 2.80, Mean Corpuscular Volume 83.9, Mean Corpuscular Hemoglobin 28.9, Mean Corpuscular Hemoglobin Concent 34.5, Mean Platelet Volume 9.2, Neutrophils (%) (Auto) 85.9, Lymphocytes (%) (Auto) 4.6, Monocytes (%) (Auto) 5.9, Eosinophils (%) (Auto) 3.2, Basophils (%) (Auto) 0.2, Neutrophils # (Auto) 12.44, Lymphocytes # (Auto) 0.66, Monocytes # (Auto) 0.85, Eosinophils # (Auto) 0.47, Basophils # (Auto) 0.03 07/04/16 04:40 Test 07/04/16 04:20 07/04/16 04:40 07/04/16 04:48 07/04/16 05:35 Urine Color YELLOW Urine Appearance CLOUDY (CLEAR) Urine pH 6.0 (4.5-7.5) Urine Specific [place] 1.006 (1.000-1.030) Urine Protein NEG (NEG) Urine Glucose (UA) NEG (NEG) Urine Ketones NEG (NEG) Urine Occult Blood 1+ (NEG) Urine Nitrite NEG (NEG) Urine Bilirubin NEG (NEG) Urine Urobilinogen NEG (NEG) Urine Leukocyte Esterase LARGE (NEG) Urine WBC (Auto) >30 /hpf (0-5) Urine RBC (Auto) 0-4 /hpf (0-4) Urine Hyaline Casts (Auto) 1-5 /lpf (0-5) Urine Epithelial Cells (Auto) >30 /lpf (0-5) Urine Bacteria (Auto) NEG (NEG) White Blood Count 14.48 K/uL (4.8-10.8) Red Blood Count 2.80 M/uL (4.2-5.4) Hemoglobin 8.1 g/dL (12.0-16.0) Hematocrit 23.5 % (37-47) Mean Corpuscular Volume 83.9 fL (80-100) Mean Corpuscular Hemoglobin 28.9 pg (25-34) Mean Corpuscular Hemoglobin Concent 34.5 g/dl (32-36) Platelet Count 288 K/uL (130-400) Mean Platelet Volume 9.2 fL (7.4-10.4) Neutrophils (%) (Auto) 85.9 % Lymphocytes (%) (Auto) 4.6 % Monocytes (%) (Auto) 5.9 % Eosinophils (%) (Auto) 3.2 % Basophils (%) (Auto) 0.2 % Neutrophils # (Auto) 12.44 K/uL (1.4-6.5) Lymphocytes # (Auto) 0.66 K/uL (1.2-3.4) Monocytes # (Auto) 0.85 K/uL (0.11-0.59) Eosinophils # (Auto) 0.47 K/uL (0-0.5) Basophils # (Auto) 0.03 K/uL (0-0.2) RDW Standard Deviation 43.4 fL (36.4-46.3) RDW Coefficient of Variation 14.1 % (11.5-14.5) Immature Granulocyte % (Auto) 0.2 % Immature Granulocyte # (Auto) 0.03 K/uL (0.00-0.02) Red Blood Cell Morphology Unremarkable Prothrombin Time 12.8 SECONDS (9.0-12.0) Prothromb Time International Ratio 1.2 (0.9-1.1) Activated Partial Thromboplast Time 36.0 SECONDS (21.0-31.0) Partial Thromboplastin Ratio 1.4 Anion Gap 8.0 mmol/L (3-11) Est Creatinine Clear Calc Drug Dose 30.1 ml/min Estimated GFR () 37.4 Estimated GFR (Non- 32.3 BUN/Creatinine Ratio 7.9 (10-20) Lactic Acid Level 0.8 mmol/L (0.4-2.0) Calcium Level 7.7 mg/dl (8.5-10.1) Total Bilirubin 0.4 mg/dl (0.2-1) Aspartate Amino Transf (AST/SGOT) 16 U/L (15-37) Alanine Aminotransferase (ALT/SGPT) 14 U/L (12-78) Alkaline Phosphatase 135 U/L (45-117) Total Protein 7.1 gm/dl (6.4-8.2) Albumin 2.7 gm/dl (3.4-5.0) Globulin 4.4 gm/dl (2.5-4.0) Albumin/Globulin Ratio 0.6 (0.9-2) Bedside Lactic Acid Venous 0.63 mmol/L (0.90-1.70) Medications Administered Medications (Trade) Dose Ordered Sig/Benito Route Start Time Stop Time Status Last Admin Dose Admin Sodium Chloride (Nss 500ml) 500 ml @ 999 mls/hr Q31M ONCE IV 07/04/16 05:30 07/04/16 06:00 DC 07/04/16 06:00 999 MLS/HR Medical Decision Patient is a 70 year old female that presents with dementia, fever, and hypotension Sepsis Workup + Possible head trauma - Labs Ordered: CBC, CMP, UA Cath and Culture, Blood Culture PT/PTT, Lactic Acid - Imaging: CT Head & Neck, Chest XRay one view - 500ml NS Bolus - Due to appearance of UTI on UA and failure of outpatient UTI therapy, Anemia, Hypokalemia, and Renal Insufficiency, decision was made to admit the patient for hospitalization - Discussed case with Dr. Cardenas of [facility] Impression Primary Impression: UTI (urinary tract infection) Additional Impressions: Head injury Anemia Departure Information Dispostion [facility] Problem Qualifiers Primary Impression: UTI (urinary tract infection) Urinary tract infection type: site unspecified Hematuria presence: without hematuria Qualified Codes: N39.0 - Urinary tract infection, site not specified Additional Impressions: Head injury Encounter type: initial encounter Qualified Codes: S09.90XA - Unspecified injury of head, initial encounter Anemia Anemia type: unspecified type Qualified Codes: D64.9 - Anemia, unspecified
[2016-07-04 05:19] LABS: ALB/GLOB RATIO 0.6 (0.9-2)
[2016-07-04] MEDS ORDERED: SODIUM CHLORIDE 0.9% 500ML 500 ML IV ONE (05:30)
[2016-07-04 05:34] LABS: MANUAL MICROSCOPIC REQUIRED? NO; REVIEW REQ? NO; URINE APPEARANCE CLOUDY (CLEAR); URINE BILIRUBIN NEG (NEG); URINE COLOR YELLOW; URINE EPITHELIAL CELL AUTO >30 /lpf (0-5); URINE NITRITE NEG (NEG); URINE SPECIFIC GRAVITY 1.006 (1.000-1.030); UROBILINOGEN NEG (NEG); ZZURINE CULT IF INDIC CATH YES
[2016-07-04 05:42] LABS: COMPLETE YES
--- NOTE | 2016-07-04 05:51 | EMERGENCY ROOM VISIT NOTE ---
ED Visit Note First contact with patient: 04:21 Resident Physician Supervision Note: I interviewed and examined the patient. Discussed with Dr. Duke and agree with findings and plan as documented in the note. The patient seems to be failing outpatient therapy for urinary tract infection. She is febrile with hypotension. Her creatinine has increased to 1.6. She has become more anemic with a hemoglobin close to 8. Documente isd By: Kassandra Byrd
[2016-07-04] MEDS ORDERED: OXYCODONE HCL IR 5 MG TAB (IMMEDIATE RELEASE) PO PRN (06:15)
[2016-07-04] MEDS ORDERED: ONDANSETRON INJ 2 MG/ML 2 ML VIAL IV PRN (06:15)
[2016-07-04] MEDS ORDERED: POLYETHYLENE (MIRALAX) 17 GM PACK PO PRN (06:15)
[2016-07-04] MEDS ORDERED: ACETAMINOPHEN 325 MG TAB PO PRN (06:15)
[2016-07-04] MEDS ORDERED: ZOLPIDEM TARTRATE 5 MG TAB PO PRN (06:15)
[2016-07-04] MEDS ORDERED: MAGNESIUM HYDROXIDE SUSP 30 ML UDC PO PRN (06:15)
[2016-07-04] MEDS ORDERED: ALUMINUM/MAGNESIUM/SIMETH (MAALOX MAX) 30 ML UDC PO PRN (06:15)
--- NOTE | 2016-07-04 06:52 | History and Physical ---
History & Physical Date & Time of Service: July 04, 2016 at 06:30 Chief Complaint: FEVER Primary Care Physician: Lewis Simpson History of Present Illness Source: patient 70 y/o F Hx urothelial CA, L nephrectomy, CKD, COPD, psychosis, seizure disorder. Pt was treated for a UTI earlier in the week with Bactrim and then transitioned to Macrobid at her nursing facility. She is sent in to the hospital this AM primarily with a fever. She does not have any specific complaints of pain or dysuria. She denies SOB, CP, N/V. The pt had a port placed in her R chest one week prior in preparation for chemotherapy. She was febrile and borderline hypotensive on arrival to the ER. Initial labs are significant for ILIA, hypokalemia and a + UA. 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 Status: Chronic (15) Seizure Status: Chronic (16) Seizure Status: Resolved (17) Spinal Surgery Status: Resolved Family History Hypertension Does not recall cause of of her parents Social History Smoking Status: Former Smoker Drug Use: none Marital Status: Housing status: retirement Occupational Status: retired, disabled Immunizations History of Influenza Vaccine: Unknown Influenza Vaccine Date: Nov 10, 2004 History of Tetanus Vaccine?: Unknown History of Pneumococcal: Unknown History of Hepatitis B Vaccine: Unknown Multi-Drug Resistant Organisms History of MDRO: Yes Type of MDRO: MRSA Allergies Coded Allergies: Sulfa Antibiotics (Verified Allergy, Severe, mouth swells, bumps on roof of mouth, 07/04/16) Banana (Verified Allergy, Intermediate, RAW -ROOF OF MOUTH SWELLS, 07/04/16 ) Home Medications Scheduled Amlodipine (Norvasc), 5 MG PO BID AT 0830 & 1630 Cholecalciferol (Vitamin D3), 1 TAB PO QAM Duloxetine Hcl (Cymbalta), 40 MG PO QAM Gabapentin (Neurontin), 400 MG PO TID Haloperidol (Haloperidol), 1 MG PO TID Ipratropium-Albuterol (Combivent Respimat), 1 PUFFS INH QID Lactobacillus Acidophilus (Lactinex), 1 TAB PO QAM Metoprolol Succ (Toprol Xl) (Toprol-Xl), 25 MG PO QAM Multivitamin (Multivitamin), 1 TABLET PO QAM Nitrofurantoin Macrocrystal (Nitrofurantoin), 100 MG PO BID Phenobarbital (Phenobarbital), 64.8 MG PO DAILY Phenytoin Sodium (Dilantin), 60 MG PO TID Quetiapine Fumarate (Seroquel), 25 MG PO HS Ranitidine (Zantac), 150 MG PO BID Rivastigmine Tartrate (Exelon), 1.5 MG PO BID Sennosides-Docusate Sodium (Senna/Docusate Sodium), 1 TAB PO BID AT 0830 & 1630 Sodium Chloride (Sodium Chloride), 1 TAB PO QAM Scheduled PRN Acetaminophen (Tylenol), 650 MG PO Q6 PRN for Pain or Fever Magnesium Hydroxide (Milk Of Magnesia), 30 ML PO PRN PRN for Constipation Oxycodone Ir (Roxicodone Ir), 5 MG PO Q6H PRN for Pain Review of Systems Constitutional: + chills, + fever, No sweats Eyes: No eye pain, No worsening of vision ENT: No hearing loss, No nasal symptoms, No unusual epistaxis Respiratory: No cough, No sputum, No wheezing Cardiovascular: No PND, No chest pain, No orthopnea Abdomen: No nausea, No pain, No vomiting Musculoskeletal: No joint pain Genitourinary - Female: No dysuria Neurologic: + weakness, No memory loss Psychiatric: No depression symptoms Endocrine: + fatigue Hematologic / Lymphatic: No abnormal bleeding/bruising Integumentary: No rash Allergic / Immunologic: No environmental allergies Physical Exam Vital Signs Date Time Temp Pulse Resp B/P Pulse Ox O2 Delivery O2 Flow Rate FiO2 07/04/16 05:19 67 18 99/64 95 Room Air 07/04/16 05:17 95 Room Air 07/04/16 04:19 37.7 79 18 97/42 94 Room Air 07/04/16 04:17 68 General Appearance: WD/WN, no apparent distress, + pertinent finding (Pleasant elderly female - poor histrian - awake/alert) Head: normocephalic, atraumatic Eyes: normal inspection, EOMI ENT: normal ENT inspection, pharynx normal Neck: supple, no JVD Respiratory/Chest: chest non-tender, lungs clear, normal breath sounds, no respiratory distress, no accessory muscle use, + pertinent finding (no galan or inflammation at PORT siite) Cardiovascular: regular rate, rhythm, no edema, no gallop, no JVD, no murmur, normal peripheral pulses Abdomen/GI: normal bowel sounds, non tender, soft Genitourinary - Female: + pertinent finding (No flank tenderness) Back: normal inspection, no CVA tenderness, no muscle spasm, normal range of motion Extremities/Musculoskelatal: normal inspection, no calf tenderness, normal capillary refill, no pedal edema, normal range of motion Neurologic/Psych: 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 II-XII nml as tested, no motor/sensory deficits, + pertinent finding (AAO x 2) Skin: normal color, warm/dry, no rash Diagnostics Laboratory Results Results Past 24 Hours Test 07/04/16 04:20 07/04/16 04:40 07/04/16 04:48 07/04/16 06:03 Range/Units Urine Color YELLOW Urine Appearance CLOUDY CLEAR Urine pH 6.0 4.5-7.5 Urine Specific [place] 1.006 1.000-1.030 Urine Protein NEG NEG Urine Glucose (UA) NEG NEG Urine Ketones NEG NEG Urine Occult Blood 1+ NEG Urine Nitrite NEG NEG Urine Bilirubin NEG NEG Urine Urobilinogen NEG NEG Urine Leukocyte Esterase LARGE NEG Urine WBC (Auto) >30 0-5 /hpf Urine RBC (Auto) 0-4 0-4 /hpf Urine Hyaline Casts (Auto) 1-5 0-5 /lpf Urine Epithelial Cells (Auto) >30 0-5 /lpf Urine Bacteria (Auto) NEG NEG White Blood Count 14.48 4.8-10.8 K/uL Red Blood Count 2.80 4.2-5.4 M/uL Hemoglobin 8.1 12.0-16.0 g/dL Hematocrit 23.5 37-47 % Mean Corpuscular Volume 83.9 80-100 fL Mean Corpuscular Hemoglobin 28.9 25-34 pg Mean Corpuscular Hemoglobin Concent 34.5 32-36 g/dl Platelet Count 288 130-400 K/uL Mean Platelet Volume 9.2 7.4-10.4 fL Neutrophils (%) (Auto) 85.9 % Lymphocytes (%) (Auto) 4.6 % Monocytes (%) (Auto) 5.9 % Eosinophils (%) (Auto) 3.2 % Basophils (%) (Auto) 0.2 % Neutrophils # (Auto) 12.44 1.4-6.5 K/uL Lymphocytes # (Auto) 0.66 1.2-3.4 K/uL Monocytes # (Auto) 0.85 0.11-0.59 K/uL Eosinophils # (Auto) 0.47 0-0.5 K/uL Basophils # (Auto) 0.03 0-0.2 K/uL RDW Standard Deviation 43.4 36.4-46.3 fL RDW Coefficient of Variation 14.1 11.5-14.5 % Immature Granulocyte % (Auto) 0.2 % Immature Granulocyte # (Auto) 0.03 0.00-0.02 K/uL Red Blood Cell Morphology Unremarkable Prothrombin Time 12.8 9.0-12.0 SECONDS Prothromb Time International Ratio 1.2 0.9-1.1 Activated Partial Thromboplast Time 36.0 21.0-31.0 SECONDS Partial Thromboplastin Ratio 1.4 Sodium Level 136 136-145 mmol/L Potassium Level 3.2 3.5-5.1 mmol/L Chloride Level 103 98-107 mmol/L Carbon Dioxide Level 25 21-32 mmol/L Anion Gap 8.0 3-11 mmol/L Blood Urea Nitrogen 13 7-18 mg/dl Creatinine 1.60 0.60-1.20 mg/dl Est Creatinine Clear Calc Drug Dose 30.1 ml/min Estimated GFR () 37.4 Estimated GFR (Non- 32.3 BUN/Creatinine Ratio 7.9 10-20 Random Glucose 100 70-99 mg/dl Lactic Acid Level 0.8 0.4-2.0 mmol/L Calcium Level 7.7 8.5-10.1 mg/dl Total Bilirubin 0.4 0.2-1 mg/dl Aspartate Amino Transf (AST/SGOT) 16 15-37 U/L Alanine Aminotransferase (ALT/SGPT) 14 12-78 U/L Alkaline Phosphatase 135 45-117 U/L Total Protein 7.1 6.4-8.2 gm/dl Albumin 2.7 3.4-5.0 gm/dl Globulin 4.4 2.5-4.0 gm/dl Albumin/Globulin Ratio 0.6 0.9-2 Bedside Lactic Acid Venous 0.63 0.90-1.70 mmol/L Microbiology Results 07/04/16 Blood Culture, Received Pending 07/04/16 Blood Culture, Received Pending 07/04/16 Urine Culture, Received Pending Impression Assessment and Plan 70 y/o F Hx urothelial CA, L nephrectomy, CKD, COPD, psychosis, seizure disorder. Pt was treated for a UTI earlier in the week with Bactrim and then transitioned to Macrobid at her nursing facility. She is sent in to the hospital this AM primarily with a fever. She does not have any specific complaints of pain or dysuria. She denies SOB, CP, N/V. The pt had a port placed in her R chest one week prior in preparation for chemotherapy. She was febrile and borderline hypotensive on arrival to the ER. Initial labs are significant for ILIA, hypokalemia, anemia and a + UA. 1) UTI - Failed outpt therapy - febrile and borderline hypotensive on arrival although it appears this is more due to dehydration then sepsis. Placed on Cefepime pending culture results. Although her UA is + we should keep in mind that she just had a port placed and consider Vanc if she does not defervesce in the short term 2) Hypokalemia - replaced 3) ILIA - Likely prerenal - aggressive hydration provided 4) Anemia - Hb is close to baseline however she is likely hemoconcentrated to an extent. We will recheck an Hb in 6hrs 5) Urothelial CA - f/u as outpatient - has not started chemo as of yet 6) COPD - no evidence of exacerbation - cont prescribed inhalers 7) Seizure disorder - cont Phenobarbital, Dilantin 8) Psychosis - cont Haldol TID and Seroquel 9) CAD - no evidence of ACS - does not take related meds at present Full code - SCDs pending repeat Hb - consider Heparin as there is no clear source of bleeding although she would be prone to hematuria Total time for this admit including review of labs, meds, records - discussion with ER attending and pt 40 min Level of Care Med/Surg Resuscitation Status FULL RESUSCITATION VTE Prophylaxis VTE Risk Assessment Done? Y/N: Yes Risk Level: Moderate Given or contraindicated: SCD's
[2016-07-04 06:55] VITALS: O2SAT 93; Ht 157.5 cm; Wt 70.7 kg
--- NOTE | 2016-07-04 07:23 | DIAGNOSTIC IMAGING REPORT ---
CT SCAN OF THE BRAIN WITHOUT IV CONTRAST CLINICAL HISTORY: Fall. COMPARISON STUDY: CT of the brain dated 01/31/2016. TECHNIQUE: Unenhanced axial CT scan of the brain is performed from the vertex to the skull base. CT DOSE: 979.28 mGy.cm FINDINGS: Brain parenchyma: There are age-related involutional changes noting moderate subcortical and periventricular microangiopathic change. Chronic lacunar infarcts are identified in the left basal ganglia and the left centrum semiovale. There is no hemorrhage, mass effect, or evidence of acute territorial ischemia by CT criteria. [place]-white matter is preserved. No extra-axial fluid collection is seen. Ventricles, sulci, cisterns: Prominent secondary to involutional change. Intracranial vasculature: There is atherosclerotic calcification of the cavernous carotid and vertebral arteries. Calvarium: The skeletal structures are osteopenic. There is no depressed calvarial fracture. Sinuses and mastoids: The visualized paranasal sinuses are clear. The mastoid air cells are well pneumatized. Orbits: The bony orbits are grossly intact. IMPRESSION: Senescent changes as above with no hemorrhage, mass effect, or evidence of acute territorial ischemia by CT criteria. Electronically signed by: Buzz Alvarez M.D. 07/04/2016 7:21 AM Dictated Date/Time: 07/04/2016 7:15 AM
[2016-07-04 07:44] VITALS: BP 126/56; PULSE 65; TEMP 37; O2SAT 94
[2016-07-04] MEDS ORDERED: MAGNESIUM SULFATE 1GM / D5W 1 GM in PREMIXED IN D5W 100 ML IV ONE (07:45)
--- NOTE | 2016-07-04 07:51 | DIAGNOSTIC IMAGING REPORT ---
CERVICAL SPINE CT CT DOSE: HISTORY: Neck pain. fall, questionable head trauma TECHNIQUE: Multiaxial CT images of the cervical spine were performed and reformatted in the sagittal and coronal plane without the use of contrast. COMPARISON: Cervical spine CT 09/25/2014. FINDINGS: Chronic appearing mild compression deformities seen within the upper thoracic spine. No acute fractures or subluxation within the cervical spine. Levoscoliosis. Anterior cervical discectomy and fusion at C5-C6. Mild to moderate degenerative disc disease at C3-C4 and C4-C5. There is also also mild disc space narrowing at C6-C7. No pneumothorax. Prevertebral soft tissues and the C1-C2 interval are intact. IMPRESSION: 1. No acute fracture or subluxation within the cervical spine. 2. Mild compression deformities within the upper thoracic spine. These are likely old. Electronically signed by: Dereck Vick M.D. 07/04/2016 7:50 AM Dictated Date/Time: 07/04/2016 7:46 AM
[2016-07-04] MEDS: CEFEPIME IV 1,000 MG in DEXTROSE 5% 100ML 100 ML IV SCH (08:47)
[2016-07-04] MEDS: NSS + 20MEQ KCL 1000ML 1,000 ML IV SCH ×2 (08:47→14:08)
[2016-07-04] MEDS: POTASSIUM CHLR 10 MEQ / WTR 10 MEQ in PREMIXED WATER 100 ML IV SCH ×2 (08:48→10:05)
[2016-07-04] MEDS: LACTOBACILLUS ACIDOPHILUS (FLORANEX) TAB PO SCH (08:50)
[2016-07-04] MEDS: DOCUSATE SODIUM/SENNA 50/8.6MG TAB PO SCH ×2 (08:51→20:57)
[2016-07-04] MEDS: PHENOBARBITAL 32.4 MG TAB PO SCH (08:53)
--- NOTE | 2016-07-04 08:54 | DIAGNOSTIC IMAGING REPORT ---
SINGLE VIEW CHEST CLINICAL HISTORY: Sepsis. FINDINGS: An AP, portable, upright chest radiograph is compared to study dated 07/02/2016. The examination is degraded by portable technique and patient rotation. A left subclavian central venous infusion port is unchanged in position. The heart is enlarged and there is atherosclerotic calcification of the thoracic aorta. The pulmonary vasculature is noncongested. There are low lung volumes with chronic interstitial thickening and elevation of left hemidiaphragm. There is bibasilar atelectasis. No airspace consolidation is seen typical for pneumonia and there is no large pleural effusion. No pneumothorax is identified. The skeletal structures are osteopenic. Advanced degenerative change is noted in the thoracic spine. Chronic posttraumatic deformity is present in the right proximal humerus. There are healed right-sided rib fractures. Fusion hardware is seen in the lower cervical spine. Surgical clips are noted in the upper abdomen. A catheter projects over the left upper quadrant. Numerous surgical clips are seen in the upper abdomen. IMPRESSION: 1. Chronic parenchymal changes as above with no acute cardiopulmonary abnormality. There has been no significant change from 07/02/2016. 2. Cardiomegaly without radiographic evidence of congestive failure. Electronically signed by: Buzz Alvarez M.D. 07/04/2016 8:53 AM Dictated Date/Time: 07/04/2016 8:52 AM
[2016-07-04] MEDS: DAPTOmycin IV 400 MG in SODIUM CHLORIDE 0.9% 50ML 50 ML IV SCH (09:11)
[2016-07-04] MEDS ORDERED: DAPTOMYCIN CONSULT ACTIVE PRN ×2 (09:15)
[2016-07-04] MEDS ORDERED: CEFEPIME CONSULT ACTIVE PRN ×2 (09:30)
--- NOTE | 2016-07-04 10:21 | Medical Consult ---
Consultation Date of Consultation: July 04, 2016. Attending Physician: Delilah Boateng MD Reason for Consultation: Restricted abx History of Present Illness Patient is a 70-year-old female who presented to the emergency department with complaints of fever. The patient has recent history of urinary tract infection for which she was treated with Bactrim on 06/25. She was however transitioned to p.o. Macrobid when culture became available. She grew VRE with intermediate resistance to Macrobid, sensitivity to daptomycin, but otherwise resistant. 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 The patient had a port placed on 07/02/2016 for the beginning of chemotherapy treatment. Following surgery, the patient developed a fever approximately 24 hours later. She was sent to [facility] for evaluation. Since current admission, the patient has blood and urine cultures which are pending. Urinalysis showed large leukocyte esterase, and greater than 30 white blood cells. Her white blood cell count on admission was 14.48. Her creatinine was 1.60. She was started on IV cefepime and daptomycin. She overall states that she is feeling well. She offers no complaints on exam or review of systems. Since admission, the patient did also have a CT scan of the cervical spine which showed no acute fracture, but mild compression deformities of the upper thoracic spine likely chronic. A chest x-ray showed chronic parenchymal changes and cardiomegaly. Past Medical/Surgical History Medical Problems: (1) Anemia Status: Acute (2) Dementia Status: Chronic (3) Head injury Status: Acute (4) Osteoporosis Nos Status: Chronic (5) Paranoid Schizo-Chronic Status: Chronic (6) Renal insufficiency Status: Acute Medical Problems: (1) Cancer (2) Closed head injury (3) COPD (chronic obstructive pulmonary disease) (4) Coronary artery disease (5) Dementia (6) Depression (7) Fall (8) HTN (hypertension) (9) Hx Of Alcoholism (10) Hypothyroidism (11) Myocardial infarction (12) Orthopedic Surgery (13) Osteoporosis Nos (14) Paranoid Schizo-Chronic (15) Seizure (16) Seizure (17) Spinal Surgery (18) Ureteral neoplasm (19) UTI (urinary tract infection) Family History Hypertension Noncontributory Social History Smoking Status: Former Smoker Drug Use: none Marital Status: Housing Status: assisted living Occupation Status: retired, disabled Allergies Coded Allergies: Sulfa Antibiotics (Verified Allergy, Severe, mouth swells, bumps on roof of mouth, 07/04/16) Banana (Verified Allergy, Intermediate, RAW -ROOF OF MOUTH SWELLS, 07/04/16 ) Home Medications Reported Home Medications Medications Dose Route/Sig Max Daily Dose Days Date Category Dose Instructions Nitrofurantoin (Nitrofurantoin Macrocrystal) 100 Mg Cap 100 Mg PO BID 07/04/16 Reported STARTED 07/02/16 FOR 7 DAYS. Lactinex (Lactobacillus Acidophilus) Tab 1 Tab PO QAM 07/01/16 Reported STARTED 06/26/16 TAKE FOR 10 DAYS Vitamin D3 (Cholecalciferol) 2,000 Unit Tab 1 Tab PO QAM 07/01/16 Reported Norvasc (Amlodipine Besylate) 5 Mg Tab 5 Mg PO BID AT 0830 & 1630 05/15/16 Reported Exelon (Rivastigmine Tartrate) 1.5 Mg Cap 1.5 Mg PO BID 04/30/16 Reported [id number] Sodium Chloride 1 Gm Tab 1 Tab PO QAM 04/30/16 Reported Combivent Respimat (Ipratropium-Albuterol) 1 Aer Aer 1 Puffs INH QID 04/30/16 Reported Toprol-Xl (Metoprolol Succinate) 25 Mg Tabcr 25 Mg PO QAM 04/28/16 Reported Milk Of Magnesia (Magnesium Hydroxide) 30 Ml Susp 30 Ml PO PRN PRN 02/18/16 Reported Neurontin (Gabapentin) 400 Mg Cap 400 Mg PO TID 09/25/14 Reported GIVE AT 0030/0830/1630 Haloperidol 1 Mg Tab 1 Mg PO TID 08/13/14 Reported GIVE AT 0130,0930,1630 Senna/Docusate Sodium (Sennosides-Docusate Sodium) 1 Tab Tab 1 Tab PO BID AT 0830 & 1630 08/13/14 Reported Roxicodone Ir (Oxycodone HCl) 5 Mg Tab 5 Mg PO Q6H PRN 04/27/14 Reported Dilantin (Phenytoin Sodium) 30 Mg Cap 60 Mg PO TID 04/27/14 Reported [id number] Phenobarbital 64.8 Mg Tab 64.8 Mg PO DAILY 01/05/14 Reported GIVE AT 2030 Zantac (Ranitidine HCl) 150 Mg Tab 150 Mg PO BID 02/13/13 Reported DOSE TIMES 0930 & 2030 Cymbalta (Duloxetine Hcl) 20 Mg Cap 40 Mg PO QAM 02/12/12 Reported Seroquel (Quetiapine Fumarate) 25 Mg Tab 25 Mg PO HS 01/17/12 Reported Tylenol (Acetaminophen) 325 Mg Tab 650 Mg PO Q6 PRN 11/03/10 Reported DO NOT EXCEED 3000MG APAP/24 HOURS. Multivitamin (Multivitamins) Tab 1 Tablet PO QAM 11/21/09 Reported ONE A DAY WOMAN'S. Current Inpatient Medications Current Inpatient Medications Medications (Trade) Dose Ordered Sig/Benito Route Start Time Stop Time Status Last Admin Dose Admin Cefepime HCl 1000 mg/Dextrose 111.3 ml @ 200 mls/hr DAILY@0800 IV 07/04/16 08:00 07/14/16 07:59 07/04/16 08:47 200 MLS/HR Potassium Chloride/Sodium Chloride (Nss + 20meq KCl 1000ml) 1,000 ml @ 150 mls/hr Q6H40M IV 07/04/16 07:30 07/04/16 20:49 07/04/16 08:47 150 MLS/HR Acetaminophen (Tylenol Tab) 650 mg Q4H PRN PO 07/04/16 06:15 08/03/16 06:14 Al Hydrox/Mg Hydrox/Simethicone (Maalox Max Susp) 15 ml Q4H PRN PO 07/04/16 06:15 08/03/16 06:14 Magnesium Hydroxide (Milk Of Magnesia Susp) 30 ml Q6H PRN PO 07/04/16 06:15 08/03/16 06:14 Polyethylene (Miralax Powder Packet) 17 gm DAILY PRN PO 07/04/16 06:15 08/03/16 06:14 Zolpidem Tartrate (Ambien Tab) 5 mg HSZ PRN PO 07/04/16 06:15 08/03/16 06:14 Ondansetron HCl (Zofran Inj) 4 mg Q6H PRN IV 07/04/16 06:15 08/03/16 06:14 Duloxetine HCl (Cymbalta Cap) 40 mg QAM PO 07/05/16 09:00 08/04/16 08:59 Gabapentin (Neurontin Cap) 400 mg DAILY@0030,0830,1630 PO 07/04/16 16:30 08/03/16 16:29 Haloperidol (Haldol Tab) 1 mg DAILY@0130,0930,1630 PO 07/04/16 16:30 08/03/16 16:29 Albuterol/ Ipratropium (Combivent Respimat Inh) 1 puffs QID INH 07/04/16 13:00 08/03/16 12:59 Lactobacillus Acidophilus (Floranex Tab) 1 tab QAM PO 07/04/16 09:00 07/06/16 08:59 07/04/16 08:50 1 TAB Metoprolol Succinate (Toprol Xl Tab) 25 mg QAM PO 07/05/16 09:00 08/04/16 08:59 Oxycodone HCl (Roxicodone Immediate Rel Tab) 5 mg Q6H PRN PO 07/04/16 06:15 07/18/16 06:14 Phenytoin Sodium (Dilantin Er Cap) 60 mg DAILY@0830,1630,2030 PO 07/04/16 16:30 08/03/16 16:29 Quetiapine Fumarate (seroQUEL TAB) 25 mg HS PO 07/04/16 21:00 08/03/16 20:59 Ranitidine HCl (zANTac TAB) 150 mg DAILY@0930,2030 PO 07/04/16 20:30 08/03/16 20:29 Senna/Docusate Sodium (Senokot S Tab) 1 tab BID PO 07/04/16 09:00 08/03/16 08:59 07/04/16 08:51 1 TAB Sodium Chloride (Sodium Chloride Tab) 1 gm QAM PO 07/05/16 09:00 08/04/16 08:59 Phenobarbital (Phenobarbital Tab) 64.8 mg DAILY PO 07/04/16 09:00 08/03/16 08:59 07/04/16 08:53 64.8 MG Miscellaneous Information 1 ea 1 ea QS N/A 07/04/16 08:00 08/03/16 07:59 Daptomycin/Sodium Chloride (Cubicin IV/Nss 50ml) 58 ml @ 100 mls/hr DAILY@0800 IV 07/04/16 08:00 07/14/16 07:59 07/04/16 09:11 100 MLS/HR Daptomycin (Consult) 1 ea UD PRN N/A 07/04/16 09:15 08/03/16 09:14 Cefepime HCl (Consult) 1 ea UD PRN N/A 07/04/16 09:30 08/03/16 09:29 Review of Systems Constitutional: No chills, No fever, No sweats Eyes: No worsening of vision ENT: No hearing loss Respiratory: No cough, No shortness of breath Cardiovascular: No chest pain, No palpitations Abdomen: No diarrhea, No nausea, No pain, No vomiting Musculoskeletal: No joint pain, No muscle pain, No swelling Genitourinary - Female: No dysuria, No urinary frequency, No urinary urgency Integumentary: No itch, No rash Physical Exam Date Time Temp Pulse Resp B/P Pulse Ox O2 Delivery O2 Flow Rate FiO2 07/04/16 07:44 37.0 65 18 126/56 94 Room Air 07/04/16 06:55 93 Room Air 07/04/16 06:24 37.1 68 16 119/56 93 Room Air 07/04/16 05:19 67 18 99/64 95 Room Air 07/04/16 05:17 95 Room Air 07/04/16 04:19 37.7 79 18 97/42 94 Room Air 07/04/16 04:17 68 General Appearance: WD/WN, no apparent distress, + pertinent finding ( Pleasantly demented.) Head: normocephalic, atraumatic Eyes: normal inspection, sclerae normal ENT: hearing grossly normal Neck: supple, trachea midline Respiratory/Chest: chest non-tender, lungs clear, normal breath sounds, no respiratory distress, no accessory muscle use Cardiovascular: regular rate, rhythm, no murmur Abdomen/GI: normal bowel sounds, non tender, soft Back: normal inspection Extremities/Musculoskelatal: normal inspection, no calf tenderness, no pedal edema, normal range of motion Neurologic/Psych: alert, normal mood/affect Skin: normal color, warm/dry, no rash Laboratory Results [~ rep ct add3]] CERVICAL SPINE CT CT DOSE: HISTORY: Neck pain. fall, questionable head trauma TECHNIQUE: Multiaxial CT images of the cervical spine were performed and reformatted in the sagittal and coronal plane without the use of contrast. COMPARISON: Cervical spine CT 09/25/2014. FINDINGS: Chronic appearing mild compression deformities seen within the upper thoracic spine. No acute fractures or subluxation within the cervical spine. Levoscoliosis. Anterior cervical discectomy and fusion at C5-C6. Mild to moderate degenerative disc disease at C3-C4 and C4-C5. There is also also mild disc space narrowing at C6-C7. No pneumothorax. Prevertebral soft tissues and the C1-C2 interval are intact. IMPRESSION: 1. No acute fracture or subluxation within the cervical spine. 2. Mild compression deformities within the upper thoracic spine. These are likely old. Item Value Date Time Blood Culture Received 07/04/16439 Blood Pending Blood Culture Received 07/04/16437 Blood Pending Urine Culture Received 07/04/16419 Urine,Catheterized Pending Last 24 Hours Test 07/04/16 04:20 07/04/16 04:40 07/04/16 04:48 07/04/16 05:35 Urine Color YELLOW Urine Appearance CLOUDY Urine pH 6.0 Urine Specific [place] 1.006 Urine Protein NEG Urine Glucose (UA) NEG Urine Ketones NEG Urine Occult Blood 1+ Urine Nitrite NEG Urine Bilirubin NEG Urine Urobilinogen NEG Urine Leukocyte Esterase LARGE Urine WBC (Auto) >30 /hpf Urine RBC (Auto) 0-4 /hpf Urine Hyaline Casts (Auto) 1-5 /lpf Urine Epithelial Cells (Auto) >30 /lpf Urine Bacteria (Auto) NEG White Blood Count 14.48 K/uL Red Blood Count 2.80 M/uL Hemoglobin 8.1 g/dL Hematocrit 23.5 % Mean Corpuscular Volume 83.9 fL Mean Corpuscular Hemoglobin 28.9 pg Mean Corpuscular Hemoglobin Concent 34.5 g/dl Platelet Count 288 K/uL Mean Platelet Volume 9.2 fL Neutrophils (%) (Auto) 85.9 % Lymphocytes (%) (Auto) 4.6 % Monocytes (%) (Auto) 5.9 % Eosinophils (%) (Auto) 3.2 % Basophils (%) (Auto) 0.2 % Neutrophils # (Auto) 12.44 K/uL Lymphocytes # (Auto) 0.66 K/uL Monocytes # (Auto) 0.85 K/uL Eosinophils # (Auto) 0.47 K/uL Basophils # (Auto) 0.03 K/uL RDW Standard Deviation 43.4 fL RDW Coefficient of Variation 14.1 % Immature Granulocyte % (Auto) 0.2 % Immature Granulocyte # (Auto) 0.03 K/uL Red Blood Cell Morphology Unremarkable Prothrombin Time 12.8 SECONDS Prothromb Time International Ratio 1.2 Activated Partial Thromboplast Time 36.0 SECONDS Partial Thromboplastin Ratio 1.4 Sodium Level 136 mmol/L Potassium Level 3.2 mmol/L Chloride Level 103 mmol/L Carbon Dioxide Level 25 mmol/L Anion Gap 8.0 mmol/L Blood Urea Nitrogen 13 mg/dl Creatinine 1.60 mg/dl Est Creatinine Clear Calc Drug Dose 30.1 ml/min Estimated GFR () 37.4 Estimated GFR (Non- 32.3 BUN/Creatinine Ratio 7.9 Random Glucose 100 mg/dl Lactic Acid Level 0.8 mmol/L Calcium Level 7.7 mg/dl Total Bilirubin 0.4 mg/dl Aspartate Amino Transf (AST/SGOT) 16 U/L Alanine Aminotransferase (ALT/SGPT) 14 U/L Alkaline Phosphatase 135 U/L Total Protein 7.1 gm/dl Albumin 2.7 gm/dl Globulin 4.4 gm/dl Albumin/Globulin Ratio 0.6 Bedside Lactic Acid Venous 0.63 mmol/L Ionized Calcium 1.11 mmol/l Test 07/04/16 10:00 Assessment & Plan Patient with fever in the setting of port placement on 07/02 and recent VRE UTI on 06/25 and 06/10/16. The patient is currently on Daptomycin and Cefepime. UA showed >30 WBCs and large leukocyte esterase but culture and blood cultures are pending. Recommend continuing broad coverage pending blood and urine cultures. Question whether she could have had fever post-procedure of port placement, but with UA results also may have repeat UTI. If patient is growing VRE again, likely will need at least 7-10 days of IV Daptomycin. We will follow. PROVIDER ADDENDUM: Patient examined and reviewed with Ms. Funes. Agree with above assessment.
[2016-07-04] MEDS: IPRATROPIUM BROMIDE/ALBUTEROL respimat INH INH SCH ×3 (14:08→20:57)
[2016-07-04 15:58] VITALS: BP 149/76; PULSE 75; TEMP 36.8; O2SAT 96
[2016-07-04] MEDS: PHENYTOIN SODIUM ER 30 MG CAP PO SCH ×2 (16:56→20:57)
[2016-07-04] MEDS: GABAPENTIN 400 MG CAP PO SCH (16:56)
[2016-07-04] MEDS: HALOPERIDOL 1 MG TAB PO SCH (16:56)
--- NOTE | 2016-07-04 18:41 | Progress Note ---
Progress Note Date of Service July 04, 2016. Progress Note Admitted after midnight. I saw her and examined her at the bedside. Patient feeling well now. Afebrile since admission. Reports that her arms and hands are really shaking a lot which is new for her in the last 3 days. Was placed on daptomycin in addition to her cefepime after admission after urine culture from June 25 was [facility] that showed VRE Vitals reviewed No acute distress, arms and hands with coarse intention tremor bilaterally Regular rate and rhythm, no murmurs gallops rubs Clear to auscultation bilaterally, breathing unlabored Abdomen positive bowel sounds soft nontender nondistended Extremities no edema 70-year-old female here with VRE UTI and fever with history of recurrent UTIs and sepsis, but also had left-sided subclavian Port-A-Cath placed 2 days ago. -Appreciate infectious disease consult -Continue cefepime and daptomycin -Follow urine culture here as well as blood cultures -Discussed case with RN and she will call over to [facility] to see if the shaking is truly a new symptom or not-if so, we'll consult her neurologist Dr. Marroquin -Check levels of some of her psych meds
[2016-07-04 20:33] LABS: PHENOBARBITAL 14.8 mcg/mL (15.0-40.0)
[2016-07-04] MEDS: QUETIAPINE FUMARATE 25 MG TAB PO SCH (20:57)
[2016-07-04] MEDS: RANITIDINE HCL 150 MG TAB PO SCH (20:57)
[2016-07-05 00:13] VITALS: BP 126/68; PULSE 90; TEMP 36.6; O2SAT 92
[2016-07-05] MEDS: GABAPENTIN 400 MG CAP PO SCH ×3 (01:58→16:22)
[2016-07-05] MEDS: HALOPERIDOL 1 MG TAB PO SCH ×3 (01:58→16:21)
[2016-07-05 06:10] LABS: HEMATOCRIT 27.1 % (37-47); MEAN CELL VOLUME 84.7 fL (80-100); MEAN CORPUSCULAR HEMOGLOBIN 27.8 pg (25-34); MEAN CORPUSCULAR HGB CONC 32.8 g/dl (32-36); MEAN PLATELET VOLUME 9.1 fL (7.4-10.4); PLATELET COUNT 330 K/uL (130-400)
[2016-07-05 07:03] LABS: BUN/CREATININE RATIO 8.1 (10-20); CALCIUM 8.2 mg/dl (8.5-10.1); CREATININE 1.3 mg/dl (0.60-1.20); MAGNESIUM 2.4 mg/dl (1.8-2.4); POTASSIUM 3.4 mmol/L (3.5-5.1)
[2016-07-05] MEDS ORDERED: POTASSIUM CHLORIDE 10 MEQ TABCR PO STA (07:11)
[2016-07-05] MEDS: CEFEPIME IV 1,000 MG in DEXTROSE 5% 100ML 100 ML IV SCH (07:30)
[2016-07-05 08:09] VITALS: BP 148/86; PULSE 78; TEMP 36.6; O2SAT 92
[2016-07-05] MEDS: RANITIDINE HCL 150 MG TAB PO SCH ×2 (08:26→21:07)
[2016-07-05] MEDS: METOPROLOL SUCC 25MG EXT REL TAB PO SCH (08:26)
[2016-07-05] MEDS: DAPTOmycin IV 400 MG in SODIUM CHLORIDE 0.9% 50ML 50 ML IV SCH (08:26)
[2016-07-05] MEDS: LACTOBACILLUS ACIDOPHILUS (FLORANEX) TAB PO SCH (08:26)
[2016-07-05] MEDS: DOCUSATE SODIUM/SENNA 50/8.6MG TAB PO SCH ×2 (08:27→21:07)
[2016-07-05] MEDS: DULOXETINE HCL 20 MG CAP PO SCH (08:27)
[2016-07-05] MEDS: IPRATROPIUM BROMIDE/ALBUTEROL respimat INH INH SCH ×4 (08:27→21:07)
[2016-07-05] MEDS: PHENYTOIN SODIUM ER 30 MG CAP PO SCH ×3 (08:28→21:07)
[2016-07-05] MEDS: PHENOBARBITAL 32.4 MG TAB PO SCH (08:35)
[2016-07-05] MEDS ORDERED: SODIUM CHLORIDE 1 GM TAB PO SCH (09:00)
--- NOTE | 2016-07-05 12:32 | Hospitalist Progress Note ---
Hospitalist Progress Note Date of Service July 05, 2016. Subjective Pt evaluation today including: conversation w/ patient Pt denies any complaints, remains afebrile Constitutional: No fever Respiratory: No shortness of breath Cardiovascular: No chest pain Neurologic: + problem reported (chronic tremor in hands/arms) All Other Systems: Reviewed and Negative Objective Vital Signs Date Time Temp Pulse Resp B/P Pulse Ox O2 Delivery O2 Flow Rate FiO2 07/05/16 08:09 36.6 78 18 148/86 92 Room Air 07/05/16 08:00 Room Air 07/05/16 02:45 Room Air 07/05/16 00:13 36.6 90 19 126/68 92 Room Air 07/04/16 16:00 Room Air 07/04/16 15:58 36.8 75 18 149/76 96 Room Air Physical Exam General Appearance: no apparent distress Eyes: normal inspection, sclerae normal ENT: hearing grossly normal Neck: trachea midline Respiratory/Chest: lungs clear, normal breath sounds, no respiratory distress, no accessory muscle use Cardiovascular: regular rate, rhythm, no edema, no murmur Abdomen: normal bowel sounds, non tender, soft Extremities: no pedal edema, no calf tenderness Neurologic/Psychiatric: alert, oriented x 3, + pertinent finding (very coarse intention tremor bilateral arms) Skin: normal color, warm/dry, no rash Laboratory Results Last 24 Hours Test 07/04/16 14:20 07/04/16 20:00 07/04/16 20:06 07/05/16 05:37 Hemoglobin 8.8 g/dL 8.9 g/dL Phenytoin (Dilantin) Level 3.9 mcg/mL Phenobarbital Level 14.8 mcg/mL Bedside Glucose 147 mg/dl White Blood Count 11.40 K/uL Red Blood Count 3.20 M/uL Hematocrit 27.1 % Mean Corpuscular Volume 84.7 fL Mean Corpuscular Hemoglobin 27.8 pg Mean Corpuscular Hemoglobin Concent 32.8 g/dl RDW Standard Deviation 45.4 fL RDW Coefficient of Variation 14.5 % Platelet Count 330 K/uL Mean Platelet Volume 9.1 fL Sodium Level 143 mmol/L Potassium Level 3.4 mmol/L Chloride Level 111 mmol/L Carbon Dioxide Level 24 mmol/L Anion Gap 8.0 mmol/L Blood Urea Nitrogen 11 mg/dl Creatinine 1.30 mg/dl Est Creatinine Clear Calc Drug Dose 37.1 ml/min Estimated GFR () 48.1 Estimated GFR (Non- 41.5 BUN/Creatinine Ratio 8.1 Random Glucose 108 mg/dl Calcium Level 8.2 mg/dl Magnesium Level 2.4 mg/dl Assessment and Plan 70 y/o F 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 Pt was treated for a UTI earlier in the week with Bactrim and then transitioned to Macrobid at her nursing facility. She is sent in to the hospital primarily with a fever. She does not have any specific complaints of pain or dysuria. She denies SOB, CP, N/V. The pt had a port placed in her R chest one week prior in preparation for chemotherapy for recent dx of Urothelial/ureteral CA now s/p recent ureterectomy. She was febrile and borderline hypotensive on arrival to the ER. Initial labs are significant for ILIA, hypokalemia, anemia and a + UA. 1) UTI with VRE POA - Failed outpt therapy - febrile and borderline hypotensive on arrival although it appears this is more due to dehydration then sepsis. Complex Urological history. Ur cx from 06/25/16 at [facility] shows VRE sensitive to Daptomycin. BCx and Ur cx NGTD Placed on Cefepime and Dapto Although her UA is + we should keep in mind that she just had a port placed -Appreciate infectious disease consult -Continue cefepime and daptomycin (day 2) -Follow urine culture here as well as blood cultures 2) Hypokalemia - replaced , continues to be low; H/o hyponatremia--on salt tabs , Na+ up to 143 today could be from IVFs -replace K+ again today -hold NaCl tab for now -follow PRP in AM 3) ILIA - Likely prerenal - aggressive hydration provided and improved voice professor to 1.3 -d/c'd IVFs 4) Anemia-normocytic - Hb is at baseline and stable at 8.9. -check B12, folate, Fe studies, TSH 5) Urothelial CA -with mets to pelvic LNs, s/p ureterectomy; has port placed f/u as outpatient - has not started chemo as of yet 6) COPD - no evidence of exacerbation - cont prescribed inhalers 7) Seizure disorder, tremor - cont Phenobarbital, Dilantin-levels both low and with significnat tremor on exam which is her baseline as per RN. I cannot find any recent documentation of Neurology follow up. -consider Neuro follow up as outpt to see if needs meds adjusted 8) Psychosis - cont Haldol TID and Seroquel 9) CAD - no evidence of ACS - does not take related meds at present Full code - SCDs, safe to add heparin today
[2016-07-05 13:54] LABS: FERRITIN 52.6 ng/ml (8.0-388.0); THYROID STIMULATING HORMONE 1.56 uIu/ml (0.300-4.500)
[2016-07-05 15:30] VITALS: BP 127/57; PULSE 68; TEMP 36.3; O2SAT 97
[2016-07-05 16:00] VITALS: O2SAT 97
[2016-07-05 19:54] VITALS: O2SAT 97
[2016-07-05] MEDS: QUETIAPINE FUMARATE 25 MG TAB PO SCH (21:07)
[2016-07-05] MEDS: HEPARIN SOD 5000 UNIT/0.5 ML CARP SQ SCH (21:17)
[2016-07-06 00:43] VITALS: BP 129/63; PULSE 64; TEMP 36.8; O2SAT 92
[2016-07-06] MEDS: GABAPENTIN 400 MG CAP PO SCH ×3 (01:39→16:46)
[2016-07-06] MEDS: HALOPERIDOL 1 MG TAB PO SCH ×3 (01:40→16:46)
[2016-07-06 07:06] LABS: BASO % 0.5 %; BASO ABS # 0.03 K/uL (0-0.2); HEMATOCRIT 25.2 % (37-47); IG% 0.2 %; LYMPH % 16.9 %; LYMPH ABS # 0.96 K/uL (1.2-3.4); MEAN CORPUSCULAR HEMOGLOBIN 28.3 pg (25-34); MEAN CORPUSCULAR HGB CONC 32.9 g/dl (32-36); MEAN PLATELET VOLUME 9.3 fL (7.4-10.4); MONO % 8.8 %; NEUT % 63.6 %; PLATELET COUNT 360 K/uL (130-400); RED BLOOD COUNT 2.93 M/uL (4.2-5.4); WHITE BLOOD COUNT 5.69 K/uL (4.8-10.8)
[2016-07-06 07:44] LABS: COMPLETE YES
[2016-07-06] MEDS: CEFEPIME IV 1,000 MG in DEXTROSE 5% 100ML 100 ML IV SCH (07:47)
[2016-07-06 07:51] LABS: BUN/CREATININE RATIO 7.3 (10-20); CALCIUM 8.3 mg/dl (8.5-10.1); CREATININE 1.1 mg/dl (0.60-1.20); MAGNESIUM 2.1 mg/dl (1.8-2.4)
[2016-07-06 08:10] VITALS: BP 118/70; PULSE 58; TEMP 36.9; O2SAT 92
[2016-07-06] MEDS: RANITIDINE HCL 150 MG TAB PO SCH ×2 (08:20→20:50)
[2016-07-06] MEDS: PHENOBARBITAL 32.4 MG TAB PO SCH (08:20)
[2016-07-06] MEDS: DOCUSATE SODIUM/SENNA 50/8.6MG TAB PO SCH ×2 (08:20→20:48)
[2016-07-06] MEDS: METOPROLOL SUCC 25MG EXT REL TAB PO SCH (08:20)
[2016-07-06] MEDS: PHENYTOIN SODIUM ER 30 MG CAP PO SCH ×3 (08:21→20:50)
[2016-07-06] MEDS: DULOXETINE HCL 20 MG CAP PO SCH (08:22)
[2016-07-06] MEDS: IPRATROPIUM BROMIDE/ALBUTEROL respimat INH INH SCH ×4 (08:22→20:50)
[2016-07-06] MEDS: HEPARIN SOD 5000 UNIT/0.5 ML CARP SQ SCH ×2 (08:27→20:53)
[2016-07-06] MEDS: DAPTOmycin IV 400 MG in SODIUM CHLORIDE 0.9% 50ML 50 ML IV SCH (08:54)
[2016-07-06 16:24] VITALS: BP 132/78; PULSE 63; TEMP 36.9; O2SAT 91
--- NOTE | 2016-07-06 18:02 | Hospitalist Progress Note ---
Hospitalist Progress Note Date of Service July 06, 2016. Subjective Pt evaluation today including: conversation w/ patient Voiding: no voiding problems Doing very well, has no concerns. Her port was accessed today and is working well. Afebrile, Blood cx NGTD All Other Systems: Reviewed and Negative Objective Vital Signs Date Time Temp Pulse Resp B/P Pulse Ox O2 Delivery O2 Flow Rate FiO2 07/06/16 16:24 36.9 63 16 132/78 91 Room Air 07/06/16 08:10 36.9 58 18 118/70 92 Room Air 07/06/16 08:00 Room Air 07/06/16 01:49 Room Air 07/06/16 00:43 36.8 64 18 129/63 92 Room Air 07/05/16 19:54 97 Room Air Physical Exam General Appearance: WD/WN, no apparent distress Eyes: normal inspection, sclerae normal ENT: hearing grossly normal Neck: trachea midline Respiratory/Chest: lungs clear, normal breath sounds, no respiratory distress, no accessory muscle use Cardiovascular: regular rate, rhythm, no edema Abdomen: normal bowel sounds, non tender, soft, + pertinent finding ( incisional scars well-healed) Extremities: non-tender, normal inspection, no pedal edema, no calf tenderness Neurologic/Psychiatric: alert Skin: normal color, warm/dry Laboratory Results Last 24 Hours Test 07/06/16 06:40 White Blood Count 5.69 K/uL Red Blood Count 2.93 M/uL Hemoglobin 8.3 g/dL Hematocrit 25.2 % Mean Corpuscular Volume 86.0 fL Mean Corpuscular Hemoglobin 28.3 pg Mean Corpuscular Hemoglobin Concent 32.9 g/dl Platelet Count 360 K/uL Mean Platelet Volume 9.3 fL Neutrophils (%) (Auto) 63.6 % Lymphocytes (%) (Auto) 16.9 % Monocytes (%) (Auto) 8.8 % Eosinophils (%) (Auto) 10.0 % Basophils (%) (Auto) 0.5 % Neutrophils # (Auto) 3.62 K/uL Lymphocytes # (Auto) 0.96 K/uL Monocytes # (Auto) 0.50 K/uL Eosinophils # (Auto) 0.57 K/uL Basophils # (Auto) 0.03 K/uL RDW Standard Deviation 47.1 fL RDW Coefficient of Variation 14.9 % Immature Granulocyte % (Auto) 0.2 % Immature Granulocyte # (Auto) 0.01 K/uL Red Blood Cell Morphology Unremarkable Sodium Level 142 mmol/L Potassium Level 4.0 mmol/L Chloride Level 110 mmol/L Carbon Dioxide Level 26 mmol/L Anion Gap 6.0 mmol/L Blood Urea Nitrogen 8 mg/dl Creatinine 1.10 mg/dl Est Creatinine Clear Calc Drug Dose 43.8 ml/min Estimated GFR () 58.9 Estimated GFR (Non- 50.8 BUN/Creatinine Ratio 7.3 Random Glucose 88 mg/dl Calcium Level 8.3 mg/dl Magnesium Level 2.1 mg/dl Total Creatine Kinase 34 U/L Assessment and Plan 70 y/o F 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 Pt was treated for a UTI earlier in the week with Bactrim and then transitioned to Macrobid at her nursing facility. She is sent in to the hospital primarily with a fever. She does not have any specific complaints of pain or dysuria. She denies SOB, CP, N/V. The pt had a port placed in her R chest one week prior in preparation for chemotherapy for recent dx of Urothelial/ureteral CA now s/p recent ureterectomy. She was febrile and borderline hypotensive on arrival to the ER. Initial labs are significant for ILIA, hypokalemia, anemia and a + UA. 1) UTI with VRE POA - Failed outpt therapy - febrile and borderline hypotensive on arrival although it appears this is more due to dehydration then sepsis. Complex Urological history. Ur cx from 06/25/16 at [facility] shows VRE sensitive to Daptomycin. BCx NGTD and Ur cx no growth this admission Placed on Cefepime and Dapto Although her UA is + we should keep in mind that she just had a port placed -Appreciate infectious disease consult -Continue cefepime and daptomycin (day 3) but if BCxs still neg on Thursday, can dc to [facility] to finish out total 10 days IV Dapto and STOP Cefepime-has port in place and is accessed 2) Hypokalemia - replaced , resolved; H/o hyponatremia--on salt tabs, Na+ up to 143 and now down to 142 could be from IVFs on top of salt tabs -continue to hold NaCl tab for now -follow PRP in AM 3) ILIA - Likely prerenal - aggressive hydration provided and improved sort line to 1.1 -d/c'd IVFs 4) Anemia-normocytic - Hb is at baseline and stable at 8.3. B12, folate, TSH all normal. Fe studies show anemia of chronic dz -follow CBC as outpt 5) Urothelial CA -with mets to pelvic LNs, s/p ureterectomy; has port placed f/u as outpatient - has not started chemo as of yet -f/u oncology as scheduled outpt 6) COPD - no evidence of exacerbation - cont prescribed inhalers 7) Seizure disorder, tremor - cont Phenobarbital, Dilantin-levels both low and with significant tremor on exam which is her baseline as per RN. I cannot find any recent documentation of Neurology follow up. Tremor seems much improved today -consider Neuro follow up as outpt to see if needs meds adjusted 8) Psychosis -stable - cont Haldol TID and Seroquel 9) CAD - no evidence of ACS - does not take related meds at present Full code - SCDs, heparin
[2016-07-06] MEDS: QUETIAPINE FUMARATE 25 MG TAB PO SCH (20:51)
[2016-07-06 23:03] VITALS: BP 132/70; PULSE 61; TEMP 36.8; O2SAT 94
[2016-07-07] MEDS: HALOPERIDOL 1 MG TAB PO SCH ×4 (01:00→23:32)
[2016-07-07] MEDS: GABAPENTIN 400 MG CAP PO SCH ×4 (01:00→23:32)
[2016-07-07 06:41] VITALS: BP 119/72; PULSE 108; TEMP 36.9; O2SAT 93
[2016-07-07] MEDS: CEFEPIME IV 1,000 MG in DEXTROSE 5% 100ML 100 ML IV SCH (07:16)
[2016-07-07] MEDS: DAPTOmycin IV 400 MG in SODIUM CHLORIDE 0.9% 50ML 50 ML IV SCH (08:39)
[2016-07-07] MEDS: RANITIDINE HCL 150 MG TAB PO SCH ×2 (08:40→20:29)
[2016-07-07] MEDS: METOPROLOL SUCC 25MG EXT REL TAB PO SCH (08:40)
[2016-07-07] MEDS: PHENYTOIN SODIUM ER 30 MG CAP PO SCH ×3 (08:40→20:29)
[2016-07-07] MEDS: DULOXETINE HCL 20 MG CAP PO SCH (08:40)
[2016-07-07] MEDS: PHENOBARBITAL 32.4 MG TAB PO SCH (08:40)
[2016-07-07] MEDS: IPRATROPIUM BROMIDE/ALBUTEROL respimat INH INH SCH ×4 (08:41→20:29)
[2016-07-07] MEDS: DOCUSATE SODIUM/SENNA 50/8.6MG TAB PO SCH ×2 (08:41→20:29)
[2016-07-07] MEDS: HEPARIN SOD 5000 UNIT/0.5 ML CARP SQ SCH ×2 (08:43→20:36)
[2016-07-07 08:47] LABS: BASO % 0.4 %; BASO ABS # 0.02 K/uL (0-0.2); EOS % 9.9 %; HEMATOCRIT 26.2 % (37-47); IG% 0.2 %; LYMPH % 15.1 %; LYMPH ABS # 0.81 K/uL (1.2-3.4); MEAN CELL VOLUME 85.3 fL (80-100); MEAN CORPUSCULAR HEMOGLOBIN 28.3 pg (25-34); MEAN CORPUSCULAR HGB CONC 33.2 g/dl (32-36); MEAN PLATELET VOLUME 8.6 fL (7.4-10.4); MONO % 7.6 %; NEUT % 66.8 %; PLATELET COUNT 363 K/uL (130-400); RED BLOOD COUNT 3.07 M/uL (4.2-5.4); WHITE BLOOD COUNT 5.37 K/uL (4.8-10.8)
[2016-07-07 09:04] LABS: BUN/CREATININE RATIO 7.5 (10-20); CREATININE 1.2 mg/dl (0.60-1.20); MAGNESIUM 1.9 mg/dl (1.8-2.4); POTASSIUM 4.2 mmol/L (3.5-5.1)
[2016-07-07 09:09] LABS: CALCIUM 8.5 mg/dl (8.5-10.1)
[2016-07-07 09:10] LABS: COMPLETE YES
[2016-07-07 15:13] VITALS: BP 126/69; PULSE 63; TEMP 36.3; O2SAT 96
--- NOTE | 2016-07-07 19:04 | Progress Note ---
Subjective Date of Service: July 07, 2016. Subjective Pt evaluation today including: conversation w/ patient, physical exam, chart review, lab review, review of inpatient medication list no meaningful HPI or ROS obtainable, denies all complaints, excited about possibly being able to get out of hospital Problem List Medical Problems: (1) Anemia Status: Acute (2) Dementia Status: Chronic (3) Head injury Status: Acute (4) Osteoporosis Nos Status: Chronic (5) Paranoid Schizo-Chronic Status: Chronic (6) Renal insufficiency Status: Acute Review of Systems ros unobtainable, no problems noted from nursing Objective Vital Signs Date Time Temp Pulse Resp B/P Pulse Ox O2 Delivery O2 Flow Rate FiO2 07/07/16 15:13 36.3 63 20 126/69 96 07/07/16 08:00 Room Air 07/07/16 06:41 36.9 108 20 119/72 93 Room Air 07/07/16 00:00 Room Air 07/06/16 23:03 36.8 61 18 132/70 94 Room Air 07/06/16 19:40 Room Air Physical Exam General Appearance: no apparent distress Eyes: EOMI ENT: hearing grossly normal Respiratory/Chest: no respiratory distress, no accessory muscle use Neurologic/Psychiatric: optic fibre drawer II-XII nml as tested, alert Laboratory Results Last 24 Hours Test 07/07/16 08:33 White Blood Count 5.37 K/uL Red Blood Count 3.07 M/uL Hemoglobin 8.7 g/dL Hematocrit 26.2 % Mean Corpuscular Volume 85.3 fL Mean Corpuscular Hemoglobin 28.3 pg Mean Corpuscular Hemoglobin Concent 33.2 g/dl Platelet Count 363 K/uL Mean Platelet Volume 8.6 fL Neutrophils (%) (Auto) 66.8 % Lymphocytes (%) (Auto) 15.1 % Monocytes (%) (Auto) 7.6 % Eosinophils (%) (Auto) 9.9 % Basophils (%) (Auto) 0.4 % Neutrophils # (Auto) 3.59 K/uL Lymphocytes # (Auto) 0.81 K/uL Monocytes # (Auto) 0.41 K/uL Eosinophils # (Auto) 0.53 K/uL Basophils # (Auto) 0.02 K/uL RDW Standard Deviation 46.4 fL RDW Coefficient of Variation 14.8 % Immature Granulocyte % (Auto) 0.2 % Immature Granulocyte # (Auto) 0.01 K/uL Red Blood Cell Morphology Unremarkable Sodium Level 139 mmol/L Potassium Level 4.2 mmol/L Chloride Level 106 mmol/L Carbon Dioxide Level 25 mmol/L Anion Gap 8.0 mmol/L Blood Urea Nitrogen 9 mg/dl Creatinine 1.20 mg/dl Est Creatinine Clear Calc Drug Dose 40.2 ml/min Estimated GFR () 53.0 Estimated GFR (Non- 45.8 BUN/Creatinine Ratio 7.5 Random Glucose 133 mg/dl Calcium Level 8.5 mg/dl Magnesium Level 1.9 mg/dl Assessment and Plan 1) UTI with VRE POA - Failed outpt therapy - febrile and borderline hypotensive on arrival although it appears this was more due to dehydration then sepsis. Complex Urological history. Ur cx from 06/25/16 at [place] shows VRE sensitive to Daptomycin. BCx NGTD and Ur cx no growth this admission Placed on Cefepime and Dapto --> streamlined to dapto. d/w ID and really this is treatment of choice given VRE, case management working with SNF on being able to continue this at SNF setting Although her UA is + we should keep in mind that she just had a port placed -Appreciate infectious disease consult 2) Hypokalemia - replaced , resolved; H/o hyponatremia--on salt tabs, Na+ up to 143 and now down to 142 could be from IVFs on top of salt tabs -continue to hold NaCl tab for now -follow PRP in AM 3) ILIA - Likely prerenal - aggressive hydration provided and improved correctional facility psychiatrist to 1.1 -d/c'd IVFs 4) Anemia-normocytic - Hb is at baseline and stable at 8.3. B12, folate, TSH all normal. 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 I cannot find any recent documentation of Neurology follow up. Tremor seems much improved today -consider Neuro follow up as outpt to see if needs meds adjusted 8) Psychosis -stable - cont Haldol TID and Seroquel 9) CAD - no evidence of ACS - does not take related meds at present Full code - SCDs, heparin
[2016-07-07] MEDS: QUETIAPINE FUMARATE 25 MG TAB PO SCH (20:29)
[2016-07-08] VITALS: BP 157/67; PULSE 73; TEMP 36.6; O2SAT 97
[2016-07-08 06:01] LABS: CREATININE 1.1 mg/dl (0.60-1.20)
[2016-07-08 07:28] VITALS: BP 177/69; PULSE 72; TEMP 36.3; O2SAT 98
[2016-07-08 07:50] VITALS: O2SAT 98
[2016-07-08] MEDS: RANITIDINE HCL 150 MG TAB PO SCH (08:17)
[2016-07-08] MEDS: GABAPENTIN 400 MG CAP PO SCH (08:17)
[2016-07-08] MEDS: DOCUSATE SODIUM/SENNA 50/8.6MG TAB PO SCH (08:17)
[2016-07-08] MEDS: METOPROLOL SUCC 25MG EXT REL TAB PO SCH (08:17)
[2016-07-08] MEDS: DULOXETINE HCL 20 MG CAP PO SCH (08:17)
[2016-07-08] MEDS: PHENYTOIN SODIUM ER 30 MG CAP PO SCH (08:18)
[2016-07-08] MEDS: DAPTOmycin IV 400 MG in SODIUM CHLORIDE 0.9% 50ML 50 ML IV SCH (08:19)
[2016-07-08] MEDS: HALOPERIDOL 1 MG TAB PO SCH (08:19)
[2016-07-08] MEDS: IPRATROPIUM BROMIDE/ALBUTEROL respimat INH INH SCH ×2 (08:19→13:30)
[2016-07-08] MEDS: CEFEPIME IV 1,000 MG in DEXTROSE 5% 100ML 100 ML IV SCH (08:19)
[2016-07-08] MEDS: PHENOBARBITAL 32.4 MG TAB PO SCH (08:25)
[2016-07-08] MEDS: HEPARIN SOD 5000 UNIT/0.5 ML CARP SQ SCH (08:33)
[2016-07-08] MEDS ORDERED: FERROUS SULFATE 325 MG TAB PO SCH (09:00)
[2016-07-08 09:24] VITALS: BP 136/68
[2016-07-08] MEDS ORDERED: FRRS300 PO (09:47)
[2016-07-08] MEDS ORDERED: CBCI IV (09:47)
[2016-07-08] MEDS ORDERED: OXYC1TAB3 PO (09:47)
[2016-07-08] MEDS ORDERED: MRLP17X PO (09:48)
--- NOTE | 2016-07-08 09:50 | Discharge Instructions ---
Discharge Instructions Date of Service July 08, 2016. Admission Reason for Admission: UTI Discharge Discharge Diagnosis / Problem: VRE UTI - on daptomycin for 5 more days Discharge Goals Goal(s): Diagnostic testing, Therapeutic intervention Activity Recommendations Activity Level: Assistance Required . Additional Information Patient informed of condition: Yes Advance Directives: No DNR: No Level of Care: Skilled Communicable Disease: Yes (VRE under treatment (has had 5 days of daptomycin)) Prognosis: Improving Instructions / Follow-Up Instructions / Follow-Up VRE UTI - per ID recommendation,has had 5 days daptomycin - anticipated course for 10 days total treatment Current Hospital Diet Patient's current hospital diet: Regular Diet Discharge Diet Recommended Diet: Regular Diet Pending Studies Studies pending at discharge: no Medical Emergencies . Who to Call and When: Medical Emergencies: If at any time you feel your situation is an emergency, please call 911 immediately. . Non-Emergent Contact Non-Emergency issues call your: Primary Care Provider . . "Provider Documentation" section prepared by Mohan Rashid. . Core Measure Problem Core Measures: None
--- NOTE | 2016-07-08 10:16 | Discharge Summary ---
Discharge Summary Date of Service July 08, 2016. Discharge Summary Admission Date: July 04, 2016 at 06:11 Discharge Date: July 08, 2016 Discharge Disposition: senior care facility Principal Diagnosis: VRE UTI Problems/Secondary Diagnoses: (1) Dementia Status: Chronic (2) Osteoporosis Nos Status: Chronic (3) Paranoid Schizo-Chronic Status: Chronic Immunizations: Have You Had Influenza Vaccine: Unknown Influenza Vaccine Date: Nov 10, 2004 History of Tetanus Vaccine?: Unknown History of Pneumococcal: Unknown History of Hepatitis B Vaccine: Unknown Procedures: follow up urine culture showing 1,000 col/ml, blood cultures x 2 negative Last Resulted CBC 07/07/16 08:33 Red Blood Count 3.07, Mean Corpuscular Volume 85.3, Mean Corpuscular Hemoglobin 28.3, Mean Corpuscular Hemoglobin Concent 33.2, Mean Platelet Volume 8.6, Neutrophils (%) (Auto) 66.8, Lymphocytes (%) (Auto) 15.1, Monocytes (%) (Auto) 7.6, Eosinophils (%) (Auto) 9.9, Basophils (%) (Auto) 0.4, Neutrophils # (Auto) 3.59, Lymphocytes # (Auto) 0.81, Monocytes # (Auto) 0.41, Eosinophils # (Auto) 0.53, Basophils # (Auto) 0.02 Last Resulted BMP 07/07/16 08:33 07/08/16 05:00 Item Value Date Time Vitamin B12 Level 755 pg/mL 07/05/16 1315 Folate > 24.00 ng/mL 07/05/16 1315 Iron Level 17 mcg/dl L 07/05/16 1315 Total Iron Binding Capacity 224 mcg/dl L 07/05/16 1315 Transferrin 178 mg/dl L 07/05/16 1315 Transferrin % Saturation 7 % L 07/05/16 1315 Ferritin 52.6 ng/ml 07/05/[address] DOSE: HISTORY: Neck pain. fall, questionable head trauma TECHNIQUE: Multiaxial CT images of the cervical spine were performed and reformatted in the sagittal and coronal plane without the use of contrast. COMPARISON: Cervical spine CT 09/25/2014. FINDINGS: Chronic appearing mild compression deformities seen within the upper thoracic spine. No acute fractures or subluxation within the cervical spine. Levoscoliosis. Anterior cervical discectomy and fusion at C5-C6. Mild to moderate degenerative disc disease at C3-C4 and C4-C5. There is also also mild disc space narrowing at C6-C7. No pneumothorax. Prevertebral soft tissues and the C1-C2 interval are intact. IMPRESSION: 1. No acute fracture or subluxation within the cervical spine. 2. Mild compression deformities within the upper thoracic spine. These are likely old. Electronically signed by: Dereck Vick M.D. 07/04/2016 7:50 AM Dictated Date/Time: 07/04/2016 7:[address] SCAN OF THE BRAIN WITHOUT IV CONTRAST CLINICAL HISTORY: Fall. COMPARISON STUDY: CT of the brain dated 01/31/2016. TECHNIQUE: Unenhanced axial CT scan of the brain is performed from the vertex to the skull base. CT DOSE: 979.28 mGy.cm FINDINGS: Brain parenchyma: There are age-related involutional changes noting moderate subcortical and periventricular microangiopathic change. Chronic lacunar infarcts are identified in the left basal ganglia and the left centrum semiovale. There is no hemorrhage, mass effect, or evidence of acute territorial ischemia by CT criteria. [place]-white matter is preserved. No extra-axial fluid collection is seen. Ventricles, sulci, cisterns: Prominent secondary to involutional change. Intracranial vasculature: There is atherosclerotic calcification of the cavernous carotid and vertebral arteries. Calvarium: The skeletal structures are osteopenic. There is no depressed calvarial fracture. Sinuses and mastoids: The visualized paranasal sinuses are clear. The mastoid air cells are well pneumatized. Orbits: The bony orbits are grossly intact. IMPRESSION: Senescent changes as above with no hemorrhage, mass effect, or evidence of acute territorial ischemia by CT criteria. Electronically signed by: Buzz Alvarez M.D. 07/04/2016 7:21 AM Dictated Date/Time: 07/04/2016 7:15 AM Consultations: ID Medication Reconciliation New Medications: Daptomycin (Cubicin) 500 Mg Destinee 400 MG IV DAILY for 5 Days Ferrous Sulfate (Ferrous Sulfate) 325 Mg Tab 325 MG PO QAM, #30 TAB Polyethylene (Miralax) 17 Gm Pow 17 GM PO DAILY PRN for Constipation, #30 Continued Medications: Acetaminophen (Tylenol) 325 Mg Tab 650 MG PO Q6 PRN for Pain or Fever, 0 Refills DO NOT EXCEED 3000MG APAP/24 HOURS. Amlodipine (Norvasc) 5 Mg Tab 5 MG PO BID AT 0830 & 1630, TAB Cholecalciferol (Vitamin D3) 2,000 Unit Tab 1 TAB PO QAM, TAB 3 Refills Duloxetine Hcl (Cymbalta) 20 Mg Cap 40 MG PO QAM Gabapentin (Neurontin) 400 Mg Cap 400 MG PO TID GIVE AT 0030/0830/1630 Haloperidol (Haloperidol) 1 Mg Tab 1 MG PO TID GIVE AT 0130,0930,1630 Ipratropium-Albuterol (Combivent Respimat) 1 Aer Aer 1 PUFFS INH QID, INH Lactobacillus Acidophilus (Lactinex) Tab 1 TAB PO QAM, TAB STARTED 06/26/16 TAKE FOR 10 DAYS Magnesium Hydroxide (Milk Of Magnesia) 30 Ml Susp 30 ML PO PRN PRN for Constipation Metoprolol Succ (Toprol Xl) (Toprol-Xl) 25 Mg Tabcr 25 MG PO QAM, #30 TAB Multivitamin (Multivitamin) Tab 1 TABLET PO QAM, 0 Refills ONE A DAY WOMAN'S. Oxycodone Ir (Roxicodone Ir) 5 Mg Tab 5 MG PO Q6H PRN for Pain, #20 (This prescription has been renewed) Phenobarbital (Phenobarbital) 64.8 Mg Tab 64.8 MG PO DAILY GIVE AT 2029 Phenytoin Sodium (Dilantin) 30 Mg Cap 60 MG PO TID [id number] Quetiapine Fumarate (Seroquel) 25 Mg Tab 25 MG PO HS Ranitidine (Zantac) 150 Mg Tab 150 MG PO BID DOSE TIMES 0930 & 2029 Rivastigmine Tartrate (Exelon) 1.5 Mg Cap 1.5 MG PO BID, CAP 9214-1093 Sennosides-Docusate Sodium (Senna/Docusate Sodium) 1 Tab Tab 1 TAB PO BID AT 0830 & 1630 Sodium Chloride (Sodium Chloride) 1 Gm Tab 1 TAB PO QAM Discontinued Medications: Nitrofurantoin Macrocrystal (Nitrofurantoin) 100 Mg Cap 100 MG PO BID STARTED 07/02/16 FOR 7 DAYS. Discharge Exam Physical Exam: General Appearance: no apparent distress Eyes: EOMI Respiratory/Chest: + pertinent finding (port site c/d/i nontender no erythema) Extremities: normal inspection Neurologic/Psychiatric: tax adjuster II-XII nml as tested, alert (pleasant) Hospital Course 1) UTI with VRE POA - Failed outpt therapy - febrile and borderline hypotensive on arrival although it appears this was more due to dehydration then sepsis. Complex Urological history. Ur cx from 06/25/16 at [place] shows VRE sensitive to Daptomycin. BCx NGTD and Ur cx no growth this admission Placed on Cefepime and Dapto --> streamlined to dapto. d/w ID and really this is treatment of choice given VRE, set up to complete 10 days total (5 more days , next dose 07/09) @ [facility] 2) Hypokalemia - replaced , resolved; H/o hyponatremia--on salt tabs -follow periodic BMP - next one within a week 3) ILIA - Likely prerenal - aggressive hydration provided and improved telecommunication equipment repairer to 1.1 -BMP as above 4) Anemia-normocytic - Hb is at baseline and stable at 8.3. B12, folate, TSH all normal. 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 follow up PCP // neurology as necessary 8) Psychosis -stable - cont Haldol TID and Seroquel 9) CAD - no evidence of ACS - does not take related meds at present Full code - SCDs, heparin SQ utilized for DVT proph stable for return to SNF Total Time Spent: Less than 30 minutes This includes examination of the patient, discharge planning, medication reconciliation, and communication with other providers. Discharge Instructions Please refer to the electronic Patient Visit Report (Discharge Instructions) for additional information. Additional Copies To [place] [place]
[2016-07-08 10:34] VITALS: BP 136/68; PULSE 72; TEMP 36.3; O2SAT 98
--- NOTE | 2016-07-08 10:54 | Infectious Disease Progress Nt ---
Progress Note Date of Service July 08, 2016. Subjective Pt evaluation today including: conversation w/ patient, physical exam, chart review, lab review, review of studies, review of inpatient medication list Patient is feeling well today. She complains of no pain, N/V/D, or urinary symptoms. She is currently on IV Daptomycin and Cefepime. She is tolerating these well. She is anticipating d/c back to SNF possibly today. WBC count was 5.37 today. Creatinine has been stable and was 1.10 today. Blood and urine cultures have shown no growth. All Other Systems: Reviewed and Negative Medications Current Inpatient Medications Medications (Trade) Dose Ordered Sig/Benito Route Start Time Stop Time Status Last Admin Dose Admin Acetaminophen (Tylenol Tab) 650 mg Q4H PRN PO 07/04/16 06:15 08/03/16 06:14 Al Hydrox/Mg Hydrox/Simethicone (Maalox Max Susp) 15 ml Q4H PRN PO 07/04/16 06:15 08/03/16 06:14 Magnesium Hydroxide (Milk Of Magnesia Susp) 30 ml Q6H PRN PO 07/04/16 06:15 08/03/16 06:14 Polyethylene (Miralax Powder Packet) 17 gm DAILY PRN PO 07/04/16 06:15 08/03/16 06:14 Zolpidem Tartrate (Ambien Tab) 5 mg HSZ PRN PO 07/04/16 06:15 08/03/16 06:14 Ondansetron HCl (Zofran Inj) 4 mg Q6H PRN IV 07/04/16 06:15 08/03/16 06:14 Duloxetine HCl (Cymbalta Cap) 40 mg QAM PO 07/05/16 09:00 08/04/16 08:59 07/08/16 08:17 40 MG Gabapentin (Neurontin Cap) 400 mg DAILY@0030,0830,1630 PO 07/04/16 16:30 08/03/16 16:29 07/08/16 08:17 400 MG Haloperidol (Haldol Tab) 1 mg DAILY@0130,0930,1630 PO 07/04/16 16:30 08/03/16 16:29 07/08/16 08:19 1 MG Albuterol/ Ipratropium (Combivent Respimat Inh) 1 puffs QID INH 07/04/16 13:00 08/03/16 12:59 07/08/16 08:19 1 PUFFS Metoprolol Succinate (Toprol Xl Tab) 25 mg QAM PO 07/05/16 09:00 08/04/16 08:59 07/08/16 08:17 25 MG Oxycodone HCl (Roxicodone Immediate Rel Tab) 5 mg Q6H PRN PO 07/04/16 06:15 07/18/16 06:14 Phenytoin Sodium (Dilantin Er Cap) 60 mg DAILY@0830,1630,2030 PO 07/04/16 16:30 08/03/16 16:29 07/08/16 08:18 60 MG Quetiapine Fumarate (seroQUEL TAB) 25 mg HS PO 07/04/16 21:00 08/03/16 20:59 07/07/16 20:29 25 MG Ranitidine HCl (zANTac TAB) 150 mg DAILY@929,2029 PO 07/04/16 20:30 08/03/16 20:29 07/08/16 08:17 150 MG Senna/Docusate Sodium (Senokot S Tab) 1 tab BID PO 07/04/16 09:00 08/03/16 08:59 07/08/16 08:17 1 TAB Sodium Chloride (Sodium Chloride Tab) 1 gm QAM PO 07/05/16 09:00 08/04/16 08:59 Future Hold 07/05/16 08:27 1 GM Phenobarbital (Phenobarbital Tab) 64.8 mg DAILY PO 07/04/16 09:00 08/03/16 08:59 07/08/16 08:25 64.8 MG Miscellaneous Information 1 ea 1 ea QS N/A 07/04/16 08:00 08/03/16 07:59 07/05/16 16:20 1 EA Daptomycin/Sodium Chloride (Cubicin IV/Nss 50ml) 58 ml @ 100 mls/hr DAILY@0800 IV 07/04/16 08:00 07/14/16 07:59 07/08/16 08:19 100 MLS/HR Daptomycin (Consult) 1 ea UD PRN N/A 07/04/16 09:15 08/03/16 09:14 Heparin Sodium (Porcine) (Heparin Sq 5000 Unit/0.5ml) 5,000 unit Q12 SQ 07/05/16 21:00 08/04/16 20:59 07/08/16 08:33 5,000 UNIT Heparin Sodium (Porcine) (Heparin 100 Unit/ml 5ml Flush) 5 ml PRN PRN IV 07/06/16 09:45 08/05/16 09:44 07/08/16 10:33 5 ML Ferrous Sulfate (Feosol Tab) 325 mg QAM PO 07/08/16 09:00 08/07/16 08:59 07/08/16 08:17 325 MG Objective Vital Signs Date Time Temp Pulse Resp B/P Pulse Ox O2 Delivery O2 Flow Rate FiO2 07/08/16 10:34 36.3 72 18 98 Room Air 07/08/16 09:24 136/68 07/08/16 07:50 98 Room Air 07/08/16 07:28 36.3 72 18 177/69 98 Room Air 07/08/16 00:00 Room Air 07/08/16 00:00 36.6 73 18 157/67 97 Room Air 07/07/16 16:10 Room Air 07/07/16 15:13 36.3 63 20 126/69 96 Physical Exam General Appearance: WD/WN, no apparent distress Eyes: normal inspection, sclerae normal ENT: hearing grossly normal Neck: supple, trachea midline Respiratory/Chest: chest non-tender, lungs clear, normal breath sounds, no respiratory distress, no accessory muscle use Cardiovascular: regular rate, rhythm, no murmur Abdomen: normal bowel sounds, non tender, soft Extremities: normal range of motion Neurologic/Psychiatric: alert, normal mood/affect Skin: normal color, warm/dry, no rash Laboratory Results Item Value Date Time Blood Culture - Preliminary Resulted 07/04/16 0440 Blood NO GROWTH TO DATE. Blood Culture - Preliminary Resulted 07/04/16 0438 Blood NO GROWTH TO DATE. Urine Culture - Final Complete 07/04/16 0420 Urine,Catheterized NO GROWTH - LESS THAN 1,000 COLONIES/ML Last 24 Hours Test 07/08/16 05:00 Creatinine 1.10 mg/dl Est Creatinine Clear Calc Drug Dose 43.8 ml/min Estimated GFR () 58.9 Estimated GFR (Non- 50.8 Assessment and Plan Patient with fever in the setting of port placement on 07/02 and recent VRE UTI on 06/25 and 06/10/16. The patient is currently on Daptomycin and Cefepime. Likely could discontinue abx therapy since patient has been afebrile, repeat cultures have been negative, and she is feeling well. She has completed 5 days of therapy. Feel that her fever and mild leukocytosis was likely from port placement. Thank you. PROVIDER ADDENDUM: Patient reviewed with Ms. Funes. Agree with above assessment.
[2016-07-27] MEDS ORDERED: OXYC1TAB3 PO (11:29)
[2016-07-27] MEDS ORDERED: CPR500 PO (11:29)
[2016-10-03] MEDS ORDERED: CRG3125 PO (13:42)
[2016-10-03] MEDS ORDERED: OXYC1TAB3 PO (13:42)
[2016-10-03] MEDS ORDERED: AMLO-110 PO (13:42)
== END 2016-07-08 13:41 | DRG 690 ==
LOC: ENRESERVDT → ENRESERVTM → EDBD 04:11 → C.EDB 04:12 → C.MS2W 06:11
PROVIDERS: ADMIT Internal Medicine; ATTEND Family Medicine
DX: N39.0 Urinary tract infection, site not specified (principal); N17.9 Acute kidney failure, unspecified; C68.9 Malignant neoplasm of urinary organ, unspecified; C77.5 Secondary and unspecified malignant neoplasm of intrapelvic lymph nodes; Z16.21 Resistance to vancomycin; E86.0 Dehydration; E87.6 Hypokalemia; D64.9 Anemia, unspecified; G40.909 Epilepsy, unspecified, not intractable, without status epilepticus; I25.10 Atherosclerotic heart disease of native coronary artery without angina pectoris; Z82.49 Family history of ischemic heart disease and other diseases of the circulatory system; S09.90XA Unspecified injury of head, initial encounter; W06.XXXA Fall from bed, initial encounter

== ENCOUNTER 2016-07-25 01:05 | Inpatient (IN) | payer OTHER ==
[~2016-07-25] VITALS: Ht 157.5 cm; Wt 67.6 kg
[2016-07-25] VITALS (14 sets, daily range): BP systolic 107–136; BP diastolic 57–67; PULSE 54–76; TEMP 36.2–37.5; O2SAT 92–100; Ht 157.5 cm; Wt 67.6 kg
[~2016-07-25 01:05] MED LIST changes: -AMOX875T PO; +CBCI IV; -DAPT500I INJ; +FRRS300 PO; +MRLP17X PO
[2016-07-25] MEDS ORDERED: SODIUM CHLORIDE 0.9% 1000ML 1,000 ML IV STA (01:56)
[2016-07-25] MEDS ORDERED: SODIUM CHLORIDE 0.9% 500ML 500 ML IV STA (01:56)
--- NOTE | 2016-07-25 02:16 | EMERGENCY ROOM VISIT NOTE ---
History Report prepared by Corina: Braulio Kenney Under the Supervision of: Dr. Kassandra Byrd D.O. 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 There is a standing order from her oncologist to have the patient medically evaluated whenever she has an elevated temperature. She has a current medical history of renal cell cancer for which she is currently receiving chemotherapy treatment. Her current temperature is 37.6 C. She denies any pain at the moment. She has been eating and drinking fine over the past couple of days. She denies any weakness. She was given an APAP while at [facility] before EMS arrival. En route, the patient was hypoxic on room air at 82%. Source of History: patient, EMS Onset: today Position: other (global) Symptom Intensity: 37.6 C Quality: other (Fever) Timing: constant Associated Symptoms: No weakness Note: She is not in any pain. Review of Systems See HPI for pertinent positives & negatives. A total of 10 systems reviewed and were otherwise negative. 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 (20) UTI (urinary tract infection) Family History Hypertension Social History Smoking Status: Former Smoker Smokeless Tobacco Use: No Alcohol Use: none Drug Use: none Marital Status: Housing Status: assisted living Occupation Status: retired, disabled Current/Historical Medications Scheduled Amlodipine (Norvasc), 5 MG PO BID AT 0830 & 1630 Duloxetine Hcl (Cymbalta), 40 MG PO QAM Ferrous Sulfate (Kp Ferrous Sulfate), 325 MG PO QAM Gabapentin (Neurontin), 400 MG PO TID Haloperidol (Haloperidol), 1 MG PO TID Ipratropium-Albuterol (Combivent Respimat), 1 PUFFS INH QID Metoprolol Succ (Toprol Xl) (Toprol-Xl), 25 MG PO QAM Multivitamin (Multivitamin), 1 TABLET PO QAM Phenobarbital (Phenobarbital), 64.8 MG PO DAILY Quetiapine Fumarate (Seroquel), 25 MG PO HS Ranitidine (Zantac), 150 MG PO BID Rivastigmine Tartrate (Exelon), 1.5 MG PO BID Sennosides-Docusate Sodium (Senna/Docusate Sodium), 1 TAB PO BID AT 0830 & 1630 Sodium Chloride (Sodium Chloride), 1 TAB PO QAM Scheduled PRN Acetaminophen (Tylenol), 650 MG PO Q6 PRN for Pain or Fever Ondansetron Hcl (Zofran), 8 MG PO TID PRN for Nausea Oxycodone Ir (Roxicodone Ir), 5 MG PO Q6H PRN for Pain Polyethylene Glycol 3350 (Miralax), 17 GM PO DAILY PRN for Constipation Prochlorperazine Maleate (Compazine), 10 MG PO Q6H PRN for Nausea or Vomiting Allergies Coded Allergies: Sulfa Antibiotics (Verified Allergy, Severe, mouth swells, bumps on roof of mouth, 07/04/16) Banana (Verified Allergy, Intermediate, RAW -ROOF OF MOUTH SWELLS, 07/04/16 ) Physical Exam Vital Signs Date Time Temp Pulse Resp B/P (MAP) Pulse Ox O2 Delivery O2 Flow Rate FiO2 07/25/16 02:58 65 18 112/47 98 Nasal Cannula 4.0 07/25/16 02:12 90 Nasal Cannula 07/25/16 01:17 90 Nasal Cannula 2.0 07/25/16 01:13 37.6 67 16 92/49 82 Room Air 07/25/16 01:10 69 Physical Exam General: Appears lethargic. Slow to answer questions. HEENT: Head - normocephalic and atraumatic Pupils are equal, round, and reactive to light. Extraocular eye muscles are intact, and sclera are anicteric. Nose - moist nasal mucosa without discharge. Mouth - moist buccal mucosa. Oropharynx is nonerythematous and there is no tonsillar exudate or edema noted. Neck: Supple; no JVD, nuchal rigidity, cervical lymphadenopathy. Heart: Regular rate and rhythm. There is a normal S1 and S2 with no murmurs, clicks, or gallops appreciated. Lungs: Clear to auscultation bilaterally with no wheezes, rales, or rhonchi. Abdomen: Soft, completely nontender, nondistended, with good bowel sounds. There are no palpable pulsatile masses or hepatosplenomegaly. There is no guarding, rigidity, or rebound noted. Extremities: No evidence of cyanosis, clubbing, or edema. There are easily palpable peripheral pulses. Skin: hot and dry with good turgor and no rashes. Neuro: Nonfocal. Alert and oriented to person, place, and time. Medical Decision & Procedures ER Provider Diagnostic Interpretation: X-ray results as stated below per interpretation by me: CHEST X-RAY 1 VIEW: Possible left lower lobe infiltrate. Cardiomegaly present. Per me. Laboratory Results 07/25/16 02:05 Red Blood Count 2.73, Mean Corpuscular Volume 85.7, Mean Corpuscular Hemoglobin 28.9, Mean Corpuscular Hemoglobin Concent 33.8, Mean Platelet Volume 9.0, Neutrophils (%) (Auto) 74.9, Lymphocytes (%) (Auto) 12.5, Monocytes (%) (Auto) 11.5, Eosinophils (%) (Auto) 0.5, Basophils (%) (Auto) 0.3, Neutrophils # (Auto ) 8.42, Lymphocytes # (Auto) 1.40, Monocytes # (Auto) 1.29, Eosinophils # (Auto ) 0.06, Basophils # (Auto) 0.03 07/25/16 02:05 Test 07/25/16 02:05 07/25/16 02:11 07/25/16 02:20 07/25/16 03:37 White Blood Count 11.23 K/uL (4.8-10.8) Red Blood Count 2.73 M/uL (4.2-5.4) Hemoglobin 7.9 g/dL (12.0-16.0) Hematocrit 23.4 % (37-47) Mean Corpuscular Volume 85.7 fL (80-100) Mean Corpuscular Hemoglobin 28.9 pg (25-34) Mean Corpuscular Hemoglobin Concent 33.8 g/dl (32-36) Platelet Count 293 K/uL (130-400) Mean Platelet Volume 9.0 fL (7.4-10.4) Neutrophils (%) (Auto) 74.9 % Lymphocytes (%) (Auto) 12.5 % Monocytes (%) (Auto) 11.5 % Eosinophils (%) (Auto) 0.5 % Basophils (%) (Auto) 0.3 % Neutrophils # (Auto) 8.42 K/uL (1.4-6.5) Lymphocytes # (Auto) 1.40 K/uL (1.2-3.4) Monocytes # (Auto) 1.29 K/uL (0.11-0.59) Eosinophils # (Auto) 0.06 K/uL (0-0.5) Basophils # (Auto) 0.03 K/uL (0-0.2) RDW Standard Deviation 46.2 fL (36.4-46.3) RDW Coefficient of Variation 14.8 % (11.5-14.5) Immature Granulocyte % (Auto) 0.3 % Immature Granulocyte # (Auto) 0.03 K/uL (0.00-0.02) Red Blood Cell Morphology Unremarkable Anion Gap 8.0 mmol/L (3-11) Est Creatinine Clear Calc Drug Dose 36.4 ml/min Estimated GFR () 48.1 Estimated GFR (Non- 41.5 BUN/Creatinine Ratio 16.4 (10-20) Calcium Level 8.0 mg/dl (8.5-10.1) Total Bilirubin 0.2 mg/dl (0.2-1) Aspartate Amino Transf (AST/SGOT) 12 U/L (15-37) Alanine Aminotransferase (ALT/SGPT) 14 U/L (12-78) Alkaline Phosphatase 136 U/L (45-117) Total Protein 7.1 gm/dl (6.4-8.2) Albumin 2.9 gm/dl (3.4-5.0) Globulin 4.2 gm/dl (2.5-4.0) Albumin/Globulin Ratio 0.7 (0.9-2) Bedside Lactic Acid Venous 0.37 mmol/L (0.90-1.70) Urine Color YELLOW Urine Appearance TURBID (CLEAR) Urine pH 6.5 (4.5-7.5) Urine Specific [place] 1.015 (1.000-1.030) Urine Protein 3+ (NEG) Urine Glucose (UA) NEG (NEG) Urine Ketones NEG (NEG) Urine Occult Blood 3+ (NEG) Urine Nitrite NEG (NEG) Urine Bilirubin NEG (NEG) Urine Urobilinogen NEG (NEG) Urine Leukocyte Esterase MODERATE (NEG) Urine WBC (Auto) >30 /hpf (0-5) Urine RBC (Auto) 10-30 /hpf (0-4) Urine Hyaline Casts (Auto) 1-5 /lpf (0-5) Urine Epithelial Cells (Auto) 0-5 /lpf (0-5) Urine Bacteria (Auto) 3+ (NEG) Urine Crystals TALC (NONE PRSENT) Urine Yeast (Auto) (NONE PRSENT) Prothrombin Time 11.6 SECONDS (9.0-12.0) Prothromb Time International Ratio 1.1 (0.9-1.1) Activated Partial Thromboplast Time 31.0 SECONDS (21.0-31.0) Partial Thromboplastin Ratio 1.2 Laboratory results per my review. Medications Administered Medications (Trade) Dose Ordered Sig/Benito Route Start Time Stop Time Status Last Admin Dose Admin Sodium Chloride 500 ml @ 999 mls/hr Q31M STAT IV 07/25/16 01:56 07/25/16 02:26 DC 07/25/16 01:56 999 MLS/HR Sodium Chloride 1,000 ml @ 250 mls/hr Q4H STAT IV 07/25/16 01:56 07/25/16 05:55 DC 07/25/16 01:56 250 MLS/HR Piperacillin Sod/ Tazobactam Sod (Zosyn Iv) 4.5 gm NOW STAT IV 07/25/16 03:15 07/25/16 03:17 DC 07/25/16 03:33 4.5 GM Procedure Sodium Chloride 1000 ml @ 250 mls/hr IV Sodium Chloride 500 ml @ 999 mls/hr IV. Zosyn Iv 4.5 gm IV Daptomycin 400 mg/ Sodium Chloride 58 ml @ 100 mls/hr IV. ECG Indication: other (Fever) Rate (beats per minute): 62 Rhythm: normal sinus Findings: 1st degree AV block, no acute ischemic change, no ectopy ED Course 0136: Past medical records reviewed. The patient was evaluated in room B7. A complete history and physical exam was performed. A septic protocol was performed. 0156: Ordered Sodium Chloride 1000 ml @ 250 mls/hr IV, Sodium Chloride 500 ml @ 999 mls/hr IV. the patient had an EKG and chest x-ray as described above 0315: I reviewed the patient's previous urine cultures at this time. In June of this year, she had enterococcus in her urine that was susceptible to Daptomycin. Ordered Zosyn Iv 4.5 gm IV, Daptomycin 400 mg/ Sodium Chloride 58 ml @ 100 mls/hr IV. 0330: Upon reevaluation, I discussed findings and results with her. She verbalized agreement of the treatment plan. I spoke with Dr. Goldberg of the [facility] Hospitalist Service. The patient will be evaluated for further management and care. 0500: Administered a packed red blood cell infusion. Medical Decision The patient is a 70 year old female who presents to the ED with a fever. Differential diagnosis includes neutropenic fever, pneumonia, UTI, and sepsis. I attest that I have personally reviewed the patient's current medication list. Patient was found to have normal blood pressure on screening and does not require follow-up. Laboratory Results Showed: White Blood Cell count 11.2, 74% neutrophils, hemoglobin 7.9, hematocrit 23.4, platelet count 293, lactic acid 0.3, BUN 21, creatinine 1.3, glucose 99, coagulation studies are negative. The patient was not found to be neutropenic. Chest x-ray revealed no evidence of an acute pulmonary infiltrate. However, the patient had O2 saturation in the 80s. Urinalysis was concerning for infection. The patient was treated with IV antibiotics. Her blood pressure remained stable. I discussed case with Health systemist and they will evaluate for further management. Consults Time Called: [phone] Consulting Physician: Dr. Goldberg - [facility] Returned Call: [phone] He will be evaluating the patient for further management and care. Impression Primary Impression: Hypoxia Additional Impressions: Anemia UTI (urinary tract infection) Critical Care I have personally spent greater than 60 minutes of critical care time in the direct management of this patient. This includes bedside care, interpretation of diagnostic studies, and testing, discussion with consultants, patient, and family members, and other required patient management activities. This 60 minutes is in excess of all separately billable procedures. Scribe Attestation The scribe's documentation has been prepared under my direction and personally reviewed by me in its entirety. I confirm that the note above accurately reflects all work, treatment, procedures, and medical decision making performed by me. Departure Information Dispostion Being Evaluated By Hospitalist Referrals Jorje Romo M.D. (PCP) Patient Instructions My [facility] Problem Qualifiers
[2016-07-25 02:19] LABS: BASO % 0.3 %; BASO ABS # 0.03 K/uL (0-0.2); EOS % 0.5 %; HEMATOCRIT 23.4 % (37-47); IG% 0.3 %; LYMPH % 12.5 %; MEAN CELL VOLUME 85.7 fL (80-100); MEAN CORPUSCULAR HEMOGLOBIN 28.9 pg (25-34); MEAN CORPUSCULAR HGB CONC 33.8 g/dl (32-36); MONO % 11.5 %; NEUT % 74.9 %; PLATELET COUNT 293 K/uL (130-400); RED BLOOD COUNT 2.73 M/uL (4.2-5.4); WHITE BLOOD COUNT 11.23 K/uL (4.8-10.8)
[2016-07-25 02:38] LABS: BUN/CREATININE RATIO 16.4 (10-20); CREATININE 1.3 mg/dl (0.60-1.20); POTASSIUM 4.2 mmol/L (3.5-5.1)
[2016-07-25 02:41] LABS: ALB/GLOB RATIO 0.7 (0.9-2); COMPLETE YES
[2016-07-25 02:52] LABS: URINE APPEARANCE TURBID (CLEAR); URINE BILIRUBIN NEG (NEG); URINE COLOR YELLOW; URINE EPITHELIAL CELL AUTO 0-5 /lpf (0-5); URINE NITRITE NEG (NEG); URINE PH 6.5 (4.5-7.5); URINE SPECIFIC GRAVITY 1.015 (1.000-1.030); UROBILINOGEN NEG (NEG); ZZURINE CULT IF INDIC CATH YES
[2016-07-25 02:54] LABS: MANUAL MICROSCOPIC REQUIRED? NO; REVIEW REQ? YES
[2016-07-25] MEDS ORDERED: PIPERACILLIN/TAZOBACTAM 4.5 GM/100ML D5W IV STA (03:15)
[2016-07-25] MEDS ORDERED: DAPTOmycin IV 400 MG in SODIUM CHLORIDE 0.9% 50ML 50 ML IV STA (03:15)
[2016-07-25] MEDS ORDERED: FERR1TAB13 PO (03:26)
[2016-07-25] MEDS ORDERED: POLY335019 PO (03:29)
[2016-07-25] MEDS ORDERED: ONDA8TAB6 PO (03:30)
[2016-07-25] MEDS ORDERED: PROC1TAB5 PO (03:31)
[2016-07-25] MEDS ORDERED: OXYC1TAB3 PO (03:33)
[2016-07-25 04:09] LABS: INR 1.1 (0.9-1.1); PARTIAL THROMBOPLASTIN RATIO 1.2; PROTHROMBIN TIME (PATIENT) 11.6 SECONDS (9.0-12.0)
[2016-07-25] MEDS ORDERED: POLYETHYLENE (MIRALAX) 17 GM PACK PO PRN (04:15)
[2016-07-25] MEDS ORDERED: PROCHLORPERAZINE MALEATE 10 MG TAB PO PRN (04:15)
[2016-07-25] MEDS ORDERED: ONDANSETRON INJ 2 MG/ML 2 ML VIAL IV PRN (04:15)
[2016-07-25] MEDS ORDERED: OXYCODONE HCL IR 5 MG TAB (IMMEDIATE RELEASE) PO PRN (04:15)
[2016-07-25] MEDS ORDERED: LINEZOLID / D5W 600 MG in PREMIXED IN D5W 300 ML IV STA (04:27)
[2016-07-25] MEDS ORDERED: LEVALBUTEROL 1.25MG/0.5ML NEB INH PRN (04:30)
[2016-07-25] MEDS ORDERED: IPRATROPIUM BROMIDE NEB SOLN 0.02% 2.5 ML VIAL INH PRN (04:30)
[2016-07-25] MEDS ORDERED: PIPERACILL/TAZOBAC CONSULT ACTIVE PRN (06:30)
[2016-07-25] MEDS: NSS + 20MEQ KCL 1000ML 1,000 ML IV SCH ×2 (06:38→16:28)
--- NOTE | 2016-07-25 07:04 | DIAGNOSTIC IMAGING REPORT ---
CHEST ONE VIEW PORTABLE CLINICAL HISTORY: Sepsis COMPARISON STUDY: 07/04/2016 FINDINGS: The heart is mildly enlarged. There is a left-sided A-Port catheter unchanged in position. There are postsurgical changes in the cervical spine. There is diffuse thickening of interstitial markings. This remain similar to prior studies. There is no lobar consolidation. There are no pleural effusions. There is an old deformity the proximal right humerus.[ IMPRESSION: Mild cardiomegaly and stable chronic interstitial thickening. No evidence of lobar consolidation Electronically signed by: Van Hernandez M.D. 07/25/2016 7:03 AM Dictated Date/Time: 07/25/2016 7:02 AM
[2016-07-25] MEDS: LEVALBUTEROL 1.25MG/0.5ML NEB INH SCH ×3 (07:30→19:30)
[2016-07-25] MEDS: IPRATROPIUM BROMIDE NEB SOLN 0.02% 2.5 ML VIAL INH SCH ×3 (07:30→19:30)
[2016-07-25] MEDS: BUDESONIDE 0.5 MG/2 ML VIAL (PULMICORT) INH SCH ×2 (07:43→19:30)
[2016-07-25] MEDS ORDERED: DULOXETINE HCL 20 MG CAP PO SCH (08:00)
[2016-07-25] MEDS ORDERED: HALOPERIDOL 1 MG TAB PO SCH (08:00)
--- NOTE | 2016-07-25 08:17 | History and Physical ---
History & Physical Date & Time of Service: Jul 25, 2016 at 08:02 Chief Complaint: Hypoxia, Uti Primary Care Physician: Jorje Romo M.D. History of Present Illness Source: patient, hospital records The patient is a 70-year-old female presents to the emergency department via EMS from [facility], with the presence of a fever, and orders from her oncologist to have a medical evaluation whenever there is an elevated temperature. She has a medical history of renal cell cancer, and is currently undergoing chemotherapy. She reportedly has been eating and drinking normally the past several days. She was also noted to have a pulse ox of 82% on room air. In the emergency department, the patient is primarily unresponsive, but was reportedly occasionally opening her eyes. She remained unresponsive during my assessment, and therefore her history of present illness is limited to chart review and records reviewed from [facility]. 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 Status: Chronic (15) Seizure Status: Chronic (16) Seizure Status: Resolved (17) Spinal Surgery Status: Resolved Family History Hypertension Social History Smoking Status: Former Smoker Smokeless Tobacco Use: No Drug Use: none Marital Status: Housing status: [facility] Occupational Status: retired, disabled Immunizations History of Influenza Vaccine: Unknown Influenza Vaccine Date: Nov 10, 2004 History of Tetanus Vaccine?: Unknown History of Pneumococcal: Unknown History of Hepatitis B Vaccine: Unknown Multi-Drug Resistant Organisms History of MDRO: Yes Type of MDRO: VRE, MRSA Allergies Coded Allergies: Sulfa Antibiotics (Verified Allergy, Severe, mouth swells, bumps on roof of mouth, 07/04/16) Banana (Verified Allergy, Intermediate, RAW -ROOF OF MOUTH SWELLS, 07/04/16 ) Home Medications Scheduled Amlodipine (Norvasc), 5 MG PO BID AT 0830 & 1630 Duloxetine Hcl (Cymbalta), 40 MG PO QAM Ferrous Sulfate (Kp Ferrous Sulfate), 325 MG PO QAM Gabapentin (Neurontin), 400 MG PO TID Haloperidol (Haloperidol), 1 MG PO TID Ipratropium-Albuterol (Combivent Respimat), 1 PUFFS INH QID Metoprolol Succ (Toprol Xl) (Toprol-Xl), 25 MG PO QAM Multivitamin (Multivitamin), 1 TABLET PO QAM Phenobarbital (Phenobarbital), 64.8 MG PO DAILY Quetiapine Fumarate (Seroquel), 25 MG PO HS Ranitidine (Zantac), 150 MG PO BID Rivastigmine Tartrate (Exelon), 1.5 MG PO BID Sennosides-Docusate Sodium (Senna/Docusate Sodium), 1 TAB PO BID AT 0830 & 1630 Sodium Chloride (Sodium Chloride), 1 TAB PO QAM Scheduled PRN Acetaminophen (Tylenol), 650 MG PO Q6 PRN for Pain or Fever Ondansetron Hcl (Zofran), 8 MG PO TID PRN for Nausea Oxycodone Ir (Roxicodone Ir), 5 MG PO Q6H PRN for Pain Polyethylene Glycol 3350 (Miralax), 17 GM PO DAILY PRN for Constipation Prochlorperazine Maleate (Compazine), 10 MG PO Q6H PRN for Nausea or Vomiting Review of Systems Review of systems, as history of present illness, is limited due to patient's altered mental state and is gathered from record review. Physical Exam Vital Signs Date Time Temp Pulse Resp B/P (MAP) Pulse Ox O2 Delivery O2 Flow Rate FiO2 07/25/16 07:30 56 16 100 Nasal Cannula 4.0 07/25/16 07:29 36.2 54 20 107/64 (78) 100 07/25/16 07:05 36.5 55 18 113/57 100 Nasal Cannula 4.0 07/25/16 05:46 58 16 111/54 100 07/25/16 04:49 62 18 107/55 99 Nasal Cannula 4.0 07/25/16 02:58 65 18 112/47 98 Nasal Cannula 4.0 07/25/16 02:12 90 Nasal Cannula 07/25/16 01:17 90 Nasal Cannula 2.0 07/25/16 01:13 37.6 67 16 92/49 82 Room Air 07/25/16 01:10 69 The patient is unresponsive, normocephalic and atraumatic, lying in bed and in no acute distress. HEENT--PERRL, EOMI, mucous membranes and oropharynx dry. Neck--supple, no JVD or bruits, thyroid normal, trachea midline, no adenopathy. Heart--normal S1 and S2, no extra beats, no murmurs, rubs or gallops. Lungs--clear bilaterally but diminished throughout, no respiratory distress, no accessory muscle use. Abdomen--normal bowel sounds and soft, nondistended, no hernias or masses, no organomegaly. Extremities--no cyanosis, clubbing or edema. There are good distal pulses b/l. Dermatologic--normal skin turgor, no rash. Neurologic--cranial nerves II through XII grossly intact. Rheumatologic--deferred Psychiatric--deferred Diagnostics Laboratory Results Results Past 24 Hours Test 07/25/16 02:05 07/25/16 02:11 07/25/16 02:20 07/25/16 03:37 Range/Units White Blood Count 11.23 4.8-10.8 K/uL Red Blood Count 2.73 4.2-5.4 M/uL Hemoglobin 7.9 12.0-16.0 g/dL Hematocrit 23.4 37-47 % Mean Corpuscular Volume 85.7 80-100 fL Mean Corpuscular Hemoglobin 28.9 25-34 pg Mean Corpuscular Hemoglobin Concent 33.8 32-36 g/dl Platelet Count 293 130-400 K/uL Mean Platelet Volume 9.0 7.4-10.4 fL Neutrophils (%) (Auto) 74.9 % Lymphocytes (%) (Auto) 12.5 % Monocytes (%) (Auto) 11.5 % Eosinophils (%) (Auto) 0.5 % Basophils (%) (Auto) 0.3 % Neutrophils # (Auto) 8.42 1.4-6.5 K/uL Lymphocytes # (Auto) 1.40 1.2-3.4 K/uL Monocytes # (Auto) 1.29 0.11-0.59 K/uL Eosinophils # (Auto) 0.06 0-0.5 K/uL Basophils # (Auto) 0.03 0-0.2 K/uL RDW Standard Deviation 46.2 36.4-46.3 fL RDW Coefficient of Variation 14.8 11.5-14.5 % Immature Granulocyte % (Auto) 0.3 % Immature Granulocyte # (Auto) 0.03 0.00-0.02 K/uL Red Blood Cell Morphology Unremarkable Sodium Level 138 136-145 mmol/L Potassium Level 4.2 3.5-5.1 mmol/L Chloride Level 104 98-107 mmol/L Carbon Dioxide Level 26 21-32 mmol/L Anion Gap 8.0 3-11 mmol/L Blood Urea Nitrogen 21 7-18 mg/dl Creatinine 1.30 0.60-1.20 mg/dl Est Creatinine Clear Calc Drug Dose 36.4 ml/min Estimated GFR () 48.1 Estimated GFR (Non- 41.5 BUN/Creatinine Ratio 16.4 10-20 Random Glucose 99 70-99 mg/dl Calcium Level 8.0 8.5-10.1 mg/dl Total Bilirubin 0.2 0.2-1 mg/dl Aspartate Amino Transf (AST/SGOT) 12 15-37 U/L Alanine Aminotransferase (ALT/SGPT) 14 12-78 U/L Alkaline Phosphatase 136 45-117 U/L Total Protein 7.1 6.4-8.2 gm/dl Albumin 2.9 3.4-5.0 gm/dl Globulin 4.2 2.5-4.0 gm/dl Albumin/Globulin Ratio 0.7 0.9-2 Bedside Lactic Acid Venous 0.37 0.90-1.70 mmol/L Urine Color YELLOW Urine Appearance TURBID CLEAR Urine pH 6.5 4.5-7.5 Urine Specific [place] 1.015 1.000-1.030 Urine Protein 3+ NEG Urine Glucose (UA) NEG NEG Urine Ketones NEG NEG Urine Occult Blood 3+ NEG Urine Nitrite NEG NEG Urine Bilirubin NEG NEG Urine Urobilinogen NEG NEG Urine Leukocyte Esterase MODERATE NEG Urine WBC (Auto) >30 0-5 /hpf Urine RBC (Auto) 10-30 0-4 /hpf Urine Hyaline Casts (Auto) 1-5 0-5 /lpf Urine Epithelial Cells (Auto) 0-5 0-5 /lpf Urine Bacteria (Auto) 3+ NEG Urine Crystals TALC NONE PRSENT Urine Yeast (Auto) NONE PRSENT Prothrombin Time 11.6 9.0-12.0 SECONDS Prothromb Time International Ratio 1.1 0.9-1.1 Activated Partial Thromboplast Time 31.0 21.0-31.0 SECONDS Partial Thromboplastin Ratio 1.2 Microbiology Results 07/25/16 Blood Culture, Received Pending 07/25/16 Blood Culture, Received Pending 07/25/16 Urine Culture, Received Pending Diagnostic Radiology Patient Name: SRAVANTHI MCKEON Unit Number: [id number] Dictated: 07/25/16701 Transcribed: 07/25/16701 ARG Printed Date/Time: [~ rep prt dt]/[~ rep prt tm] [~ rep ct labl] - [~ rep ct ivnm] [facility] [place] [place] [address] Dictated: 07/25/16701 Transcribed: 07/25/16701 ARG Printed Date/Time: [~ rep prt dt]/[~ rep prt tm] [~ rep ct labl] - [~ rep ct ivnm] CHEST ONE VIEW PORTABLE CLINICAL HISTORY: Sepsis COMPARISON STUDY: 07/04/2016 FINDINGS: The heart is mildly enlarged. There is a left-sided A-Port catheter unchanged in position. There are postsurgical changes in the cervical spine. There is diffuse thickening of interstitial markings. This remain similar to prior studies. There is no lobar consolidation. There are no pleural effusions. There is an old deformity the proximal right humerus.[ IMPRESSION: Mild cardiomegaly and stable chronic interstitial thickening. No evidence of lobar consolidation Electronically signed by: Van Hernandez M.D. 07/25/2016 7:03 AM Dictated Date/Time: 07/25/2016 7:02 AM The status of this report is Signed. Draft = Not yet reviewed or approved by Radiologist. Signed = Reviewed and approved by Radiologist. <AttendingPhy>Jos Golbderg M.D.</AttendingPhy> <FamilyPhy>[facility]</ FamilyPhy> <PrimaryPhy>Jorje Romo M.D.</PrimaryPhy> <UnitNumber> [id number]</UnitNumber> <VisitNumber>[id number]</VisitNumber> <PatientName> SRAVANTHI MCKEON</PatientName> <DateOfBirth>1945</DateOfBirth> <Location>C.4[facility] </Location> <ServiceDate>07/25/16</ServiceDate> <MNE>ESINDI</MNE> <OrderingPhy> Carson Kassandra D.O.</OrderingPhy> <OrderingPhyMNE>f rep ord dr yoo</ OrderingPhyMNE> <DictatingPhyMNE>f rep dict dr yoo</DictatingPhyMNE> <CCListMNE> f rep ct naila</CCListMNE> <AdmittingPhyMNE>f pt admit dr yoo</AdmittingPhyMNE> < AttendingPhyMNE>f pt attend dr yoo</AttendingPhyMNE> <ConsultingPhyMNE>f pt consult dr yoo</ConsultingPhyMNE> <FamilyPhyMNE>f pt fam dr yoo</FamilyPhyMNE> <OtherPhyMNE>f pt other dr yoo</OtherPhyMNE> < PrimaryPhyMNE>f pt prim care dr yoo</PrimaryPhyMNE> <ReferringPhyMNE>f pt referring dr yoo</ReferringPhyMNE> EKG EKG shows normal sinus rhythm at 62 bpm, first-degree heart block, less T-wave inversions in anterior chest leads compared to previous. Impression Assessment and Plan Metabolic encephalopathy secondary to significant UTI and hypoxia/history of VRE and MRSA--the patient be admitted to the medical floor, and placed on Zyvox 600 mg IV every 12 hours and Zosyn 3.375 mg IV every 8 hours infectious disease will need to be consulted to use insulin. Vancomycin was not acceptable due to resistances, and daptomycin was not acceptable due to the presence of a pulmonary process. Anemia--hemoglobin upon admission was 7.9 likely secondary to ongoing chemotherapy. She will be transfused 1 unit of irradiated, leuko-reduced packed red blood cells, with follow-up H&H one hour later. Renal cell cancer with present chemotherapy--she is not neutropenic at this time per laboratories today. COPD--continue Combivent. Hypertension--continue amlodipine, metoprolol succinate with hold parameters. Depression/insomnia/schizophrenia--continue fluoxetine, gabapentin, haloperidol , phenobarbital, Seroquel, Paxil. GERD--continue ranitidine. Level of Care Med/Surg Advanced Directives Existing Advance Directive: No Existing Living Will: No Existing Power of Meeting Specialist: No Resuscitation Status FULL RESUSCITATION VTE Prophylaxis VTE Risk Assessment Done? Y/N: Yes Risk Level: High Given or contraindicated: SCD's Social Service Consult Lives in [facility]
[2016-07-25] MEDS: RIVASTIGMINE TARTRATE (EXELON) 1.5 MG CAP PO SCH ×2 (08:46→20:27)
[2016-07-25] MEDS: DOCUSATE SODIUM/SENNA 50/8.6MG TAB PO SCH ×2 (08:47→20:27)
[2016-07-25] MEDS: GABAPENTIN 400 MG CAP PO SCH ×3 (08:47→20:26)
[2016-07-25] MEDS: RANITIDINE HCL 150 MG TAB PO SCH ×2 (08:47→20:27)
[2016-07-25] MEDS: AMLODIPINE BESYLATE 5 MG TAB PO SCH ×2 (08:47→20:26)
[2016-07-25] MEDS: METOPROLOL SUCC 25MG EXT REL TAB PO SCH (08:47)
[2016-07-25] MEDS: MULTIVITAMIN TAB PO SCH (08:48)
[2016-07-25] MEDS: FERROUS SULFATE 325 MG TAB PO SCH (08:48)
[2016-07-25] MEDS: SODIUM CHLORIDE 1 GM TAB PO SCH (08:48)
[2016-07-25] MEDS: PIPERACILL/TAZOBAC IV 3.375 GM in DEXTROSE 5% 100ML 100 ML IV SCH ×2 (08:55→16:28)
[2016-07-25] MEDS ORDERED: LEVALBUTEROL/IPRATROPIUM NEB INH SCH (09:00)
[2016-07-25] MEDS: HALOPERIDOL 1 MG TAB PO SCH ×3 (10:00→20:25)
--- NOTE | 2016-07-25 11:24 | Consultant Recommendations ---
Tank Systems Maintainer Recommendations Date of Service Jul 25, 2016. Tank Systems Maintainer Recommendations ID Consul Dictated #[id number] A/P: 1. UTI 2. Leukocytosis -Continue emperic abx for now, follow final culture results -Will follow, thank you
[2016-07-25] MEDS ORDERED: LINEZOLID / D5W 600 MG in PREMIXED IN D5W 300 ML IV SCH (14:00)
--- NOTE | 2016-07-25 14:06 | INFECT. DISEASE CONSULTATION ---
DATE OF CONSULTATION: 07/25/2016 REQUESTING PHYSICIAN: Dr. Goldberg. HISTORY OF PRESENT ILLNESS: This is a 70-year-old female who was admitted from [facility] after she was found to have fever. She has a new diagnosis of renal cell carcinoma and is undergoing chemotherapy for this. She was recently admitted in June and found to have urine specimens with VRE. She was treated successfully with a course of daptomycin. She has recently been off of antibiotics. As part of her ER evaluation, urinalysis was obtained showing greater than 30 WBCs with 3+ bacteria. She had a low grade fever of 37.6. She also had small leukocytosis of 11.2. Blood and urine cultures were obtained and are pending. A chest x-ray was done in the Emergency Room and was unremarkable. She was placed empirically on Zyvox and Zosyn. Infectious disease is asked to see this patient in consultation for Zyvox approval. On my examination, she is resting comfortably. She denies any fevers and chills currently, but does admit to having fevers and chills last evening. She does admit to some abdominal pain but states overall it is better. Her appetite has been stable. She denies any nausea, vomiting or diarrhea. Her port is in place and has not had any pain, erythema, or difficulty with access. She denies any urinary symptoms currently. All remaining review of systems are reviewed and are unremarkable. PAST MEDICAL HISTORY: Significant for renal cell carcinoma, COPD, coronary artery disease, dementia, depression, hypertension, hypothyroidism, GA, osteoporosis, paranoid schizophrenia, seizure disorder. PAST SURGICAL HISTORY: Significant for spinal surgery and a port placement in June. FAMILY HISTORY: Noncontributory. SOCIAL HISTORY: Significant for history of tobacco use. She also has a history of alcohol use. She currently lives at [facility]. ALLERGIES: SHE HAS ALLERGIES TO SULFA ANTIBIOTICS. CURRENT MEDICATIONS: Include Seroquel, phenobarbital, Zyvox, Haldol, Atrovent, Xopenex, Zosyn, Pulmicort, Norvasc, gabapentin, Toprol-XL, multivitamins, Zantac, Senokot, iron , Zosyn, Zofran, Roxicodone, Compazine and MiraLax. PHYSICAL EXAMINATION: VITAL SIGNS: She is currently afebrile. Her T-max was 37.6 on arrival to the hospital, pulse 56, respiratory rate is 16, blood pressure 107/64 and oxygen saturation is 100% on 4 liters nasal cannula. GENERAL: She is awake and oriented on my exam. HEENT: Mucous membranes are dry. Extraocular muscles are intact. HEART: Regular. LUNGS: Clear bilaterally with poor inspiratory effort. ABDOMEN: Soft, nontender, nondistended. There is no edema. SKIN: Without rash. Port is clean, dry and intact with no surrounding erythema, warmth, tenderness or induration. LABORATORY STUDIES: CBC reveals a white blood cell count of 11.2, hemoglobin 7.9, platelets are 293. Chemistry panel reveals a sodium of 138, potassium 4.2, chloride 104, bicarbonate 26, BUN 21, creatinine 1.3, glucose is 99. LFTs are within normal limits. Urinalysis again had greater than 30 WBCs and 3+ bacteria. Blood and urine cultures are pending. A chest x-ray was done in the Emergency Room and was negative for consolidation. ASSESSMENT AND PLAN: 1. Urinary tract infection in a patient with renal cell carcinoma. 2. Leukocytosis. At this time, she can be continued on empiric antibiotics, she appears to be tolerating these well. Further antibiotic recommendations will be made pending final cultures. Thank you for this consultation. IJEOMA
--- NOTE | 2016-07-25 15:54 | Progress Note ---
Subjective Date of Service: Jul 25, 2016. Subjective Pt evaluation today including: conversation w/ patient, physical exam, lab review, review of inpatient medication list Pain: denies pain PO Intake: poor appetite Voiding: no voiding problems patient tired most of the day, sleeping a lot denies pain, denies shortness of breath or cough discussed that she had evidence of a UTI, on Zyvox no fevers I reviewed labs and imaging Problem List Medical Problems: (1) Anemia Status: Acute (2) Anemia Status: Acute (3) Dementia Status: Chronic (4) Left lower lobe pneumonia Status: Acute (5) Osteoporosis Nos Status: Chronic (6) Paranoid Schizo-Chronic Status: Chronic (7) Renal insufficiency Status: Acute Review of Systems Constitutional: + weakness, + fatigue Neurologic: + weakness All Other Systems: Reviewed and Negative Medications Current Inpatient Medications Medications (Trade) Dose Ordered Sig/Benito Route Start Time Stop Time Status Last Admin Dose Admin Piperacillin Sod/ Tazobactam Sod 3.375 gm/Dextrose 115 ml @ 28.75 mls/ hr Q8H IV 07/25/16 08:00 08/01/16 07:59 07/25/16 08:55 28.75 MLS/HR Ondansetron HCl (Zofran Inj) 4 mg Q6H PRN IV 07/25/16 04:15 08/24/16 04:14 Potassium Chloride/Sodium Chloride 1,000 ml @ 100 mls/hr Q10H IV 07/25/16 06:15 08/24/16 06:14 07/25/16 06:38 100 MLS/HR Budesonide (Pulmicort Respules 0.5MG/ 2ML Neb Soln) 0.5 mg BIDR INH 07/25/16 08:00 08/24/16 07:59 07/25/16 07:43 0.5 MG Amlodipine Besylate (Norvasc Tab) 5 mg BID PO 07/25/16 08:00 08/24/16 08:59 07/25/16 08:47 5 MG Duloxetine HCl (Cymbalta Cap) 40 mg QAM PO 07/25/16 08:00 08/24/16 08:59 Future Hold Gabapentin (Neurontin Cap) 400 mg TID PO 07/25/16 08:00 08/24/16 08:59 07/25/16 14:44 400 MG Metoprolol Succinate (Toprol Xl Tab) 25 mg QAM PO 07/25/16 08:00 08/24/16 08:59 07/25/16 08:47 25 MG Multivitamins (Multivitamin Tab) 1 tab QAM PO 07/25/16 08:00 08/24/16 08:59 07/25/16 08:48 1 TAB Oxycodone HCl (Roxicodone Immediate Rel Tab) 5 mg Q6H PRN PO 07/25/16 04:15 08/08/16 04:14 Prochlorperazine Maleate (Compazine Tab) 10 mg Q6H PRN PO 07/25/16 04:15 08/24/16 04:14 Quetiapine Fumarate (seroQUEL TAB) 25 mg HS PO 07/25/16 21:00 08/24/16 20:59 Ranitidine HCl (zANTac TAB) 150 mg BID PO 07/25/16 08:00 08/24/16 08:59 07/25/16 08:47 150 MG Senna/Docusate Sodium (Senokot S Tab) 1 tab BID PO 07/25/16 08:00 08/24/16 08:59 07/25/16 08:47 1 TAB Sodium Chloride (Sodium Chloride Tab) 1 gm QAM PO 07/25/16 08:00 08/24/16 08:59 07/25/16 08:48 1 GM Ferrous Sulfate (Feosol Tab) 325 mg QAM PO 07/25/16 08:00 08/24/16 08:59 07/25/16 08:48 325 MG Phenobarbital (Phenobarbital Tab) 64.8 mg DAILY@2030 PO 07/25/16 20:30 08/24/16 20:29 Polyethylene (Miralax Powder Packet) 17 gm DAILY PRN PO 07/25/16 04:15 08/24/16 04:14 Rivastigmine Tartrate (Exelon Cap) 1.5 mg BID PO 07/25/16 08:00 08/24/16 08:59 07/25/16 08:46 1.5 MG Ipratropium [place] (Atrovent 0.02% 0.5MG/2.5ML Neb) 0.5 mg Q6R INH 07/25/16 09:00 08/24/16 08:59 07/25/16 14:23 0.5 MG Levalbuterol (Xopenex 1.25MG/ 0.5ML Neb) 1.25 mg Q6R INH 07/25/16 09:00 08/24/16 08:59 07/25/16 14:23 1.25 MG Ipratropium [place] (Atrovent 0.02% 0.5MG/2.5ML Neb) 0.5 mg Q2H PRN INH 07/25/16 04:30 08/24/16 04:29 Levalbuterol (Xopenex 1.25MG/ 0.5ML Neb) 1.25 mg Q2H PRN INH 07/25/16 04:30 08/24/16 04:29 Linezolid 600 mg/ Prmx 300 ml @ 300 mls/hr Q12H IV 07/25/16 16:00 08/01/16 15:59 Piperacillin Sod/ Tazobactam Sod (Consult) 1 ea UD PRN N/A 07/25/16 06:30 08/24/16 06:29 Haloperidol (Haldol Tab) 1 mg TID PO 07/25/16 14:00 08/24/16 13:59 07/25/16 14:44 1 MG Objective Vital Signs Date Time Temp Pulse Resp B/P (MAP) Pulse Ox O2 Delivery O2 Flow Rate FiO2 07/25/16 14:45 36.5 76 20 112/64 (80) 92 2.0 07/25/16 14:23 60 12 98 Nasal Cannula 2.0 07/25/16 09:00 60 122/66 (84) 07/25/16 09:00 Nasal Cannula 2.0 07/25/16 07:30 56 16 100 Nasal Cannula 4.0 07/25/16 07:29 36.2 54 20 107/64 (78) 100 07/25/16 07:05 36.5 55 18 113/57 100 Nasal Cannula 4.0 07/25/16 05:46 58 16 111/54 100 07/25/16 04:49 62 18 107/55 99 Nasal Cannula 4.0 07/25/16 02:58 65 18 112/47 98 Nasal Cannula 4.0 07/25/16 02:12 90 Nasal Cannula 07/25/16 01:17 90 Nasal Cannula 2.0 07/25/16 01:13 37.6 67 16 92/49 82 Room Air 07/25/16 01:10 69 Physical Exam General Appearance: WD/WN, no apparent distress Eyes: normal inspection, EOMI, sclerae normal Neck: supple, no adenopathy, no JVD, trachea midline Respiratory/Chest: chest non-tender, lungs clear, no respiratory distress, no accessory muscle use, + decreased breath sounds (bases) Cardiovascular: regular rate, rhythm, no edema, no gallop, no JVD, no murmur Abdomen: normal bowel sounds, non tender, soft, no organomegaly Extremities: normal range of motion, non-tender, normal inspection, no pedal edema, no calf tenderness Neurologic/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: 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, alert, normal mood/affect, oriented x 3, + motor weakness (generalized) Skin: normal color, warm/dry, no rash Laboratory Results Last 24 Hours Test 07/25/16 02:05 07/25/16 02:11 07/25/16 02:20 07/25/16 03:37 White Blood Count 11.23 K/uL Red Blood Count 2.73 M/uL Hemoglobin 7.9 g/dL Hematocrit 23.4 % Mean Corpuscular Volume 85.7 fL Mean Corpuscular Hemoglobin 28.9 pg Mean Corpuscular Hemoglobin Concent 33.8 g/dl Platelet Count 293 K/uL Mean Platelet Volume 9.0 fL Neutrophils (%) (Auto) 74.9 % Lymphocytes (%) (Auto) 12.5 % Monocytes (%) (Auto) 11.5 % Eosinophils (%) (Auto) 0.5 % Basophils (%) (Auto) 0.3 % Neutrophils # (Auto) 8.42 K/uL Lymphocytes # (Auto) 1.40 K/uL Monocytes # (Auto) 1.29 K/uL Eosinophils # (Auto) 0.06 K/uL Basophils # (Auto) 0.03 K/uL RDW Standard Deviation 46.2 fL RDW Coefficient of Variation 14.8 % Immature Granulocyte % (Auto) 0.3 % Immature Granulocyte # (Auto) 0.03 K/uL Red Blood Cell Morphology Unremarkable Sodium Level 138 mmol/L Potassium Level 4.2 mmol/L Chloride Level 104 mmol/L Carbon Dioxide Level 26 mmol/L Anion Gap 8.0 mmol/L Blood Urea Nitrogen 21 mg/dl Creatinine 1.30 mg/dl Est Creatinine Clear Calc Drug Dose 36.4 ml/min Estimated GFR () 48.1 Estimated GFR (Non- 41.5 BUN/Creatinine Ratio 16.4 Random Glucose 99 mg/dl Calcium Level 8.0 mg/dl Total Bilirubin 0.2 mg/dl Aspartate Amino Transf (AST/SGOT) 12 U/L Alanine Aminotransferase (ALT/SGPT) 14 U/L Alkaline Phosphatase 136 U/L Total Protein 7.1 gm/dl Albumin 2.9 gm/dl Globulin 4.2 gm/dl Albumin/Globulin Ratio 0.7 Bedside Lactic Acid Venous 0.37 mmol/L Urine Color YELLOW Urine Appearance TURBID Urine pH 6.5 Urine Specific [place] 1.015 Urine Protein 3+ Urine Glucose (UA) NEG Urine Ketones NEG Urine Occult Blood 3+ Urine Nitrite NEG Urine Bilirubin NEG Urine Urobilinogen NEG Urine Leukocyte Esterase MODERATE Urine WBC (Auto) >30 /hpf Urine RBC (Auto) 10-30 /hpf Urine Hyaline Casts (Auto) 1-5 /lpf Urine Epithelial Cells (Auto) 0-5 /lpf Urine Bacteria (Auto) 3+ Urine Crystals TALC Urine Yeast (Auto) Prothrombin Time 11.6 SECONDS Prothromb Time International Ratio 1.1 Activated Partial Thromboplast Time 31.0 SECONDS Partial Thromboplastin Ratio 1.2 Assessment and Plan 70 yo female with renal cell CA, currently undergoing chemo, presented with altered mental status, evidence of UTI and anemia Metabolic encephalopathy: secondary to UTI, covering VRE and MRSA with Zyvox, also on Zosyn f/u urine cultures more responsive today so encephalopathy resolving but not back to baseline mentation IV fluids, check labs in the AM Anemia: likely due to ongoing chemotherapy, Hb 7.9, ordered one unit of irradiate PRBC, will monitor for response BP stable, no signs of bleeding Renal cell cancer with present chemotherapy--she is not neutropenic at this time per laboratories today. COPD--continue Combivent. Hypertension--continue amlodipine, metoprolol succinate with hold parameters. Depression/insomnia/schizophrenia--continue fluoxetine, gabapentin, haloperidol , phenobarbital, Seroquel, Paxil. GERD--continue ranitidine. DVT prophylaxis: Lovenox
[2016-07-25] MEDS: LINEZOLID / D5W 600 MG in PREMIXED IN D5W 300 ML IV SCH (16:28)
[2016-07-25] MEDS: QUETIAPINE FUMARATE 25 MG TAB PO SCH (20:27)
[2016-07-25] MEDS: PHENOBARBITAL 32.4 MG TAB PO SCH (20:29)
[2016-07-26] VITALS (9 sets, daily range): BP systolic 97–119; BP diastolic 51–89; PULSE 61–79; TEMP 36.3–37.1; O2SAT 92–99
[2016-07-26] MEDS: PIPERACILL/TAZOBAC IV 3.375 GM in DEXTROSE 5% 100ML 100 ML IV SCH ×4 (00:25→23:39)
[2016-07-26] MEDS: NSS + 20MEQ KCL 1000ML 1,000 ML IV SCH ×2 (02:37→12:15)
[2016-07-26] MEDS: LEVALBUTEROL 1.25MG/0.5ML NEB INH SCH ×4 (04:18→19:28)
[2016-07-26] MEDS: IPRATROPIUM BROMIDE NEB SOLN 0.02% 2.5 ML VIAL INH SCH ×4 (04:18→19:28)
[2016-07-26] MEDS: LINEZOLID / D5W 600 MG in PREMIXED IN D5W 300 ML IV SCH ×2 (05:46→15:17)
[2016-07-26 06:08] LABS: BASO % 0.2 %; BASO ABS # 0.02 K/uL (0-0.2); EOS % 1.8 %; HEMATOCRIT 25.9 % (37-47); IG% 0.1 %; LYMPH % 14.7 %; LYMPH ABS # 1.31 K/uL (1.2-3.4); MEAN CELL VOLUME 85.5 fL (80-100); MEAN CORPUSCULAR HEMOGLOBIN 27.4 pg (25-34); MEAN PLATELET VOLUME 9.3 fL (7.4-10.4); MONO % 11.3 %; NEUT % 71.9 %; PLATELET COUNT 369 K/uL (130-400); RED BLOOD COUNT 3.03 M/uL (4.2-5.4); WHITE BLOOD COUNT 8.92 K/uL (4.8-10.8)
[2016-07-26 06:50] LABS: BUN/CREATININE RATIO 11.2 (10-20); CALCIUM 7.9 mg/dl (8.5-10.1); CREATININE 1.2 mg/dl (0.60-1.20); MAGNESIUM 2.3 mg/dl (1.8-2.4); POTASSIUM 4.1 mmol/L (3.5-5.1)
[2016-07-26 07:01] LABS: COMPLETE YES
[2016-07-26] MEDS: BUDESONIDE 0.5 MG/2 ML VIAL (PULMICORT) INH SCH ×2 (07:14→19:28)
[2016-07-26] MEDS: HALOPERIDOL 1 MG TAB PO SCH ×3 (09:42→20:05)
[2016-07-26] MEDS: SODIUM CHLORIDE 1 GM TAB PO SCH (09:43)
[2016-07-26] MEDS: MULTIVITAMIN TAB PO SCH (09:43)
[2016-07-26] MEDS: GABAPENTIN 400 MG CAP PO SCH ×3 (09:43→20:05)
[2016-07-26] MEDS: DOCUSATE SODIUM/SENNA 50/8.6MG TAB PO SCH ×2 (09:43→20:06)
[2016-07-26] MEDS: METOPROLOL SUCC 25MG EXT REL TAB PO SCH (09:43)
[2016-07-26] MEDS: RIVASTIGMINE TARTRATE (EXELON) 1.5 MG CAP PO SCH ×2 (09:44→20:04)
[2016-07-26] MEDS: RANITIDINE HCL 150 MG TAB PO SCH ×2 (09:44→20:05)
[2016-07-26] MEDS: FERROUS SULFATE 325 MG TAB PO SCH (09:44)
[2016-07-26] MEDS: AMLODIPINE BESYLATE 5 MG TAB PO SCH ×2 (09:44→20:07)
[2016-07-26] MEDS: ENOXAPARIN 40 MG/0.4 ML SYR SQ SCH (09:45)
[2016-07-26] MEDS ORDERED: NURSING VERBAL MED ORDER ONE (12:45)
--- NOTE | 2016-07-26 15:45 | Progress Note ---
Subjective Date of Service: Jul 26, 2016. Subjective Pt evaluation today including: conversation w/ patient, physical exam, lab review, review of inpatient medication list Pain: no pain PO Intake: improving Voiding: mejia catheter in place patient more alert today, does not remember seeing me yesterday denies pain explained that she is here for UTI, E coli, awaiting sensitivities Problem List Medical Problems: (1) Anemia Status: Acute (2) Anemia Status: Acute (3) Dementia Status: Chronic (4) Left lower lobe pneumonia Status: Acute (5) Osteoporosis Nos Status: Chronic (6) Paranoid Schizo-Chronic Status: Chronic (7) Renal insufficiency Status: Acute Review of Systems Constitutional: + weakness, + fatigue Neurologic: + memory loss, + weakness All Other Systems: Reviewed and Negative Medications Current Inpatient Medications Medications (Trade) Dose Ordered Sig/Benito Route Start Time Stop Time Status Last Admin Dose Admin Piperacillin Sod/ Tazobactam Sod 3.375 gm/Dextrose 115 ml @ 28.75 mls/ hr Q8H IV 07/25/16 08:00 08/01/16 07:59 07/26/16 09:42 28.75 MLS/HR Ondansetron HCl (Zofran Inj) 4 mg Q6H PRN IV 07/25/16 04:15 08/24/16 04:14 Budesonide (Pulmicort Respules 0.5MG/ 2ML Neb Soln) 0.5 mg BIDR INH 07/25/16 08:00 08/24/16 07:59 07/26/16 07:14 0.5 MG Amlodipine Besylate (Norvasc Tab) 5 mg BID PO 07/25/16 08:00 08/24/16 08:59 07/26/16 09:44 5 MG Duloxetine HCl (Cymbalta Cap) 40 mg QAM PO 07/25/16 08:00 08/24/16 08:59 Future Hold Gabapentin (Neurontin Cap) 400 mg TID PO 07/25/16 08:00 08/24/16 08:59 07/26/16 13:27 400 MG Metoprolol Succinate (Toprol Xl Tab) 25 mg QAM PO 07/25/16 08:00 08/24/16 08:59 07/26/16 09:43 25 MG Multivitamins (Multivitamin Tab) 1 tab QAM PO 07/25/16 08:00 08/24/16 08:59 07/26/16 09:43 1 TAB Oxycodone HCl (Roxicodone Immediate Rel Tab) 5 mg Q6H PRN PO 07/25/16 04:15 08/08/16 04:14 Prochlorperazine Maleate (Compazine Tab) 10 mg Q6H PRN PO 07/25/16 04:15 08/24/16 04:14 Quetiapine Fumarate (seroQUEL TAB) 25 mg HS PO 07/25/16 21:00 08/24/16 20:59 07/25/16 20:27 25 MG Ranitidine HCl (zANTac TAB) 150 mg BID PO 07/25/16 08:00 08/24/16 08:59 07/26/16 09:44 150 MG Senna/Docusate Sodium (Senokot S Tab) 1 tab BID PO 07/25/16 08:00 08/24/16 08:59 07/26/16 09:43 1 TAB Sodium Chloride (Sodium Chloride Tab) 1 gm QAM PO 07/25/16 08:00 08/24/16 08:59 07/26/16 09:43 1 GM Ferrous Sulfate (Feosol Tab) 325 mg QAM PO 07/25/16 08:00 08/24/16 08:59 07/26/16 09:44 325 MG Phenobarbital (Phenobarbital Tab) 64.8 mg DAILY@2030 PO 07/25/16 20:30 08/24/16 20:29 07/25/16 20:29 64.8 MG Polyethylene (Miralax Powder Packet) 17 gm DAILY PRN PO 07/25/16 04:15 08/24/16 04:14 Rivastigmine Tartrate (Exelon Cap) 1.5 mg BID PO 07/25/16 08:00 08/24/16 08:59 07/26/16 09:44 1.5 MG Ipratropium [place] (Atrovent 0.02% 0.5MG/2.5ML Neb) 0.5 mg Q6R INH 07/25/16 09:00 08/24/16 08:59 07/26/16 14:44 0.5 MG Levalbuterol (Xopenex 1.25MG/ 0.5ML Neb) 1.25 mg Q6R INH 07/25/16 09:00 08/24/16 08:59 07/26/16 14:44 1.25 MG Ipratropium [place] (Atrovent 0.02% 0.5MG/2.5ML Neb) 0.5 mg Q2H PRN INH 07/25/16 04:30 08/24/16 04:29 Levalbuterol (Xopenex 1.25MG/ 0.5ML Neb) 1.25 mg Q2H PRN INH 07/25/16 04:30 08/24/16 04:29 Linezolid 600 mg/ Prmx 300 ml @ 300 mls/hr Q12H IV 07/25/16 16:00 08/01/16 15:59 07/26/16 15:17 300 MLS/HR Piperacillin Sod/ Tazobactam Sod (Consult) 1 ea UD PRN N/A 07/25/16 06:30 08/24/16 06:29 Haloperidol (Haldol Tab) 1 mg TID PO 07/25/16 14:00 08/24/16 13:59 07/26/16 13:28 1 MG Enoxaparin Sodium (Lovenox Inj) 40 mg QAM SQ 07/26/16 08:00 08/25/16 07:59 07/26/16 09:45 40 MG Objective Vital Signs Date Time Temp Pulse Resp B/P (MAP) Pulse Ox O2 Delivery O2 Flow Rate FiO2 07/26/16 15:20 Nasal Cannula 2.0 07/26/16 14:56 36.6 63 18 113/60 (77) 96 07/26/16 14:45 61 14 97 Room Air 07/26/16 11:26 37.1 72 18 97/60 (72) 92 Room Air 07/26/16 09:40 79 117/89 (98) 07/26/16 09:30 Nasal Cannula 2.0 07/26/16 07:38 36.9 64 16 99/51 (67) 99 07/26/16 07:15 70 12 99 Nasal Cannula 2.0 07/26/16 04:22 37.0 69 19 109/61 (77) 97 Nasal Cannula 2.0 07/26/16 00:00 Nasal Cannula 2.0 07/25/16 23:00 37.2 72 16 120/60 (80) 97 Room Air 07/25/16 22:20 37.4 71 18 118/57 95 07/25/16 20:20 36.8 74 18 120/62 100 07/25/16 19:50 37.5 72 18 120/60 96 07/25/16 19:35 37.2 70 18 123/67 97 07/25/16 19:33 36.7 72 17 110/65 (80) 94 07/25/16 19:30 62 18 98 Nasal Cannula 2.0 07/25/16 19:16 36.6 74 18 136/65 95 07/25/16 16:00 Nasal Cannula 2.0 Physical Exam General Appearance: WD/WN, no apparent distress Neck: supple, no adenopathy, no JVD, trachea midline Respiratory/Chest: chest non-tender, lungs clear, no respiratory distress, no accessory muscle use, + decreased breath sounds (bases) Cardiovascular: regular rate, rhythm, no edema, no gallop, no JVD, no murmur Abdomen: normal bowel sounds, non tender, soft, no organomegaly Extremities: normal range of motion, non-tender, normal inspection, no pedal edema, no calf tenderness, pelvis stable 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, alert, normal mood/affect, + motor weakness (generalized), + disoriented Skin: normal color, warm/dry, no rash Lymphatic: no adenopathy Laboratory Results Last 24 Hours Test 07/26/16 05:45 White Blood Count 8.92 K/uL Red Blood Count 3.03 M/uL Hemoglobin 8.3 g/dL Hematocrit 25.9 % Mean Corpuscular Volume 85.5 fL Mean Corpuscular Hemoglobin 27.4 pg Mean Corpuscular Hemoglobin Concent 32.0 g/dl Platelet Count 369 K/uL Mean Platelet Volume 9.3 fL Neutrophils (%) (Auto) 71.9 % Lymphocytes (%) (Auto) 14.7 % Monocytes (%) (Auto) 11.3 % Eosinophils (%) (Auto) 1.8 % Basophils (%) (Auto) 0.2 % Neutrophils # (Auto) 6.41 K/uL Lymphocytes # (Auto) 1.31 K/uL Monocytes # (Auto) 1.01 K/uL Eosinophils # (Auto) 0.16 K/uL Basophils # (Auto) 0.02 K/uL RDW Standard Deviation 50.2 fL RDW Coefficient of Variation 16.2 % Immature Granulocyte % (Auto) 0.1 % Immature Granulocyte # (Auto) 0.01 K/uL Red Blood Cell Morphology Unremarkable Sodium Level 141 mmol/L Potassium Level 4.1 mmol/L Chloride Level 109 mmol/L Carbon Dioxide Level 25 mmol/L Anion Gap 7.0 mmol/L Blood Urea Nitrogen 13 mg/dl Creatinine 1.20 mg/dl Est Creatinine Clear Calc Drug Dose 39.3 ml/min Estimated GFR () 53.0 Estimated GFR (Non- 45.8 BUN/Creatinine Ratio 11.2 Random Glucose 87 mg/dl Calcium Level 7.9 mg/dl Magnesium Level 2.3 mg/dl Assessment and Plan 70 yo female with renal cell CA, currently undergoing chemo, presented with altered mental status, evidence of UTI and anemia Metabolic encephalopathy: secondary to UTI, h/o VRE and MRSA urine culture growing E coli, will d/c Zyvox, continue Zosyn encephalopathy appears to be nearly resolved stop IV fluids, repeat labs in AM, f/u culture sensitivities blood cultures negative Anemia: likely due to ongoing chemotherapy, Hb 7.9, ordered one unit of irradiate PRBC, joshua to 8.3, hold on any further transfusions BP stable, no signs of bleeding Renal cell cancer with present chemotherapy--she is not neutropenic, follow up with oncology COPD--continue Combivent. Hypertension--continue amlodipine, metoprolol succinate with hold parameters. Depression/insomnia/schizophrenia--continue fluoxetine, gabapentin, haloperidol , phenobarbital, Seroquel, Paxil. GERD--continue ranitidine. DVT prophylaxis: Lovenox Plan: IV zosyn, return to [facility], possibly tomorrow depending on culture results
[2016-07-26] MEDS: QUETIAPINE FUMARATE 25 MG TAB PO SCH (20:06)
[2016-07-26] MEDS: PHENOBARBITAL 32.4 MG TAB PO SCH (20:06)
[2016-07-27 00:57] VITALS: BP 124/68; PULSE 63; TEMP 36.6; O2SAT 95
[2016-07-27] MEDS: LEVALBUTEROL 1.25MG/0.5ML NEB INH SCH ×2 (03:00→07:33)
[2016-07-27] MEDS: IPRATROPIUM BROMIDE NEB SOLN 0.02% 2.5 ML VIAL INH SCH ×2 (03:00→07:32)
[2016-07-27 04:00] VITALS: BP 119/68; PULSE 65; TEMP 36.6; O2SAT 92
[2016-07-27 05:48] LABS: BASO % 0.2 %; BASO ABS # 0.01 K/uL (0-0.2); EOS % 6.5 %; HEMATOCRIT 27.3 % (37-47); LYMPH % 22.2 %; LYMPH ABS # 0.93 K/uL (1.2-3.4); MEAN CELL VOLUME 85.3 fL (80-100); MEAN CORPUSCULAR HEMOGLOBIN 27.5 pg (25-34); MEAN CORPUSCULAR HGB CONC 32.2 g/dl (32-36); MEAN PLATELET VOLUME 9.1 fL (7.4-10.4); MONO % 15.6 %; NEUT % 55.5 %; PLATELET COUNT 464 K/uL (130-400); WHITE BLOOD COUNT 4.18 K/uL (4.8-10.8)
[2016-07-27 06:11] LABS: COMPLETE YES
[2016-07-27 06:16] LABS: BUN/CREATININE RATIO 8.7 (10-20); CALCIUM 8.1 mg/dl (8.5-10.1); CREATININE 1.1 mg/dl (0.60-1.20); MAGNESIUM 2.3 mg/dl (1.8-2.4); POTASSIUM 3.8 mmol/L (3.5-5.1)
[2016-07-27 07:25] VITALS: BP 127/69; PULSE 64; TEMP 36.8; O2SAT 96
[2016-07-27] MEDS: BUDESONIDE 0.5 MG/2 ML VIAL (PULMICORT) INH SCH (07:32)
[2016-07-27 07:34] VITALS: PULSE 65; O2SAT 93
[2016-07-27] MEDS: PIPERACILL/TAZOBAC IV 3.375 GM in DEXTROSE 5% 100ML 100 ML IV SCH (08:00)
[2016-07-27] MEDS: HALOPERIDOL 1 MG TAB PO SCH ×2 (08:00→13:08)
[2016-07-27] MEDS: RANITIDINE HCL 150 MG TAB PO SCH (08:01)
[2016-07-27] MEDS: MULTIVITAMIN TAB PO SCH (08:01)
[2016-07-27] MEDS: RIVASTIGMINE TARTRATE (EXELON) 1.5 MG CAP PO SCH (08:01)
[2016-07-27] MEDS: SODIUM CHLORIDE 1 GM TAB PO SCH (08:02)
[2016-07-27] MEDS: METOPROLOL SUCC 25MG EXT REL TAB PO SCH (08:02)
[2016-07-27] MEDS: GABAPENTIN 400 MG CAP PO SCH ×2 (08:02→13:08)
[2016-07-27] MEDS: AMLODIPINE BESYLATE 5 MG TAB PO SCH (08:02)
[2016-07-27] MEDS: FERROUS SULFATE 325 MG TAB PO SCH (08:02)
[2016-07-27] MEDS: ENOXAPARIN 40 MG/0.4 ML SYR SQ SCH (08:03)
[2016-07-27] MEDS: DOCUSATE SODIUM/SENNA 50/8.6MG TAB PO SCH (08:03)
[2016-07-27] MEDS ORDERED: CIPROFLOXACIN 500 MG TAB PO ONE (09:00)
[2016-07-27] MEDS ORDERED: OXYC1TAB3 PO (11:29)
[2016-07-27] MEDS ORDERED: CPR500 PO (11:29)
--- NOTE | 2016-07-27 11:33 | Discharge Instructions ---
Discharge Instructions Date of Service Jul 27, 2016. Admission Reason for Admission: Hypoxia, Uti Discharge Discharge Diagnosis / Problem: UTI, altered mental status, hypoxia Discharge Goals Goal(s): Improve function, Improve disease control Activity Recommendations Activity Level: Assistance Required Lifting Limitations: none Exercise/Sports Limitations: as tolerated Shower/Bathe: no limitations . Additional Information Patient informed of condition: Yes Advance Directives: No DNR: No Level of Care: Skilled Communicable Disease: No Prognosis: Stable Oxygen at (LPM): no [place] Catheter: No Instructions / Follow-Up Instructions / Follow-Up Medications: - CIPRO: take 500mg twice a day for 5 more days, two days of antibiotics completed inpatient, urine culture grew out E coli that was sensitive to Cipro Altered mental status secondary to UTI: patient's mentation has improved steadily over 36 hours with treatment of her UTI hypoxia resolved with her waking up more so was likely just some mild hypoventilation associated with her lethargy, no pneumonia on CXR she is at baseline, return to SNF continue ongoing treatment for renal cell cancer Anemia: she received one unit of irradiated PRBC for Hb of 7.9, Hb stable ever since, anemia likely due to ongoing chemo FOLLOW UP - Dr. Romo this week Current Hospital Diet Patient's current hospital diet: Regular Diet Discharge Diet Recommended Diet: Regular Diet Pending Studies Studies pending at discharge: no Physician Orders On Transfer POLST Discussion: Not Applicable Laboratory Results Last Resulted CBC 07/27/16 05:30 Red Blood Count 3.20, Mean Corpuscular Volume 85.3, Mean Corpuscular Hemoglobin 27.5, Mean Corpuscular Hemoglobin Concent 32.2, Mean Platelet Volume 9.1, Neutrophils (%) (Auto) 55.5, Lymphocytes (%) (Auto) 22.2, Monocytes (%) (Auto) 15.6, Eosinophils (%) (Auto) 6.5, Basophils (%) (Auto) 0.2, Neutrophils # (Auto ) 2.32, Lymphocytes # (Auto) 0.93, Monocytes # (Auto) 0.65, Eosinophils # (Auto ) 0.27, Basophils # (Auto) 0.01 Last Resulted BMP 07/27/16 05:30 Medical Emergencies . Who to Call and When: Medical Emergencies: If at any time you feel your situation is an emergency, please call 911 immediately. . Non-Emergent Contact Non-Emergency issues call your: Primary Care Provider Call Non-Emergent contact if: you have a fever, you have any medication questions . . "Provider Documentation" section prepared by Cristo Baxter. . Surveillance Inspector Recommendations Surveillance Inspector Recommendations: ID Consul Dictated #[id number] A/P: 1. UTI 2. Leukocytosis -Continue emperic abx for now, follow final culture results -Will follow, thank you Core Measure Problem Core Measures: None [place] Drug Monitoring Program Search Results: no issues identified
--- NOTE | 2016-07-27 11:42 | Discharge Summary ---
Discharge Summary Date of Service Jul 27, 2016. Discharge Summary Admission Date: Jul 25, 2016 at 04:12 Discharge Date: Jul 27, 2016 Discharge Disposition: [facility] facility Principal Diagnosis: Metabolic encephalopathy due to UTI Problems/Secondary Diagnoses: Anemia, acute on chronic, due to chemotherapy Hypoxia secondary to hypoventilation, lethargy Renal cell cancer, undergoing chemo Immunizations: Have You Had Influenza Vaccine: Unknown Influenza Vaccine Date: Nov 10, 2004 History of Tetanus Vaccine?: Unknown History of Pneumococcal: Unknown History of Hepatitis B Vaccine: Unknown Procedures: Blood transfusion, 1 units irradiated PRBC Consultations: none Medication Reconciliation New Medications: Ciprofloxacin (Ciprofloxacin HCl) 500 Mg Tab 500 MG PO BID for 5 Days, #10 TAB 0 Refills Continued Medications: Acetaminophen (Tylenol) 325 Mg Tab 650 MG PO Q6 PRN for Pain or Fever, 0 Refills DO NOT EXCEED 3000MG APAP/24 HOURS. Amlodipine (Norvasc) 5 Mg Tab 5 MG PO BID AT 0830 & 1630, TAB Duloxetine Hcl (Cymbalta) 20 Mg Cap 40 MG PO QAM Ferrous Sulfate (Kp Ferrous Sulfate) 325 Mg Tab 325 MG PO QAM, TAB Gabapentin (Neurontin) 400 Mg Cap 400 MG PO TID GIVE AT 0030/0830/1630 Haloperidol (Haloperidol) 1 Mg Tab 1 MG PO TID Ipratropium-Albuterol (Combivent Respimat) 1 Aer Aer 1 PUFFS INH QID, INH Metoprolol Succ (Toprol Xl) (Toprol-Xl) 25 Mg Tabcr 25 MG PO QAM, #30 TAB Multivitamin (Multivitamin) Tab 1 TABLET PO QAM, 0 Refills ONE A DAY WOMAN'S. Ondansetron Hcl (Zofran) 8 Mg Tab 8 MG PO TID PRN for Nausea, TAB Oxycodone Ir (Roxicodone Ir) 5 Mg Tab 5 MG PO Q6H PRN for Pain, #30 TAB 0 Refills (This prescription has been renewed) MODERATE PAIN Phenobarbital (Phenobarbital) 64.8 Mg Tab 64.8 MG PO DAILY GIVE AT 2029 Polyethylene Glycol 3350 (Miralax) 1 Pow Pow 17 GM PO DAILY PRN for Constipation, #527 GM Prochlorperazine Maleate (Compazine) 10 Mg Tab 10 MG PO Q6H PRN for Nausea or Vomiting, TAB Quetiapine Fumarate (Seroquel) 25 Mg Tab 25 MG PO HS Ranitidine (Zantac) 150 Mg Tab 150 MG PO BID DOSE TIMES 0930 & 2030 Rivastigmine Tartrate (Exelon) 1.5 Mg Cap 1.5 MG PO BID, CAP [id number] Sennosides-Docusate Sodium (Senna/Docusate Sodium) 1 Tab Tab 1 TAB PO BID AT 0830 & 1630 Sodium Chloride (Sodium Chloride) 1 Gm Tab 1 TAB PO QAM Discharge Exam patient awake, alert, oriented, remembers seeing me yesterday no issues overnight eating well reviewed urine culture, E coli is sensitive to Cipro Review of Systems: Constitutional: + weakness, No fever, No chills, No sweats, No weight loss, No fatigue, No problem reported Eyes: No worsening of vision, No eye pain, No redness, No discharge, No diplopia, No problem reported Respiratory: No cough, No sputum, No wheezing, No shortness of breath, No dyspnea on exertion, No dyspnea at rest, No hemoptysis, No problem reported Cardiovascular: No chest pain, No orthopnea, No PND, No edema, No claudication, No palpitations, No problem reported Abdomen: No pain, No nausea, No vomiting, No diarrhea, No constipation, No GI bleeding, No problem reported Musculoskeletal: No joint pain, No muscle pain, No swelling, No calf pain, No problem reported Genitourinary - Female: + urinary incontinence, No dysuria, No urinary frequency, No urinary urgency, No urinary retention, No hematuria Neurologic: + memory loss, + weakness, + balance problems, No paralysis, No numbness/tingling, No vertigo Psychiatric: No depression symptoms, No anhedonism, No anxiety, No insomnia , No substance abuse, No problem reported Endocrine: No fatigue, No excessive thirst, No excessive urination, No problem reported Hematologic / Lymphatic: No abnormal bleeding/bruising, No clotting problems , No swollen lymph nodes, No night sweats, No problem reported Integumentary: No rash, No itch, No new/changing skin lesions, No color change, No bleeding, No problem reported Physical Exam: General Appearance: WD/WN, no apparent distress Eyes: normal inspection, EOMI, sclerae normal ENT: normal ENT inspection, hearing grossly normal, pharynx normal Neck: supple, no adenopathy, no JVD, trachea midline Respiratory/Chest: chest non-tender, lungs clear, normal breath sounds, no respiratory distress, no accessory muscle use Cardiovascular: regular rate, rhythm, no edema, no gallop, no JVD, no murmur , normal peripheral pulses Abdomen / GI: normal bowel sounds, non tender, soft, no organomegaly Extremities: normal inspection, no calf tenderness, normal capillary refill , no pedal edema, normal range of motion, non-tender, pelvis stable Neurologic/Psychiatric: histology supervisor II-XII nml as tested, alert, normal mood/affect , normal reflexes, oriented x 3, + motor weakness (generalized), + pertinent finding (tremors, intention) Skin: normal color, warm/dry, no rash Lymphatic: no adenopathy Hospital Course 70 yo female with renal cell CA, currently undergoing chemo, presented with altered mental status, evidence of UTI and anemia Metabolic encephalopathy: secondary to UTI, h/o VRE and MRSA initially treated with Zosyn and Zyvox due to the above history, Zyvox d/c yesterday when culture grew E coli urine culture growing E coli, sensitive to Cipro will d/c on Cipro 500mg BID x 5 more days encephalopathy appears to be resolved blood cultures negative Anemia: likely due to ongoing chemotherapy, Hb 7.9 on admission, ordered one unit of irradiate PRBC, joshua to 8.8 today, hold on any further transfusions BP stable, no signs of bleeding Renal cell cancer with present chemotherapy--she is not neutropenic, follow up with oncology for further treatment COPD--continue Combivent. Hypertension--continue amlodipine, metoprolol succinate with hold parameters. Depression/insomnia/schizophrenia--continue fluoxetine, gabapentin, haloperidol , phenobarbital, Seroquel, Paxil. GERD--continue ranitidine. DVT prophylaxis: Lovenox Plan: return to [facility] on Cipro, all of her acute issues appear to be resolved Total Time Spent: Greater than 30 minutes This includes examination of the patient, discharge planning, medication reconciliation, and communication with other providers. Discharge Instructions Please refer to the electronic Patient Visit Report (Discharge Instructions) for additional information. Follow-Up Dr. Romo this week Oncology as previously scheduled Additional Copies To Colten Rodriguez D.O.; [facility]
[2016-07-27 11:56] VITALS: BP 127/69; PULSE 65; TEMP 36.8; O2SAT 93
[2016-07-27 12:03] VITALS: BP 125/70; PULSE 60; TEMP 36.9; O2SAT 96
[2016-07-27] MEDS ORDERED: CIPROFLOXACIN 500 MG TAB PO SCH (20:00)
[2016-10-03] MEDS ORDERED: AMLO-110 PO (13:42)
[2016-10-03] MEDS ORDERED: OXYC1TAB3 PO (13:42)
[2016-10-03] MEDS ORDERED: CRG3125 PO (13:42)
== END 2016-07-27 14:45 | DRG 689 ==
LOC: EDBD 01:05 → C.EDB 01:06 → C.4E 04:12 → EDBEDREQ 04:19 → ENRESERV 04:49
PROVIDERS: ADMIT Hospitalist; ATTEND Internal Medicine
DX: N39.0 Urinary tract infection, site not specified (principal); G93.41 Metabolic encephalopathy; F20.0 Paranoid schizophrenia; J18.9 Pneumonia, unspecified organism; J44.9 Chronic obstructive pulmonary disease, unspecified; I25.10 Atherosclerotic heart disease of native coronary artery without angina pectoris; F03.90 Unspecified dementia, unspecified severity, without behavioral disturbance, psychotic disturbance, mood disturbance, and anxiety; R09.02 Hypoxemia; F32.9 Major depressive disorder, single episode, unspecified; I10 Essential (primary) hypertension; F10.21 Alcohol dependence, in remission; Z88.2 Allergy status to sulfonamides; I25.2 Old myocardial infarction; M81.0 Age-related osteoporosis without current pathological fracture; D64.81 Anemia due to antineoplastic chemotherapy; G47.00 Insomnia, unspecified; K21.9 Gastro-esophageal reflux disease without esophagitis

== ENCOUNTER → 2016-08-14 | Outpatient (CLI) | payer OTHER ==
[~2016-08-14] MED LIST changes: -CBCI IV; -CHOL20007 PO; +CPR500 PO; +CRG3125 PO; -DLN30 PO; +FERR1TAB13 PO; -FRRS300 PO; -LCTX PO; -MOML PO; -MRLP17X PO; +ONDA8TAB6 PO; +PHEN-310 PO; +POLY335019 PO; +PROC1TAB5 PO
== END ==
LOC: C.LABCC 09:25 → EDSTATUS 09-09 11:49
PROVIDERS: ATTEND Internal Medicine
DX: G40.909 Epilepsy, unspecified, not intractable, without status epilepticus (principal)

== ENCOUNTER → 2016-08-19 | Outpatient (CLI) | payer OTHER ==
[2016-08-19 08:35] LABS: BASO % 0.6 %; BASO ABS # 0.03 K/uL (0-0.2); COMPLETE YES; EOS % 6.1 %; HEMATOCRIT 32.1 % (37-47); LYMPH ABS # 0.87 K/uL (1.2-3.4); MEAN CELL VOLUME 84.5 fL (80-100); MEAN CORPUSCULAR HEMOGLOBIN 26.8 pg (25-34); MEAN CORPUSCULAR HGB CONC 31.8 g/dl (32-36); MEAN PLATELET VOLUME 10.3 fL (7.4-10.4); NEUT % 75.3 %; PLATELET COUNT 232 K/uL (130-400); WHITE BLOOD COUNT 5.43 K/uL (4.8-10.8)
== END ==
LOC: C.LABCC 08:09 → EDSTATUS 09-09 11:51
PROVIDERS: ATTEND Internal Medicine
DX: D64.9 Anemia, unspecified (principal); E55.9 Vitamin D deficiency, unspecified

== ENCOUNTER → 2016-08-28 | Outpatient (CLI) | payer OTHER ==
[2016-08-28 10:58] LABS: PHENOBARBITAL 18.1 mcg/mL (15.0-40.0)
== END ==
LOC: C.LABCC 10:29 → EDSTATUS 09-09 11:53
PROVIDERS: ATTEND Internal Medicine
DX: R53.83 Other fatigue (principal); Z51.81 Encounter for therapeutic drug level monitoring; Z79.899 Other long term (current) drug therapy

== ENCOUNTER → 2016-09-08 | Outpatient (CLI) | payer OTHER ==
[2016-09-08 11:14] LABS: BLOOD UREA NITROGEN 22 mg/dl (7-18)
== END ==
LOC: C.LABCC 09:17 → EDSTATUS 09-09 11:55
PROVIDERS: ATTEND Internal Medicine
DX: C64.9 Malignant neoplasm of unspecified kidney, except renal pelvis (principal)

== ENCOUNTER → 2016-09-11 | Outpatient (CLI) | payer OTHER ==
[2016-09-11 08:55] LABS: ALT/SGPT 16 U/L (12-78); BLOOD UREA NITROGEN 22 mg/dl (7-18); BUN/CREATININE RATIO 20.1 (10-20); CALCIUM 8.8 mg/dl (8.5-10.1); CARBON DIOXIDE 27 mmol/L (21-32); CHLORIDE 100 mmol/L (98-107); GLUCOSE 80 mg/dl (70-99); POTASSIUM 4.2 mmol/L (3.5-5.1); SODIUM 133 mmol/L (136-145)
[2016-09-11 08:58] LABS: ALB/GLOB RATIO 0.6 (0.9-2); ALKALINE PHOSPHATASE 177 U/L (45-117); AST/SGOT 14 U/L (15-37)
[2016-09-11 09:09] LABS: HEMATOCRIT 28.3 % (37-47); MEAN CELL VOLUME 85.8 fL (80-100); MEAN CORPUSCULAR HEMOGLOBIN 28.2 pg (25-34); MEAN CORPUSCULAR HGB CONC 32.9 g/dl (32-36); MEAN PLATELET VOLUME 8.8 fL (7.4-10.4); PLATELET COUNT 689 K/uL (130-400); WHITE BLOOD COUNT 3.45 K/uL (4.8-10.8)
[2016-09-11 09:11] LABS: BASO % 1.7 %; BASO ABS # 0.06 K/uL (0-0.2); COMPLETE YES; EOS % 2.9 %; IG% 0.9 %; LYMPH % 32.5 %; LYMPH ABS # 1.12 K/uL (1.2-3.4); PLT ESTIMATE INCREASED
== END ==
LOC: C.LABCC 08:03
PROVIDERS: ATTEND Internal Medicine
DX: C66.9 Malignant neoplasm of unspecified ureter (principal)

== ENCOUNTER → 2016-09-18 | Outpatient (CLI) | payer OTHER ==
[2016-09-18 10:59] LABS: BASO % 1.5 %; BASO ABS # 0.08 K/uL (0-0.2); COMPLETE YES; EOS % 2.7 %; HEMATOCRIT 28.4 % (37-47); IG% 0.4 %; LYMPH % 20.2 %; LYMPH ABS # 1.06 K/uL (1.2-3.4); MEAN CELL VOLUME 87.9 fL (80-100); MEAN CORPUSCULAR HEMOGLOBIN 27.9 pg (25-34); MEAN CORPUSCULAR HGB CONC 31.7 g/dl (32-36); MEAN PLATELET VOLUME 9.4 fL (7.4-10.4); MONO % 18.3 %; NEUT % 56.9 %; PLATELET COUNT 462 K/uL (130-400); RED BLOOD COUNT 3.23 M/uL (4.2-5.4); WHITE BLOOD COUNT 5.24 K/uL (4.8-10.8)
[2016-09-18 11:00] LABS: ALT/SGPT 18 U/L (12-78); AST/SGOT 14 U/L (15-37); BLOOD UREA NITROGEN 25 mg/dl (7-18); BUN/CREATININE RATIO 24.5 (10-20); CALCIUM 8.6 mg/dl (8.5-10.1); CARBON DIOXIDE 30 mmol/L (21-32); CHLORIDE 106 mmol/L (98-107); GLUCOSE 82 mg/dl (70-99); MAGNESIUM 2.3 mg/dl (1.8-2.4); POTASSIUM 4.3 mmol/L (3.5-5.1); SODIUM 139 mmol/L (136-145)
[2016-09-18 11:03] LABS: ALB/GLOB RATIO 0.6 (0.9-2); ALKALINE PHOSPHATASE 175 U/L (45-117)
== END ==
LOC: C.LABCC 09:52
PROVIDERS: ATTEND Internal Medicine
DX: C66.9 Malignant neoplasm of unspecified ureter (principal)

== ENCOUNTER → 2016-09-22 | Outpatient (CLI) | payer OTHER ==
[~2016-09-22] MED LIST changes: +OPTIRAY 300 IV PRN
--- NOTE | 2016-09-22 16:03 | DIAGNOSTIC IMAGING REPORT ---
IVP W/OR W/O TOMOGRAMS CLINICAL HISTORY: C64.9 Renal cell gohdapynsG94.2 Ureteral cancer obstruction COMPARISON STUDY: 06/30/2016 FINDINGS: Interval removal of left ureteral stent. Examination is performed following the administration of 50 cc of nonionic contrast. Right kidney has been surgically removed. The left kidney demonstrates hydronephrosis. Delayed imaging demonstrates a distended left ureter to approximately the left mid sacral iliac joint level. The patient was unable to remain for follow-up films and as a result a follow-up KUB will be arranged for the following date. IMPRESSION: 1. Findings consistent with a right nephrectomy. 2. The Study of the left ureter and kidney is incomplete as the patient could not remain for delayed images. 3. There is evidence for probable obstructive process at the level of the left ureter at the sacroiliac joint. 4. A follow-up KUB will be performed when the patient returns for more accurate or definitive evaluation. 5. Moderate left hydroureteronephrosis at the current time The above report was generated using voice recognition software. It may contain grammatical, syntax or spelling errors. Electronically signed by: Kelvin Almaraz M.D. 09/22/2016 2:52 PM Dictated Date/Time: 09/22/2016 2:48 PM
--- NOTE | 2016-09-23 08:45 | DIAGNOSTIC IMAGING REPORT ---
KUB CLINICAL HISTORY: 70 years-old Female presenting with DELAYED IVP FILM. TECHNIQUE: Single supine view of the abdomen was obtained. COMPARISON: 09/22/2016. FINDINGS: Scattered surgical clips noted in the right mid abdomen related to right nephrectomy. Moderate stool burden throughout the colon, which degrades evaluation of the left kidney and left ureter. Previously seen excreted contrast into the dilated left renal collecting system and dilated left ureter has passed. The left collecting system and left ureter are no longer visualized. No gross evidence of free intraperitoneal gas. Lung bases clear. Degenerative changes of the spine noted. IMPRESSION: 1. Interval passage of the excreted contrast within the dilated left renal collecting system and dilated proximal to mid left ureter. Nonvisualization of the left ureter due to the significant time lapse between today's examination and yesterday's IVP radiographs. 2. Postsurgical changes of right nephrectomy. Electronically signed by: Jaydon Tolentino M.D. 09/23/2016 8:43 AM Dictated Date/Time: 09/23/2016 8:39 AM
== END | disposition home or self-care (01) ==
LOC: C.RAD 12:40
PROVIDERS: ATTEND Urology
DX: C64.9 Malignant neoplasm of unspecified kidney, except renal pelvis (principal); C66.2 Malignant neoplasm of left ureter; N13.30 Unspecified hydronephrosis

== ENCOUNTER 2016-10-02 05:34 | Observation (INO) | payer OTHER ==
[~2016-10-02] VITALS: Ht 157.5 cm; Wt 68.2 kg
[2016-10-02] VITALS (7 sets, daily range): BP systolic 126–152; BP diastolic 57–77; PULSE 50–57; TEMP 36.2–36.4; O2SAT 97–99; Ht 157.5 cm; Wt 68.2 kg
[~2016-10-02 05:34] MED LIST changes: -CRG3125 PO; -OPTIRAY 300 IV PRN; -PHEN-310 PO
--- NOTE | 2016-10-02 05:46 | EMERGENCY ROOM VISIT NOTE ---
History Report prepared by Edouardibjos: Toshia Arboleda Under the Supervision of: Dr. Gui Duran M.D. First contact with patient: 05:34 Stated Complaint: FALL/UNRESPONSIVE History of Present Illness The patient is a 70 year old female who presents to the Emergency Room for evaluation of altered mental status. Patient found laying on floor after fall several hours ealier. Awake and at her baseline at that time which was about 3 hours ago. Shamika to bathroom and had syncopal event. Remained unresponsive until EMS arrival. Woke up some en route prior to returning to obtunded state on arrival. 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 No medications prior to arrival. No further information available from patient/ems. Patient with recent admissions for UTI in setting of Chemo for renal carcinoma. 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 (20) UTI (urinary tract infection) Social History Housing Status: half-way Current/Historical Medications Scheduled Amlodipine (Norvasc), 5 MG PO BID AT 0830 & 1630 Duloxetine Hcl (Cymbalta), 40 MG PO QAM Ferrous Sulfate (Kp Ferrous Sulfate), 325 MG PO QAM Gabapentin (Neurontin), 400 MG PO TID Haloperidol (Haloperidol), 1 MG PO TID Ipratropium-Albuterol (Combivent Respimat), 1 PUFFS INH QID Metoprolol Succ (Toprol Xl) (Toprol-Xl), 25 MG PO QAM Multivitamin (Multivitamin), 1 TABLET PO QAM Phenobarbital (Phenobarbital), 64.8 MG PO DAILY Phenytoin Sodium Extended (Dilantin), 90 MG PO BID Phenytoin Sodium Extended (Dilantin), 60 MG PO DAILY@ 2029 Quetiapine Fumarate (Seroquel), 25 MG PO HS Ranitidine (Zantac), 150 MG PO BID Rivastigmine Tartrate (Exelon), 1.5 MG PO BID Sennosides-Docusate Sodium (Senna/Docusate Sodium), 1 TAB PO BID AT 0830 & 1630 Sodium Chloride (Sodium Chloride), 1 TAB PO QAM Scheduled PRN Acetaminophen (Tylenol), 650 MG PO Q6 PRN for Pain or Fever Ondansetron Hcl (Zofran), 8 MG PO TID PRN for Nausea Oxycodone Ir (Roxicodone Ir), 5 MG PO Q6H PRN for Pain Polyethylene Glycol 3350 (Miralax), 17 GM PO DAILY PRN for Constipation Prochlorperazine Maleate (Compazine), 10 MG PO Q6H PRN for Nausea or Vomiting Allergies Coded Allergies: Sulfa Antibiotics (Verified Allergy, Severe, mouth swells, bumps on roof of mouth, 07/04/16) Banana (Verified Allergy, Intermediate, RAW -ROOF OF MOUTH SWELLS, 07/04/16 ) Physical Exam Vital Signs Date Time Temp Pulse Resp B/P (MAP) Pulse Ox O2 Delivery O2 Flow Rate FiO2 10/02/16 06:08 54 10/02/16 06:00 52 14 142/46 97 Room Air 10/02/16 05:45 36.4 54 17 142/46 97 Room Air Physical Exam GENERAL: Patient is obtunded, staring at ceiling, minimal response to painful stimuli HEENT: No acute trauma, normocephalic atraumatic, mucous membranes moist, no nasal congestion, no scleral icterus. NECK: Cervical collar in place, no cervical step off. LUNGS: Breathing spontaneously HEART: Regular rate and rhythm. No murmurs, rubs, gallops appreciated. ABDOMEN: Soft, nontender, bowel sounds positive, no masses appreciated, no peritonitis. BACK: No midline tenderness, no CVA tenderness EXTREMITIES: Normal motion all extremities, no cyanosis, no edema. NEUROLOGIC: Alert and oriented, no acute motor or sensory deficits, no focal weakness, cranial nerves grossly intact. SKIN: No rash, no jaundice, no diaphoresis. Medical Decision & Procedures ER Provider Diagnostic Interpretation: Radiology results and stated below per my review and radiologist interpretation: CHEST ONE VIEW No infiltrate, no effusion, similar to previous chest X-ray CT HEAD: Comparison Study 08/13/14 Impression: No intracranial hemorrhage or skull fracture. Findings: Involutional changes and small vessel disease. Additional chronic findings similar to prior study. Radiologist: Rachel Thomas Laboratory Results 10/02/16 06:17 Red Blood Count 3.02, Mean Corpuscular Volume 88.4, Mean Corpuscular Hemoglobin 28.1, Mean Corpuscular Hemoglobin Concent 31.8 10/02/16 06:17 Test 10/02/16 06:00 10/02/16 06:17 Urine Color YELLOW Urine Appearance CLEAR (CLEAR) Urine pH 7.5 (4.5-7.5) Urine Specific [place] 1.008 (1.000-1.030) Urine Protein NEG (NEG) Urine Glucose (UA) NEG (NEG) Urine Ketones NEG (NEG) Urine Occult Blood NEG (NEG) Urine Nitrite NEG (NEG) Urine Bilirubin NEG (NEG) Urine Urobilinogen NEG (NEG) Urine Leukocyte Esterase LARGE (NEG) Urine WBC (Auto) 10-30 /hpf (0-5) Urine RBC (Auto) 0-4 /hpf (0-4) Urine Hyaline Casts (Auto) 0 /lpf (0-5) Urine Epithelial Cells (Auto) 20-30 /lpf (0-5) Urine Bacteria (Auto) NEG (NEG) White Blood Count 2.29 K/uL (4.8-10.8) Red Blood Count 3.02 M/uL (4.2-5.4) Hemoglobin 8.5 g/dL (12.0-16.0) Hematocrit 26.7 % (37-47) Mean Corpuscular Volume 88.4 fL (80-100) Mean Corpuscular Hemoglobin 28.1 pg (25-34) Mean Corpuscular Hemoglobin Concent 31.8 g/dl (32-36) RDW Standard Deviation 56.1 fL (36.4-46.3) RDW Coefficient of Variation 17.5 % (11.5-14.5) Prothrombin Time 10.5 SECONDS (9.0-12.0) Prothromb Time International Ratio 1.0 (0.9-1.1) Activated Partial Thromboplast Time 24.3 SECONDS (21.0-31.0) Partial Thromboplastin Ratio 0.9 Anion Gap 3.0 mmol/L (3-11) Estimated GFR () 66.1 Estimated GFR (Non- 57.0 BUN/Creatinine Ratio 24.1 (10-20) Calcium Level 8.3 mg/dl (8.5-10.1) Total Bilirubin 0.2 mg/dl (0.2-1) Direct Bilirubin < 0.1 mg/dl (0-0.2) Aspartate Amino Transf (AST/SGOT) 12 U/L (15-37) Alanine Aminotransferase (ALT/SGPT) 14 U/L (12-78) Alkaline Phosphatase 151 U/L (45-117) Troponin I < 0.015 ng/ml (0-0.045) Total Protein 7.6 gm/dl (6.4-8.2) Albumin 2.9 gm/dl (3.4-5.0) Laboratory results as reviewed by me. ECG Indication: other (unresponsive) Rate (beats per minute): 54 Rhythm: sinus bradycardia Findings: no acute ischemic change, no ectopy ED Course 0535: The patient was evaluated in room A2. A complete history and physical exam was performed. 0552: The patient is starting to wake up. 0605: The patient is awake and responsive. 07: [place] Hospitalist was consulted. Discussed the patient's case. The patient will be evaluated for further treatment and disposition. Medical Decision Differential: Toxicological, Infectious, Stroke, SAH, Trauma, Electrolyte Abnormality, Hypoglycemia, Alcohol Intoxication, Drug Intoxication, Cardiac Abnormality, Sepsis, Meningitis/Encephalitis, Trauma, Excited Delirium, Serotonin Syndrome, Psychiatric, amongst other pathologies entertained. 70 yr old female arrives essentially obtunded/unresponsive without any response to painful stimuli. Reportedly fell earlier in evening striking back of head, was normal for short while prior to going unresponsive while on toilet. Immediately sent to CT where head/neck done which were negative. Full set AMS labs done. Gradually awoke and asking for soda in no distress. UA with leuk esterase though no bacteria and I feel this is more likely secondary to her carcinoma than new infection. Will need to come in for syncope/ams monitoring. No evidence this was acute stroke and given no focal deficits I did not feel stroke alert indicated. Head Trauma GCS Score: 4 Medication Reconcilliation Current Medication List: was personally reviewed by me Consults Time Called: [phone] Consulting Physician: [place] Hospitalist Returned Call: [phone] Discussed the patient's case. The patient will be evaluated for further treatment and disposition. Impression Primary Impression: Closed head injury Additional Impressions: Syncope and collapse Altered mental status Scribe Attestation The scribe's documentation has been prepared under my direction and personally reviewed by me in its entirety. I confirm that the note above accurately reflects all work, treatment, procedures, and medical decision making performed by me. Problem Qualifiers Primary Impression: Closed head injury Encounter type: initial encounter Qualified Codes: S09.90XA - Unspecified injury of head, initial encounter Additional Impressions: Altered mental status Altered mental status type: transient alteration of awareness Qualified Codes : R40.4 - Transient alteration of awareness
[2016-10-02] MEDS ORDERED: PHEN-310 PO ×2 (05:48→05:58)
[2016-10-02] MEDS ORDERED: OXYC1TAB3 PO (05:59)
[2016-10-02 06:22] LABS: URINE APPEARANCE CLEAR (CLEAR); URINE BILIRUBIN NEG (NEG); URINE COLOR YELLOW; URINE EPITHELIAL CELL AUTO 20-30 /lpf (0-5); URINE NITRITE NEG (NEG); URINE PH 7.5 (4.5-7.5); URINE SPECIFIC GRAVITY 1.008 (1.000-1.030); UROBILINOGEN NEG (NEG); ZZURINE CULT IF INDIC CATH YES
[2016-10-02 06:23] LABS: HEMATOCRIT 26.7 % (37-47); MEAN CELL VOLUME 88.4 fL (80-100); MEAN CORPUSCULAR HEMOGLOBIN 28.1 pg (25-34); MEAN CORPUSCULAR HGB CONC 31.8 g/dl (32-36); RED BLOOD COUNT 3.02 M/uL (4.2-5.4); WHITE BLOOD COUNT 2.29 K/uL (4.8-10.8)
[2016-10-02 06:25] LABS: MANUAL MICROSCOPIC REQUIRED? NO; REVIEW REQ? NO
[2016-10-02 06:33] LABS: PARTIAL THROMBOPLASTIN RATIO 0.9; PROTHROMBIN TIME (PATIENT) 10.5 SECONDS (9.0-12.0)
[2016-10-02 06:41] LABS: ALT/SGPT 14 U/L (12-78); AST/SGOT 12 U/L (15-37); BLOOD UREA NITROGEN 24 mg/dl (7-18); BUN/CREATININE RATIO 24.1 (10-20); CALCIUM 8.3 mg/dl (8.5-10.1); CARBON DIOXIDE 30 mmol/L (21-32); CHLORIDE 103 mmol/L (98-107); GLUCOSE 89 mg/dl (70-99); POTASSIUM 4.2 mmol/L (3.5-5.1); SODIUM 136 mmol/L (136-145)
[2016-10-02 06:46] LABS: ALKALINE PHOSPHATASE 151 U/L (45-117)
--- NOTE | 2016-10-02 07:05 | DIAGNOSTIC IMAGING REPORT ---
HEAD CT NONCONTRAST CT DOSE: 1091.11 mGy.cm HISTORY: posterior head injury, syncope, AMS TECHNIQUE: Multiaxial CT images of the head were performed without the use of intravenous contrast. Automated exposure control was utilized for this study. A dose lowering technique was utilized adhering to the principles of ALARA. Comparison: Head CT 07/04/2016. Findings: The paranasal sinuses and mastoid air cells are clear. The calvarium and skull base are intact. There is no mass, hematoma, midline shift, acute infarct. White matter hypodensity is nonspecific but suggestive of microvascular ischemic change. The ventricles and sulci demonstrate mild age-related involutional changes. Old lacunar infarct within the left basal ganglia, unchanged. Impression: No significant change compared to the prior study. No acute intracranial abnormality. Electronically signed by: Dereck Vick M.D. 10/02/2016 7:03 AM Dictated Date/Time: 10/02/2016 7:02 AM
--- NOTE | 2016-10-02 07:08 | DIAGNOSTIC IMAGING REPORT ---
CERVICAL SPINE W/O CLINICAL HISTORY: 70 years-old Female with posterior head injury, syncope, AMS. COMPARISON: CT cervical spine 07/04/2016. TECHNIQUE: Multiple axial CT images of the cervical spine were obtained without contrast. A dose lowering technique was utilized adhering to the principles of ALARA. FINDINGS: Mastoid air cells and middle ear cavities are clear. The imaged paranasal sinuses are also clear. No acute cervical spine fracture or dislocation is identified. The bones are moderately demineralized. Multilevel intervertebral disc space narrowing, endplate spurring and facet arthrosis is noted. Anterior fusion with prior discectomy noted at C5-C6. Mild compression involving superior endplates T1 and T2 are unchanged from comparison. Posterior disc osteophyte complex formation is are seen at the C4-C5 level causing moderate central canal and severe bilateral foraminal narrowing. Additionally, there is severe left-sided neuroforaminal stenosis at C6-C7. There is atherosclerosis of the carotid bulbs. Partially imaged left subclavian catheter is noted. Lung apices are generally clear. IMPRESSION: 1. No acute cervical spine fracture or subluxation. 2. Anterior fusion with prior discectomy at C5-C6. 3. Multilevel degenerative changes as above, notably with a posterior disc osteophyte complex formation at C4-C5 causing moderate central canal and severe bilateral foraminal narrowing. 4. Remote appearing superior endplate compression deformities of the T1 and T2 levels. The above report was generated using voice recognition software. It may contain grammatical, syntax or spelling errors. Electronically signed by: Jim Pabon M.D. 10/02/2016 7:07 AM Dictated Date/Time: 10/02/2016 7:02 AM
[2016-10-02 07:15] LABS: BASO % 2.2 %; BASO ABS # 0.05 K/uL (0-0.2); COMPLETE YES; EOS % 2.2 %; LYMPH % 28.4 %; LYMPH ABS # 0.65 K/uL (1.2-3.4); MEAN PLATELET VOLUME 9.5 fL (7.4-10.4); MONO % 1.3 %; NEUT % 65.9 %; PLATELET COUNT 92 K/uL (130-400); PLT ESTIMATE DECREASED
--- NOTE | 2016-10-02 07:24 | DIAGNOSTIC IMAGING REPORT ---
CHEST ONE VIEW PORTABLE HISTORY: 70 years-old Female acute altered mental status with fall. COMPARISON: Portable chest radiograph 09/22/2016 TECHNIQUE: Supine portable AP view of the chest. FINDINGS: Cardiac silhouette is again enlarged. Left subclavian Skztna-l-Xenx catheter is redemonstrated with distal tip near the mid SVC. There is atherosclerosis of the aorta. No pneumothorax, pleural effusion or focal airspace consolidation. There is improved aeration of left lung base from comparison. Mild pulmonary vascular congestion is redemonstrated. Degenerative changes involve the bilateral shoulders. Remote fracture deformity of the right proximal humerus is noted. There is apparent right cervical rib. IMPRESSION: 1. Cardiomegaly with mild pulmonary vascular congestion. 2. Improved aeration of the left lung base from comparison. The above report was generated using voice recognition software. It may contain grammatical, syntax or spelling errors. Electronically signed by: Jim Pabon M.D. 10/02/2016 7:23 AM Dictated Date/Time: 10/02/2016 7:20 AM
[2016-10-02] MEDS ORDERED: ACETAMINOPHEN 325 MG TAB PO PRN (08:15)
[2016-10-02] MEDS ORDERED: ONDANSETRON INJ 2 MG/ML 2 ML VIAL IV PRN (08:15)
[2016-10-02] MEDS ORDERED: ONDANSETRON 8 MG TAB PO PRN (08:15)
[2016-10-02] MEDS ORDERED: SODIUM CHLORIDE 0.9% 1000ML 1,000 ML IV SCH (08:15)
[2016-10-02] MEDS ORDERED: OXYCODONE HCL IR 5 MG TAB (IMMEDIATE RELEASE) PO PRN (08:15)
--- NOTE | 2016-10-02 08:56 | History and Physical ---
History & Physical Date & Time of Service: Oct 02, 2016 at 08:26 Chief Complaint: Fall/Unresponsive Primary Care Physician: Jorje Romo M.D. History of Present Illness Source: patient, hospital records, EMS, halfway 70yo female with multiple medical problems including recent diagnosis of ureteral cancer of the left ureter, s/p surgery 05/2016 with ongoing chemotherapy ; schizophrenia, dementia, HTN, seizure disorder, and CAD - currently a resident of [facility]. The patient was in her usual state of health until about 0330 this AM when she was found sitting/lying on the floor outside the bathroom by halfway staff members. She was awake and alert when she was found on the ground. When the patient herself was asked about details of that event she states "I really can' t remember" but then stated "I think I tripped." She is unsure but believes she may have been trying to get up from a chair at that time. Prior to her being found on the ground the events leading up to that were unwitnessed. 2-3 staff members apparently assisted her up from the ground and got her to the bathroom. She was placed on the toilet at which point she went unresponsive. She had a pulse and was breathing but she lost consciousness. There was no apparent seizure activity. She was assisted back to bed and frequent vitals were checked over the next hour. Despite stability in her vitals she remained unresponsive/nonverbal. About 0430, due to the persistence of the unresponsiveness, EMS was called. During transport to [facility] she apparently started to regain consciousness. Then, upon arrival here, she was still fairly unresponsive but vitals still remained stable. At some point during her stay in the ER here she regained full consciousness, was talking, and asking for breakfast. During my assessment she was fully awake, alert, and able to follow commands. Due to her dementia she was able to give very limited history. She did state she went to bed last night without any complaints and has been feeling OK otherwise. Past Medical/Surgical History PMH: 1. 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 ongoing chemotherapy for #1 3. COPD 4. CAD 5. dementia 6. prior falls 7. h/o alcoholism 8. HTN 9. hypothyroidism 10. h/o acute PR 11. seizure disorder 12. h/o UTIs 13. schizophrenia 14. h/o right-sided renal cell carcinoma 15. chronic hyponatremia - SIADH? 16. CKD stage 3 17. GERD PSH: 1. s/p left distal ureterectomy w/ ureteral reimplantation and left pelvic lymph node dissection - Dr. Jorje Ken - 05/2016 2. port placement 3. s/p right nephrectomy 4. h/o spine surgery Family History Hypertension mother, father - from MIs ? Social History Smoking Status: Former Smoker (smoked for <5 years) Smokeless Tobacco Use: No Alcohol Use: former heavy etoh use Drug Use: none Marital Status: (2 sons - one lives in [place], the other in [place] ) Housing status: halfway ([facility]) Occupational Status: retired (she was unable to tell me what she used to do ), disabled Immunizations History of Influenza Vaccine: Unknown Influenza Vaccine Date: Nov 10, 2004 History of Tetanus Vaccine?: Unknown History of Pneumococcal: Unknown History of Hepatitis B Vaccine: Unknown Multi-Drug Resistant Organisms History of MDRO: Yes Type of MDRO: VRE, MRSA Allergies Coded Allergies: Sulfa Antibiotics (Verified Allergy, Severe, mouth swells, bumps on roof of mouth, 07/04/16) Banana (Verified Allergy, Intermediate, RAW -ROOF OF MOUTH SWELLS, 07/04/16 ) Home Medications Scheduled Amlodipine (Norvasc), 5 MG PO BID AT 0830 & 1630 Duloxetine Hcl (Cymbalta), 40 MG PO QAM Ferrous Sulfate (Kp Ferrous Sulfate), 325 MG PO QAM Gabapentin (Neurontin), 400 MG PO TID Haloperidol (Haloperidol), 1 MG PO TID Ipratropium-Albuterol (Combivent Respimat), 1 PUFFS INH QID Metoprolol Succ (Toprol Xl) (Toprol-Xl), 25 MG PO QAM Multivitamin (Multivitamin), 1 TABLET PO QAM Phenobarbital (Phenobarbital), 64.8 MG PO DAILY Phenytoin Sodium Extended (Dilantin), 90 MG PO BID Phenytoin Sodium Extended (Dilantin), 60 MG PO DAILY@ 2030 Quetiapine Fumarate (Seroquel), 25 MG PO HS Ranitidine (Zantac), 150 MG PO BID Rivastigmine Tartrate (Exelon), 1.5 MG PO BID Sennosides-Docusate Sodium (Senna/Docusate Sodium), 1 TAB PO BID AT 0830 & 1630 Sodium Chloride (Sodium Chloride), 1 TAB PO QAM Scheduled PRN Acetaminophen (Tylenol), 650 MG PO Q6 PRN for Pain or Fever Ondansetron Hcl (Zofran), 8 MG PO TID PRN for Nausea Oxycodone Ir (Roxicodone Ir), 5 MG PO Q6H PRN for Pain Polyethylene Glycol 3350 (Miralax), 17 GM PO DAILY PRN for Constipation Prochlorperazine Maleate (Compazine), 10 MG PO Q6H PRN for Nausea or Vomiting Review of Systems Constitutional: No fever, No chills, No weight loss, No fatigue Eyes: No diplopia ENT: + nasal symptoms (recent URI), No sore throat, No trouble swallowing Respiratory: + cough (recent URI but now resolved), No dyspnea on exertion, No dyspnea at rest Cardiovascular: No chest pain, No orthopnea, No PND, No edema Abdomen: No pain, No nausea, No vomiting, No diarrhea, No GI bleeding Musculoskeletal: No joint pain, No muscle pain Genitourinary - Female: No dysuria, No hematuria Neurologic: + memory loss, No paralysis, No numbness/tingling, No vertigo Psychiatric: No depression symptoms Endocrine: No fatigue Hematologic / Lymphatic: No abnormal bleeding/bruising Integumentary: No rash Physical Exam Vital Signs Date Time Temp Pulse Resp B/P (MAP) Pulse Ox O2 Delivery O2 Flow Rate FiO2 10/02/16 07:32 54 152/59 91 Room Air 10/02/16 06:08 54 10/02/16 06:00 52 14 142/46 97 Room Air 10/02/16 05:45 36.4 54 17 142/46 97 Room Air General Appearance: no apparent distress, + pertinent finding (awake, alert, oriented to person and place only; could not tell me the year, month, or day) Head: normocephalic, atraumatic Eyes: normal inspection, PERRL, EOMI, sclerae normal, + pertinent finding (no nystagmus) ENT: normal ENT inspection, hearing grossly normal, TMs normal, pharynx normal (MMM) Neck: supple, no adenopathy, thyroid normal, no JVD, no carotid bruits, trachea midline Respiratory/Chest: lungs clear, normal breath sounds, no respiratory distress, no accessory muscle use Cardiovascular: no gallop, no JVD, no murmur, normal peripheral pulses, + bradycardia Abdomen/GI: normal bowel sounds, non tender, soft, no organomegaly, + pertinent finding (multiple scars on abdominal wall) Back: normal inspection, no CVA tenderness, no muscle spasm, normal range of motion, + pertinent finding (no pain to palpation over any t-spine or l-spine spinous processes ) Extremities/Musculoskelatal: normal inspection, normal capillary refill, no pedal edema, non-tender, pelvis stable Neurologic/Psych: no motor/sensory deficits, alert, normal mood/affect, normal reflexes, + babinski (right; equivocal on left), + disoriented, + pertinent finding (finger/nose/finger maneuver w/o dysmetria; CN 3-12 intact; sensation intact to light touch x 4 exts) Skin: no rash, + pallor Lymphatic: no adenopathy (no cervical LAD) Diagnostics Laboratory Results Results Past 24 Hours Test 10/02/16 06:00 10/02/16 06:17 Range/Units Urine Color YELLOW Urine Appearance CLEAR CLEAR Urine pH 7.5 4.5-7.5 Urine Specific [place] 1.008 1.000-1.030 Urine Protein NEG NEG Urine Glucose (UA) NEG NEG Urine Ketones NEG NEG Urine Occult Blood NEG NEG Urine Nitrite NEG NEG Urine Bilirubin NEG NEG Urine Urobilinogen NEG NEG Urine Leukocyte Esterase LARGE NEG Urine WBC (Auto) 10-30 0-5 /hpf Urine RBC (Auto) 0-4 0-4 /hpf Urine Hyaline Casts (Auto) 0 0-5 /lpf Urine Epithelial Cells (Auto) 20-30 0-5 /lpf Urine Bacteria (Auto) NEG NEG White Blood Count 2.29 4.8-10.8 K/uL Red Blood Count 3.02 4.2-5.4 M/uL Hemoglobin 8.5 12.0-16.0 g/dL Hematocrit 26.7 37-47 % Mean Corpuscular Volume 88.4 80-100 fL Mean Corpuscular Hemoglobin 28.1 25-34 pg Mean Corpuscular Hemoglobin Concent 31.8 32-36 g/dl Platelet Count 92 130-400 K/uL Mean Platelet Volume 9.5 7.4-10.4 fL Neutrophils (%) (Auto) 65.9 % Lymphocytes (%) (Auto) 28.4 % Monocytes (%) (Auto) 1.3 % Eosinophils (%) (Auto) 2.2 % Basophils (%) (Auto) 2.2 % Neutrophils # (Auto) 1.51 1.4-6.5 K/uL Lymphocytes # (Auto) 0.65 1.2-3.4 K/uL Monocytes # (Auto) 0.03 0.11-0.59 K/uL Eosinophils # (Auto) 0.05 0-0.5 K/uL Basophils # (Auto) 0.05 0-0.2 K/uL RDW Standard Deviation 56.1 36.4-46.3 fL RDW Coefficient of Variation 17.5 11.5-14.5 % Immature Granulocyte % (Auto) 0.0 % Immature Granulocyte # (Auto) 0.00 0.00-0.02 K/uL Platelet Estimate DECREASED Red Blood Cell Morphology Unremarkable Prothrombin Time 10.5 9.0-12.0 SECONDS Prothromb Time International Ratio 1.0 0.9-1.1 Activated Partial Thromboplast Time 24.3 21.0-31.0 SECONDS Partial Thromboplastin Ratio 0.9 Sodium Level 136 136-145 mmol/L Potassium Level 4.2 3.5-5.1 mmol/L Chloride Level 103 98-107 mmol/L Carbon Dioxide Level 30 21-32 mmol/L Anion Gap 3.0 3-11 mmol/L Blood Urea Nitrogen 24 7-18 mg/dl Creatinine 1.00 0.60-1.20 mg/dl Estimated GFR () 66.1 Estimated GFR (Non- 57.0 BUN/Creatinine Ratio 24.1 10-20 Random Glucose 89 70-99 mg/dl Calcium Level 8.3 8.5-10.1 mg/dl Total Bilirubin 0.2 0.2-1 mg/dl Direct Bilirubin < 0.1 0-0.2 mg/dl Aspartate Amino Transf (AST/SGOT) 12 15-37 U/L Alanine Aminotransferase (ALT/SGPT) 14 12-78 U/L Alkaline Phosphatase 151 45-117 U/L Troponin I < 0.015 0-0.045 ng/ml Total Protein 7.6 6.4-8.2 gm/dl Albumin 2.9 3.4-5.0 gm/dl Phenytoin (Dilantin) Level 14.0 10-20 mcg/mL Phenobarbital Level 14.7 15.0-40.0 mcg/mL Microbiology Results 10/02/16 Urine Culture, Received Pending Diagnostic Radiology CT head: Findings: The paranasal sinuses and mastoid air cells are clear. The calvarium and skull base are intact. There is no mass, hematoma, midline shift, acute infarct. White matter hypodensity is nonspecific but suggestive of microvascular ischemic change. The ventricles and sulci demonstrate mild age-related involutional changes. Old lacunar infarct within the left basal ganglia, unchanged. CT cervical spine: IMPRESSION: 1. No acute cervical spine fracture or subluxation. 2. Anterior fusion with prior discectomy at C5-C6. 3. Multilevel degenerative changes as above, notably with a posterior disc osteophyte complex formation at C4-C5 causing moderate central canal and severe bilateral foraminal narrowing. 4. Remote appearing superior endplate compression deformities of the T1 and T2 levels. CXR: IMPRESSION: 1. Cardiomegaly with mild pulmonary vascular congestion. 2. Improved aeration of the left lung base from comparison. EKG my reading: Sinus bradycardia 1st degree AVB no ST changes Impression Assessment and Plan 70yo female with h/o left-sided ureteral cancer, currently undergoing chemotherapy; CAD; HTN; hypothyroidism; dementia; schizophrenia; seizure disorder; prior etoh abuse; falls - presenting with apparent fall vs syncope followed by episode of unresponsiveness. 1. encephalopathy/unresponsiveness - resolved, back to baseline by the time of admission. Differential - syncope vs stroke vs seizure vs arrhythmia vs infectious etiology vs other. Plan - * MRI brain, r/o stroke * EEG, r/o seizure; check dilantin level in addition to the phenobarbital level. If EEG is + for seizure then seizure meds will need adjustment as phenobarbital level was low. * echo, r/o source of thrombus * cardiac enzymes * telemetry, r/o dysrhythmia * urine culture, r/o UTI 2. unwitnessed fall vs syncope - fortunately no apparent injuries from such. CT head/neck neg for fractures or ICH. On exam no evidence of any bony injuries. PT, OT consultations. Syncope w/u as in #1. Check CPK, r/o rhabdomyolysis. 3. chemotherapy induced pancytopenia - repeat CBC in am for stability. 4. hypothyroidism - TSH 08/2016 was compensated; continue synthroid. 5. h/o CAD - by way of the medical record. Check cardiac enzymes later today. 6. seizure d/o - continue dilantin & phenobarbital; dilantin level pending; see #1 above. 7. schizophrenia, depression, etc - continue all psychotropic meds. 8. h/o UTIs - u/a slightly dirty but no bacteria on micro - send urine cx, defer on abx at this time given lack of fever, etc. 9. DVT proph - platelets are <100; hold off on chemical means; SCDs in meantime. 10. h/o CKD stage 3 - today her CrCl is normal. BMP in am for stability. 11. FEN - NS hydration, regular diet, lytes including mag level in am. 12. dementia - continue exelon. 13. HTN - controlled; continue home meds. 14. h/o hyponatremia - SIADH, given her NaCl tablet use? Na is normal today. Caution with IVF. 15. COPD - no symptoms, no wheezing on exam, stable. Level of Care Telemetry Advanced Directives Existing Advance Directive: Yes Resuscitation Status FULL RESUSCITATION VTE Prophylaxis VTE Risk Assessment Done? Y/N: Yes Risk Level: Moderate Given or contraindicated: Contraindicated (low platelets) Social Service Consult Lives in [facility] Note patient to be placed on observation status total time about 70 minutes including reviewing records (SNF, hospital, EMS), etc Additional Copies To [place], [place]; Jorje Romo M.D.
[2016-10-02] MEDS: IPRATROPIUM BROMIDE/ALBUTEROL respimat INH INH SCH ×4 (09:00→20:57)
[2016-10-02] MEDS ORDERED: METOPROLOL SUCC 25MG EXT REL TAB PO SCH (09:00)
[2016-10-02] MEDS ORDERED: IV FLUIDS COMPLETED PRN (09:00)
--- NOTE | 2016-10-02 11:58 | DIAGNOSTIC IMAGING REPORT ---
MRI OF THE BRAIN WITHOUT CONTRAST CLINICAL HISTORY: Syncope. Head injury. COMPARISON STUDY: Head CT October 02, 2016 and MRI of the brain September 04, 2015. TECHNIQUE: Utilizing a 1.5 Qian magnet and dedicated coil, multiplanar, multiecho imaging of the brain was performed without IV contrast. FINDINGS: There are no areas restricted diffusion. No acute intracranial hemorrhage, midline shift or mass effect is present. Basilar cisterns are patent. There are no extra-axial collections. There is marked cerebral atrophy. Extensive white matter T2 hyperintensity suggest small vessel disease. There are 2 old lacunar infarcts within the left basal ganglia. No intracranial masses are identified on this unenhanced exam. Calvarial signal is maintained. Orbits and sinuses are unremarkable. IMPRESSION: 1. No acute intracranial findings. 2. Marked cerebral atrophy. 3. Moderate small vessel disease and several old left basal ganglia lacunar infarcts. Electronically signed by: Steffen Varela M.D. 10/02/2016 11:57 AM Dictated Date/Time: 10/02/2016 11:50 AM
[2016-10-02] MEDS: DULOXETINE HCL 20 MG CAP PO SCH (12:21)
[2016-10-02] MEDS: GABAPENTIN 400 MG CAP PO SCH ×3 (12:21→20:58)
[2016-10-02] MEDS: HALOPERIDOL 1 MG TAB PO SCH ×3 (12:21→20:58)
[2016-10-02] MEDS: RIVASTIGMINE TARTRATE (EXELON) 1.5 MG CAP PO SCH ×2 (12:22→20:58)
[2016-10-02] MEDS: AMLODIPINE BESYLATE 5 MG TAB PO SCH ×2 (12:22→20:58)
[2016-10-02] MEDS: SODIUM CHLORIDE 1 GM TAB PO SCH (12:23)
[2016-10-02] MEDS: DOCUSATE SODIUM/SENNA 50/8.6MG TAB PO SCH ×2 (12:23→20:58)
[2016-10-02] MEDS: PHENYTOIN SODIUM ER 30 MG CAP PO SCH ×2 (12:23→17:31)
[2016-10-02] MEDS: MULTIVITAMIN TAB PO SCH (12:23)
[2016-10-02] MEDS: RANITIDINE HCL 150 MG TAB PO SCH ×2 (12:24→20:58)
[2016-10-02] MEDS: PHENOBARBITAL 32.4 MG TAB PO SCH (12:30)
--- NOTE | 2016-10-02 16:07 | EEG Procedure Note ---
EEG Procedure Note Date of Service Oct 02, 2016. Start / End Times Start Time: 9:17 AM End Time: 9:37 AM Referring Physician Juan Miguel Weiner History This is a 70-year-old female who presents with altered mental status and syncope. EEG for further evaluation of possible seizure etiology. Home Medication List Scheduled Amlodipine (Norvasc), 5 MG PO BID AT 0830 & 1630 Duloxetine Hcl (Cymbalta), 40 MG PO QAM Ferrous Sulfate (Kp Ferrous Sulfate), 325 MG PO QAM Gabapentin (Neurontin), 400 MG PO TID Haloperidol (Haloperidol), 1 MG PO TID Ipratropium-Albuterol (Combivent Respimat), 1 PUFFS INH QID Metoprolol Succ (Toprol Xl) (Toprol-Xl), 25 MG PO QAM Multivitamin (Multivitamin), 1 TABLET PO QAM Phenobarbital (Phenobarbital), 64.8 MG PO DAILY Phenytoin Sodium Extended (Dilantin), 90 MG PO BID Phenytoin Sodium Extended (Dilantin), 60 MG PO DAILY@ 2029 Quetiapine Fumarate (Seroquel), 25 MG PO HS Ranitidine (Zantac), 150 MG PO BID Rivastigmine Tartrate (Exelon), 1.5 MG PO BID Sennosides-Docusate Sodium (Senna/Docusate Sodium), 1 TAB PO BID AT 0830 & 1630 Sodium Chloride (Sodium Chloride), 1 TAB PO QAM Scheduled PRN Acetaminophen (Tylenol), 650 MG PO Q6 PRN for Pain or Fever Ondansetron Hcl (Zofran), 8 MG PO TID PRN for Nausea Oxycodone Ir (Roxicodone Ir), 5 MG PO Q6H PRN for Pain Polyethylene Glycol 3350 (Miralax), 17 GM PO DAILY PRN for Constipation Prochlorperazine Maleate (Compazine), 10 MG PO Q6H PRN for Nausea or Vomiting Inpatient Medication List Current Inpatient Medications Medications (Trade) Dose Ordered Sig/Benito Route Start Time Stop Time Status Last Admin Dose Admin Sodium Chloride 1,000 ml @ 100 mls/hr Q10H IV 10/02/16 08:15 10/02/16 18:14 10/02/16 12:19 100 MLS/HR Ondansetron HCl (Zofran Inj) 4 mg Q6H PRN IV 10/02/16 08:15 11/01/16 08:14 Acetaminophen (Tylenol Tab) 650 mg Q6 PRN PO 10/02/16 08:15 11/01/16 08:14 Amlodipine Besylate (Norvasc Tab) 5 mg BID PO 10/02/16 09:00 11/01/16 08:59 10/02/16 12:22 5 MG Duloxetine HCl (Cymbalta Cap) 40 mg QAM PO 10/02/16 09:00 11/01/16 08:59 10/02/16 12:21 40 MG Gabapentin (Neurontin Cap) 400 mg TID PO 10/02/16 11:00 11/01/16 10:59 10/02/16 14:54 400 MG Haloperidol (Haldol Tab) 1 mg TID PO 10/02/16 11:00 11/01/16 10:59 10/02/16 14:55 1 MG Albuterol/ Ipratropium (Combivent Respimat Inh) 1 puffs QID INH 10/02/16 09:00 11/01/16 08:59 10/02/16 12:24 1 PUFFS Metoprolol Succinate (Toprol Xl Tab) 25 mg QAM PO 10/02/16 09:00 11/01/16 08:59 10/02/16 12:24 25 MG Multivitamins (Multivitamin Tab) 1 tab QAM PO 10/02/16 09:00 11/01/16 08:59 10/02/16 12:23 1 TAB Ondansetron HCl (Zofran Tab) 8 mg TID PRN PO 10/02/16 08:15 11/01/16 08:14 Oxycodone HCl (Roxicodone Immediate Rel Tab) 5 mg Q6H PRN PO 10/02/16 08:15 10/16/16 08:14 Phenytoin Sodium (Dilantin Er Cap) 60 mg DAILY@2030 PO 10/02/16 20:30 11/01/16 20:29 Phenytoin Sodium (Dilantin Er Cap) 90 mg BID17 PO 10/02/16 11:00 11/01/16 10:59 10/02/16 12:23 90 MG Quetiapine Fumarate (seroQUEL TAB) 25 mg HS PO 10/02/16 21:00 11/01/16 20:59 Ranitidine HCl (zANTac TAB) 150 mg BID PO 10/02/16 11:00 11/01/16 10:59 10/02/16 12:24 150 MG Senna/Docusate Sodium (Senokot S Tab) 1 tab BID PO 10/02/16 11:00 11/01/16 10:59 10/02/16 12:23 1 TAB Sodium Chloride (Sodium Chloride Tab) 1 gm QAM PO 10/02/16 09:00 11/01/16 08:59 10/02/16 12:23 1 GM Rivastigmine Tartrate (Exelon Cap) 1.5 mg BID PO 10/02/16 11:00 11/01/16 10:59 10/02/16 12:22 1.5 MG Phenobarbital (Phenobarbital Tab) 64.8 mg DAILY PO 10/02/16 11:00 11/01/16 10:59 10/02/16 12:30 64.8 MG Miscellaneous (Iv Fluids Completed) 1 ea PRN PRN N/A 10/02/16 09:00 10/02/17 08:59 Description This is a 21 electrode EEG with a single channel dedicated to limited EKG. The electrodes were placed in accordance with the International 10-20 system. At the start of this recording the patient was in reported altered mental status. Background was poorly organized with poorly formed anterior to posterior gradient. Background was composed of symmetric moderate amplitude predominantly 6-7 Hz theta frequencies with intermixed alpha and rare delta frequencies. Hyperventilation was not done. Photic stimulation at various frequencies did not produce any abnormalities. There was no state changes or sleep transients. Interpretation This is an abnormal EEG secondary to mild background disorganization and slowing. There was no electrographic seizures or epileptiform discharges Clinical Correlation This EEG indicates a mild encephalopathy of nonspecific etiology.
--- NOTE | 2016-10-02 18:20 | ECHOCARDIOGRAM REPORT ---
*NOTICE TO RECEIVING LIBERTARIAN AGENCY This information is strictly Confidential and protected under [place] law. [place] law prohibits you from making any further disclosure of this information unless further disclosure is expressly permitted by the written consent of the person to whom it pertains or is authorized by law. A general authorization for the release of medical or other information is not sufficient for this purpose. Hospital accepts no responsibility if the information is made available to any other person, INCLUDING THE PATIENT. Interpretation Summary * Name: SRAVANTHI MCKEON Study Date: 10/02/2016 02:00 PM BP: 152/59 mmHg * Patient Location: [facility] HR: 50 * : 1945 (M/d/yyyy) Gender: Female Height: 62 in * Age: 70 yrs Ethnicity: CA Weight: 148 lb * Ordering Physician: Juan Miguel Weiner * Referring Physician: Lewis Simpson * Performed By: Vinay Curtis RCS * * Reason For Study: Syncopy * BSA: 1.7 m2 * -- Conclusions -- * 1. Normal left ventricular size with hyperdynamic systolic function. EF > 70%. No regional wall motion abnormalities. No left ventricular hypertrophy. Type I diastolic dysfunction. * 2. The left atrium is mildly dilated. * 3. Trace aortic regurgitation. * 4. No prior study available for comparison. Procedure Details * Left Ventricle The left ventricle is normal in size. There is normal left ventricular wall thickness. Ejection Fraction = >70 %. The left ventricle is hyperdynamic. The left ventricular wall motion is normal. * Right Ventricle The right ventricle is normal in size and function. Right ventricular hypertrophy. The right ventricular systolic function is normal as assessed by tricuspid annular plane systolic excursion (TAPSE) (normal >1.5 cm). * Atria The left atrium is mildly dilated. Right atrium not well visualized. There is no evidence of atrial septal defect, but resolution does not allow assessment for a patent foramen ovale. Lipomatous hypertrophy of the interatrial septum is noted. * Mitral Valve There is mild mitral annular calcification. There is no mitral valve stenosis. There is trace mitral regurgitation. * Tricuspid Valve The tricuspid valve is not well visualized. There is no tricuspid stenosis. Significant tricuspid regurgitation is absent. * Aortic Valve The aortic valve is not well visualized. No hemodynamically significant valvular aortic stenosis. Trace aortic regurgitation. * Pulmonic Valve The pulmonic valve is not well visualized. * Great Vessels The aortic root is normal size. Aortic arch of normal dimension. * Pericardium/Pleural No significant pericardial effusion. * Great Vessels Normal inferior vena cava size and collapsability with sniff indicates a normal right atrial pressure of 3 mmHg * Left Ventricular Diastolic Function Grade I diastolic dysfunction, (abnormal relaxation pattern). * * MMode 2D Measurements and Calculations * IVSd 1.0 cm * * LVIDd 4.6 cm * LVIDs 2.8 cm * LVPWd 1.1 cm * * IVS/LVPW 0.97 * FS 38.3 % * EDV(Teich) 97.2 ml * ESV(Teich) 30.6 ml * EF(Teich) 68.6 % * * EDV(cubed) 97.1 ml * ESV(cubed) 22.9 ml * EF(cubed) 76.5 % * * LV mass(C)d 168.4 grams * LV mass(C)dI 100.1 grams/m\S\2 * * SV(Teich) 66.6 ml * SI(Teich) 39.6 ml/m\S\2 * SV(cubed) 74.3 ml * SI(cubed) 44.2 ml/m\S\2 * * Ao root diam 3.5 cm * Ao root area 9.8 cm\S\2 * * LVOT diam 2.0 cm * LVOT area 3.2 cm\S\2 * * LVAd ap4 23.9 cm\S\2 * LVLd ap4 8.7 cm * EDV(MOD-sp4) 54.2 ml * EDV(sp4-el) 56.1 ml * LVAs ap4 11.2 cm\S\2 * LVLs ap4 7.0 cm * ESV(MOD-sp4) 15.7 ml * ESV(sp4-el) 15.2 ml * EF(MOD-sp4) 71.0 % * EF(sp4-el) 72.9 % * * LVAd ap2 23.9 cm\S\2 * LVLd ap2 8.3 cm * EDV(MOD-sp2) 58.6 ml * EDV(sp2-el) 58.5 ml * LVAs ap2 11.9 cm\S\2 * LVLs ap2 6.6 cm * ESV(MOD-sp2) 19.3 ml * ESV(sp2-el) 18.2 ml * EF(MOD-sp2) 67.1 % * EF(sp2-el) 68.9 % * * LVLd %diff -4.06 % * EDV(MOD-bp) 58.1 ml * LVLs %diff -6.22 % * ESV(MOD-bp) 17.9 ml * EF(MOD-bp) 69.1 % * * SV(MOD-sp4) 38.5 ml * SI(MOD-sp4) 22.9 ml/m\S\2 * * SV(MOD-sp2) 39.3 ml * SI(MOD-sp2) 23.4 ml/m\S\2 * * SV(MOD-bp) 40.2 ml * SI(MOD-bp) 23.9 ml/m\S\2 * * SV(sp4-el) 40.9 ml * SI(sp4-el) 24.3 ml/m\S\2 * * SV(sp2-el) 40.3 ml * SI(sp2-el) 24.0 ml/m\S\2 * * * Doppler Measurements and Calculations * MV E max dena 69.4 cm/sec * MV A max dena 101.9 cm/sec * * MV E/A 0.68 * * MV dec time 0.27 sec * * Ao V2 max 116.9 cm/sec * Ao max PG 5.5 mmHg * Ao max PG (full) -0.22 mmHg * LEONIDAS(V,A) 3.3 cm\S\2 * LEONIDAS(V,D) 3.3 cm\S\2 * * AI max dena 462.6 cm/sec * AI max PG 85.6 mmHg * AI dec slope 228.7 cm/sec\S\2 * AI P1/2t 592.4 msec * * LV V1 max PG 5.7 mmHg * * LV V1 max 119.3 cm/sec * * *
[2016-10-02] MEDS ORDERED: PHENYTOIN SODIUM ER 30 MG CAP PO SCH (20:30)
[2016-10-02] MEDS ORDERED: QUETIAPINE FUMARATE 25 MG TAB PO SCH (21:00)
[2016-10-03 04:40] VITALS: BP 134/60; PULSE 52; TEMP 36.3; O2SAT 95
[2016-10-03 07:18] LABS: BUN/CREATININE RATIO 17.6 (10-20); CALCIUM 8.5 mg/dl (8.5-10.1); CREATININE 0.93 mg/dl (0.60-1.20); POTASSIUM 4.4 mmol/L (3.5-5.1)
[2016-10-03 07:20] LABS: PLT ESTIMATE DECREASED
[2016-10-03 08:33] VITALS: BP 133/78; PULSE 69; TEMP 36.3; O2SAT 93
[2016-10-03] MEDS: IPRATROPIUM BROMIDE/ALBUTEROL respimat INH INH SCH ×2 (08:35→12:28)
[2016-10-03] MEDS: DULOXETINE HCL 20 MG CAP PO SCH (08:35)
[2016-10-03] MEDS: MULTIVITAMIN TAB PO SCH (08:35)
[2016-10-03] MEDS: AMLODIPINE BESYLATE 5 MG TAB PO SCH (08:36)
[2016-10-03] MEDS: DOCUSATE SODIUM/SENNA 50/8.6MG TAB PO SCH (08:36)
[2016-10-03] MEDS: SODIUM CHLORIDE 1 GM TAB PO SCH (08:36)
[2016-10-03] MEDS: GABAPENTIN 400 MG CAP PO SCH ×2 (08:36→13:34)
[2016-10-03] MEDS: RANITIDINE HCL 150 MG TAB PO SCH (08:37)
[2016-10-03] MEDS: RIVASTIGMINE TARTRATE (EXELON) 1.5 MG CAP PO SCH (08:37)
[2016-10-03] MEDS: HALOPERIDOL 1 MG TAB PO SCH ×2 (08:37→13:34)
[2016-10-03] MEDS: PHENYTOIN SODIUM ER 30 MG CAP PO SCH (08:38)
[2016-10-03] MEDS: PHENOBARBITAL 32.4 MG TAB PO SCH (08:44)
[2016-10-03] MEDS: CARVEDILOL 3.125 MG TAB PO SCH ×2 (09:00→11:34)
[2016-10-03 09:22] VITALS: BP 138/61; PULSE 50
[2016-10-03 10:51] LABS: HEMATOCRIT 26.5 % (37-47); MEAN CELL VOLUME 87.5 fL (80-100); MEAN CORPUSCULAR HGB CONC 33.2 g/dl (32-36); MEAN PLATELET VOLUME 9.7 fL (7.4-10.4); PLATELET COUNT 76 K/uL (130-400); RED BLOOD COUNT 3.03 M/uL (4.2-5.4); WHITE BLOOD COUNT 1.23 K/uL (4.8-10.8)
[2016-10-03 10:54] LABS: COMPLETE YES; EOS % 1.6 %; LYMPH % 57.7 %; LYMPH ABS # 0.71 K/uL (1.2-3.4); MONO % 2.4 %; NEUT % 38.3 %
[2016-10-03] MEDS ORDERED: KETOROLAC TROMETHAMINE 15 MG/ML VIAL IV. STA (10:54)
[2016-10-03] MEDS ORDERED: ACETAMINOPHEN 500 MG TAB PO STA (10:54)
[2016-10-03] MEDS ORDERED: ACETAMINOPHEN 500 MG TAB PO ONE (11:26)
[2016-10-03] MEDS ORDERED: KETOROLAC TROMETHAMINE 15 MG/ML VIAL ONE (11:26)
[2016-10-03 11:32] VITALS: BP 154/69; PULSE 57; TEMP 36.3; O2SAT 93
[2016-10-03 13:16] VITALS: BP 154/69; PULSE 57; TEMP 36.3; O2SAT 93
[2016-10-03] MEDS ORDERED: AMLO-110 PO (13:42)
[2016-10-03] MEDS ORDERED: CRG3125 PO (13:42)
[2016-10-03] MEDS ORDERED: OXYC1TAB3 PO (13:42)
--- NOTE | 2016-10-03 13:48 | Discharge Instructions ---
Discharge Instructions Date of Service Oct 03, 2016. Admission Reason for Admission: Altered Mental Status, Syncope And Collapse Discharge Discharge Diagnosis / Problem: FALL, SYNCOPE, UNRESPONSIVENESS - ALL RESOLVED; ETIOLOGY UNCERTAIN Discharge Goals Goal(s): Diagnostic testing, Therapeutic intervention Activity Recommendations Activity Level: Assistance Required Therapies: Physical Therapy, Occupational Therapy . Additional Information Patient informed of condition: Yes Advance Directives: Yes DNR: No Level of Care: Skilled Communicable Disease: No Prognosis: Stable Oxygen at (LPM): NONE [place] Catheter: No Instructions / Follow-Up Instructions / Follow-Up PLEASE FOLLOW-UP WITH DR. ANA PAULINO, HEMATOLOGY/ONCOLOGY AT THE [facility], WITHIN 3-5 DAYS TO DISCUSS ONGOING CHEMOTHERAPY FOR URETER CANCER. 10/03/16 06:22 Red Blood Count 3.03, Mean Corpuscular Volume 87.5, Mean Corpuscular Hemoglobin 29.0, Mean Corpuscular Hemoglobin Concent 33.2, Mean Platelet Volume 9.7, Neutrophils (%) (Auto) 38.3, Lymphocytes (%) (Auto) 57.7, Monocytes (%) (Auto) 2.4, Eosinophils (%) (Auto) 1.6, Basophils (%) (Auto) 0.0, Neutrophils # (Auto) 0.47, Lymphocytes # (Auto) 0.71, Monocytes # (Auto) 0.03, Eosinophils # (Auto) 0.02, Basophils # (Auto) 0.00 10/03/16 06:22 Test 10/02/16 16:17 10/02/16 22:45 10/03/16 06:22 Bedside Glucose 91 mg/dl (70-90) Troponin I < 0.015 ng/ml (0-0.045) White Blood Count 1.23 K/uL (4.8-10.8) Red Blood Count 3.03 M/uL (4.2-5.4) Hemoglobin 8.8 g/dL (12.0-16.0) Hematocrit 26.5 % (37-47) Mean Corpuscular Volume 87.5 fL (80-100) Mean Corpuscular Hemoglobin 29.0 pg (25-34) Mean Corpuscular Hemoglobin Concent 33.2 g/dl (32-36) Platelet Count 76 K/uL (130-400) Mean Platelet Volume 9.7 fL (7.4-10.4) Neutrophils (%) (Auto) 38.3 % Lymphocytes (%) (Auto) 57.7 % Monocytes (%) (Auto) 2.4 % Eosinophils (%) (Auto) 1.6 % Basophils (%) (Auto) 0.0 % Neutrophils # (Auto) 0.47 K/uL (1.4-6.5) Lymphocytes # (Auto) 0.71 K/uL (1.2-3.4) Monocytes # (Auto) 0.03 K/uL (0.11-0.59) Eosinophils # (Auto) 0.02 K/uL (0-0.5) Basophils # (Auto) 0.00 K/uL (0-0.2) RDW Standard Deviation 55.4 fL (36.4-46.3) RDW Coefficient of Variation 17.3 % (11.5-14.5) Immature Granulocyte % (Auto) 0.0 % Immature Granulocyte # (Auto) 0.00 K/uL (0.00-0.02) Platelet Estimate DECREASED Anion Gap 3.0 mmol/L (3-11) Est Creatinine Clear Calc Drug Dose 51.0 ml/min Estimated GFR () 72.2 Estimated GFR (Non- 62.3 BUN/Creatinine Ratio 17.6 (10-20) Calcium Level 8.5 mg/dl (8.5-10.1) Magnesium Level 2.0 mg/dl (1.8-2.4) Current Hospital Diet Patient's current hospital diet: Regular Diet Discharge Diet Recommended Diet: Regular Diet Procedures Procedures Performed: ECHOCARDIOGRAM - NORMAL. MRI BRAIN - NO ACUTE STROKE OR HEMORRHAGE. EEG WITHOUT SEIZURE ACTIVITY. URINE CULTURE NEGATIVE FOR UTI. CERVICAL SPINE CT WITHOUT FRACTURE. TELEMETRY - NORMAL. Pending Studies Studies pending at discharge: no Physician Orders On Transfer Special Precautions: NEUTROPENIC PRECAUTIONS- STRICT HANDWASHING, MASK NEEDED WHEN ENTERING PATIENT'S ROOM, STRICT WASHING OF STETHOSCOPES, ETC. IV Therapy: NONE Vital Signs: PER ROUTINE RECOMMEND CHECKING ORTHOSTATIC BPs for the next 3 days. if orthostatics are positive please notify Pit Inspector. Additional Orders: cbc with diff and bmp in 2-3 days for stability. POLST Discussion: Not Applicable Medical Emergencies . Who to Call and When: Medical Emergencies: If at any time you feel your situation is an emergency, please call 911 immediately. . Non-Emergent Contact Non-Emergency issues call your: Primary Care Provider Call Non-Emergent contact if: temperature is above 100.5, you have any medication questions . . "Provider Documentation" section prepared by Juan Miguel Weiner. . Core Measure Problem Core Measures: None
--- NOTE | 2016-10-06 11:57 | Discharge Summary ---
Discharge Summary Date of Service Oct 06, 2016. Discharge Summary Admission Date: Oct 02, 2016 at 08:22 Discharge Date: Oct 03, 2016 Discharge Disposition: detention facility ([facility]) Principal Diagnosis: syncope, etiology uncertain, possibly neurocardiogenic Problems/Secondary Diagnoses: 1. 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 chemotherapy-induced pancytopenia 3. COPD 4. CAD 5. dementia 6. prior falls 7. h/o alcoholism 8. HTN 9. hypothyroidism 10. h/o acute [place] 11. seizure disorder 12. h/o UTIs 13. schizophrenia 14. h/o right-sided renal cell carcinoma 15. chronic hyponatremia - SIADH? 16. CKD stage 3 17. GERD Immunizations: Have You Had Influenza Vaccine: Unknown Influenza Vaccine Date: Nov 10, 2004 History of Tetanus Vaccine?: Unknown History of Pneumococcal: Unknown History of Hepatitis B Vaccine: Unknown Procedures: 1. echocardiogram - * -- Conclusions -- * 1. Normal left ventricular size with hyperdynamic systolic function. EF > 70% . No regional wall motion abnormalities. No left ventricular hypertrophy. Type I diastolic dysfunction. * 2. The left atrium is mildly dilated. * 3. Trace aortic regurgitation. * 4. No prior study available for comparison. 2. CT cervical spine - IMPRESSION: 1. No acute cervical spine fracture or subluxation. 2. Anterior fusion with prior discectomy at C5-C6. 3. Multilevel degenerative changes as above, notably with a posterior disc osteophyte complex formation at C4-C5 causing moderate central canal and severe bilateral foraminal narrowing. 4. Remote appearing superior endplate compression deformities of the T1 and T2 levels. 3. CT head negative for fractures or ICH or acute stroke 4. MRI brain - IMPRESSION: 1. No acute intracranial findings. 2. Marked cerebral atrophy. 3. Moderate small vessel disease and several old left basal ganglia lacunar infarcts. 5. EEG - negative for seizure activity Consultations: PT, OT Medication Reconciliation New Medications: Carvedilol (Carvedilol) 3.125 Mg Tab 3.125 MG PO BID, #60 TAB 5 Refills Changed Medications: Amlodipine (Norvasc) 5 Mg Tab 5 MG PO DAILY, #30 TAB 5 Refills (Changed from: BID AT 0830 & 1630; Refills: ) Continued Medications: Acetaminophen (Tylenol) 325 Mg Tab 650 MG PO Q6 PRN for Pain or Fever, 0 Refills DO NOT EXCEED 3000MG APAP/24 HOURS. Duloxetine Hcl (Cymbalta) 20 Mg Cap 40 MG PO QAM Ferrous Sulfate (Kp Ferrous Sulfate) 325 Mg Tab 325 MG PO QAM, TAB Gabapentin (Neurontin) 400 Mg Cap 400 MG PO TID GIVE AT 0030/0830/1630 Haloperidol (Haloperidol) 1 Mg Tab 1 MG PO TID Ipratropium-Albuterol (Combivent Respimat) 1 Aer Aer 1 PUFFS INH QID, INH Multivitamin (Multivitamin) Tab 1 TABLET PO QAM, 0 Refills ONE A DAY WOMAN'S. Ondansetron Hcl (Zofran) 8 Mg Tab 8 MG PO TID PRN for Nausea, TAB Oxycodone Ir (Roxicodone Ir) 5 Mg Tab 5 MG PO Q6H PRN for Pain, #30 TAB 0 Refills (This prescription has been renewed) Phenobarbital (Phenobarbital) 64.8 Mg Tab 64.8 MG PO DAILY GIVE AT 2030 Phenytoin Sodium Extended (Dilantin) 30 Mg Cap 90 MG PO BID GIVE AT 0830 AND 1630 Phenytoin Sodium Extended (Dilantin) 30 Mg Cap 60 MG PO DAILY@ 2030 Polyethylene Glycol 3350 (Miralax) 1 Pow Pow 17 GM PO DAILY PRN for Constipation, #527 GM Quetiapine Fumarate (Seroquel) 25 Mg Tab 25 MG PO HS Ranitidine (Zantac) 150 Mg Tab 150 MG PO BID DOSE TIMES 0930 & 2030 Rivastigmine Tartrate (Exelon) 1.5 Mg Cap 1.5 MG PO BID, CAP 5733-5058 Sennosides-Docusate Sodium (Senna/Docusate Sodium) 1 Tab Tab 1 TAB PO BID AT 0830 & 1630 Sodium Chloride (Sodium Chloride) 1 Gm Tab 1 TAB PO QAM Discontinued Medications: Metoprolol Succ (Toprol Xl) (Toprol-Xl) 25 Mg Tabcr 25 MG PO QAM Prochlorperazine Maleate (Compazine) 10 Mg Tab 10 MG PO Q6H PRN for Nausea or Vomiting, TAB Discharge Exam Physical Exam: General Appearance: no apparent distress ENT: pharynx normal Neck: no JVD Respiratory/Chest: lungs clear, no respiratory distress, no accessory muscle use Cardiovascular: no gallop, no murmur, normal peripheral pulses, + bradycardia Abdomen / GI: normal bowel sounds, non tender, soft, no organomegaly Extremities: no pedal edema Neurologic/Psychiatric: no motor/sensory deficits, alert, + disoriented Skin: no rash Hospital Course HISTORY OF PRESENT ILLNESS: 70yo female with multiple medical problems including recent diagnosis of ureteral cancer of the left ureter, s/p surgery 05/2016 with ongoing chemotherapy ; schizophrenia, dementia, HTN, seizure disorder, and CAD - currently a resident of [facility]. The patient was in her usual state of health until about 0330 this AM when she was found sitting/lying on the floor outside the bathroom by intermediate staff members. She was awake and alert when she was found on the ground. When the patient herself was asked about details of that event she states "I really can' t remember" but then stated "I think I tripped." She is unsure but believes she may have been trying to get up from a chair at that time. Prior to her being found on the ground the events leading up to that were unwitnessed. 2-3 staff members apparently assisted her up from the ground and got her to the bathroom. She was placed on the toilet at which point she went unresponsive. She had a pulse and was breathing but she lost consciousness. There was no apparent seizure activity. She was assisted back to bed and frequent vitals were checked over the next hour. Despite stability in her vitals she remained unresponsive/nonverbal. About 0430, due to the persistence of the unresponsiveness, EMS was called. During transport to [facility] she apparently started to regain consciousness. Then, upon arrival here, she was still fairly unresponsive but vitals still remained stable. At some point during her stay in the ER here she regained full consciousness, was talking, and asking for breakfast. During my assessment she was fully awake, alert, and able to follow commands. Due to her dementia she was able to give very limited history. HOSPITAL COURSE: The exact etiology for the patient's apparent fall (vs syncope) followed by an episode of unresponsiveness after using the toilet at the intermediate was not entirely certain. Extensive work-up including CT head, MRI brain, EEG, echocardiogram, telemetry, cardiac enzymes, and urine culture were ALL NEGATIVE/NORMAL. Fortunately she had no evidence of any injury from her event. Her fall and unresponsive episode were in the setting of chemotherapy-induced pancytopenia as well as possible mild dehydration and perhaps the latter set her up for an episode of neurocardiogenic syncope. The patient's phenobarbital level was low during this stay but there were no reports of any seizure-like activity at the intermediate and again her EEG did not show any apparent seizure focus. Although the patient was neutropenic on the AM of hospital day #2 she had no fever or infectious symptoms and thus no granulocyte stimulating agent was given. The only issue addressed while here was that of low-normal blood pressure and sinus bradycardia. The following changes were made - 1. her amlodipine dose was reduced to 5mg once daily 2. low-dose coreg 3.125mg BID was substituted for metoprolol xl All other medical problems remained stable while hospitalized. She will follow-up with Dr. Real Santacruz, oncology, within 1 week to determine if chemotherapy for her ureteral cancer will be continued. Total Time Spent: Greater than 30 minutes This includes examination of the patient, discharge planning, medication reconciliation, and communication with other providers. Discharge Instructions Please refer to the electronic Patient Visit Report (Discharge Instructions) for additional information. Follow-Up 1. see medical specialist of Tatiana Saucedo within 2-[address] Real Santacruz, oncology, within 1 week Additional Copies To Lewis Simpson; Jorje Romo M.D.; Real Santacruz MD; Douglas Moreau M.D.
== END 2016-10-03 15:00 ==
LOC: EDBD 05:34 → C.EDA 05:35 → UNDOADMOB 08:22 → C.MED 08:22 → ENRESERV 09:05
PROVIDERS: ADMIT Internal Medicine; ATTEND Internal Medicine
DX: S06.9X9A Unspecified intracranial injury with loss of consciousness of unspecified duration, initial encounter (principal); R41.82 Altered mental status, unspecified; R55 Syncope and collapse; W18.12XA Fall from or off toilet with subsequent striking against object, initial encounter; C64.9 Malignant neoplasm of unspecified kidney, except renal pelvis; C66.2 Malignant neoplasm of left ureter; Z79.899 Other long term (current) drug therapy; F20.0 Paranoid schizophrenia; J44.9 Chronic obstructive pulmonary disease, unspecified; F32.9 Major depressive disorder, single episode, unspecified; I10 Essential (primary) hypertension; F10.21 Alcohol dependence, in remission; Z88.2 Allergy status to sulfonamides; I25.2 Old myocardial infarction; M81.0 Age-related osteoporosis without current pathological fracture

== ENCOUNTER → 2016-10-07 | Outpatient (CLI) | payer OTHER ==
[~2016-10-07] MED LIST changes: -CPR500 PO; +CRG3125 PO; -METO25TA3 PO; +PHEN-310 PO; -PROC1TAB5 PO
[2016-10-07 09:24] LABS: BLOOD UREA NITROGEN 16 mg/dl (7-18); BUN/CREATININE RATIO 14.6 (10-20); CARBON DIOXIDE 26 mmol/L (21-32); CHLORIDE 101 mmol/L (98-107); GLUCOSE 80 mg/dl (70-99); POTASSIUM 4.4 mmol/L (3.5-5.1); SODIUM 133 mmol/L (136-145)
== END ==
LOC: C.LABCC 08:36
PROVIDERS: ATTEND Internal Medicine
DX: D64.9 Anemia, unspecified (principal)

== ENCOUNTER → 2016-10-08 | Outpatient (CLI) | payer OTHER ==
[2016-10-08 08:35] LABS: BASO % 0.4 %; BASO ABS # 0.01 K/uL (0-0.2); EOS % 3.4 %; HEMATOCRIT 23.6 % (37-47); LYMPH % 29.1 %; LYMPH ABS # 0.68 K/uL (1.2-3.4); MEAN CELL VOLUME 86.8 fL (80-100); MEAN CORPUSCULAR HEMOGLOBIN 28.7 pg (25-34); MEAN CORPUSCULAR HGB CONC 33.1 g/dl (32-36); MEAN PLATELET VOLUME 10.2 fL (7.4-10.4); MONO % 21.8 %; NEUT % 45.3 %; PLATELET COUNT 105 K/uL (130-400); RED BLOOD COUNT 2.72 M/uL (4.2-5.4); WHITE BLOOD COUNT 2.34 K/uL (4.8-10.8)
[2016-10-08 09:15] LABS: COMPLETE YES
== END ==
LOC: C.LABCC 08:09
PROVIDERS: ATTEND Internal Medicine
DX: D64.9 Anemia, unspecified (principal)

== ENCOUNTER → 2016-10-09 | Outpatient (CLI) | payer OTHER ==
[2016-10-09 09:08] LABS: MEAN CELL VOLUME 87.1 fL (80-100); MEAN CORPUSCULAR HEMOGLOBIN 28.8 pg (25-34); PLATELET COUNT 159 K/uL (130-400); RED BLOOD COUNT 2.64 M/uL (4.2-5.4)
[2016-10-09 09:16] LABS: ALT/SGPT 14 U/L (12-78); BLOOD UREA NITROGEN 17 mg/dl (7-18); BUN/CREATININE RATIO 15.4 (10-20); CALCIUM 8.8 mg/dl (8.5-10.1); CARBON DIOXIDE 27 mmol/L (21-32); CHLORIDE 100 mmol/L (98-107); GLUCOSE 88 mg/dl (70-99); MAGNESIUM 2.2 mg/dl (1.8-2.4); POTASSIUM 4.1 mmol/L (3.5-5.1); SODIUM 133 mmol/L (136-145)
[2016-10-09 09:18] LABS: ALB/GLOB RATIO 0.7 (0.9-2); ALKALINE PHOSPHATASE 181 U/L (45-117); AST/SGOT 14 U/L (15-37)
[2016-10-09 10:42] LABS: BASO % 0.6 %; BASO ABS # 0.02 K/uL (0-0.2); COMPLETE YES; EOS % 3.3 %; IG% 0.3 %; LYMPH % 23.9 %; LYMPH ABS # 0.79 K/uL (1.2-3.4); MONO % 22.4 %; NEUT % 49.5 %
== END ==
LOC: C.LABCC 08:49
PROVIDERS: ATTEND Internal Medicine
DX: C66.9 Malignant neoplasm of unspecified ureter (principal)

== ENCOUNTER → 2016-10-14 | Outpatient (CLI) | payer OTHER ==
[2016-10-14 12:04] LABS: BLOOD UREA NITROGEN 20 mg/dl (7-18); BUN/CREATININE RATIO 18.1 (10-20); CALCIUM 8.9 mg/dl (8.5-10.1); CARBON DIOXIDE 30 mmol/L (21-32); CHLORIDE 101 mmol/L (98-107); GLUCOSE 86 mg/dl (70-99); POTASSIUM 4.3 mmol/L (3.5-5.1); SODIUM 136 mmol/L (136-145)
== END ==
LOC: C.LABCC 11:10
PROVIDERS: ATTEND Internal Medicine
DX: E87.1 Hypo-osmolality and hyponatremia (principal)

== ENCOUNTER → 2016-10-15 | Outpatient (CLI) | payer OTHER ==
[~2016-10-15] MED LIST changes: -ONDA8TAB6 PO; -OXYC1TAB3 PO
[2016-10-15 08:41] LABS: BLOOD UREA NITROGEN 21 mg/dl (7-18); BUN/CREATININE RATIO 18.9 (10-20); CALCIUM 8.9 mg/dl (8.5-10.1); CARBON DIOXIDE 28 mmol/L (21-32); CHLORIDE 99 mmol/L (98-107); GLUCOSE 83 mg/dl (70-99); POTASSIUM 4.2 mmol/L (3.5-5.1); SODIUM 132 mmol/L (136-145)
== END ==
LOC: C.LABCC 08:21
PROVIDERS: ATTEND Internal Medicine
DX: E87.1 Hypo-osmolality and hyponatremia (principal)

== ENCOUNTER → 2016-10-16 | Outpatient (CLI) | payer OTHER ==
[2016-10-16 17:35] LABS: MANUAL MICROSCOPIC REQUIRED? NO; REVIEW REQ? YES; URINE APPEARANCE CLEAR (CLEAR); URINE BILIRUBIN NEG (NEG); URINE COLOR YELLOW; URINE EPITHELIAL CELL AUTO >30 /lpf (0-5); URINE NITRITE NEG (NEG); URINE PH 6.5 (4.5-7.5); URINE SPECIFIC GRAVITY 1.014 (1.000-1.030); UROBILINOGEN NEG (NEG)
[2016-10-16 18:07] LABS: URINE MUCUS PRESENT (NONE PRSENT)
== END ==
LOC: C.LABCC 17:05
PROVIDERS: ATTEND Internal Medicine
DX: R41.82 Altered mental status, unspecified (principal)

== ENCOUNTER → 2016-10-16 | Outpatient (CLI) | payer OTHER ==
[2016-10-16 08:35] LABS: BASO % 1.4 %; BASO ABS # 0.05 K/uL (0-0.2); COMPLETE YES; EOS % 5.1 %; HEMATOCRIT 33.2 % (37-47); IG% 0.6 %; LYMPH % 29.4 %; LYMPH ABS # 1.04 K/uL (1.2-3.4); MEAN CELL VOLUME 89.5 fL (80-100); MEAN CORPUSCULAR HEMOGLOBIN 30.2 pg (25-34); MEAN CORPUSCULAR HGB CONC 33.7 g/dl (32-36); MEAN PLATELET VOLUME 9.2 fL (7.4-10.4); NEUT % 35.5 %; PLATELET COUNT 434 K/uL (130-400); RED BLOOD COUNT 3.71 M/uL (4.2-5.4); WHITE BLOOD COUNT 3.54 K/uL (4.8-10.8)
[2016-10-16 08:43] LABS: ALT/SGPT 14 U/L (12-78); BLOOD UREA NITROGEN 22 mg/dl (7-18); BUN/CREATININE RATIO 19.8 (10-20); CALCIUM 8.9 mg/dl (8.5-10.1); CARBON DIOXIDE 29 mmol/L (21-32); CHLORIDE 102 mmol/L (98-107); GLUCOSE 84 mg/dl (70-99); POTASSIUM 4.1 mmol/L (3.5-5.1); SODIUM 136 mmol/L (136-145)
[2016-10-16 08:46] LABS: ALB/GLOB RATIO 0.7 (0.9-2); ALKALINE PHOSPHATASE 180 U/L (45-117); AST/SGOT 16 U/L (15-37)
== END ==
LOC: C.LABCC 08:25
PROVIDERS: ATTEND Internal Medicine
DX: Z79.899 Other long term (current) drug therapy (principal); R41.82 Altered mental status, unspecified

== ENCOUNTER → 2016-10-30 | Outpatient (CLI) | payer OTHER ==
[2016-10-30 08:23] LABS: BASO % 0.5 %; BASO ABS # 0.03 K/uL (0-0.2); COMPLETE YES; EOS % 3.9 %; HEMATOCRIT 31.6 % (37-47); IG% 0.2 %; LYMPH % 17.9 %; LYMPH ABS # 1.18 K/uL (1.2-3.4); MEAN CELL VOLUME 89.8 fL (80-100); MEAN CORPUSCULAR HEMOGLOBIN 30.1 pg (25-34); MEAN CORPUSCULAR HGB CONC 33.5 g/dl (32-36); MEAN PLATELET VOLUME 9.9 fL (7.4-10.4); MONO % 16.7 %; NEUT % 60.8 %; PLATELET COUNT 180 K/uL (130-400); RED BLOOD COUNT 3.52 M/uL (4.2-5.4)
[2016-10-30 08:33] LABS: ALT/SGPT 16 U/L (12-78); BLOOD UREA NITROGEN 21 mg/dl (7-18); CALCIUM 9.1 mg/dl (8.5-10.1); CARBON DIOXIDE 29 mmol/L (21-32); CHLORIDE 101 mmol/L (98-107); GLUCOSE 82 mg/dl (70-99); SODIUM 136 mmol/L (136-145)
[2016-10-30 08:36] LABS: ALB/GLOB RATIO 0.6 (0.9-2); ALKALINE PHOSPHATASE 189 U/L (45-117); AST/SGOT 18 U/L (15-37)
== END ==
LOC: C.LABCC 07:38
PROVIDERS: ATTEND Internal Medicine
DX: C66.9 Malignant neoplasm of unspecified ureter (principal)

== ENCOUNTER → 2016-11-01 | Outpatient (CLI) | payer OTHER ==
[2016-11-01 15:20] LABS: URINE APPEARANCE CLEAR (CLEAR); URINE BILIRUBIN NEG (NEG); URINE COLOR YELLOW; URINE EPITHELIAL CELL AUTO 0-5 /lpf (0-5); URINE NITRITE NEG (NEG); URINE SPECIFIC GRAVITY 1.012 (1.000-1.030); UROBILINOGEN NEG (NEG)
[2016-11-01 15:24] LABS: MANUAL MICROSCOPIC REQUIRED? NO; REVIEW REQ? YES
== END ==
LOC: C.LABCC 09:06
PROVIDERS: ATTEND Internal Medicine
DX: R45.1 Restlessness and agitation (principal); R41.82 Altered mental status, unspecified; Z91.81 History of falling

== ENCOUNTER → 2016-11-19 | Outpatient (CLI) | payer OTHER ==
[2016-11-19 08:54] LABS: BASO ABS # 0.04 K/uL (0-0.2); COMPLETE YES; EOS % 4.8 %; HEMATOCRIT 32.1 % (37-47); LYMPH % 19.1 %; MEAN CELL VOLUME 89.2 fL (80-100); MEAN CORPUSCULAR HEMOGLOBIN 30.3 pg (25-34); MEAN PLATELET VOLUME 9.3 fL (7.4-10.4); MONO % 17.2 %; NEUT % 57.9 %; PLATELET COUNT 222 K/uL (130-400); WHITE BLOOD COUNT 4.19 K/uL (4.8-10.8)
[2016-11-19 09:03] LABS: ALT/SGPT 15 U/L (12-78); BLOOD UREA NITROGEN 13 mg/dl (7-18); CALCIUM 9.3 mg/dl (8.5-10.1); CARBON DIOXIDE 27 mmol/L (21-32); CHLORIDE 99 mmol/L (98-107); GLUCOSE 89 mg/dl (70-99); MAGNESIUM 2.2 mg/dl (1.8-2.4); POTASSIUM 3.8 mmol/L (3.5-5.1); SODIUM 133 mmol/L (136-145)
[2016-11-19 09:06] LABS: ALB/GLOB RATIO 0.6 (0.9-2); ALKALINE PHOSPHATASE 189 U/L (45-117); AST/SGOT 17 U/L (15-37)
== END ==
LOC: C.LABCC 08:34
PROVIDERS: ATTEND Internal Medicine
DX: C80.1 Malignant (primary) neoplasm, unspecified (principal)

== ENCOUNTER → 2016-11-20 | Outpatient (CLI) | payer OTHER ==
[~2016-11-20] MED LIST changes: +OPTIRAY 320 IV PRN
--- NOTE | 2016-11-20 11:22 | DIAGNOSTIC IMAGING REPORT ---
CT ABD/PELVIS IV AND ORAL CONT CLINICAL HISTORY: URETERAL CA COMPARISON STUDY: 01/25/2016 TECHNIQUE: Following the IV administration of 70 mL of Optiray-320, CT scan of the abdomen and pelvis was performed from the lung bases to the proximal femurs. Images are reviewed in the axial, sagittal, and coronal planes. IV contrast was administered without complication. A dose lowering technique was utilized adhering to the principles of ALARA. CT DOSE: FINDINGS: Lower chest: There are mild basilar atelectatic changes. Liver: The contrast-enhanced liver is normal in size, contour, and attenuation. There is no intrahepatic biliary ductal dilatation. The hepatic veins and portal veins are patent. Gallbladder: Unremarkable. Spleen: Normal in size and attenuation. Pancreas: Unremarkable. Adrenal glands: Unremarkable. Kidneys: The patient is status post a right nephrectomy. There is persistent left-sided hydronephrosis and hydroureter. There is ectopic insertion of the left ureter, possibly secondary to a ureteral implantation procedure. No left renal masses are visualized. Bowel: There are no transition zones indicate bowel obstruction. There is colonic diverticulosis. There are no acute peridiverticular inflammatory changes. Peritoneum: There is no intraperitoneal free air or abdominal ascites. Vasculature: The abdominal aorta is normal in course and caliber. Adenopathy: None. There is a 5 cm fluid collection abutting the left iliac vessels. Given the history of prior lymph node dissection, this likely represents a postsurgical seroma/lymphocele. A left ovarian cyst is within the differential but is felt to be statistically less likely. Pelvic viscera: There is bladder wall thickening. This remain similar to the preceding study. Skeletal structures: No destructive lesions are visualized. There is an old severe L1 compression deformity. Multiple additional to a body endplate compression deformities are evident. IMPRESSION: 1. Postsurgical changes are prior right nephrectomy 2. Stable diffuse bladder wall thickening 3. Persistent left-sided hydronephrosis and hydroureter. Interval reimplantation left ureter. 4. 5 cm fluid collection abutting the left iliac vessels. Given the history of a prior lymph node dissection this likely represents a postsurgical lymphocele Electronically signed by: Van Hernandez M.D. 11/20/2016 11:21 AM Dictated Date/Time: 11/20/2016 11:08 AM
--- NOTE | 2016-11-20 11:23 | DIAGNOSTIC IMAGING REPORT ---
CHEST CT WITH CONTRAST CT DOSE: 738.37 mGy.cm HISTORY: Ureteral cancer. Follow-up. TECHNIQUE: Multiaxial CT images of the chest were performed following the intravenous administration of contrast. A dose lowering technique was utilized adhering to the principles of ALARA. COMPARISON: Chest CT 06/18/2006. FINDINGS: The central airways are patent. No pleural effusions. No pneumothorax. There are at least 7 new pulmonary nodules seen scattered throughout the lungs. Dominant nodules measure up to 6 mm. Cervical spinal fusion hardware is partially visualized. Multiple old, healed bilateral rib fractures. No suspicious lytic or blastic osseous lesions. Old sternal fracture. Left subclavian Port-A-Cath terminates in the right internal mammary vein. No mediastinal or hilar lymphadenopathy. The heart is mildly enlarged. Normal caliber thoracic aorta. Coronary artery calcifications. The main pulmonary arteries are patent. IMPRESSION: 1. There are at least 7 new pulmonary nodules seen throughout the lungs measuring up to 6 mm. This is suspicious for metastatic disease. 2. The left subclavian Port-A-Cath terminates in the right internal mammary vein. This should be removed/reposition. Electronically signed by: Dereck Vick M.D. 11/20/2016 11:22 AM Dictated Date/Time: 11/20/2016 11:09 AM
== END | disposition home or self-care (01) ==
LOC: C.CTS 08:49
PROVIDERS: ATTEND Nurse Practitioner Family
DX: C66.2 Malignant neoplasm of left ureter (principal); N13.30 Unspecified hydronephrosis; N13.4 Hydroureter; R91.8 Other nonspecific abnormal finding of lung field

== ENCOUNTER → 2016-11-25 | Outpatient (CLI) | payer OTHER ==
[~2016-11-25] MED LIST changes: -OPTIRAY 320 IV PRN
--- NOTE | 2016-11-25 15:20 | MAMMOGRAPHY REPORT ---
BILATERAL DIGITAL SCREENING MAMMOGRAM WITH CAD: 11/25/2016 CLINICAL HISTORY: Routine screening. Patient has no complaints. TECHNIQUE: Bilateral CC, MLO and repeat right MLO views were obtained. Current study was also evalua pablo with a Computer Aided Detection (CAD) system. COMPARISON: Comparison is made to exams dated: 10/18/2015 mammogram, 10/18/2013 mammogram, 10/05/2012 liz mogram, 03/27/2010 mammogram, 03/27/2010 ultrasound, and 08/14/2009 ultrasound - [facility] nter. BREAST COMPOSITION: The tissue of both breasts is almost entirely fatty. FINDINGS: The examination is suboptimal due to inability of the patient to adequately position for th e exam. Wheelchair-bound and posterior tissue is excluded from the field of view despite assistance from a nursing teacher. There are mild vascular calcifications and scattered benign-appearing punctate microcalcifications in the breasts. Stable asymmetry in the lateral left breast. No suspicious mass , architectural distortion or cluster of microcalcifications is seen. IMPRESSION: ACR BI-RADS CATEGORY 1: NEGATIVE There is no mammographic evidence of malignancy, within the limitations of the exam. A 1 year screeni ng mammogram is recommended. The patient will receive written notification of the results. Approximately 10% of breast cancers are not detected with mammography. A negative mammographic report should not delay biopsy if a clinically suggestive mass is present. Kim Ken M.D. ay/:11/25/2016 14:10:15 [employer] Worker: Sarah Terry, [facility] letter sent: Normal 1/2 BI-RADS Code: ACR BI-RADS Category 1: Negative
== END ==
LOC: C.MAMM 12:53
PROVIDERS: ATTEND Internal Medicine
DX: Z12.31 Encounter for screening mammogram for malignant neoplasm of breast (principal)

== ENCOUNTER → 2016-11-27 | Outpatient (CLI) | payer OTHER ==
[2016-11-27 09:18] LABS: URINE APPEARANCE CLEAR (CLEAR); URINE BILIRUBIN NEG (NEG); URINE COLOR YELLOW; URINE EPITHELIAL CELL AUTO >30 /lpf (0-5); URINE NITRITE NEG (NEG); URINE SPECIFIC GRAVITY 1.007 (1.000-1.030); UROBILINOGEN NEG (NEG)
[2016-11-27 09:21] LABS: MANUAL MICROSCOPIC REQUIRED? NO; REVIEW REQ? YES
[2016-11-27 09:51] LABS: BASO % 0.4 %; BASO ABS # 0.02 K/uL (0-0.2); COMPLETE YES; EOS % 5.2 %; LYMPH % 22.3 %; LYMPH ABS # 1.03 K/uL (1.2-3.4); MEAN CELL VOLUME 90.2 fL (80-100); MEAN CORPUSCULAR HGB CONC 32.1 g/dl (32-36); MEAN PLATELET VOLUME 9.7 fL (7.4-10.4); MONO % 15.4 %; NEUT % 56.7 %; PLATELET COUNT 203 K/uL (130-400); RED BLOOD COUNT 3.66 M/uL (4.2-5.4); WHITE BLOOD COUNT 4.61 K/uL (4.8-10.8)
[2016-11-27 10:16] LABS: ALT/SGPT 14 U/L (12-78); BLOOD UREA NITROGEN 17 mg/dl (7-18); BUN/CREATININE RATIO 15.4 (10-20); CALCIUM 9.2 mg/dl (8.5-10.1); CARBON DIOXIDE 28 mmol/L (21-32); CHLORIDE 99 mmol/L (98-107); CREATININE 1.08 mg/dl (0.60-1.20); GLUCOSE 92 mg/dl (70-99); POTASSIUM 3.7 mmol/L (3.5-5.1); SODIUM 135 mmol/L (136-145)
[2016-11-27 10:26] LABS: ALB/GLOB RATIO 0.6 (0.9-2); ALKALINE PHOSPHATASE 189 U/L (45-117); AST/SGOT 15 U/L (15-37)
== END | disposition home or self-care (01) ==
LOC: C.LABCC 08:45
PROVIDERS: ATTEND Internal Medicine
DX: R11.0 Nausea (principal); R51 Headache; R10.9 Unspecified abdominal pain

== ENCOUNTER 2016-12-23 08:37 | Emergency (ER) | payer OTHER ==
[~2016-12-23] VITALS: Ht 157.5 cm; Wt 72.3 kg
[2016-12-23 08:42] VITALS: TEMP 37; Ht 157.5 cm; Wt 72.3 kg
[2016-12-23] MEDS ORDERED: ACETAMINOPHEN 500 MG TAB PO STA (08:58)
[2016-12-23] MEDS ORDERED: METOCLOPRAMIDE HCL INJ 5 MG/ML 2 ML VIAL IV STA (08:58)
--- NOTE | 2016-12-23 09:00 | EMERGENCY ROOM VISIT NOTE ---
History Report prepared by Corina: Karlie Rosas Under the Supervision of: Dr. Bk Simon M.D. First contact with patient: 08:38 Chief Complaint: CHEST PAIN Stated Complaint: CHEST PAIN/HEADACHE History of Present Illness The patient is a 71 year old white female with a past medical history of COPD, coronary artery disease, hypertension, CA, hypothyroidism, dementia, who presents to the ED with a cc of resolved chest pain beginning around 0630 this morning. Positive headache. Negative shortness of breath, cough, numbness, tingling, or weakness. Per nursing notes the patient developed chest pain this morning and EMS states that the patient had left sided weakness. The patient reports normal eating and drinking. She reports normal bowel movements and urination. The patient states that she is a previous smoker. Source of History: patient, EMS, nursing staff Onset: 0630 this morning Position: chest Timing: resolved Associated Symptoms: + headache, No cough, No SOB, No weakness, No numbness Review of Systems See HPI for pertinent positives and negatives. A total of ten systems were reviewed and were otherwise negative. 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 (20) UTI (urinary tract infection) Family History Hypertension Social History Smoking Status: Former Smoker Alcohol Use: none Drug Use: none Marital Status: Housing Status: fdc Occupation Status: retired, disabled Current/Historical Medications Scheduled Amlodipine (Norvasc), 2.5 MG PO DAILY Carvedilol (Carvedilol), 3.125 MG PO BID Duloxetine Hcl (Cymbalta), 40 MG PO QAM Ferrous Sulfate (Kp Ferrous Sulfate), 325 MG PO QAM Gabapentin (Neurontin), 400 MG PO TID Haloperidol (Haloperidol), 1 MG PO TID Ipratropium-Albuterol (Combivent Respimat), 1 PUFFS INH QID Multivitamin (Multivitamin), 1 TABLET PO QAM Phenobarbital (Phenobarbital), 64.8 MG PO DAILY Phenytoin Sodium Extended (Dilantin), 90 MG PO BID Phenytoin Sodium Extended (Dilantin), 60 MG PO HS Quetiapine Fumarate (Seroquel), 25 MG PO HS Ranitidine (Zantac), 150 MG PO BID Rivastigmine Tartrate (Exelon), 1.5 MG PO BID Sennosides-Docusate Sodium (Senna/Docusate Sodium), 1 TAB PO BID AT 0830 & 1630 Sodium Chloride (Sodium Chloride), 1 TAB PO QAM Scheduled PRN Acetaminophen (Tylenol), 650 MG PO Q6 PRN for Pain or Fever Polyethylene Glycol 3350 (Miralax), 17 GM PO DAILY PRN for Constipation Allergies Coded Allergies: Sulfa Antibiotics (Verified Allergy, Severe, mouth swells, bumps on roof of mouth, 12/23/16) Banana (Verified Allergy, Intermediate, RAW -ROOF OF MOUTH SWELLS, ) Physical Exam Vital Signs Date Time Temp Pulse Resp B/P (MAP) Pulse Ox O2 Delivery O2 Flow Rate FiO2 12/23/16 14:21 55 18 139/60 98 12/23/16 13:26 58 18 141/66 100 Nasal Cannula 2.0 12/23/16 13:03 60 12/23/16 12:20 100 Nasal Cannula 2.0 12/23/16 11:31 68 16 137/57 93 Room Air 12/23/16 10:23 61 18 144/57 96 Room Air 12/23/16 08:46 62 12/23/16 08:42 37.0 62 18 108/51 94 Room Air 12/23/16 08:42 94 Room Air Physical Exam GENERAL: Awake, alert, oriented x2, follows commands, well-appearing, NAD HENT: Normocephalic, atraumatic. Thinning hair EYES: Normal conjunctiva. Sclera non-icteric. NECK: Supple. No nuchal rigidity. FROM. RESPIRATORY: CTAB, no rhonchi, wheezing, crackles CARDIAC: RRR, no MRG ABDOMEN: Soft, NTND, BS+ MSK: No chest wall TTP, no LE edema NEURO: CN 2-12 intact, 5/5 upper and lower extremity strength, no dysmetria, no drift, good finger to nose, no sensory deficits. SKIN: No rash or jaundice noted. Medical Decision & Procedures ER Provider Diagnostic Interpretation: Radiology results as stated below per my review and radiologist interpretation: CHEST ONE VIEW PORTABLE HISTORY: 71 years-old Female CHEST PAIN acute atypical chest pain COMPARISON: Chest radiograph 10/02/2016 TECHNIQUE: Upright AP view of the chest FINDINGS: Left subclavian Rihosl-w-Tcmx catheter is unchanged terminating in the region of the SVC. Mild left hemidiaphragmatic elevation is redemonstrated. Linear subsegmental left basilar opacities suggest atelectasis/scarring. There is mild pulmonary vascular congestion without pneumothorax or pleural effusion. Degenerative changes are seen within the shoulders and spine. Partially imaged fusion hardware of the lower cervical spine. Surgical clips of the right upper abdomen suggest prior cholecystectomy. IMPRESSION: 1. No acute cardiopulmonary process. 2. Linear subsegmental left basilar and left perihilar opacity suggests atelectasis/scarring. Unchanged left hemidiaphragm elevation. The above report was generated using voice recognition software. It may contain grammatical, syntax or spelling errors. Electronically signed by: Jim Pabon M.D. 12/23/2016 9:18 AM Dictated Date/Time: 12/23/2016 9:[address] CT DOSE: 614.27 mGy.cm HISTORY: Headaches. TECHNIQUE: Multiaxial CT images of the head were performed without the use of intravenous contrast. Automated exposure control was utilized for this study. A dose lowering technique was utilized adhering to the principles of ALARA. Comparison: Head CT 10/02/2016. Findings: The paranasal sinuses and mastoid air cells are clear. The calvarium and skull base are intact. There is no mass, hematoma, midline shift, acute infarct. White matter hypodensity is nonspecific but suggestive of microvascular ischemic change. The ventricles and sulci demonstrate mild age-related involutional changes. Old lacunar infarct seen within the left basal ganglia. Impression: No significant change compared to the prior study. No acute intracranial abnormality. Electronically signed by: Dereck Vick M.D. 12/23/2016 10:25 AM Dictated Date/Time: 12/23/2016 10:19 AM Laboratory Results 12/23/16 10:01 Red Blood Count 3.34, Mean Corpuscular Volume 92.5, Mean Corpuscular Hemoglobin 31.1, Mean Corpuscular Hemoglobin Concent 33.7, Mean Platelet Volume 9.3, Neutrophils (%) (Auto) 64.0, Lymphocytes (%) (Auto) 18.1, Monocytes (%) (Auto) 13.3, Eosinophils (%) (Auto) 4.0, Basophils (%) (Auto) 0.4, Neutrophils # (Auto ) 3.37, Lymphocytes # (Auto) 0.95, Monocytes # (Auto) 0.70, Eosinophils # (Auto ) 0.21, Basophils # (Auto) 0.02 12/23/16 10:00 Test 12/23/16 10:00 12/23/16 10:01 12/23/16 12:34 Prothrombin Time 11.4 SECONDS (9.0-12.0) Prothromb Time International Ratio 1.1 (0.9-1.1) Activated Partial Thromboplast Time 26.8 SECONDS (21.0-31.0) Partial Thromboplastin Ratio 1.0 Anion Gap 7.0 mmol/L (3-11) Est Creatinine Clear Calc Drug Dose 37.8 ml/min Estimated GFR () 49.2 Estimated GFR (Non- 42.4 BUN/Creatinine Ratio 21.7 (10-20) Calcium Level 8.5 mg/dl (8.5-10.1) Total Bilirubin 0.3 mg/dl (0.2-1) Direct Bilirubin < 0.1 mg/dl (0-0.2) Aspartate Amino Transf (AST/SGOT) 16 U/L (15-37) Alanine Aminotransferase (ALT/SGPT) 18 U/L (12-78) Alkaline Phosphatase 187 U/L (45-117) Pro-B-Type Natriuretic Peptide 279 pg/ml (0-900) Total Protein 7.9 gm/dl (6.4-8.2) Albumin 3.0 gm/dl (3.4-5.0) Lipase 328 U/L (73-393) White Blood Count 5.26 K/uL (4.8-10.8) Red Blood Count 3.34 M/uL (4.2-5.4) Hemoglobin 10.4 g/dL (12.0-16.0) Hematocrit 30.9 % (37-47) Mean Corpuscular Volume 92.5 fL (80-100) Mean Corpuscular Hemoglobin 31.1 pg (25-34) Mean Corpuscular Hemoglobin Concent 33.7 g/dl (32-36) Platelet Count 201 K/uL (130-400) Mean Platelet Volume 9.3 fL (7.4-10.4) Neutrophils (%) (Auto) 64.0 % Lymphocytes (%) (Auto) 18.1 % Monocytes (%) (Auto) 13.3 % Eosinophils (%) (Auto) 4.0 % Basophils (%) (Auto) 0.4 % Neutrophils # (Auto) 3.37 K/uL (1.4-6.5) Lymphocytes # (Auto) 0.95 K/uL (1.2-3.4) Monocytes # (Auto) 0.70 K/uL (0.11-0.59) Eosinophils # (Auto) 0.21 K/uL (0-0.5) Basophils # (Auto) 0.02 K/uL (0-0.2) RDW Standard Deviation 54.6 fL (36.4-46.3) RDW Coefficient of Variation 16.2 % (11.5-14.5) Immature Granulocyte % (Auto) 0.2 % Immature Granulocyte # (Auto) 0.01 K/uL (0.00-0.02) Troponin I < 0.015 ng/ml (0-0.045) Laboratory results reviewed by me Medications Administered Medications (Trade) Dose Ordered Sig/Benito Route Start Time Stop Time Status Last Admin Dose Admin Metoclopramide HCl (Reglan Inj) 10 mg NOW STAT IV 12/23/16 08:58 12/23/16 09:01 DC 12/23/16 09:28 10 MG Acetaminophen (Tylenol Tab) 1,000 mg NOW STAT PO 12/23/16 08:58 12/23/16 09:01 DC 12/23/16 09:28 1,000 MG Heparin Sodium (Porcine) (Heparin 100 Unit/ml 5ml Flush) 5 ml STK-MED ONCE .ROUTE 12/23/16 13:49 12/23/16 13:50 DC 12/23/16 14:00 5 ML ECG Indication: chest pain Rate (beats per minute): 62 Rhythm: sinus rhythm Findings: 1st degree AV block, other (right axis deviation, no STS changes or TWI) ED Course 0845: The patient was evaluated in room B7. A complete history and physical exam was performed. 0858: Ordered Tylenol Tab 1000 mg PO, Reglan Inj 10 mg IV. 1050: I reevaluated the patient and she is going to have a repeat troponin. 1304: I reevaluated the patient and she is resting comfortably. I discussed the exam findings with her and I discussed the treatment plan. She verbalized complete understanding and agreement. She is ready to go home. Medical Decision Differential diagnosis: Etiologies such as migraine headache, meningitis, sinusitis, CO exposure, ICH, SAH, infection, tumor, headache, sinus thrombosis, arterial dissection, as well as others were entertained. Patient was seen and evaluated at the bedside patient presents from a assisted home with the concern for possible chest pain and headache. EMS also purportedly had some concerns of some facet or weakness. Patient does have a history of dementia on exam patient is a no 2 is able to follow commands without issue. Patient denies any history of chest pain and does not complain of any headache. Patient's neuro exam was fairly unremarkable. Patient does have some high risk factors that she has known CAD. Patient did get a workup with blood work, EKG, troponin, and chest x-ray. Patient also did have a CT brain given this initial concern of possible weakness. Again, patient 's neurologic exam was nonfocal she had no deficits. She was given some medication for ?HUDSON. Patient's CT brain is negative. EKG is nonischemic. Patient troponin negative. Patient blood work does show some CKD. Patient chest x-ray unremarkable for any acute changes. I did talk with the patient again 4 hours after presenting she still denied any chest pain. Patient did have a repeat troponin which was again undetectable. Given this, this is less likely to be ACS. Given the patient's history and physical patient has a well score of 0. Less likely to be PE. Patient was feeling well and was able to tolerate by mouth. Patient stated that she wanted to go home. We discussed return precautions. Patient was agreeable with plan. Patient was given strict follow-up, discharge, and return precautions. All questions were answered. Patient was deemed suitable for outpatient follow-up at this time. Patient agreed with the plan of care and was safely discharged home. Medication Reconcilliation Current Medication List: was personally reviewed by me Blood Pressure Screening Patient's blood pressure: Elevated blood pressure Blood pressure disposition: Referred to PCP Impression Primary Impression: Headache Scribe Attestation The scribe's documentation has been prepared under my direction and personally reviewed by me in its entirety. I confirm that the note above accurately reflects all work, treatment, procedures, and medical decision making performed by me. Departure Information Dispostion Home / Self-Care Referrals [facility] (PCP) Forms Call Back Authorization, HOME CARE DOCUMENTATION FORM, IMPORTANT VISIT INFORMATION Patient Instructions Headache Pain, My [facility] Additional Instructions Please return to the emergency department if you have worsening or recurrent symptoms not amenable to at-home treatment. Please call for a follow-up appointment with her primary care physician. Please take your medications as prescribed. If you have other concerns and/or complaints please feel free to also call your primary care physician's office or return the ED for further evaluation, management, and treatment. Take your medications as prescribed. You have been examined and treated today on an emergency basis only. This is not a substitute for, or an effort to provide, complete comprehensive medical care. It is impossible to recognize and treat all injuries or illnesses in a single emergency department visit. It is therefore important that you follow up closely with [facility], your PCP, and/or your specialist(s). Call as soon as possible for an appointment. Thank you for your time and consideration. I look forward to speaking with you again soon. Please don't hesitate to call us if you have any questions. Problem Qualifiers Primary Impression: Headache Headache type: unspecified Headache chronicity pattern: acute headache Intractability: not intractable Qualified Codes: R51 - Headache
[2016-12-23] MEDS ORDERED: PHEN-310 PO (09:12)
[2016-12-23] MEDS ORDERED: AMLO2.5T PO (09:12)
--- NOTE | 2016-12-23 09:19 | DIAGNOSTIC IMAGING REPORT ---
CHEST ONE VIEW PORTABLE HISTORY: 71 years-old Female CHEST PAIN acute atypical chest pain COMPARISON: Chest radiograph 10/02/2016 TECHNIQUE: Upright AP view of the chest FINDINGS: Left subclavian Virxcp-f-Bdux catheter is unchanged terminating in the region of the SVC. Mild left hemidiaphragmatic elevation is redemonstrated. Linear subsegmental left basilar opacities suggest atelectasis/scarring. There is mild pulmonary vascular congestion without pneumothorax or pleural effusion. Degenerative changes are seen within the shoulders and spine. Partially imaged fusion hardware of the lower cervical spine. Surgical clips of the right upper abdomen suggest prior cholecystectomy. IMPRESSION: 1. No acute cardiopulmonary process. 2. Linear subsegmental left basilar and left perihilar opacity suggests atelectasis/scarring. Unchanged left hemidiaphragm elevation. The above report was generated using voice recognition software. It may contain grammatical, syntax or spelling errors. Electronically signed by: Jim Pabon M.D. 12/23/2016 9:18 AM Dictated Date/Time: 12/23/2016 9:13 AM
[2016-12-23 10:11] LABS: BASO % 0.4 %; BASO ABS # 0.02 K/uL (0-0.2); COMPLETE YES; HEMATOCRIT 30.9 % (37-47); IG% 0.2 %; LYMPH % 18.1 %; LYMPH ABS # 0.95 K/uL (1.2-3.4); MEAN CELL VOLUME 92.5 fL (80-100); MEAN CORPUSCULAR HEMOGLOBIN 31.1 pg (25-34); MEAN CORPUSCULAR HGB CONC 33.7 g/dl (32-36); MEAN PLATELET VOLUME 9.3 fL (7.4-10.4); MONO % 13.3 %; PLATELET COUNT 201 K/uL (130-400); RED BLOOD COUNT 3.34 M/uL (4.2-5.4); WHITE BLOOD COUNT 5.26 K/uL (4.8-10.8)
[2016-12-23 10:24] LABS: INR 1.1 (0.9-1.1); PROTHROMBIN TIME (PATIENT) 11.4 SECONDS (9.0-12.0)
--- NOTE | 2016-12-23 10:26 | DIAGNOSTIC IMAGING REPORT ---
HEAD CT NONCONTRAST CT DOSE: 614.27 mGy.cm HISTORY: Headaches. TECHNIQUE: Multiaxial CT images of the head were performed without the use of intravenous contrast. Automated exposure control was utilized for this study. A dose lowering technique was utilized adhering to the principles of ALARA. Comparison: Head CT 10/02/2016. Findings: The paranasal sinuses and mastoid air cells are clear. The calvarium and skull base are intact. There is no mass, hematoma, midline shift, acute infarct. White matter hypodensity is nonspecific but suggestive of microvascular ischemic change. The ventricles and sulci demonstrate mild age-related involutional changes. Old lacunar infarct seen within the left basal ganglia. Impression: No significant change compared to the prior study. No acute intracranial abnormality. Electronically signed by: Dereck Vick M.D. 12/23/2016 10:25 AM Dictated Date/Time: 12/23/2016 10:19 AM
[2016-12-23 10:29] LABS: ALT/SGPT 18 U/L (12-78); AST/SGOT 16 U/L (15-37); BLOOD UREA NITROGEN 28 mg/dl (7-18); BUN/CREATININE RATIO 21.7 (10-20); CALCIUM 8.5 mg/dl (8.5-10.1); CARBON DIOXIDE 27 mmol/L (21-32); CHLORIDE 103 mmol/L (98-107); CREATININE 1.27 mg/dl (0.60-1.20); GLUCOSE 83 mg/dl (70-99); POTASSIUM 4.3 mmol/L (3.5-5.1); SODIUM 137 mmol/L (136-145)
[2016-12-23 10:35] LABS: ALKALINE PHOSPHATASE 187 U/L (45-117)
[2016-12-23 12:20] VITALS: O2SAT 100
[2016-12-23 14:21] VITALS: BP 139/60; PULSE 55; O2SAT 98
== END 2016-12-23 14:15 | disposition home or self-care (01) ==
LOC: EDBD 08:37 → C.EDB 08:38
DX: R51 Headache (principal); I44.0 Atrioventricular block, first degree; I10 Essential (primary) hypertension; I25.10 Atherosclerotic heart disease of native coronary artery without angina pectoris; E03.9 Hypothyroidism, unspecified; F32.9 Major depressive disorder, single episode, unspecified; J44.9 Chronic obstructive pulmonary disease, unspecified; F03.90 Unspecified dementia, unspecified severity, without behavioral disturbance, psychotic disturbance, mood disturbance, and anxiety; I25.2 Old myocardial infarction; G40.909 Epilepsy, unspecified, not intractable, without status epilepticus; M81.0 Age-related osteoporosis without current pathological fracture; Z87.440 Personal history of urinary (tract) infections; Z91.81 History of falling; Z98.890 Other specified postprocedural states; Z87.891 Personal history of nicotine dependence; Z79.899 Other long term (current) drug therapy; Z88.2 Allergy status to sulfonamides; Z91.018 Allergy to other foods; Z82.49 Family history of ischemic heart disease and other diseases of the circulatory system

== ENCOUNTER → 2017-01-12 | Outpatient (CLI) | payer OTHER ==
[~2017-01-12] MED LIST changes: -AMLO-110 PO; +AMLO2.5T PO
--- NOTE | 2017-01-12 11:44 | DIAGNOSTIC IMAGING REPORT ---
(CHEST) THORAX WITHOUT CT DOSE: 216.34 mGycm HISTORY: Ureteral carcinoma CA TECHNIQUE: Multiaxial CT images of the chest were performed without contrast. A dose lowering technique was utilized adhering to the principles of ALARA. COMPARISON: 11/20/2016 FINDINGS: The left central catheter has been repositioned and is now in the superior vena cava. Moderate atherosclerotic change and ectasia thoracic aorta unchanged. Calcification of the carotid arterial vasculature. Nodularity of the right as well as the left hemithorax is slightly progressive. Pleural-based nodule right upper lung has increased from 4 to 7 mm. A right apical has increased from 4 to 8 mm. A left upper lobe nodule has increased from 4 to 7 mm. Several mid lung nodules bilaterally have shown similar changes in terms of size. Basilar lung regions show minimal nodularity which appears generally stable. There are no focal infiltrative changes. Limited evaluation the upper abdomen is unremarkable. There is no significant mediastinal or hilar adenopathy. The axillary regions are unremarkable. The osseous structures remain unremarkable. Mild stable degenerative changes of thoracic spine. IMPRESSION: 1. Mildly progressive metastatic nodules primarily of the mid to upper lung regions bilaterally. 2. These have increased in size as discussed above, but do not appear to change significantly in terms of number. 3. Study is otherwise unremarkable and stable. The above report was generated using voice recognition software. It may contain grammatical, syntax or spelling errors. Electronically signed by: Kelvin Almaraz M.D. 01/12/2017 11:43 AM Dictated Date/Time: 01/12/2017 11:37 AM
== END | disposition home or self-care (01) ==
LOC: C.CTS 11:09
PROVIDERS: ATTEND Internal Medicine Hematology & Oncology
DX: C66.2 Malignant neoplasm of left ureter (principal); C78.01 Secondary malignant neoplasm of right lung; C78.02 Secondary malignant neoplasm of left lung

== ENCOUNTER → 2017-03-09 | Outpatient (CLI) | payer OTHER | LOC: C.LABCC 08:44 | PROVIDERS: ATTEND Internal Medicine | DX: R56.9 Unspecified convulsions (principal) ==

== ENCOUNTER → 2017-03-11 | Outpatient (CLI) | payer OTHER ==
[2017-03-11 10:05] LABS: BASO % 0.4 %; BASO ABS # 0.02 K/uL (0-0.2); EOS % 3.1 %; EOS ABS # 0.17 K/uL (0-0.5); HEMATOCRIT 31.7 % (37-47); HEMOGLOBIN 10.5 g/dL (12.0-16.0); IG# 0.01 K/uL (0.00-0.02); LYMPH % 14.6 %; LYMPH ABS # 0.81 K/uL (1.2-3.4); MEAN CELL VOLUME 91.6 fL (80-100); MEAN CORPUSCULAR HEMOGLOBIN 30.3 pg (25-34); MEAN CORPUSCULAR HGB CONC 33.1 g/dl (32-36); MEAN PLATELET VOLUME 10.1 fL (7.4-10.4); MONO % 13.3 %; MONO ABS # 0.74 K/uL (0.11-0.59); NEUT % 68.4 %; NEUT ABS # 3.81 K/uL (1.4-6.5); PLATELET COUNT 273 K/uL (130-400); RED CELL DISTRIBUTION WIDTH CV 13.9 % (11.5-14.5); RED CELL DISTRIBUTION WIDTH SD 46.1 fL (36.4-46.3); WHITE BLOOD COUNT 5.56 K/uL (4.8-10.8)
[2017-03-11 10:16] LABS: ALBUMIN 2.9 gm/dl (3.4-5.0); ALT/SGPT 18 U/L (12-78); BLOOD UREA NITROGEN 27 mg/dl (7-18); CALCIUM 8.8 mg/dl (8.5-10.1); CARBON DIOXIDE 25 mmol/L (21-32); CREATININE 1.41 mg/dl (0.60-1.20); GLUCOSE 100 mg/dl (70-99); POTASSIUM 3.7 mmol/L (3.5-5.1); SODIUM 137 mmol/L (136-145)
[2017-03-11 10:19] LABS: ALKALINE PHOSPHATASE 188 U/L (45-117); AST/SGOT 17 U/L (15-37); TOTAL PROTEIN 7.9 gm/dl (6.4-8.2)
== END ==
LOC: C.LABCC 09:29
PROVIDERS: ATTEND Internal Medicine
DX: I12.9 Hypertensive chronic kidney disease with stage 1 through stage 4 chronic kidney disease, or unspecified chronic kidney disease (principal); N18.9 Chronic kidney disease, unspecified

== ENCOUNTER → 2017-03-14 | Outpatient (CLI) | payer OTHER | LOC: C.LABCC 12:15 | PROVIDERS: ATTEND Internal Medicine | DX: N39.0 Urinary tract infection, site not specified (principal) ==

== ENCOUNTER → 2017-03-16 | Outpatient (CLI) | payer OTHER ==
[2017-03-16 17:57] LABS: BASO % 0.1 %; BASO ABS # 0.01 K/uL (0-0.2); EOS % 0.7 %; EOS ABS # 0.05 K/uL (0-0.5); HEMOGLOBIN 10.8 g/dL (12.0-16.0); IG# 0.01 K/uL (0.00-0.02); LYMPH % 12.3 %; LYMPH ABS # 0.83 K/uL (1.2-3.4); MEAN CELL VOLUME 90.9 fL (80-100); MEAN CORPUSCULAR HEMOGLOBIN 30.7 pg (25-34); MEAN CORPUSCULAR HGB CONC 33.8 g/dl (32-36); MEAN PLATELET VOLUME 10.3 fL (7.4-10.4); MONO % 12.2 %; MONO ABS # 0.82 K/uL (0.11-0.59); NEUT % 74.6 %; NEUT ABS # 5.01 K/uL (1.4-6.5); PLATELET COUNT 231 K/uL (130-400); RED CELL DISTRIBUTION WIDTH CV 13.9 % (11.5-14.5); RED CELL DISTRIBUTION WIDTH SD 46.3 fL (36.4-46.3); WHITE BLOOD COUNT 6.73 K/uL (4.8-10.8)
[2017-03-16 18:05] LABS: ALBUMIN 2.7 gm/dl (3.4-5.0); ALT/SGPT 18 U/L (12-78); BLOOD UREA NITROGEN 38 mg/dl (7-18); CALCIUM 8.1 mg/dl (8.5-10.1); CARBON DIOXIDE 28 mmol/L (21-32); GLUCOSE 123 mg/dl (70-99); POTASSIUM 3.5 mmol/L (3.5-5.1); SODIUM 135 mmol/L (136-145)
[2017-03-16 18:10] LABS: PHENYTOIN (DILANTIN) 14.1 mcg/mL (10-20)
[2017-03-16 18:16] LABS: ALKALINE PHOSPHATASE 159 U/L (45-117); AST/SGOT 22 U/L (15-37); TOTAL PROTEIN 8.1 gm/dl (6.4-8.2)
== END ==
LOC: C.LABCC 17:30
PROVIDERS: ATTEND Internal Medicine
DX: R53.83 Other fatigue (principal)

== ENCOUNTER → 2017-03-17 | Outpatient (CLI) | payer OTHER ==
[~2017-03-17] MED LIST changes: +GABA-1220 PO; -GABA1CAP5 PO; +RANI150T85 PO; -ZNTT/150 PO
[2017-03-17 08:35] LABS: INFLUENZA B ANTIGEN Neg for Influ B (NEG)
== END | disposition home or self-care (01) ==
LOC: C.LABCC 07:41
PROVIDERS: ATTEND Internal Medicine
DX: R50.9 Fever, unspecified (principal)

== ENCOUNTER → 2017-03-23 | Outpatient (CLI) | payer OTHER | LOC: C.LABCC 18:13 | PROVIDERS: ATTEND Internal Medicine | DX: R82.99 Other abnormal findings in urine (principal) ==

== ENCOUNTER → 2017-03-25 | Outpatient (CLI) | payer OTHER ==
[2017-03-25 09:58] LABS: BASO % 0.3 %; BASO ABS # 0.02 K/uL (0-0.2); EOS % 2.6 %; EOS ABS # 0.19 K/uL (0-0.5); HEMATOCRIT 31.7 % (37-47); HEMOGLOBIN 10.4 g/dL (12.0-16.0); IG# 0.03 K/uL (0.00-0.02); LYMPH % 11.6 %; LYMPH ABS # 0.86 K/uL (1.2-3.4); MEAN CELL VOLUME 90.6 fL (80-100); MEAN CORPUSCULAR HEMOGLOBIN 29.7 pg (25-34); MEAN CORPUSCULAR HGB CONC 32.8 g/dl (32-36); MONO % 11.4 %; MONO ABS # 0.85 K/uL (0.11-0.59); NEUT % 73.7 %; NEUT ABS # 5.49 K/uL (1.4-6.5); PLATELET COUNT 424 K/uL (130-400); RED CELL DISTRIBUTION WIDTH CV 13.4 % (11.5-14.5); RED CELL DISTRIBUTION WIDTH SD 44.4 fL (36.4-46.3); WHITE BLOOD COUNT 7.44 K/uL (4.8-10.8)
[2017-03-25 10:09] LABS: BLOOD UREA NITROGEN 44 mg/dl (7-18); CALCIUM 8.8 mg/dl (8.5-10.1); CARBON DIOXIDE 28 mmol/L (21-32); CREATININE 1.54 mg/dl (0.60-1.20); GLUCOSE 91 mg/dl (70-99); POTASSIUM 3.8 mmol/L (3.5-5.1); SODIUM 135 mmol/L (136-145)
== END ==
LOC: C.LABCC 09:25
PROVIDERS: ATTEND Internal Medicine
DX: R79.89 Other specified abnormal findings of blood chemistry (principal); D64.9 Anemia, unspecified

== ENCOUNTER → 2017-03-26 | Outpatient (CLI) | payer OTHER ==
[2017-03-26 08:34] LABS: BLOOD UREA NITROGEN 42 mg/dl (7-18); CALCIUM 8.6 mg/dl (8.5-10.1); CARBON DIOXIDE 27 mmol/L (21-32); CREATININE 1.42 mg/dl (0.60-1.20); GLUCOSE 95 mg/dl (70-99); POTASSIUM 4.1 mmol/L (3.5-5.1); SODIUM 136 mmol/L (136-145)
== END ==
LOC: C.LABCC 07:59
PROVIDERS: ATTEND Internal Medicine
DX: D64.9 Anemia, unspecified (principal); R94.4 Abnormal results of kidney function studies

== ENCOUNTER → 2017-03-27 | Outpatient (CLI) | payer OTHER ==
[2017-03-27 08:26] LABS: BASO % 0.3 %; BASO ABS # 0.02 K/uL (0-0.2); EOS % 3.8 %; EOS ABS # 0.26 K/uL (0-0.5); HEMATOCRIT 28.5 % (37-47); HEMOGLOBIN 9.6 g/dL (12.0-16.0); IG# 0.01 K/uL (0.00-0.02); LYMPH % 11.4 %; LYMPH ABS # 0.77 K/uL (1.2-3.4); MEAN CELL VOLUME 89.6 fL (80-100); MEAN CORPUSCULAR HEMOGLOBIN 30.2 pg (25-34); MEAN CORPUSCULAR HGB CONC 33.7 g/dl (32-36); MEAN PLATELET VOLUME 9.7 fL (7.4-10.4); MONO % 11.2 %; MONO ABS # 0.76 K/uL (0.11-0.59); NEUT % 73.2 %; NEUT ABS # 4.96 K/uL (1.4-6.5); PLATELET COUNT 376 K/uL (130-400); RED CELL DISTRIBUTION WIDTH CV 13.6 % (11.5-14.5); RED CELL DISTRIBUTION WIDTH SD 45.4 fL (36.4-46.3); WHITE BLOOD COUNT 6.78 K/uL (4.8-10.8)
== END ==
LOC: C.LABCC 07:53
PROVIDERS: ATTEND Internal Medicine
DX: D64.9 Anemia, unspecified (principal)

== ENCOUNTER → 2017-04-07 | Outpatient (CLI) | payer OTHER | LOC: C.LABCC 07:45 | PROVIDERS: ATTEND Internal Medicine | DX: R31.9 Hematuria, unspecified (principal) ==

== ENCOUNTER → 2017-04-13 | Outpatient (CLI) | payer OTHER ==
[~2017-04-13] MED LIST changes: +CIPR1TAB10 PO; +OXYC1TAB3 PO
[2017-04-13 09:06] LABS: BASO % 0.3 %; BASO ABS # 0.03 K/uL (0-0.2); EOS % 4.1 %; HEMATOCRIT 29.8 % (37-47); HEMOGLOBIN 9.7 g/dL (12.0-16.0); IG# 0.03 K/uL (0.00-0.02); LYMPH % 9.9 %; LYMPH ABS # 0.96 K/uL (1.2-3.4); MEAN CELL VOLUME 91.4 fL (80-100); MEAN CORPUSCULAR HEMOGLOBIN 29.8 pg (25-34); MEAN CORPUSCULAR HGB CONC 32.6 g/dl (32-36); MEAN PLATELET VOLUME 9.7 fL (7.4-10.4); MONO ABS # 0.78 K/uL (0.11-0.59); NEUT % 77.4 %; NEUT ABS # 7.54 K/uL (1.4-6.5); PLATELET COUNT 498 K/uL (130-400); RED CELL DISTRIBUTION WIDTH CV 14.5 % (11.5-14.5); WHITE BLOOD COUNT 9.74 K/uL (4.8-10.8)
== END ==
LOC: C.LABCC 08:42
PROVIDERS: ATTEND Internal Medicine
DX: D64.9 Anemia, unspecified (principal)

== ENCOUNTER → 2017-04-16 | Outpatient (CLI) | payer OTHER ==
--- NOTE | 2017-04-16 08:10 | DIAGNOSTIC IMAGING REPORT ---
(CHEST) THORAX WITHOUT CT DOSE: 538.01 mGy.cm HISTORY: Metastatic disease UTERINE CA TECHNIQUE: Multiaxial CT images of the chest were performed without contrast. A dose lowering technique was utilized adhering to the principles of ALARA. COMPARISON: 01/12/2017 FINDINGS: Significant progression of the patient's pulmonary metastatic disease. Increase in size as well as number of multiple upper lung parenchymal nodules. A right upper lobe nodule transaxial image 18 on the prior study has increased from 6 to 9 mm. A left upper lobe superior segment nodule has increased from 7 to 14 mm. A small nodule anterior aspect right pulmonary apex is increased from 79 mm. There has been a considerable increase in volume of several additional superior segment superior segment left lower lobe nodules now measuring 6 and 11 mm increased from the prior study of 3 and 5 mm. Several new nodular densities are identified peripheral to the right hilum within the right upper lobe. Largest measures 1 cm. There is been an increase in a pleural-based nodular density left midlung as well as several small additional micronodules of the lung bases. Hilar and mediastinal regions show no significant adenopathy. Moderate atherosclerotic change thoracic aorta is stable. The central catheter remains in superior vena cava. The heart is mildly enlarged. IMPRESSION: Progressive nodularity of the mid and upper lungs bilaterally. This appearance consistent with that of progressive metastatic disease. The above report was generated using voice recognition software. It may contain grammatical, syntax or spelling errors. Electronically signed by: Kelvin Almaraz M.D. 04/16/2017 8:09 AM Dictated Date/Time: 04/16/2017 8:01 AM
== END | disposition home or self-care (01) ==
LOC: C.CTS 07:41
PROVIDERS: ATTEND Internal Medicine Hematology & Oncology
DX: C66.2 Malignant neoplasm of left ureter (principal); R91.8 Other nonspecific abnormal finding of lung field

== ENCOUNTER 2017-04-17 09:09 | Emergency (ER) | payer OTHER ==
[~2017-04-17] VITALS: Ht 157.5 cm; Wt 79.0 kg
[~2017-04-17 09:09] MED LIST changes: -CIPR1TAB10 PO; -OXYC1TAB3 PO
[2017-04-17 09:13] VITALS: TEMP 37
[2017-04-17] MEDS ORDERED: SODIUM CHLORIDE 0.9% 1000ML 1,000 ML IV STA (09:47)
[2017-04-17] MEDS ORDERED: OXYC1TAB3 PO (09:49)
--- NOTE | 2017-04-17 09:55 | DIAGNOSTIC IMAGING REPORT ---
SINGLE VIEW CHEST CLINICAL HISTORY: Change in mental status. FINDINGS: An AP, portable, upright chest radiograph is compared to study dated 12/23/2016 and correlated with chest CT dated 04/16/2017. The examination is degraded by portable technique and patient rotation. A left subclavian central venous infusion port is unchanged in position. The heart is enlarged and there is atherosclerotic calcification of the thoracic aorta. The pulmonary vasculature is noncongested. Chronic interstitial thickening is similar to previous. Scattered pulmonary nodules are consistent with the patient's known metastatic disease. There are low lung volumes and bibasilar atelectasis. No airspace consolidation, large pleural effusion, or pneumothorax is seen. The skeletal structures are osteopenic. There are numerous healed bilateral rib fractures, as well as chronic posttraumatic deformity of the right humerus and compression deformities in the thoracic spine. Fusion hardware is seen in the lower cervical spine. IMPRESSION: 1. Cardiomegaly with no acute cardiopulmonary abnormality. 2. Multiple pulmonary nodules are again noted and consistent with the patient's known history of metastatic disease. Electronically signed by: Buzz Alvarez M.D. 04/17/2017 9:54 AM Dictated Date/Time: 04/17/2017 9:49 AM
[2017-04-17] MEDS ORDERED: OPTIRAY 320 IV PRN (10:15)
[2017-04-17 10:22] LABS: BASO % 0.4 %; BASO ABS # 0.03 K/uL (0-0.2); EOS % 2.8 %; EOS ABS # 0.24 K/uL (0-0.5); HEMATOCRIT 26.9 % (37-47); HEMOGLOBIN 8.9 g/dL (12.0-16.0); IG# 0.03 K/uL (0.00-0.02); LYMPH % 9.4 %; MEAN CELL VOLUME 90.6 fL (80-100); MEAN CORPUSCULAR HGB CONC 33.1 g/dl (32-36); MEAN PLATELET VOLUME 9.2 fL (7.4-10.4); MONO % 8.1 %; MONO ABS # 0.69 K/uL (0.11-0.59); NEUT % 78.9 %; NEUT ABS # 6.74 K/uL (1.4-6.5); PLATELET COUNT 446 K/uL (130-400); RED CELL DISTRIBUTION WIDTH CV 14.8 % (11.5-14.5); RED CELL DISTRIBUTION WIDTH SD 49.2 fL (36.4-46.3); WHITE BLOOD COUNT 8.53 K/uL (4.8-10.8)
--- NOTE | 2017-04-17 10:26 | EMERGENCY ROOM VISIT NOTE ---
History Report prepared by Corina: Radha Newell Under the Supervision of: Dr. Joaquim Quezada M.D. 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 She was referred her by her physician, Dr. Santacruz, in the cancer center. She has a history of ureteral cancer and dementia. She denies any pain and she understands she is at the hospital. HPI limited by the patient's condition. Source of History: patient, other (Dr. 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 Review of Systems See HPI for pertinent positives & negatives. A total of 10 systems reviewed and were otherwise negative. ROS limited due to the patient's condition. 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 (20) UTI (urinary tract infection) Family History Hypertension Social History Smoking Status: Unknown if Ever Smoked Alcohol Use: none Drug Use: none Marital Status: Housing Status: [facility] Occupation Status: retired, disabled Current/Historical Medications Scheduled Amlodipine (Norvasc), 2.5 MG PO DAILY Ciprofloxacin Hcl (Cipro), 1 TAB PO BID Duloxetine Hcl (Cymbalta), 40 MG PO QAM Ferrous Sulfate (Kp Ferrous Sulfate), 325 MG PO BID Gabapentin (Neurontin), 400 MG PO TID Haloperidol (Haloperidol), 1 MG PO TID Ipratropium-Albuterol (Combivent Respimat), 1 PUFFS INH QID Multivitamin (Multivitamin), 1 TABLET PO QAM Oxycodone Ir (Roxicodone Ir), 5 MG PO BID Phenobarbital (Phenobarbital), 64.8 MG PO HS Phenytoin Sodium Extended (Dilantin), 90 MG PO BID Phenytoin Sodium Extended (Dilantin), 60 MG PO HS Ranitidine (Zantac), 150 MG PO BID Rivastigmine Tartrate (Exelon), 1.5 MG PO BID Sennosides-Docusate Sodium (Senna/Docusate Sodium), 1 TAB PO BID AT 0830 & 1630 Sodium Chloride (Sodium Chloride), 1 TAB PO QAM Scheduled PRN Acetaminophen (Tylenol), 650 MG PO Q6 PRN for Pain or Fever Allergies Coded Allergies: Sulfa Antibiotics (Verified Allergy, Severe, mouth swells, bumps on roof of mouth, 04/17/17) Banana (Verified Allergy, Intermediate, RAW -ROOF OF MOUTH SWELLS, 04/17/17) Physical Exam Vital Signs Date Time Temp Pulse Resp B/P (MAP) Pulse Ox O2 Delivery O2 Flow Rate FiO2 04/17/17 13:39 64 16 151/65 96 Room Air 04/17/17 13:04 67 04/17/17 13:00 68 14 153/59 95 Room Air 04/17/17 11:59 71 19 97 Room Air 04/17/17 11:56 69 140/62 70 14/58 04/17/17 10:42 93 Nasal Cannula 2.0 04/17/17 10:40 92 Room Air 04/17/17 10:38 82 16 148/59 92 Room Air 04/17/17 10:36 72 04/17/17 09:13 37.0 82 16 101/58 91 Room Air Physical Exam GENERAL: Awake, well-appearing, in no acute distress. Cannot answer questions. HENT: Normocephalic, atraumatic. Oropharynx unremarkable. EYES: Normal conjunctiva. Sclera non-icteric. NECK: Supple. No nuchal rigidity. FROM. No JVD. RESPIRATORY: Bilaterally wheezing. CARDIAC: Regular rate, normal rhythm. Extremities warm and well perfused. Pulses equal. ABDOMEN: Tender in the suprapubic region. RECTAL: Deferred. MUSCULOSKELETAL: Chest examination reveals no tenderness. The back is symmetrical on inspection without obvious abnormality. There is no CVA tenderness to palpation. No joint edema. LOWER EXTREMITIES: Calves are equal size bilaterally and non-tender. No edema. No discoloration. NEURO: Normal sensorium. No sensory or motor deficits noted. SKIN: No rash or jaundice noted. Medical Decision & Procedures ER Provider Diagnostic Interpretation: Radiology results as stated below per my review and radiologist interpretation: SINGLE VIEW CHEST CLINICAL HISTORY: Change in mental status. FINDINGS: An AP, portable, upright chest radiograph is compared to study dated 12/23/2016 and correlated with chest CT dated 04/16/2017. The examination is degraded by portable technique and patient rotation. A left subclavian central venous infusion port is unchanged in position. The heart is enlarged and there is atherosclerotic calcification of the thoracic aorta. The pulmonary vasculature is noncongested. Chronic interstitial thickening is similar to previous. Scattered pulmonary nodules are consistent with the patient's known metastatic disease. There are low lung volumes and bibasilar atelectasis. No airspace consolidation, large pleural effusion, or pneumothorax is seen. The skeletal structures are osteopenic. There are numerous healed bilateral rib fractures, as well as chronic posttraumatic deformity of the right humerus and compression deformities in the thoracic spine. Fusion hardware is seen in the lower cervical spine. IMPRESSION: 1. Cardiomegaly with no acute cardiopulmonary abnormality. 2. Multiple pulmonary nodules are again noted and consistent with the patient's known history of metastatic disease. Electronically signed by: Buzz Alvarez M.D. 04/17/2017 9:54 AM Dictated Date/Time: 04/17/2017 9:[address] SCAN OF THE BRAIN WITHOUT IV CONTRAST CLINICAL HISTORY: Change in mental status. COMPARISON STUDY: CT of the brain dated 12/23/2016. TECHNIQUE: Unenhanced axial CT scan of the brain is performed from the vertex to the skull base. A dose lowering technique was utilized adhering to the principles of ALARA. CT DOSE: 1495.65 mGy.cm FINDINGS: Brain parenchyma: There are age-related involutional changes noting moderate subcortical and periventricular microangiopathic change. A chronic lacunar infarct is identified in the left basal ganglia. There is no hemorrhage, mass effect, or evidence of acute territorial ischemia by CT criteria. [place]-white matter is preserved. No extra-axial fluid collection is seen. Ventricles, sulci, cisterns: Prominent secondary to involutional change. Intracranial vasculature: There is atherosclerotic calcification of the cavernous carotid and vertebral arteries. Calvarium: Unremarkable. Sinuses and mastoids: The visualized paranasal sinuses are clear. The mastoid air cells are well pneumatized. Orbits: The bony orbits are grossly intact. IMPRESSION: There is no hemorrhage, mass effect, or evidence of acute territorial ischemia by CT criteria. Electronically signed by: Buzz Alvarez M.D. 04/17/2017 11:21 AM Dictated Date/Time: 04/17/2017 11:[address] SCAN OF THE ABDOMEN AND PELVIS WITH IV CONTRAST CLINICAL HISTORY: Suprapubic pain. 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 COMPARISON STUDY: Abdominal CT dated 11/20/2016. Chest CT dated 04/16/2017. TECHNIQUE: Following the IV administration of 94 cc of Optiray 320, CT scan of the abdomen and pelvis is performed from the lung bases to the proximal femora. Images are reviewed in the axial, sagittal, and coronal planes. IV contrast was administered without complication. A dose lowering technique was utilized adhering to the principles of ALARA. The examination is degraded by streak artifact from the patient's arms which could not be elevated above the abdomen. FINDINGS: Lung bases: The heart is enlarged and without pericardial effusion. The coronary arteries are densely calcified. There is lipomatous hypertrophy of the interatrial septum. A 9 mm pulmonary metastasis is seen at the left lung base image #8. The lung bases are otherwise clear. No airspace consolidation or pleural effusion is identified. The tip of a central venous infusion port is seen at the cavoatrial junction. A tiny hiatal hernia is noted. Liver: The contrast-enhanced liver is normal in size, contour, and attenuation. There is no intrahepatic biliary ductal dilatation. The hepatic veins and portal veins are patent. Gallbladder: Unremarkable. Spleen: Normal in size and attenuation. Pancreas: Atrophic and grossly unremarkable. Adrenal glands: Unremarkable. Kidneys: The right kidney is surgically absent. There is no evidence of recurrent/residual soft tissue lesion in the right renal fossa. The right kidney demonstrates mild cortical atrophy. There is moderate to severe right-sided hydroureteronephrosis. The right ureter is distended to the bladder, where it appears to insert ectopically into the bladder dome. A urothelial lesion is seen in the mid to distal left ureter at the level of the pelvic inlet on image #237. This measures 2.7 x 1.5 cm in transaxial diameter. The ureters dilated distal to this lesion. The right kidney enhances homogeneously. There is a tiny calculus within the remainder of the distal right ureter. This is best seen on axial image #316. Urothelial thickening is seen in the distal right ureter and likely represents tumor. Abdominal vasculature: The abdominal aorta is normal in course and caliber noting advanced atherosclerotic calcification. There is extensive deep venous thrombosis identified in the right iliac veins and extending into the right common femoral vein and the greater saphenous vein. Bowel: There is rectosigmoid fecal impaction. Moderate constipation is observed. No bowel obstruction is identified. The appendix is well-visualized and normal. Peritoneum: There is no intraperitoneal free air or abdominal ascites. Lymphadenopathy: An enlarged retrocrural node on image #67 measures 1.2 cm in short axis. There is retroperitoneal lymphadenopathy. A retrocaval node on image #152 measure up to 10 mm in short axis. An aortocaval node on image #158 measures 10 mm short axis. Enlarged right iliac chain node on image #254 measures 1.8 x 1.5 cm. A right external iliac chain node on image #331 measures approximately 3 x 2 cm. Pelvic viscera: The bladder is markedly distended. There is heterogeneous an asymmetric bladder wall thickening which is greatest posteriorly and near the fundus. The uterus is enlarged and heterogeneous. Heterogeneous material is present throughout the endometrium which measures up to 3.5 cm in thickness. A 4.3 cm simple cystic structure in the left adnexa is likely related to the left ovary. Skeletal structures: The skeletal structures are osteopenic. An osteolytic lesion is seen involving the right acetabulum on image #381 and measures 3 cm. No additional lytic or blastic lesion is clearly identified. There are numerous healed bilateral rib fractures. There is a severe compression deformity of L1 and a moderate compression deformity of L3. Mild compression deformities are seen in T9 and T11. IMPRESSION: 1. There is been marked progression of metastatic disease in the abdomen and pelvis is compared to 11/20/2016. 2. The bladder is markedly distended and demonstrates asymmetric and heterogeneous wall thickening. This likely represents urothelial neoplasm. 3. There is moderate to severe left hydroureteronephrosis, which has has worsened from 11/20/2016. The ureter is dilated to the level of the bladder where it appears to insert ectopically into the bladder dome. 4. There is a new urothelial lesion identified in the mid to distal left ureter at the level of the pelvic inlet. This is new from 11/20/2016. 5. There is retrocrural, retroperitoneal, and iliac chain lymphadenopathy consistent with metastatic disease. 6. An osteolytic lesion is now seen within the right acetabulum and consistent with bony metastatic disease. 7. Progressive pulmonary metastatic disease is seen at the left lung base. 8. There is right iliac and right common femoral deep venous thrombosis. 9. The uterus is enlarged, and there is abnormal low-attenuation soft tissue material present centrally in the expected location of the endometrial canal. This may be related to hydrocolpos/debris from cervical versus soft tissue mass. This may represent direct invasion from the bladder as there is loss of the fat plane. 10. There is rectosigmoid fecal impaction and moderate constipation. 11. Additional findings as above. Electronically signed by: Buzz Alvarez M.D. 04/17/2017 11:45 AM Dictated Date/Time: 04/17/2017 11:22 AM Laboratory Results 04/17/17 10:10 Red Blood Count 2.97, Mean Corpuscular Volume 90.6, Mean Corpuscular Hemoglobin 30.0, Mean Corpuscular Hemoglobin Concent 33.1, Mean Platelet Volume 9.2, Neutrophils (%) (Auto) 78.9, Lymphocytes (%) (Auto) 9.4, Monocytes (%) (Auto) 8.1, Eosinophils (%) (Auto) 2.8, Basophils (%) (Auto) 0.4, Neutrophils # (Auto) 6.74, Lymphocytes # (Auto) 0.80, Monocytes # (Auto) 0.69, Eosinophils # (Auto) 0.24, Basophils # (Auto) 0.03 04/17/17 10:10 Test 04/17/17 09:43 04/17/17 10:10 04/17/17 10:15 04/17/17 11:46 Bedside Glucose 111 mg/dl (70-90) White Blood Count 8.53 K/uL (4.8-10.8) Red Blood Count 2.97 M/uL (4.2-5.4) Hemoglobin 8.9 g/dL (12.0-16.0) Hematocrit 26.9 % (37-47) Mean Corpuscular Volume 90.6 fL (80-100) Mean Corpuscular Hemoglobin 30.0 pg (25-34) Mean Corpuscular Hemoglobin Concent 33.1 g/dl (32-36) Platelet Count 446 K/uL (130-400) Mean Platelet Volume 9.2 fL (7.4-10.4) Neutrophils (%) (Auto) 78.9 % Lymphocytes (%) (Auto) 9.4 % Monocytes (%) (Auto) 8.1 % Eosinophils (%) (Auto) 2.8 % Basophils (%) (Auto) 0.4 % Neutrophils # (Auto) 6.74 K/uL (1.4-6.5) Lymphocytes # (Auto) 0.80 K/uL (1.2-3.4) Monocytes # (Auto) 0.69 K/uL (0.11-0.59) Eosinophils # (Auto) 0.24 K/uL (0-0.5) Basophils # (Auto) 0.03 K/uL (0-0.2) RDW Standard Deviation 49.2 fL (36.4-46.3) RDW Coefficient of Variation 14.8 % (11.5-14.5) Immature Granulocyte % (Auto) 0.4 % Immature Granulocyte # (Auto) 0.03 K/uL (0.00-0.02) Hypochromasia PRESENT Prothrombin Time 11.5 SECONDS (9.0-12.0) Prothromb Time International Ratio 1.1 (0.9-1.1) Anion Gap 7.0 mmol/L (3-11) Estimated GFR () 41.9 Estimated GFR (Non- 36.1 BUN/Creatinine Ratio 31.7 (10-20) Calcium Level 8.9 mg/dl (8.5-10.1) Total Bilirubin 0.3 mg/dl (0.2-1) Direct Bilirubin 0.1 mg/dl (0-0.2) Aspartate Amino Transf (AST/SGOT) 25 U/L (15-37) Alanine Aminotransferase (ALT/SGPT) 25 U/L (12-78) Alkaline Phosphatase 157 U/L (45-117) Total Creatine Kinase 19 U/L (26-192) Creatine Kinase MB < 0.5 ng/ml (0.5-3.6) Creatine Kinase MB Ratio (0-3.0) Troponin I < 0.015 ng/ml (0-0.045) Total Protein 7.7 gm/dl (6.4-8.2) Albumin 2.2 gm/dl (3.4-5.0) Thyroid Stimulating Hormone (TSH) 1.970 uIu/ml (0.300-4.500) Influenza Type A Antigen Neg for Influ A (NEG) Influenza Type B Antigen Neg for Influ B (NEG) Urine Color YELLOW Urine Appearance CLEAR (CLEAR) Urine pH 6.5 (4.5-7.5) Urine Specific [place] 1.010 (1.000-1.030) Urine Protein TRACE (NEG) Urine Glucose (UA) NEG (NEG) Urine Ketones NEG (NEG) Urine Occult Blood TRACE (NEG) Urine Nitrite NEG (NEG) Urine Bilirubin NEG (NEG) Urine Urobilinogen NEG (NEG) Urine Leukocyte Esterase MODERATE (NEG) Urine WBC (Auto) 10-30 /hpf (0-5) Urine RBC (Auto) 5-10 /hpf (0-4) Urine Hyaline Casts (Auto) 1-5 /lpf (0-5) Urine Epithelial Cells (Auto) >30 /lpf (0-5) Urine Bacteria (Auto) NEG (NEG) Urine Renal Epithelial Cells /lpf (0-5) Labs reviewed by ED physician. Medications Administered Medications (Trade) Dose Ordered Sig/Benito Route Start Time Stop Time Status Last Admin Dose Admin Sodium Chloride 1,000 ml @ 999 mls/hr Q1H1M STAT IV 04/17/17 09:47 04/17/17 10:47 DC 04/17/17 09:47 999 MLS/HR Ceftriaxone Sodium (Rocephin Inj) 1 gm NOW STAT IV 04/17/17 12:42 04/17/17 12:43 DC 04/17/17 12:56 1 GM Heparin Sodium (Porcine) (Heparin 100 Unit/ml 5ml Flush) 5 ml STK-MED ONCE .ROUTE 04/17/17 13:31 04/17/17 13:32 DC 04/17/17 13:33 5 ML ED Course 0945: Past medical records reviewed. The patient was evaluated in room A9. A complete history and physical examination was performed. 0947: Sodium Chloride 1000 ml @ 999 mls/hr IV 1242: Rocephin Inj 1 gm IV 0107: Upon reexamination the patient is agreeable. I discussed results and treatment plan with the patient. She verbalizes agreement and understanding. The patient is ready for discharge. Medical Decision Differential diagnosis: Etiologies such as metabolic, infection, hypo/hyperglycemia, electrolyte abnormalities, cardiac sources, intracerebral event, toxicologic, neurologic, as well as others were entertained. This is a 71-year-old female who presents the emergency department over concerns of altered mental status however upon arrival to the emergency department nursing that takes care of this patient notes that the patient is at her baseline. She was given a normal saline bolus here in the emergency department and I will note her laboratory work is not out of the ordinary. I will start her on an antibiotic for a UTI. CAT scans are concerning for progression of her metastatic disease. I do believe that this patient can be safely discharged back to her [facility]. Return to the emergency department if the patient develops fever. Medication Reconcilliation Current Medication List: was personally reviewed by me Blood Pressure Screening Patient's blood pressure: Low blood pressure Blood pressure disposition: Did not require urgent referral Impression Primary Impression: UTI (urinary tract infection) Scribe Attestation The scribe's documentation has been prepared under my direction and personally reviewed by me in its entirety. I confirm that the note above accurately reflects all work, treatment, procedures, and medical decision making performed by me. Departure Information Dispostion Home / Self-Care Prescriptions Ciprofloxacin Hcl (CIPRO) 500 Mg Tab 1 TAB PO BID for 10 Days, #20 TAB Prov: Joaquim Quezada MD 04/17/17 Referrals Jorje Romo M.D. (PCP) Forms HOME CARE DOCUMENTATION FORM, IMPORTANT VISIT INFORMATION Patient Instructions My [facility] Additional Instructions Culture results are usually available in approx 48 hours You have been examined and treated today on an emergency basis only. This is not a substitute for, or an effort to provide, complete comprehensive medical care. It is impossible to recognize and treat all injuries or illnesses in a single emergency department visit. It is therefore important that you follow up closely with Dr Romo. Call as soon as possible for an appointment. Thank you for your time and consideration. I look forward to speaking with you again soon. Please don't hesitate to call us if you have any questions. Problem Qualifiers Primary Impression: UTI (urinary tract infection) Urinary tract infection type: acute cystitis Hematuria presence: with hematuria Qualified Codes: N30.01 - Acute cystitis with hematuria
[2017-04-17 10:29] LABS: INR 1.1 (0.9-1.1)
[2017-04-17 10:39] LABS: ALBUMIN 2.2 gm/dl (3.4-5.0); ALT/SGPT 25 U/L (12-78); BLOOD UREA NITROGEN 46 mg/dl (7-18); CALCIUM 8.9 mg/dl (8.5-10.1); CARBON DIOXIDE 28 mmol/L (21-32); CREATININE 1.45 mg/dl (0.60-1.20); GLUCOSE 103 mg/dl (70-99); POTASSIUM 3.8 mmol/L (3.5-5.1); SODIUM 141 mmol/L (136-145)
[2017-04-17 10:42] VITALS: O2SAT 93
[2017-04-17 10:50] LABS: ALKALINE PHOSPHATASE 157 U/L (45-117); AST/SGOT 25 U/L (15-37); CKMB < 0.5 ng/ml (0.5-3.6); TOTAL PROTEIN 7.7 gm/dl (6.4-8.2)
[2017-04-17 10:52] LABS: INFLUENZA B ANTIGEN Neg for Influ B (NEG)
[2017-04-17 11:06] VITALS: Ht 157.5 cm; Wt 79.0 kg
--- NOTE | 2017-04-17 11:23 | DIAGNOSTIC IMAGING REPORT ---
CT SCAN OF THE BRAIN WITHOUT IV CONTRAST CLINICAL HISTORY: Change in mental status. COMPARISON STUDY: CT of the brain dated 12/23/2016. TECHNIQUE: Unenhanced axial CT scan of the brain is performed from the vertex to the skull base. A dose lowering technique was utilized adhering to the principles of ALARA. CT DOSE: 1495.65 mGy.cm FINDINGS: Brain parenchyma: There are age-related involutional changes noting moderate subcortical and periventricular microangiopathic change. A chronic lacunar infarct is identified in the left basal ganglia. There is no hemorrhage, mass effect, or evidence of acute territorial ischemia by CT criteria. [place]-white matter is preserved. No extra-axial fluid collection is seen. Ventricles, sulci, cisterns: Prominent secondary to involutional change. Intracranial vasculature: There is atherosclerotic calcification of the cavernous carotid and vertebral arteries. Calvarium: Unremarkable. Sinuses and mastoids: The visualized paranasal sinuses are clear. The mastoid air cells are well pneumatized. Orbits: The bony orbits are grossly intact. IMPRESSION: There is no hemorrhage, mass effect, or evidence of acute territorial ischemia by CT criteria. Electronically signed by: Buzz Alvarez M.D. 04/17/2017 11:21 AM Dictated Date/Time: 04/17/2017 11:20 AM
--- NOTE | 2017-04-17 11:47 | DIAGNOSTIC IMAGING REPORT ---
CT SCAN OF THE ABDOMEN AND PELVIS WITH IV CONTRAST CLINICAL HISTORY: Suprapubic pain. 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 COMPARISON STUDY: Abdominal CT dated 11/20/2016. Chest CT dated 04/16/2017. TECHNIQUE: Following the IV administration of 94 cc of Optiray 320, CT scan of the abdomen and pelvis is performed from the lung bases to the proximal femora. Images are reviewed in the axial, sagittal, and coronal planes. IV contrast was administered without complication. A dose lowering technique was utilized adhering to the principles of ALARA. The examination is degraded by streak artifact from the patient's arms which could not be elevated above the abdomen. FINDINGS: Lung bases: The heart is enlarged and without pericardial effusion. The coronary arteries are densely calcified. There is lipomatous hypertrophy of the interatrial septum. A 9 mm pulmonary metastasis is seen at the left lung base image #8. The lung bases are otherwise clear. No airspace consolidation or pleural effusion is identified. The tip of a central venous infusion port is seen at the cavoatrial junction. A tiny hiatal hernia is noted. Liver: The contrast-enhanced liver is normal in size, contour, and attenuation. There is no intrahepatic biliary ductal dilatation. The hepatic veins and portal veins are patent. Gallbladder: Unremarkable. Spleen: Normal in size and attenuation. Pancreas: Atrophic and grossly unremarkable. Adrenal glands: Unremarkable. Kidneys: The right kidney is surgically absent. There is no evidence of recurrent/residual soft tissue lesion in the right renal fossa. The right kidney demonstrates mild cortical atrophy. There is moderate to severe right-sided hydroureteronephrosis. The right ureter is distended to the bladder, where it appears to insert ectopically into the bladder dome. A urothelial lesion is seen in the mid to distal left ureter at the level of the pelvic inlet on image #237. This measures 2.7 x 1.5 cm in transaxial diameter. The ureters dilated distal to this lesion. The right kidney enhances homogeneously. There is a tiny calculus within the remainder of the distal right ureter. This is best seen on axial image #316. Urothelial thickening is seen in the distal right ureter and likely represents tumor. Abdominal vasculature: The abdominal aorta is normal in course and caliber noting advanced atherosclerotic calcification. There is extensive deep venous thrombosis identified in the right iliac veins and extending into the right common femoral vein and the greater saphenous vein. Bowel: There is rectosigmoid fecal impaction. Moderate constipation is observed. No bowel obstruction is identified. The appendix is well-visualized and normal. Peritoneum: There is no intraperitoneal free air or abdominal ascites. Lymphadenopathy: An enlarged retrocrural node on image #67 measures 1.2 cm in short axis. There is retroperitoneal lymphadenopathy. A retrocaval node on image #152 measure up to 10 mm in short axis. An aortocaval node on image #158 measures 10 mm short axis. Enlarged right iliac chain node on image #254 measures 1.8 x 1.5 cm. A right external iliac chain node on image #331 measures approximately 3 x 2 cm. Pelvic viscera: The bladder is markedly distended. There is heterogeneous an asymmetric bladder wall thickening which is greatest posteriorly and near the fundus. The uterus is enlarged and heterogeneous. Heterogeneous material is present throughout the endometrium which measures up to 3.5 cm in thickness. A 4.3 cm simple cystic structure in the left adnexa is likely related to the left ovary. Skeletal structures: The skeletal structures are osteopenic. An osteolytic lesion is seen involving the right acetabulum on image #381 and measures 3 cm. No additional lytic or blastic lesion is clearly identified. There are numerous healed bilateral rib fractures. There is a severe compression deformity of L1 and a moderate compression deformity of L3. Mild compression deformities are seen in T9 and T11. IMPRESSION: 1. There is been marked progression of metastatic disease in the abdomen and pelvis is compared to 11/20/2016. 2. The bladder is markedly distended and demonstrates asymmetric and heterogeneous wall thickening. This likely represents urothelial neoplasm. 3. There is moderate to severe left hydroureteronephrosis, which has has worsened from 11/20/2016. The ureter is dilated to the level of the bladder where it appears to insert ectopically into the bladder dome. 4. There is a new urothelial lesion identified in the mid to distal left ureter at the level of the pelvic inlet. This is new from 11/20/2016. 5. There is retrocrural, retroperitoneal, and iliac chain lymphadenopathy consistent with metastatic disease. 6. An osteolytic lesion is now seen within the right acetabulum and consistent with bony metastatic disease. 7. Progressive pulmonary metastatic disease is seen at the left lung base. 8. There is right iliac and right common femoral deep venous thrombosis. 9. The uterus is enlarged, and there is abnormal low-attenuation soft tissue material present centrally in the expected location of the endometrial canal. This may be related to hydrocolpos/debris from cervical versus soft tissue mass. This may represent direct invasion from the bladder as there is loss of the fat plane. 10. There is rectosigmoid fecal impaction and moderate constipation. 11. Additional findings as above. Electronically signed by: Buzz Alvarez M.D. 04/17/2017 11:45 AM Dictated Date/Time: 04/17/2017 11:22 AM
[2017-04-17] MEDS ORDERED: CEFTRIAXONE SOD INJ 1 GM ADDVIAL IV STA (12:42)
[2017-04-17] MEDS ORDERED: CIPR1TAB10 PO (13:02)
[2017-04-17 13:39] VITALS: BP 151/65; PULSE 64; O2SAT 96
== END 2017-04-17 14:05 | disposition home or self-care (01) ==
LOC: C.EDB 09:10 → C.EDA 14:05
DX: N30.01 Acute cystitis with hematuria (principal); Z85.54 Personal history of malignant neoplasm of ureter; J44.9 Chronic obstructive pulmonary disease, unspecified; I25.10 Atherosclerotic heart disease of native coronary artery without angina pectoris; F03.90 Unspecified dementia, unspecified severity, without behavioral disturbance, psychotic disturbance, mood disturbance, and anxiety; F32.9 Major depressive disorder, single episode, unspecified; I10 Essential (primary) hypertension; E03.9 Hypothyroidism, unspecified; I25.2 Old myocardial infarction; M81.0 Age-related osteoporosis without current pathological fracture; F20.0 Paranoid schizophrenia; Z87.440 Personal history of urinary (tract) infections; F10.21 Alcohol dependence, in remission; Z82.49 Family history of ischemic heart disease and other diseases of the circulatory system; Z79.899 Other long term (current) drug therapy; Z88.2 Allergy status to sulfonamides; Z91.018 Allergy to other foods

== ENCOUNTER → 2017-04-24 | Outpatient (CLI) | payer OTHER ==
[~2017-04-24] MED LIST changes: +BISA10SU3 PR; +CIPR1TAB10 PO; -CRG3125 PO; +LORA-741 PO; +MOML PO; +OXYC1TAB3 PO; -POLY335019 PO; -QUET1TAB91 PO; +RXNS10 PO; +SCOP1.5D2 TD
[2017-04-24 18:16] LABS: BASO % 0.3 %; BASO ABS # 0.03 K/uL (0-0.2); EOS % 1.6 %; EOS ABS # 0.17 K/uL (0-0.5); HEMATOCRIT 26.8 % (37-47); HEMOGLOBIN 8.7 g/dL (12.0-16.0); IG# 0.04 K/uL (0.00-0.02); LYMPH % 5.5 %; LYMPH ABS # 0.58 K/uL (1.2-3.4); MEAN CELL VOLUME 92.1 fL (80-100); MEAN CORPUSCULAR HEMOGLOBIN 29.9 pg (25-34); MEAN CORPUSCULAR HGB CONC 32.5 g/dl (32-36); MEAN PLATELET VOLUME 10.5 fL (7.4-10.4); MONO % 9.7 %; MONO ABS # 1.02 K/uL (0.11-0.59); NEUT % 82.5 %; NEUT ABS # 8.71 K/uL (1.4-6.5); PLATELET COUNT 298 K/uL (130-400); RED CELL DISTRIBUTION WIDTH CV 15.5 % (11.5-14.5); RED CELL DISTRIBUTION WIDTH SD 52.2 fL (36.4-46.3); WHITE BLOOD COUNT 10.55 K/uL (4.8-10.8)
[2017-04-24 18:33] LABS: BLOOD UREA NITROGEN 61 mg/dl (7-18); CALCIUM 8.6 mg/dl (8.5-10.1); CARBON DIOXIDE 26 mmol/L (21-32); CREATININE 2.77 mg/dl (0.60-1.20); GLUCOSE 162 mg/dl (70-99); POTASSIUM 3.6 mmol/L (3.5-5.1); SODIUM 144 mmol/L (136-145)
== END ==
LOC: C.LABCC 17:37
PROVIDERS: ATTEND Internal Medicine
DX: R50.9 Fever, unspecified (principal)

== ENCOUNTER 2017-04-25 14:01 | Inpatient (IN) | payer OTHER ==
[~2017-04-25] VITALS: Ht 157.5 cm; Wt 71.5 kg
[~2017-04-25 14:01] MED LIST changes: -BISA10SU3 PR; -DULO-24 PO; -LORA-741 PO; -MOML PO; -MULT-506 PO; -RXNS10 PO; -SCOP1.5D2 TD
[2017-04-25] MEDS ORDERED: CEFEPIME IV 2,000 MG in DEXTROSE 5% 100ML 100 ML IV STA (14:07)
[2017-04-25] MEDS ORDERED: SODIUM CHLORIDE 0.9% 1000ML 1,000 ML IV STA (14:07)
[2017-04-25] MEDS ORDERED: PIPERACILLIN/TAZOBACTAM 4.5 GM/100ML D5W IV STA (14:07)
[2017-04-25] MEDS ORDERED: PATIENT'S HEIGHT AND/OR WEIGHT NEEDED SCH (14:30)
[2017-04-25] MEDS ORDERED: OPTIRAY 320 IV PRN (14:30)
[2017-04-25 14:37] LABS: BASO % 0.2 %; BASO ABS # 0.02 K/uL (0-0.2); EOS % 1.3 %; EOS ABS # 0.12 K/uL (0-0.5); HEMATOCRIT 27.8 % (37-47); IG# 0.03 K/uL (0.00-0.02); LYMPH % 5.3 %; LYMPH ABS # 0.49 K/uL (1.2-3.4); MEAN CELL VOLUME 91.7 fL (80-100); MEAN CORPUSCULAR HEMOGLOBIN 29.7 pg (25-34); MEAN CORPUSCULAR HGB CONC 32.4 g/dl (32-36); MEAN PLATELET VOLUME 10.1 fL (7.4-10.4); MONO % 11.1 %; MONO ABS # 1.03 K/uL (0.11-0.59); NEUT % 81.8 %; NEUT ABS # 7.56 K/uL (1.4-6.5); PLATELET COUNT 294 K/uL (130-400); RED CELL DISTRIBUTION WIDTH CV 15.5 % (11.5-14.5); WHITE BLOOD COUNT 9.25 K/uL (4.8-10.8)
[2017-04-25 14:41] LABS: INR 1.1 (0.9-1.1); PTT PATIENT 31.7 SECONDS (21.0-31.0)
[2017-04-25 14:55] LABS: ALBUMIN 2.2 gm/dl (3.4-5.0); ALT/SGPT 32 U/L (12-78); BLOOD UREA NITROGEN 70 mg/dl (7-18); CALCIUM 8.6 mg/dl (8.5-10.1); CARBON DIOXIDE 27 mmol/L (21-32); CREATININE 3.21 mg/dl (0.60-1.20); GLUCOSE 146 mg/dl (70-99); LIPASE 169 U/L (73-393); POTASSIUM 3.5 mmol/L (3.5-5.1); SODIUM 146 mmol/L (136-145)
[2017-04-25] MEDS ORDERED: SODIUM CHLORIDE 0.9% 500ML 500 ML IV STA (14:59)
[2017-04-25 15:06] LABS: ALKALINE PHOSPHATASE 172 U/L (45-117); AST/SGOT 38 U/L (15-37); TOTAL PROTEIN 8.6 gm/dl (6.4-8.2)
--- NOTE | 2017-04-25 15:12 | DIAGNOSTIC IMAGING REPORT ---
CHEST ONE VIEW PORTABLE CLINICAL HISTORY: EVALUATE WEAKNESS dyspnea COMPARISON STUDY: 04/17/2017 FINDINGS: Lungs are considered clear. Diaphragms smooth. Central catheter in superior vena cava. Old fracture right humeral neck. Pulmonary nodularity described previously is not as well defined the current study. IMPRESSION: Chronic and postoperative change. No acute process. The above report was generated using voice recognition software. It may contain grammatical, syntax or spelling errors. Electronically signed by: Kelvin Almaraz M.D. 04/25/2017 3:11 PM Dictated Date/Time: 04/25/2017 3:10 PM
[2017-04-25] MEDS ORDERED: MULT-506 PO ×2 (15:19)
[2017-04-25] MEDS ORDERED: IPRA1AER2 INH ×2 (15:21)
[2017-04-25] MEDS ORDERED: OXYC1TAB3 PO ×2 (15:21)
[2017-04-25] MEDS ORDERED: MOML PO ×2 (15:21)
[2017-04-25] MEDS ORDERED: BISA10SU3 PR ×2 (15:21)
--- NOTE | 2017-04-25 15:59 | DIAGNOSTIC IMAGING REPORT ---
ADDENDUM The body of the report should note right nephrectomy. Right colectomy is a typographical error. Electronically signed by: Kelvin Almaraz M.D. 04/30/2017 4:37 PM Dictated Date/Time: 04/30/2017 4:37 PM ORIGINAL REPORT ABD/PELVIS WITHOUT FOR STONE CT DOSE: 1499.31 mGy.cm HISTORY: Pain. Nausea. Metastatic disease. ARF, bacteremia, e.coli uti, ureter CA TECHNIQUE: Multiaxial CT images of the abdomen and pelvis were performed without the use of intravenous and oral contrast according to the standard department stone protocol. A dose lowering technique was utilized adhering to the principles of ALARA. COMPARISON STUDY: 04/17/2017 FINDINGS: Lung bases are considered clear. Slight chronic interstitial prominence. Moderate retrocrural retrocrural adenopathy which is stable. Spleen is unremarkable. There is a small hiatal hernia. Patient is post right colectomy. Left kidney shows evidence for distention of the left renal pelvis as well as the left ureter. This distention is again extends to the insertion of the left ureter. Several pelvic vascular calcifications are present. There is no evidence for an obstructing urinary tract calculus. Bladder is collapsed. Uqintanilla catheter is in position. There is a cystic lesion in the region of the left ovary which is unchanged in the prior study. This measures 3.5 cm at maximum. Adenopathy produces described is unchanged. There is a destructive lesion inferior aspect of the right is acetabulum with a small localized associated soft tissue component. The compression deformities of L1 and L3 are again noted. There are findings of a fecal impaction. There is increased fecal load throughout the colon. There is no significant small bowel distention. IMPRESSION: 1. Similar exam compared to the prior study. 2. Collapsed bladder with a contain Quintanilla catheter. 3. Unchanged left hydroureteronephrosis possibly due to the urothelial lesions previously described. 4. Fecal impaction with increased fecal load throughout the colon. 5. Unchanged destructive lesion right acetabulum. 6. Unchanged moderate compression deformities of the lumbar spine, as well as previously described moderate compression deformities of mild compression deformities of T9 and T11 are similar. 5. Unchanged adenopathy within the abdomen and pelvis The above report was generated using voice recognition software. It may contain grammatical, syntax or spelling errors. Electronically signed by: Kelvin Almaraz M.D. 04/25/2017 3:58 PM Dictated Date/Time: 04/25/2017 3:47 PM
--- NOTE | 2017-04-25 16:07 | EMERGENCY ROOM VISIT NOTE ---
History Report prepared by Corina: Mary Kirkpatrick Under the Supervision of: Dr. Aurelio Olivo M.D. First contact with patient: 14:03 Stated Complaint: ILLNESS History of Present Illness The patient is a 71 year old female who presents to the Emergency Room brought in by EMS with complaints of a persistent urinary tract infection with mild back pain since April 17, 2017. The patient normally resides at [facility]. The patient was recently seen and diagnosed with UTI April 17, 2017. She was prescribed Cipro BID for ten days. Review of patient's records showed: There was a urine culture at that time that showed no specific growth. She had a blood culture on April 24, 2017 that showed Gram Negative Bacilli. She also had another urine culture at that time, though the sensitivities are not back yet. She denies and fevers, chills, chest pain, shortness of breath, or urinary symptoms. She denies any pain or discomfort when urinating. She reports mild back pain near her kidneys, though she reports this has been ongoing. The patient has stage four ureter cancer. She denies any leg pain or abdominal pain. Per EMS, the patient has a UTI and the nursing staff at [facility] could not obtain an IV, so the patient was sent to the ED for IV antibiotic treatment and further evaluation. The patient's oxygen saturation was 86% on RA. The patient also has a history of dementia. HPI is limited secondary to patient's dementia. Source of History: patient, EMS History Limited By: dementia Onset: April 17, 2017 Position: back Symptom Intensity: mild Timing: other (persistent) Associated Symptoms: + back pain, No fevers, No chills, No chest pain, No SOB, No urinary symptoms Review of Systems ROS is limited secondary to patient's dementia. 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 (23) Scalp laceration (24) Scalp laceration (25) Seizure (26) Seizure (27) Sepsis (28) Spinal Surgery (29) Ureteral neoplasm Family History Hypertension Social History Smoking Status: Unknown if Ever Smoked Alcohol Use: none Drug Use: none Marital Status: Housing Status: senior living [facility] Occupation Status: retired, disabled Current/Historical Medications Scheduled Amlodipine (Norvasc), 2.5 MG PO DAILY Bisacodyl (Dulcolax), 1 SYR LA PRN UD Duloxetine Hcl (Cymbalta), 40 MG PO QAM Ferrous Sulfate (Kp Ferrous Sulfate), 325 MG PO BID Gabapentin (Neurontin), 400 MG PO TID Haloperidol (Haloperidol), 1 MG PO BID Ipratropium-Albuterol (Combivent Respimat), 1 PUFFS INH QID Magnesium Hydroxide (Milk Of Magnesia), 30 ML PO PRN UD Multivitamin (Multivitamin), 1 TABLET PO QAM Oxycodone Ir (Roxicodone Ir), 5 MG PO BID Phenobarbital (Phenobarbital), 64.8 MG PO HS Phenytoin Sodium Extended (Dilantin), 90 MG PO BID Phenytoin Sodium Extended (Dilantin), 60 MG PO HS Ranitidine (Zantac), 150 MG PO BID Rivastigmine Tartrate (Exelon), 1.5 MG PO BID Sennosides-Docusate Sodium (Senna/Docusate Sodium), 1 TAB PO BID AT 0830 & 1630 Sodium Chloride (Sodium Chloride), 1 TAB PO QAM Scheduled PRN Acetaminophen (Tylenol), 650 MG PO Q6 PRN for Pain or Fever Oxycodone Immediate Rel Tab (Roxicodone Ir), 5 MG PO Q6H PRN for Pain Allergies Coded Allergies: Sulfa Antibiotics (Verified Allergy, Severe, mouth swells, bumps on roof of mouth, 04/17/17) Banana (Verified Allergy, Intermediate, RAW -ROOF OF MOUTH SWELLS, 04/17/17) Physical Exam Vital Signs Date Time Temp Pulse Resp B/P (MAP) Pulse Ox O2 Delivery O2 Flow Rate FiO2 04/25/17 15:53 79 16 159/69 98 Room Air 04/25/17 14:25 97 Room Air 04/25/17 14:22 83 04/25/17 14:05 94 Room Air 04/25/17 14:05 36.8 84 13 142/80 95 Room Air Physical Exam GENERAL: Awake, but hard of hearing, tired-appearing, in no distress HENT: Normocephalic, atraumatic. Oropharynx dry mucus membranes. EYES: Normal conjunctiva. Sclera non-icteric. NECK: Supple. No nuchal rigidity. FROM. No masses. RESPIRATORY: Scattered crackles, otherwise clear. No wheezes. Normal respiratory effort. CARDIAC: Normal rate. Normal rhythm. No murmurs. No rubs. Extremities warm and well perfused. Pulses equal. No JVD. GI: Soft, non-distended. No tenderness to palpation. No rebound or guarding. No masses. RECTAL: Deferred. MUSCULOSKELETAL: Atraumatic. Chest examination reveals no tenderness. Mediport in left upper chest. CVA tenderness. There is no CVA tenderness to palpation. No joint edema. LOWER EXTREMITIES: Calves are equal size bilaterally and non-tender. No edema. No discoloration. NEURO: Demented sensorium. No sensory or motor deficits noted. SKIN: No rash or jaundice noted. Medical Decision & Procedures ER Provider Diagnostic Interpretation: Radiology results as stated below per my review and radiologist interpretation: CHEST ONE VIEW PORTABLE CLINICAL HISTORY: EVALUATE WEAKNESS dyspnea COMPARISON STUDY: 04/17/2017 FINDINGS: Lungs are considered clear. Diaphragms smooth. Central catheter in superior vena cava. Old fracture right humeral neck. Pulmonary nodularity described previously is not as well defined the current study. IMPRESSION: Chronic and postoperative change. No acute process. The above report was generated using voice recognition software. It may contain grammatical, syntax or spelling errors. Electronically signed by: Kelvin Almaraz M.D. 04/25/2017 3:11 PM Dictated Date/Time: 04/25/2017 3:10 PM ABD/PELVIS WITHOUT FOR STONE CT DOSE: 1499.31 mGy.cm HISTORY: Pain. Nausea. Metastatic disease. ARF, bacteremia, e.coli uti, ureter CA TECHNIQUE: Multiaxial CT images of the abdomen and pelvis were performed without the use of intravenous and oral contrast according to the standard department stone protocol. A dose lowering technique was utilized adhering to the principles of ALARA. COMPARISON STUDY: 04/17/2017 FINDINGS: Lung bases are considered clear. Slight chronic interstitial prominence. Moderate retrocrural retrocrural adenopathy which is stable. Spleen is unremarkable. There is a small hiatal hernia. Patient is post right colectomy. Left kidney shows evidence for distention of the left renal pelvis as well as the left ureter. This distention is again extends to the insertion of the left ureter. Several pelvic vascular calcifications are present. There is no evidence for an obstructing urinary tract calculus. Bladder is collapsed. Quintanilla catheter is in position. There is a cystic lesion in the region of the left ovary which is unchanged in the prior study. This measures 3.5 cm at maximum. Adenopathy produces described is unchanged. There is a destructive lesion inferior aspect of the right is acetabulum with a small localized associated soft tissue component. The compression deformities of L1 and L3 are again noted. There are findings of a fecal impaction. There is increased fecal load throughout the colon. There is no significant small bowel distention. IMPRESSION: 1. Similar exam compared to the prior study. 2. Collapsed bladder with a contain Quintanilla catheter. 3. Unchanged left hydroureteronephrosis possibly due to the urothelial lesions previously described. 4. Fecal impaction with increased fecal load throughout the colon. 5. Unchanged destructive lesion right acetabulum. 6. Unchanged moderate compression deformities of the lumbar spine, as well as previously described moderate compression deformities of mild compression deformities of T9 and T11 are similar. 5. Unchanged adenopathy within the abdomen and pelvis The above report was generated using voice recognition software. It may contain grammatical, syntax or spelling errors. Electronically signed by: Kelvin Almaraz M.D. 04/25/2017 3:58 PM Dictated Date/Time: 04/25/2017 3:47 PM Laboratory Results 04/25/17 14:20 Red Blood Count 3.03, Mean Corpuscular Volume 91.7, Mean Corpuscular Hemoglobin 29.7, Mean Corpuscular Hemoglobin Concent 32.4, Mean Platelet Volume 10.1, Neutrophils (%) (Auto) 81.8, Lymphocytes (%) (Auto) 5.3, Monocytes (%) (Auto) 11.1, Eosinophils (%) (Auto) 1.3, Basophils (%) (Auto) 0.2, Neutrophils # (Auto ) 7.56, Lymphocytes # (Auto) 0.49, Monocytes # (Auto) 1.03, Eosinophils # (Auto ) 0.12, Basophils # (Auto) 0.02 04/25/17 14:20 Test 04/25/17 14:20 04/25/17 14:27 White Blood Count 9.25 K/uL (4.8-10.8) Red Blood Count 3.03 M/uL (4.2-5.4) Hemoglobin 9.0 g/dL (12.0-16.0) Hematocrit 27.8 % (37-47) Mean Corpuscular Volume 91.7 fL (80-100) Mean Corpuscular Hemoglobin 29.7 pg (25-34) Mean Corpuscular Hemoglobin Concent 32.4 g/dl (32-36) Platelet Count 294 K/uL (130-400) Mean Platelet Volume 10.1 fL (7.4-10.4) Neutrophils (%) (Auto) 81.8 % Lymphocytes (%) (Auto) 5.3 % Monocytes (%) (Auto) 11.1 % Eosinophils (%) (Auto) 1.3 % Basophils (%) (Auto) 0.2 % Neutrophils # (Auto) 7.56 K/uL (1.4-6.5) Lymphocytes # (Auto) 0.49 K/uL (1.2-3.4) Monocytes # (Auto) 1.03 K/uL (0.11-0.59) Eosinophils # (Auto) 0.12 K/uL (0-0.5) Basophils # (Auto) 0.02 K/uL (0-0.2) RDW Standard Deviation 52.0 fL (36.4-46.3) RDW Coefficient of Variation 15.5 % (11.5-14.5) Immature Granulocyte % (Auto) 0.3 % Immature Granulocyte # (Auto) 0.03 K/uL (0.00-0.02) Prothrombin Time 11.7 SECONDS (9.0-12.0) Prothromb Time International Ratio 1.1 (0.9-1.1) Activated Partial Thromboplast Time 31.7 SECONDS (21.0-31.0) Partial Thromboplastin Ratio 1.2 Anion Gap 8.0 mmol/L (3-11) Est Creatinine Clear Calc Drug Dose 14.8 ml/min Estimated GFR () 16.0 Estimated GFR (Non- 13.8 BUN/Creatinine Ratio 21.7 (10-20) Calcium Level 8.6 mg/dl (8.5-10.1) Magnesium Level 2.8 mg/dl (1.8-2.4) Total Bilirubin 0.3 mg/dl (0.2-1) Direct Bilirubin 0.1 mg/dl (0-0.2) Aspartate Amino Transf (AST/SGOT) 38 U/L (15-37) Alanine Aminotransferase (ALT/SGPT) 32 U/L (12-78) Alkaline Phosphatase 172 U/L (45-117) Troponin I < 0.015 ng/ml (0-0.045) Total Protein 8.6 gm/dl (6.4-8.2) Albumin 2.2 gm/dl (3.4-5.0) Lipase 169 U/L (73-393) Thyroid Stimulating Hormone (TSH) 2.070 uIu/ml (0.300-4.500) Bedside Lactic Acid Venous 0.68 mmol/L (0.90-1.70) Laboratory results reviewed by me Medications Administered Medications (Trade) Dose Ordered Sig/Benito Route Start Time Stop Time Status Last Admin Dose Admin Sodium Chloride 1,000 ml @ 125 mls/hr Q8H STAT IV 04/25/17 14:07 04/25/17 22:06 04/25/17 14:53 125 MLS/HR Cefepime HCl 2000 mg/Dextrose 112.5 ml @ 200 mls/hr NOW STAT IV 04/25/17 14:07 04/25/17 14:40 DC 04/25/17 14:52 200 MLS/HR Piperacillin Sod/ Tazobactam Sod (Zosyn Iv) 4.5 gm NOW STAT IV 04/25/17 14:07 04/25/17 14:14 DC 04/25/17 14:07 4.5 GM Sodium Chloride 500 ml @ 999 mls/hr Q31M STAT IV 04/25/17 14:59 04/25/17 15:29 DC 04/25/17 14:59 999 MLS/HR ECG Per My Interpretation Indication: other (UTI) Rate (beats per minute): 83 Rhythm: normal sinus Findings: Q waves (Septal), no acute ischemic change, no ectopy, other (Normal intervals) ED Course 1404: The patient was evaluated in room C7. A complete history and physical exam was performed. 1407: Ordered Zosyn 4.5 gm IV, Cefepime HCl 2,000 mg/Dextrose 112.5 ml @ 200 mls /hr IV, and Sodium Chloride 1,000 ml @ 999 mls/hr IV 1459: Ordered Sodium Chloride 500 ml @ 999 mls/hr IV 1601: I spoke with OMERO Sepulveda hospitalist. We discussed the patient's case. The patient will be evaluated by the [facility] for further management. Medical Decision Triage Nursing notes reviewed. The patient's presentation and history were concerning for bacteremia, UTI, low oxygen saturation, recent antibiotic use. Etiologies such as pneumonia, urinary tract infection, sepsis, bacteremia, electrolyte disturbance, as well as others were entertained. The patient was evaluated. Her port was accessed. A blood culture was obtained there. A peripheral culture was ordered. Patient was ordered cefepime and Zosyn for broad-spectrum antibiotic coverage. Her CBC shows a mild anemia which is baseline for her. Chemistry panel was concerning for acute renal failure. She had hypomagnesemia. Patient seemed to be somewhat dehydrated as well. She was hydrated with normal saline. The patient was sent to CT for further imaging. Results as above. The internal medicine team was consulted. The case was discussed. The patient was evaluated in the ER for further management. Medication Reconcilliation Current Medication List: was personally reviewed by me Blood Pressure Screening Patient's blood pressure: Elevated blood pressure referred to hospitalist Consults Time Called: 1557 Consulting Physician: OMERO Sepulveda hospitalist Returned Call: 1601 I spoke with OMERO Sepulveda hospitalist. We discussed the patient's case. The patient will be evaluated by the [facility] for further management. Impression Primary Impression: Bacteremia due to Gram-negative bacteria Additional Impressions: E. coli UTI (urinary tract infection) Acute renal failure Scribe Attestation The scribe's documentation has been prepared under my direction and personally reviewed by me in its entirety. I confirm that the note above accurately reflects all work, treatment, procedures, and medical decision making performed by me. Departure Information Dispostion Being Evaluated By Hospitalist Referrals GaylordLewis (PCP) Problem Qualifiers
[2017-04-25] MEDS ORDERED: POLYETHYLENE (MIRALAX) 17 GM PACK PO ONE (16:52)
[2017-04-25] MEDS ORDERED: ALUMINUM/MAGNESIUM/SIMETH (MAALOX MAX) 30 ML UDC PO PRN (17:00)
[2017-04-25] MEDS ORDERED: BISACODYL 10 MG SUPP PR PRN ×2 (17:00)
[2017-04-25] MEDS ORDERED: ACETAMINOPHEN 325 MG TAB PO PRN (17:00)
[2017-04-25] MEDS ORDERED: ONDANSETRON INJ 2 MG/ML 2 ML VIAL IV PRN (17:00)
[2017-04-25] MEDS ORDERED: SOD PHOSPHATE/SOD BIPHOSPHATE ENEMA 132 ML BTL PR PRN (17:00)
[2017-04-25] MEDS ORDERED: OXYCODONE HCL IR 5 MG TAB (IMMEDIATE RELEASE) PO PRN (17:00)
[2017-04-25] MEDS ORDERED: MAGNESIUM HYDROXIDE SUSP 30 ML UDC PO PRN ×2 (17:00)
[2017-04-25] MEDS ORDERED: PIPERACILL/TAZOBAC CONSULT ACTIVE PRN (17:00)
[2017-04-25] MEDS ORDERED: POLYETHYLENE (MIRALAX) 17 GM PACK PO PRN (17:00)
[2017-04-25 17:14] VITALS: O2SAT 98; BMI 28.7
--- NOTE | 2017-04-25 17:15 | History and Physical ---
History & Physical Date & Time of Service: Apr 25, 2017 at 17:05 Chief Complaint: Illness Primary Care Physician: Lewis Simpson Past Medical/Surgical History Medical Problems: (1) Altered mental status (2) Anemia (3) Anemia (4) Cancer (5) Closed head injury (6) Closed head injury (7) Closed head injury (8) COPD (chronic obstructive pulmonary disease) (9) Coronary artery disease (10) Dementia (11) Depression (12) Fall (13) Fall (14) Fall (15) Fall (16) Fall (17) Head injury (18) Headache (19) HTN (hypertension) (20) Hx Of Alcoholism (21) Hypothyroidism (22) Hypoxia (23) Left lower lobe pneumonia (24) Myocardial infarction (25) Orthopedic Surgery (26) Osteoporosis Nos (27) Paranoid Schizo-Chronic (28) Renal insufficiency (29) Scalp laceration (30) Scalp laceration (31) Seizure (32) Seizure (33) Sepsis (34) Spinal Surgery (35) Syncope and collapse (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 (37) Urinary tract infection (38) UTI (urinary tract infection) Family History Hypertension Social History Smoking Status: Unknown if Ever Smoked Drug Use: none Marital Status: Housing status: half-way Occupational Status: retired, disabled Immunizations History of Influenza Vaccine: Unknown Influenza Vaccine Date: Nov 10, 2004 History of Tetanus Vaccine?: Unknown History of Pneumococcal: Unknown History of Hepatitis B Vaccine: Unknown Allergies Coded Allergies: Sulfa Antibiotics (Verified Allergy, Severe, mouth swells, bumps on roof of mouth, 04/17/17) Banana (Verified Allergy, Intermediate, RAW -ROOF OF MOUTH SWELLS, 04/17/17) Home Medications Scheduled Amlodipine (Norvasc), 2.5 MG PO DAILY Bisacodyl (Dulcolax), 1 SYR MT PRN UD Duloxetine Hcl (Cymbalta), 40 MG PO QAM Ferrous Sulfate (Kp Ferrous Sulfate), 325 MG PO BID Gabapentin (Neurontin), 400 MG PO TID Haloperidol (Haloperidol), 1 MG PO BID Ipratropium-Albuterol (Combivent Respimat), 1 PUFFS INH QID Magnesium Hydroxide (Milk Of Magnesia), 30 ML PO PRN UD Multivitamin (Multivitamin), 1 TABLET PO QAM Oxycodone Ir (Roxicodone Ir), 5 MG PO BID Phenobarbital (Phenobarbital), 64.8 MG PO HS Phenytoin Sodium Extended (Dilantin), 90 MG PO BID Phenytoin Sodium Extended (Dilantin), 60 MG PO HS Ranitidine (Zantac), 150 MG PO BID Rivastigmine Tartrate (Exelon), 1.5 MG PO BID Sennosides-Docusate Sodium (Senna/Docusate Sodium), 1 TAB PO BID AT 0830 & 1630 Sodium Chloride (Sodium Chloride), 1 TAB PO QAM Scheduled PRN Acetaminophen (Tylenol), 650 MG PO Q6 PRN for Pain or Fever Oxycodone Immediate Rel Tab (Roxicodone Ir), 5 MG PO Q6H PRN for Pain Physical Exam Vital Signs Date Time Temp Pulse Resp B/P (MAP) Pulse Ox O2 Delivery O2 Flow Rate FiO2 04/25/17 15:53 79 16 159/69 98 Room Air 04/25/17 14:25 97 Room Air 04/25/17 14:22 83 04/25/17 14:05 94 Room Air 04/25/17 14:05 36.8 84 13 142/80 95 Room Air Diagnostics Laboratory Results Results Past 24 Hours Test 04/25/17 14:20 04/25/17 14:27 04/25/17 16:52 Range/Units White Blood Count 9.25 4.8-10.8 K/uL Red Blood Count 3.03 4.2-5.4 M/uL Hemoglobin 9.0 12.0-16.0 g/dL Hematocrit 27.8 37-47 % Mean Corpuscular Volume 91.7 80-100 fL Mean Corpuscular Hemoglobin 29.7 25-34 pg Mean Corpuscular Hemoglobin Concent 32.4 32-36 g/dl Platelet Count 294 130-400 K/uL Mean Platelet Volume 10.1 7.4-10.4 fL Neutrophils (%) (Auto) 81.8 % Lymphocytes (%) (Auto) 5.3 % Monocytes (%) (Auto) 11.1 % Eosinophils (%) (Auto) 1.3 % Basophils (%) (Auto) 0.2 % Neutrophils # (Auto) 7.56 1.4-6.5 K/uL Lymphocytes # (Auto) 0.49 1.2-3.4 K/uL Monocytes # (Auto) 1.03 0.11-0.59 K/uL Eosinophils # (Auto) 0.12 0-0.5 K/uL Basophils # (Auto) 0.02 0-0.2 K/uL RDW Standard Deviation 52.0 36.4-46.3 fL RDW Coefficient of Variation 15.5 11.5-14.5 % Immature Granulocyte % (Auto) 0.3 % Immature Granulocyte # (Auto) 0.03 0.00-0.02 K/uL Prothrombin Time 11.7 9.0-12.0 SECONDS Prothromb Time International Ratio 1.1 0.9-1.1 Activated Partial Thromboplast Time 31.7 21.0-31.0 SECONDS Partial Thromboplastin Ratio 1.2 Sodium Level 146 136-145 mmol/L Potassium Level 3.5 3.5-5.1 mmol/L Chloride Level 110 98-107 mmol/L Carbon Dioxide Level 27 21-32 mmol/L Anion Gap 8.0 3-11 mmol/L Blood Urea Nitrogen 70 7-18 mg/dl Creatinine 3.21 0.60-1.20 mg/dl Est Creatinine Clear Calc Drug Dose 14.8 ml/min Estimated GFR () 16.0 Estimated GFR (Non- 13.8 BUN/Creatinine Ratio 21.7 10-20 Random Glucose 146 70-99 mg/dl Calcium Level 8.6 8.5-10.1 mg/dl Magnesium Level 2.8 1.8-2.4 mg/dl Total Bilirubin 0.3 0.2-1 mg/dl Direct Bilirubin 0.1 0-0.2 mg/dl Aspartate Amino Transf (AST/SGOT) 38 15-37 U/L Alanine Aminotransferase (ALT/SGPT) 32 12-78 U/L Alkaline Phosphatase 172 45-117 U/L Troponin I < 0.015 0-0.045 ng/ml Total Protein 8.6 6.4-8.2 gm/dl Albumin 2.2 3.4-5.0 gm/dl Lipase 169 73-393 U/L Thyroid Stimulating Hormone (TSH) 2.070 0.300-4.500 uIu/ml Bedside Lactic Acid Venous 0.68 0.90-1.70 mmol/L Microbiology Results 04/25/17 Blood Culture, Received Pending 04/25/17 Blood Culture, Received Pending 04/25/17 Urine Culture, Received Pending Impression Assessment and Plan admit #[id number] Resuscitation Status VTE Prophylaxis Will order VTE Prophylaxis: Yes
[2017-04-25 17:44] VITALS: BP 157/90; PULSE 81; TEMP 37.3; O2SAT 99
--- NOTE | 2017-04-25 17:56 | Progress Note ---
Progress Note Date of Service Apr 25, 2017. Progress Note d/w brothers (brother from [place] called back then conferenced in brother from [place]) - were greatly appreciative of update, and asked they be kept in the loop with how mom is doing since they are so far away
--- NOTE | 2017-04-25 17:57 | HISTORY & PHYSICAL EXAMINATION ---
DATE OF ADMISSION: 04/25/2017 CHIEF COMPLAINT: Illness. HISTORY OF PRESENT ILLNESS: History is basically unobtainable from the patient. It is unclear what her baseline level of dementia is and how far this might be from her baseline; however, she is really not able to answer questions. She tries to converse, but then has long pauses, stares, and speaks nonsensically relevant to the situation. As best can be ascertained, she only complains of a bit of a headache at the top of her head. HPI and review of systems are essentially unobtainable, however. According to discussions with the ER, she in review of charts, she had been here on April 17 and had a UTI, was given Cipro. Urine culture at that time showed no specific growth. She then had blood cultures on April 24 showing gram-negative bacilli. Urine culture showing E. coli at that time. Sensitivities unknown and this are back. To the ER physician, she denied fevers, chills, chest pain, shortness of breath or urinary symptoms or pain or discomfort when urinating. They were trying to manage at [facility], where not able to obtain IV and was sent to the ER for further treatment. REVIEW OF SYSTEMS: Essentially otherwise unobtainable. 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 She also has COPD, coronary artery disease, dementia, prior alcoholism, hypertension, hypothyroidism, prior GA, seizure disorder, frequent UTIs, schizophrenia, right-sided renal cell cancer, chronic hyponatremia possibly due to SIADH, CKD stage III, and GERD. PAST SURGICAL HISTORY: Includes a left distal ureterectomy, ureteral reimplantation after left pelvic lymph node dissection about a year ago, port placement, right nephrectomy, and spine surgery. FAMILY HISTORY: Apparently, hypertension and questionable MIs. SOCIAL HISTORY: She is a former smoker, but apparently only smoked for about 5 years. Former heavy alcohol use. She is , has 2 sons, one in [place] and the other in [place]. She currently lives in [facility]. ALLERGIES: LISTED BANANA AND SULFA. MEDICATIONS: Tylenol p.r.n., amlodipine, Dulcolax suppository, Cymbalta, iron sulfate, Neurontin, Haldol, ipratropium, milk of magnesia, multivitamin, oxycodone, phenobarbital, Dilantin, Zantac, Exelon, senna, Colace, and salt tabs. PHYSICAL EXAMINATION: VITAL SIGNS: Temperature 36.8, pulse 84, respiratory rate 13, blood pressure 142/80, and 95% on room air. GENERAL: She is awake, but very disoriented, although on old chart review, it appears that even at that time, she was oriented to self only. She appears to be fatigued, but in no respiratory or pain type distress. HEENT: Normocephalic, atraumatic. Mucous membranes are dry. CARDIOVASCULAR: Regular without rubs, murmurs, or gallops. LUNGS: Clear to auscultation bilaterally. No rales, rhonchi, or wheezes with good effort. ABDOMEN: Soft, mildly distended, positive, fairly hyperactive bowel sounds. No guarding, rebound, or rigidity. EXTREMITIES: Show no cyanosis, clubbing, or edema. SKIN: Dry without any rashes, pallor, or icterus. MUSCULOSKELETAL: Exam shows suboccipital tenderness bilaterally, but otherwise her neck is supple. No other gross deformities. NEUROLOGIC: Shows cranial nerves II-XII to be grossly intact and gross motor and sensory intact as best can be assessed. She shows no focal deficits. MENTAL STATE: As above, disoriented and poorly conversive. Her prior baseline appeared to be oriented to self only. LABS AND DIAGNOSTICS: CBC shows a white count of 9.25, hemoglobin 9.0, platelets of 294, and MCV of 91.7. Complete metabolic panel with sodium 146, potassium 3.5, chloride 110, CO2 of 27, BUN 70, creatinine 3.21, calcium 8.6, and glucose 146. Lactate 0.68. Mag of 2.8, total bili 0.3 with a direct of 0.1. AST 38, ALT 32, alkaline phosphatase 172. Troponin of less than 0.015. Total protein 8.6, albumin 2.2, lipase 169. TSH 2.070. PT of 11.7, PTT 31.7. Chest x-ray shows central catheter in the superior vena cava, old fracture of the right humeral neck, pulmonary nodularity that was previously noted about 2 weeks ago is not as well defined currently. CT abdomen and pelvis reviewed by Radiology and myself and compared to multiple prior images showed lung base is clear. Slight chronic interstitial prominence, moderate retrocrural adenopathy, stable. Spleen unremarkable. Small hiatal hernia. The patient is post right colectomy. Left kidney shows evidence for distention of the left renal pelvis as well as left ureter, distention extends to the insertion of the left ureter. Several pelvic vascular calcifications present. No evidence for an obstructing calculus. The distention of the left kidney appears similar to multiple prior CTs. Bladder is collapsed. Quintanilla in position. Cystic lesion in the region of the left ovary, unchanged from prior study, 3.5 cm in maximum dimension. Adenopathy previously described is unchanged. Destructive lesion of the inferior aspect of the right acetabulum with a small localized associated soft tissue compartment, compression deformities of L1 and L3, fecal impaction, increased fecal load throughout the colon and no significant small bowel distention as well as compression deformities of T9 and T11 similar to prior and compression deformities of the lumbar spine, which are unchanged from prior. EKG is sinus with appearance of septal and probably inferior infarct. Everything fairly similar to prior EKGs when accounting for a lead placement. ASSESSMENT AND PLAN: 1. Gram-negative bacteremia. This appears to be the driving factor of her illness. She had urinary tract infection that had been treated with Cipro on the , apparently had a fever on the 16th, and blood and urine cultures are showing gram-negative rods and specifically Escherichia coli in the urine, neither of which are final cultures. It is while likely still not 100% clear that the blood and urine cultures are going to match, and the sensitivities obviously are still pending. Repeat blood and urine cultures have been sent. She has been given cefepime and Zosyn in the ER and pending further sensitivities, we will continue with Zosyn and supportive care. 2. Progressive renal failure superimposed on approximately stage III chronic kidney disease. I suspect this relates to the infection and/or poor oral intake, although I cannot corroborate that history with the patient. Certainly, she does appear dry. She has got a degree of hypernatremia, all of which would fit with being dehydrated. She has been given 500 mL of saline in the ER. We will give her another liter followed by half normal with 20 of K and followup basic metabolic panel in the morning. 3. Fecal impaction. She does not show any CT or physical exam findings of a stercoral colitis making the impaction a cause of her bacteremia far less likely than the urine. We will still manage this with MiraLax, Dulcolax suppositories, and an enema if needed. Should she be refractory to all of this, a manual disimpaction may be necessary, but fortunately her abdomen does not appear acute, requiring any urgent intervention at this time. 4. Urothelial cancer. CT findings appear overall fairly stable for this. It was noted at her last Hematology/Oncology visit that she appeared to be failing treatment and they were going to discuss changing lines of treatment, but she had been acutely ill at that time, which prompted the ER visit starting her antibiotics not quite 2 weeks ago. She obviously will require treatment and stability of her current infectious problems before any further treatment could be pursued. 5. Dementia and schizophrenia. It is uncertain what her baseline mentation is, although good reliable documentation from greater than 6 months ago showed her as being oriented to self only. We will need to continue to follow her mental status as her treatment progresses. It is unclear if she has an acute encephalopathy from being sick. Certainly, we will also be checking phenobarbital and phenytoin levels. They were in the low end of therapeutic little over a month ago, but certainly with her renal failure and altered oral intake that could be contributing if she is in fact encephalopathic, which again remains to be seen. 6. Seizure disorder. Continue her phenobarbital and phenytoin until levels are back. If levels are high, obviously, we will adjust treatment accordingly. Otherwise, we will continue treatment so as to not allow her seizure to be precipitated by her current illness. 7. Dehydration. See above. 8. Protein malnutrition, poor intake, probably related to all of above. 9. Coronary artery disease status post myocardial infarction. Continue to follow. She shows no signs or symptoms of acute coronary syndrome. Right now, her EKG is nonacute. Her troponin is negative. 10. Deep venous thrombosis prophylaxis, heparin subQ. 11. Disposition: [facility] I do not have any accessible paperwork in regards to her resuscitation status and while I attempted to call both of her sons, I got voicemail on both. We will be awaiting a call back from them in this regard as well as to update them in regards to her status.
[2017-04-25 17:58] LABS: PHENYTOIN (DILANTIN) 9.7 mcg/mL (10-20)
[2017-04-25] MEDS ORDERED: SODIUM CHLORIDE 0.9% 1000ML 1,000 ML IV SCH (18:00)
[2017-04-25] MEDS ORDERED: DULO-24 PO ×2 (18:13)
[2017-04-25] MEDS ORDERED: BISACODYL 10 MG SUPP PR ONE (18:15)
[2017-04-25] MEDS: SODIUM CHLOR 0.45% + 20MEQ KCL 1,000 ML IV SCH (18:34)
[2017-04-25] MEDS: PHENYTOIN SODIUM ER 30 MG CAP PO SCH ×2 (18:34→20:25)
[2017-04-25] MEDS: RIVASTIGMINE TARTRATE (EXELON) 1.5 MG CAP PO SCH (18:34)
[2017-04-25] MEDS ORDERED: INFLUENZA ADMINISTRATION CHARGE ONE (19:00)
[2017-04-25] MEDS ORDERED: INFLUENZA VIRUS QUAD VACCINE 0.5 ML SYR IM. ONE (19:00)
[2017-04-25] MEDS: IPRATROPIUM BROMIDE/ALBUTEROL respimat INH INH SCH ×2 (19:25→20:24)
[2017-04-25] MEDS: PIPERACILL/TAZOBAC IV 3.375 GM in DEXTROSE 5% 100ML 100 ML IV SCH (20:23)
[2017-04-25] MEDS: PHENOBARBITAL 32.4 MG TAB PO SCH (20:24)
[2017-04-25] MEDS: GABAPENTIN 400 MG CAP PO SCH (20:25)
[2017-04-25] MEDS: HALOPERIDOL 1 MG TAB PO SCH (20:25)
[2017-04-25] MEDS: FERROUS SULFATE 325 MG TAB PO SCH (20:25)
[2017-04-25] MEDS: DOCUSATE SODIUM/SENNA 50/8.6MG TAB PO SCH (20:25)
[2017-04-25] MEDS: HEPARIN SOD 5000 UNIT/0.5 ML CARP SQ SCH (20:30)
[2017-04-26] VITALS (8 sets, daily range): BP systolic 110–147; BP diastolic 65–73; PULSE 72–77; TEMP 36.7–38; O2SAT 97–98
[2017-04-26 07:00] LABS: BASO % 0.3 %; BASO ABS # 0.02 K/uL (0-0.2); EOS % 2.3 %; EOS ABS # 0.18 K/uL (0-0.5); HEMATOCRIT 25.1 % (37-47); HEMOGLOBIN 7.9 g/dL (12.0-16.0); IG# 0.02 K/uL (0.00-0.02); LYMPH % 10.7 %; LYMPH ABS # 0.84 K/uL (1.2-3.4); MEAN CORPUSCULAR HEMOGLOBIN 29.3 pg (25-34); MEAN CORPUSCULAR HGB CONC 31.5 g/dl (32-36); MEAN PLATELET VOLUME 9.7 fL (7.4-10.4); MONO % 11.7 %; MONO ABS # 0.92 K/uL (0.11-0.59); NEUT % 74.7 %; NEUT ABS # 5.89 K/uL (1.4-6.5); PLATELET COUNT 246 K/uL (130-400); RED CELL DISTRIBUTION WIDTH CV 15.6 % (11.5-14.5); WHITE BLOOD COUNT 7.87 K/uL (4.8-10.8)
[2017-04-26 07:21] LABS: CALCIUM 8.3 mg/dl (8.5-10.1); CREATININE 3.09 mg/dl (0.60-1.20); POTASSIUM 4.1 mmol/L (3.5-5.1)
[2017-04-26] MEDS: PIPERACILL/TAZOBAC IV 3.375 GM in DEXTROSE 5% 100ML 100 ML IV SCH ×2 (08:02→20:33)
[2017-04-26] MEDS: SODIUM CHLOR 0.45% + 20MEQ KCL 1,000 ML IV SCH ×2 (08:02→20:33)
[2017-04-26] MEDS: RIVASTIGMINE TARTRATE (EXELON) 1.5 MG CAP PO SCH ×2 (08:04→16:44)
[2017-04-26] MEDS: PHENYTOIN SODIUM ER 30 MG CAP PO SCH ×3 (08:05→20:36)
[2017-04-26] MEDS: DULOXETINE HCL 20 MG CAP PO SCH (08:07)
[2017-04-26] MEDS: IPRATROPIUM BROMIDE/ALBUTEROL respimat INH INH SCH ×4 (08:07→20:36)
[2017-04-26] MEDS: FERROUS SULFATE 325 MG TAB PO SCH ×2 (08:08→20:37)
[2017-04-26] MEDS: HALOPERIDOL 1 MG TAB PO SCH ×2 (08:08→20:36)
[2017-04-26] MEDS: MULTIVITAMIN TAB PO SCH (08:09)
[2017-04-26] MEDS: GABAPENTIN 400 MG CAP PO SCH ×3 (08:09→20:37)
[2017-04-26] MEDS: AMLODIPINE BESYLATE 5 MG TAB PO SCH (08:10)
[2017-04-26] MEDS: SODIUM CHLORIDE 1 GM TAB PO SCH (08:11)
[2017-04-26] MEDS: DOCUSATE SODIUM/SENNA 50/8.6MG TAB PO SCH ×2 (08:11→20:37)
[2017-04-26] MEDS: RANITIDINE HCL 150 MG TAB PO SCH (08:11)
[2017-04-26] MEDS: HEPARIN SOD 5000 UNIT/0.5 ML CARP SQ SCH ×2 (08:17→20:41)
[2017-04-26] MEDS ORDERED: NURSING VERBAL MED ORDER ONE (11:00)
[2017-04-26] MEDS ORDERED: SOD PHOSPHATE/SOD BIPHOSPHATE ENEMA 132 ML BTL PR ONE (11:15)
[2017-04-26] MEDS: PHENOBARBITAL 32.4 MG TAB PO SCH (20:39)
[2017-04-27 08:00] VITALS: O2SAT 97
[2017-04-27 08:19] VITALS: BP 127/71; PULSE 66; TEMP 37; O2SAT 98
--- NOTE | 2017-04-27 09:05 | Hospitalist Progress Note ---
Hospitalist Progress Note Date of Service Apr 27, 2017. Subjective Pt evaluation today including: conversation w/ patient, physical exam, chart review, lab review, review of studies Pain: none PO Intake: fair Voiding: mejia catheter in place The patient was seen and examined this morning. She is able to say " I'm Amrita " but then repeats this several times. She denies any acute pain or discomfort. Pt is unable to provide ROS Objective Vital Signs Date Time Temp Pulse Resp B/P (MAP) Pulse Ox O2 Delivery O2 Flow Rate FiO2 04/27/17 08:19 37.0 66 16 127/71 (89) 98 Room Air 04/27/17 00:00 Nasal Cannula 2.0 04/26/17 23:33 37.3 74 18 115/65 (82) 98 2.0 04/26/17 20:00 Nasal Cannula 2.0 04/26/17 16:00 97 Nasal Cannula 2.0 04/26/17 14:42 37.4 72 20 110/66 (81) 97 Physical Exam General Appearance: WD/WN, no apparent distress, + pertinent finding (Thinning hair, appears older than stated age) Eyes: PERRL, EOMI ENT: hearing grossly normal, pharynx normal, + pertinent finding (poor dentition, MMM) Neck: supple, no JVD Respiratory/Chest: chest non-tender, lungs clear, no respiratory distress, no accessory muscle use Cardiovascular: regular rate, rhythm, no murmur Abdomen: normal bowel sounds, non tender, soft, + pertinent finding (mejia catheter draining clear yellow urine) Extremities: non-tender, no calf tenderness, + pertinent finding (slightly edematous hands and feet, nonpitting) Neurologic/Psychiatric: alert, + pertinent finding (oriented only to self, unable to participate in meaningful conversation, intermittently follows commands. ) Assessment and Plan 71 yo F with Gram-negative Sepsis ESBL E coli - Failed outpt tx on cipro with subsequent fever 1 week after starting antibiotics- follow blood cultures - Started zosyn on 04/25 - Pt has been getting straight cath TID x 3 weeks per nursing at [facility]. So etiology of UTI likely from repetitive introduction of mejia cath. No needs for urology consult at this time. 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 - Follows with Hematology/Oncology visit - seen 2 weeks ago, at that time was failing tx and plans to discuss treatment options. This is why she initially presented to the ER 2 weeks ago and was placed on antibiotics as above. CKD stage III, progressive renal failure - likely related to the infection and/or poor oral intake. Hypernatremia, dehydration - likely due to dehydration, placed on NSS 1/2 + K Cl 20 meq at 80 ml/hr - follow bmp Fecal impaction - CT reviewed - unlikley stercoral colitis with impaction due bacteremia above - aggressive bowel regimen with MiraLax, Dulcolax supp and prn enema Dementia Schizophrenia - It is uncertain what her baseline mentation is - possibly only oriented to self. - unclear if she has an acute encephalopathy from being ill as above, will monitor to see if improvement. - Checked levels of phenobarbital=16.6 and phenytoin=9.7 - no needs for medication adjustment Seizure disorder. - Continue her phenobarbital and phenytoin Severe Protein malnutrition - poor intake, probably related to all of above. Coronary artery disease status post myocardial infarction. - stable, neg trop, no signs of ACS DVT ppx: heparin subQ. Disposition: From [facility] to assist with dc planning.
[2017-04-27] MEDS: SODIUM CHLOR 0.45% + 20MEQ KCL 1,000 ML IV SCH ×2 (09:06→20:21)
[2017-04-27] MEDS: PIPERACILL/TAZOBAC IV 3.375 GM in DEXTROSE 5% 100ML 100 ML IV SCH (09:07)
[2017-04-27] MEDS: IPRATROPIUM BROMIDE/ALBUTEROL respimat INH INH SCH ×4 (09:07→20:23)
[2017-04-27] MEDS: HEPARIN SOD 5000 UNIT/0.5 ML CARP SQ SCH ×2 (09:08→20:14)
[2017-04-27] MEDS: PHENYTOIN SODIUM ER 30 MG CAP PO SCH ×3 (09:10→20:22)
[2017-04-27] MEDS: RIVASTIGMINE TARTRATE (EXELON) 1.5 MG CAP PO SCH ×2 (09:11→17:29)
[2017-04-27] MEDS: DULOXETINE HCL 20 MG CAP PO SCH (09:11)
[2017-04-27] MEDS: RANITIDINE HCL 150 MG TAB PO SCH (09:12)
[2017-04-27] MEDS: MULTIVITAMIN TAB PO SCH (09:12)
[2017-04-27] MEDS: DOCUSATE SODIUM/SENNA 50/8.6MG TAB PO SCH ×2 (09:13→22:08)
[2017-04-27] MEDS: GABAPENTIN 400 MG CAP PO SCH ×3 (09:13→20:22)
[2017-04-27] MEDS: SODIUM CHLORIDE 1 GM TAB PO SCH (09:13)
[2017-04-27] MEDS: FERROUS SULFATE 325 MG TAB PO SCH ×2 (09:14→22:08)
[2017-04-27] MEDS: HALOPERIDOL 1 MG TAB PO SCH ×2 (09:14→20:23)
[2017-04-27] MEDS: AMLODIPINE BESYLATE 5 MG TAB PO SCH (09:14)
--- NOTE | 2017-04-27 12:31 | Clinical Documentation Query ---
CLINICAL DOCUMENTATION QUERY The clinical diagnosis of urosepsis cannot be indexed, coded, or captured in I10 coding language. To reflect the appropriate severity of illness and risk of mortality for your patient, please describe one of the following in your medical record documentation: *sepsis due to a urinary source, such as urinary tract infection *sepsis due to an indwelling urinary device, such as a mejia catheter *urinary tract infection *It is imperative to specifically describe your patient's condition to avoid unnecessary pre-post discharge queries with regard to the diagnosis of Urosepsis. Please clarify and document your clinical opinion in the progress notes and discharge summary. Terms such as "probable", "suspected", "likely", "questionable", "possible", or "still to be ruled out" are acceptable. IF IN AGREEMENT, YOU MUST DOCUMENT ABOVE DIAGNOSTIC STATEMENT IN DAILY PROGRESS NOTES AND DISCHARGE SUMMARY. This document is not part of the patient's record. Thank You, Anitha Banuelos RN [phone]
[2017-04-27] MEDS: ERTAPENEM IV 500 MG in SODIUM CHLORIDE 0.9% 50 ML IV SCH (13:33)
[2017-04-27 14:45] VITALS: BP 133/71; PULSE 76; TEMP 36.6; O2SAT 97
[2017-04-27 16:00] VITALS: O2SAT 97
[2017-04-27] MEDS: PHENOBARBITAL 32.4 MG TAB PO SCH (20:22)
[2017-04-27 23:31] VITALS: BP 126/68; PULSE 65; TEMP 37.3; O2SAT 98
[2017-04-28 05:46] LABS: HEMATOCRIT 23.3 % (37-47); HEMOGLOBIN 7.3 g/dL (12.0-16.0); MEAN CELL VOLUME 91.7 fL (80-100); MEAN CORPUSCULAR HEMOGLOBIN 28.7 pg (25-34); MEAN CORPUSCULAR HGB CONC 31.3 g/dl (32-36); MEAN PLATELET VOLUME 10.1 fL (7.4-10.4); PLATELET COUNT 233 K/uL (130-400); RED CELL DISTRIBUTION WIDTH CV 15.2 % (11.5-14.5); RED CELL DISTRIBUTION WIDTH SD 51.3 fL (36.4-46.3); WHITE BLOOD COUNT 5.88 K/uL (4.8-10.8)
[2017-04-28 06:18] LABS: CREATININE 3.79 mg/dl (0.60-1.20)
[2017-04-28 07:07] VITALS: BP 120/70; PULSE 60; TEMP 36.6; O2SAT 96
[2017-04-28 08:00] VITALS: O2SAT 96
--- NOTE | 2017-04-28 08:32 | Hospitalist Progress Note ---
Hospitalist Progress Note Date of Service Apr 28, 2017. Subjective Pt evaluation today including: physical exam, chart review, lab review, review of studies Pain: None Voiding: mejia catheter in place The patient is unable to participate in conversation although she is awake and alert and looks at me when I am speaking to her. She answers my questions in regards to feeling any pain or feeling swollen anywhere -which are negative. Other than that she does not participate in a review of systems. Objective Vital Signs Date Time Temp Pulse Resp B/P (MAP) Pulse Ox O2 Delivery O2 Flow Rate FiO2 04/28/17 07:07 36.6 60 18 120/70 (87) 96 2.0 04/28/17 00:38 Nasal Cannula 2.0 04/27/17 23:31 37.3 65 18 126/68 (87) 98 Nasal Cannula 2.0 04/27/17 21:30 Nasal Cannula 2.0 04/27/17 16:00 97 Nasal Cannula 2.0 04/27/17 14:45 36.6 76 18 133/71 (91) 97 Nasal Cannula 2.0 Physical Exam Notes: General Appearance: WD/WN, no apparent distress, + pertinent finding (Thinning hair, appears older than stated age) Eyes: PERRL, EOMI ENT: hearing grossly normal, pharynx normal, + pertinent finding (poor dentition, MMM) Neck: supple, no JVD Respiratory/Chest: chest non-tender, lungs clear, no respiratory distress, no accessory muscle use Cardiovascular: regular rate, rhythm, holosystolic murmur to RUSB and back. Abdomen: normal bowel sounds, non tender, soft, + pertinent finding (mejia catheter draining clear yellow urine) Extremities: non-tender, no calf tenderness, + pertinent finding (slightly edematous in the right hand with warmth. no edema in the left hand mild edema in bilateral feet, nonpitting) Neurologic/Psychiatric: alert, + pertinent finding (oriented only to self, unable to participate in meaningful conversation, intermittently follows commands. ) Laboratory Results Last 24 Hours Test 04/28/17 05:07 White Blood Count 5.88 K/uL Red Blood Count 2.54 M/uL Hemoglobin 7.3 g/dL Hematocrit 23.3 % Mean Corpuscular Volume 91.7 fL Mean Corpuscular Hemoglobin 28.7 pg Mean Corpuscular Hemoglobin Concent 31.3 g/dl RDW Standard Deviation 51.3 fL RDW Coefficient of Variation 15.2 % Platelet Count 233 K/uL Mean Platelet Volume 10.1 fL Creatinine 3.79 mg/dl Est Creatinine Clear Calc Drug Dose 12.6 ml/min Estimated GFR () 13.1 Estimated GFR (Non- 11.3 Assessment and Plan 71 yo F with Gram-negative Sepsis ESBL E coli - Failed outpt tx on cipro with subsequent fever 1 week after starting antibiotics- follow blood cultures - Started zosyn on 04/25 and switched to Ertapenem on 04/27 - Pt has been getting straight cath TID x 3 weeks per nursing at [facility]. So etiology of UTI likely from repetitive introduction of mejia cath. No needs for urology consult at this time. 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 - Follows with Hematology/Oncology visit - seen 2 weeks ago, at that time was failing tx and plans to discuss treatment options. This is why she initially presented to the ER 2 weeks ago and was placed on antibiotics as above. ILIA on CKD stage II-III, progressive renal failure - Cr 3.79 - likely related to the infection and/or poor oral intake. - Her creatinine has increased since last November from 1.1-1.2 baseline. Hypernatremia, dehydration - likely due to dehydration, placed on NSS 02/10 + K Cl 20 meq at 80 ml/hr - follow bmp Fecal impaction - CT reviewed - loganley stercoral colitis with impaction due bacteremia above - aggressive bowel regimen with MiraLax, Dulcolax supp and prn enema -last BM was on 04/26 Dementia Schizophrenia - It is uncertain what her baseline mentation is - possibly only oriented to self. - unclear if she has an acute encephalopathy from being ill as above -appears to be more awake and alert today compared to yesterday, although remains the same as far as orientation and inability to participate in meaningful conversation. - Checked levels of phenobarbital=16.6 and phenytoin=9.7 - no needs for medication adjustment Seizure disorder. - Continue her phenobarbital and phenytoin Severe Protein malnutrition - poor intake, probably related to all of above. Coronary artery disease status post myocardial infarction. - stable, neg trop, no signs of ACS DVT ppx: heparin subQ. Disposition: From [facility] to assist with dc planning, bed on hold.
[2017-04-28] MEDS: DOCUSATE SODIUM/SENNA 50/8.6MG TAB PO SCH ×2 (08:40→20:34)
[2017-04-28] MEDS: FERROUS SULFATE 325 MG TAB PO SCH ×2 (08:40→20:33)
[2017-04-28] MEDS: MULTIVITAMIN TAB PO SCH (08:41)
[2017-04-28] MEDS: AMLODIPINE BESYLATE 5 MG TAB PO SCH (08:41)
[2017-04-28] MEDS: PHENYTOIN SODIUM ER 30 MG CAP PO SCH ×3 (08:41→20:32)
[2017-04-28] MEDS: SODIUM CHLORIDE 1 GM TAB PO SCH (08:41)
[2017-04-28] MEDS: HALOPERIDOL 1 MG TAB PO SCH ×2 (08:42→20:31)
[2017-04-28] MEDS: DULOXETINE HCL 20 MG CAP PO SCH (08:42)
[2017-04-28] MEDS: RIVASTIGMINE TARTRATE (EXELON) 1.5 MG CAP PO SCH ×2 (08:43→17:04)
[2017-04-28] MEDS: IPRATROPIUM BROMIDE/ALBUTEROL respimat INH INH SCH ×4 (08:44→20:31)
[2017-04-28] MEDS: HEPARIN SOD 5000 UNIT/0.5 ML CARP SQ SCH ×2 (08:49→20:30)
[2017-04-28] MEDS: SODIUM CHLOR 0.45% + 20MEQ KCL 1,000 ML IV SCH ×2 (08:50→21:54)
[2017-04-28] MEDS: GABAPENTIN 400 MG CAP PO SCH ×3 (09:00→20:33)
[2017-04-28] MEDS: ERTAPENEM IV 500 MG in SODIUM CHLORIDE 0.9% 50 ML IV SCH (13:40)
[2017-04-28] MEDS: RANITIDINE HCL 150 MG TAB PO SCH (13:41)
[2017-04-28 15:27] VITALS: BP 131/73; PULSE 69; TEMP 37.3; O2SAT 93
[2017-04-28] MEDS: PHENOBARBITAL 32.4 MG TAB PO SCH (20:42)
[2017-04-28] MEDS ORDERED: COUGH DROP (SUGAR FREE) LOZ 24 LOZ/1 BOX LOZ ONE (21:46)
[2017-04-28] MEDS ORDERED: NURSING DECISION MEDICATION ORDER SCH (22:00)
[2017-04-28 23:08] VITALS: BP 151/71; PULSE 73; TEMP 37.2; O2SAT 94
[2017-04-29 07:15] VITALS: BP 136/67; PULSE 77; TEMP 37.2; O2SAT 94
[2017-04-29] MEDS: RIVASTIGMINE TARTRATE (EXELON) 1.5 MG CAP PO SCH ×2 (07:58→16:21)
[2017-04-29] MEDS: FERROUS SULFATE 325 MG TAB PO SCH ×2 (07:58→20:40)
[2017-04-29] MEDS: DULOXETINE HCL 20 MG CAP PO SCH (07:58)
[2017-04-29] MEDS: SODIUM CHLORIDE 1 GM TAB PO SCH (07:59)
[2017-04-29] MEDS: AMLODIPINE BESYLATE 5 MG TAB PO SCH (07:59)
[2017-04-29 08:00] VITALS: O2SAT 94
[2017-04-29] MEDS: GABAPENTIN 400 MG CAP PO SCH ×3 (08:00→20:40)
[2017-04-29] MEDS: IPRATROPIUM BROMIDE/ALBUTEROL respimat INH INH SCH ×4 (08:00→20:39)
[2017-04-29] MEDS: PHENYTOIN SODIUM ER 30 MG CAP PO SCH ×3 (08:00→20:38)
[2017-04-29] MEDS: MULTIVITAMIN TAB PO SCH (08:01)
[2017-04-29] MEDS: DOCUSATE SODIUM/SENNA 50/8.6MG TAB PO SCH ×2 (08:01→20:40)
[2017-04-29] MEDS: RANITIDINE HCL 150 MG TAB PO SCH (08:02)
[2017-04-29] MEDS: HEPARIN SOD 5000 UNIT/0.5 ML CARP SQ SCH ×2 (08:07→20:46)
[2017-04-29] MEDS: HALOPERIDOL 1 MG TAB PO SCH ×2 (08:57→20:39)
[2017-04-29 09:37] LABS: HEMATOCRIT 23.4 % (37-47); HEMOGLOBIN 7.9 g/dL (12.0-16.0); MEAN CORPUSCULAR HEMOGLOBIN 30.4 pg (25-34); MEAN CORPUSCULAR HGB CONC 33.8 g/dl (32-36); MEAN PLATELET VOLUME 9.5 fL (7.4-10.4); PLATELET COUNT 269 K/uL (130-400); RED CELL DISTRIBUTION WIDTH CV 15.6 % (11.5-14.5); RED CELL DISTRIBUTION WIDTH SD 51.6 fL (36.4-46.3); WHITE BLOOD COUNT 6.35 K/uL (4.8-10.8)
[2017-04-29] MEDS: SODIUM CHLOR 0.45% + 20MEQ KCL 1,000 ML IV SCH ×2 (10:20→23:33)
[2017-04-29 10:35] LABS: CREATININE 3.77 mg/dl (0.60-1.20); POTASSIUM 4.9 mmol/L (3.5-5.1)
[2017-04-29 11:42] LABS: CALCIUM 8.8 mg/dl (8.5-10.1)
[2017-04-29] MEDS: ERTAPENEM IV 500 MG in SODIUM CHLORIDE 0.9% 50 ML IV SCH (12:09)
--- NOTE | 2017-04-29 12:52 | Hospitalist Progress Note ---
Hospitalist Progress Note Date of Service Apr 29, 2017. Subjective Pt evaluation today including: conversation w/ patient, physical exam, lab review, review of studies, review of inpatient medication list Voiding: mejia catheter in place Patient resting in bed. Oriented to self. States she is having bilateral rib pain- no acute process on CXR. RN to follow and PRN Tylenol available. Per RN, no acute events. ROS cannot be obtained secondary to patient status. Medications Current Inpatient Medications Medications (Trade) Dose Ordered Sig/Benito Route Start Time Stop Time Status Last Admin Dose Admin Ioversol (Optiray 320) 111 ml UD PRN IV 04/25/17 14:30 04/29/17 14:29 Acetaminophen (Tylenol Tab) 650 mg Q4H PRN PO 04/25/17 17:00 05/25/17 16:59 04/26/17 00:04 650 MG Al Hydrox/Mg Hydrox/Simethicone (Maalox Max Susp) 15 ml Q4H PRN PO 04/25/17 17:00 05/25/17 16:59 Magnesium Hydroxide (Milk Of Magnesia Susp) 30 ml Q6H PRN PO 04/25/17 17:00 05/25/17 16:59 Polyethylene (Miralax Powder Packet) 17 gm DAILY PRN PO 04/25/17 17:00 05/25/17 16:59 Ondansetron HCl (Zofran Inj) 4 mg Q6H PRN IV 04/25/17 17:00 05/25/17 16:59 Heparin Sodium (Porcine) (Heparin Sq 5000 Unit/0.5ml) 5,000 unit Q12H SQ 04/25/17 20:00 05/25/17 19:59 04/29/17 08:07 5,000 UNIT Potassium Chloride/Sodium Chloride 1,000 ml @ 80 mls/hr [id number] IV 04/25/17 19:00 05/25/17 18:59 04/29/17 10:20 80 MLS/HR Bisacodyl (Dulcolax Supp) 10 mg DAILY PRN MO 04/25/17 17:00 05/25/17 16:59 Sodium Biphosphate/ Sodium Phosphate (Fleet Enema) 132 ml DAILY PRN MO 04/25/17 17:00 05/25/17 16:59 04/25/17 21:10 132 ML Amlodipine Besylate (Norvasc Tab) 2.5 mg DAILY PO 04/26/17 09:00 05/26/17 08:59 04/29/17 07:59 2.5 MG Duloxetine HCl (Cymbalta Cap) 40 mg QAM PO 04/26/17 09:00 05/26/17 08:59 04/29/17 07:58 40 MG Gabapentin (Neurontin Cap) 400 mg TID PO 04/25/17 21:00 05/25/17 20:59 04/29/17 08:00 400 MG Haloperidol (Haldol Tab) 1 mg BID PO 04/25/17 21:00 05/25/17 20:59 04/29/17 08:57 1 MG Albuterol/ Ipratropium (Combivent Respimat Inh) 1 puffs QID INH 04/25/17 17:00 05/25/17 16:59 04/29/17 08:00 1 PUFFS Magnesium Hydroxide (Milk Of Magnesia Susp) 30 ml DAILY PRN PO 04/25/17 17:00 05/25/17 16:59 Multivitamins (Multivitamin Tab) 1 tab QAM PO 04/26/17 09:00 05/26/17 08:59 04/29/17 08:01 1 TAB Oxycodone HCl (Roxicodone Immediate Rel Tab) 5 mg Q6H PRN PO 04/25/17 17:00 05/09/17 16:59 Phenytoin Sodium (Dilantin Er Cap) 60 mg HS PO 04/25/17 21:00 05/25/17 20:59 04/28/17 20:32 60 MG Phenytoin Sodium (Dilantin Er Cap) 90 mg BID@0830,1630 PO 04/25/17 18:30 05/25/17 18:29 04/29/17 08:00 90 MG Ranitidine HCl (zANTac TAB) 150 mg QAM PO 04/26/17 09:00 05/26/17 08:59 04/29/17 08:02 150 MG Senna/Docusate Sodium (Senokot S Tab) 1 tab BID PO 04/25/17 21:00 05/25/17 20:59 04/29/17 08:01 1 TAB Sodium Chloride (Sodium Chloride Tab) 1 gm QAM PO 04/26/17 09:00 05/26/17 08:59 04/29/17 07:59 1 GM Ferrous Sulfate (Feosol Tab) 325 mg BID PO 04/25/17 21:00 05/25/17 20:59 04/29/17 07:58 325 MG Rivastigmine Tartrate (Exelon Cap) 1.5 mg BIDM PO 04/25/17 18:30 05/25/17 18:29 04/29/17 07:58 1.5 MG Phenobarbital (Phenobarbital Tab) 64.8 mg HS PO 04/25/17 21:00 05/25/17 20:59 04/28/17 20:42 64.8 MG Ertapenem 500 mg/ Sodium Chloride 55 ml @ 110 mls/hr Q24H IV 04/27/17 12:00 05/11/17 11:59 04/29/17 12:09 110 MLS/HR Objective Vital Signs Date Time Temp Pulse Resp B/P (MAP) Pulse Ox O2 Delivery O2 Flow Rate FiO2 04/29/17 08:00 94 Nasal Cannula 2.0 04/29/17 07:15 37.2 77 20 136/67 (90) 94 04/29/17 00:00 Nasal Cannula 2.0 04/28/17 23:08 37.2 73 20 151/71 (97) 94 2.0 04/28/17 16:00 Nasal Cannula 2.0 04/28/17 15:27 37.3 69 20 131/73 (92) 93 2.0 Physical Exam General Appearance: no apparent distress, + pertinent finding (O2 NC ) Eyes: normal inspection, PERRL ENT: hearing grossly normal Neck: supple Respiratory/Chest: lungs clear, no respiratory distress, no accessory muscle use Cardiovascular: regular rate, rhythm, + systolic murmur Abdomen: normal bowel sounds, non tender, soft Extremities: no pedal edema, no calf tenderness Neurologic/Psychiatric: alert, + disoriented (oriented to self ) Skin: warm/dry, no rash, + pallor Laboratory Results Last 24 Hours Test 04/29/17 09:05 White Blood Count 6.35 K/uL Red Blood Count 2.60 M/uL Hemoglobin 7.9 g/dL Hematocrit 23.4 % Mean Corpuscular Volume 90.0 fL Mean Corpuscular Hemoglobin 30.4 pg Mean Corpuscular Hemoglobin Concent 33.8 g/dl RDW Standard Deviation 51.6 fL RDW Coefficient of Variation 15.6 % Platelet Count 269 K/uL Mean Platelet Volume 9.5 fL Sodium Level 142 mmol/L Potassium Level 4.9 mmol/L Chloride Level 114 mmol/L Carbon Dioxide Level 17 mmol/L Anion Gap 11.0 mmol/L Blood Urea Nitrogen 69 mg/dl Creatinine 3.77 mg/dl Est Creatinine Clear Calc Drug Dose 12.6 ml/min Estimated GFR () 13.2 Estimated GFR (Non- 11.4 BUN/Creatinine Ratio 18.2 Random Glucose 97 mg/dl Calcium Level 8.8 mg/dl Assessment and Plan 71 yo F with Gram-negative sepsis, ESBL E. 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, h/o R nephrectomy d/t RCC: - CT findings appear stable - Continue f/u w/ Hematology/Oncology Chronic anemia- baseline hgb 9-10- STABLE: Follow CBC Fecal impaction on CT- RESOLVED: Bowel regimen w/ MiraLAX PRN, Dulcolax suppository PRN , enema PRN, Senokot BID Seizure disorder, dementia, schizophrenia: - Continue Phenobarbital, Phenytoin, Cymbalta - Phenobarbital= 16.6 and Phenytoin= 9.7- no needs for medication adjustment Severe protein malnutrition- noted CAD s/p [place]- STABLE, HTN: Continue Amlodipine GERD: Zantac DVT prophylaxis: Heparin subQ BID Disposition: From [facility]- CM following
[2017-04-29 14:26] VITALS: BP 136/69; PULSE 73; TEMP 37.6; O2SAT 98
[2017-04-29 17:12] VITALS: O2SAT 98
[2017-04-29] MEDS: PHENOBARBITAL 32.4 MG TAB PO SCH (20:38)
[2017-04-30] VITALS (10 sets, daily range): BP systolic 148–161; BP diastolic 70–76; PULSE 70–85; TEMP 36.5–37.7; O2SAT 96–100
[2017-04-30] MEDS ORDERED: SODIUM BICARBONATE 4.2% INJ 10 ML SYR IV STA (02:34)
[2017-04-30] MEDS ORDERED: CALCIUM GLUCONATE 10% 1,000 MG in SODIUM CHLORIDE 0.9% 50ML 50 ML IV STA (02:34)
--- NOTE | 2017-04-30 02:56 | Progress Note ---
Progress Note Date of Service Apr 30, 2017. Progress Note Code airam called on patient for unresponsiveness @ ~ 02:20 Code status reviewed: NOT ADDRESSED Reviewed recent medication: received haloperidol, phenytoin, phenobarbital at 20 :30 Labs reviewed, previous echo reviewed Management: Vitals checked: WNL Labs drawn: POC gluc, CBC, CMP, trop, EKG, CXR, ABG EKG showed no acute ischemia, CXR showed evidence of fluid, ABG showed metabolic acidosis, POC glucose WNL Meds administered: IVF @ 999ml/hr, bicarb, calcium gluconate Patient became more responsive. Transfer to telemetry Type and cross performed, 2 units held. Consider need for erythropoietin. Will trace labs - possible insulin + D50 if hyperkalemic Albumin and Lasix ordered given protein deficiency, third spacing of fluid and pulm congestion Primary team to address code status Resident Tracking Resident Involvement: Resident Care Provided Care Provided: Adult Hospital Medicine
[2017-04-30 03:00] LABS: BASO % 0.4 %; BASO ABS # 0.02 K/uL (0-0.2); EOS % 4.7 %; EOS ABS # 0.26 K/uL (0-0.5); HEMATOCRIT 23.9 % (37-47); HEMOGLOBIN 7.8 g/dL (12.0-16.0); IG# 0.03 K/uL (0.00-0.02); LYMPH % 18.2 %; LYMPH ABS # 1.01 K/uL (1.2-3.4); MEAN CELL VOLUME 89.8 fL (80-100); MEAN CORPUSCULAR HEMOGLOBIN 29.3 pg (25-34); MEAN PLATELET VOLUME 9.6 fL (7.4-10.4); MONO % 10.6 %; MONO ABS # 0.59 K/uL (0.11-0.59); NEUT % 65.6 %; NEUT ABS # 3.64 K/uL (1.4-6.5); PLATELET COUNT 293 K/uL (130-400); RED CELL DISTRIBUTION WIDTH CV 15.6 % (11.5-14.5); RED CELL DISTRIBUTION WIDTH SD 50.7 fL (36.4-46.3); WHITE BLOOD COUNT 5.55 K/uL (4.8-10.8)
[2017-04-30] MEDS ORDERED: ALBUMIN 25% 50 ML with FUROSEMIDE INJ 40 MG IV ONE ×2 (03:00)
[2017-04-30 03:02] LABS: MEAN CORPUSCULAR HGB CONC 32.6 g/dl (32-36)
[2017-04-30] MEDS ORDERED: NURSING VERBAL MED ORDER ONE (03:15)
[2017-04-30 03:28] LABS: ALBUMIN 1.7 gm/dl (3.4-5.0); ALKALINE PHOSPHATASE 199 U/L (45-117); ALT/SGPT 18 U/L (12-78); AST/SGOT 23 U/L (15-37); BLOOD UREA NITROGEN 63 mg/dl (7-18); CALCIUM 8.3 mg/dl (8.5-10.1); CARBON DIOXIDE 17 mmol/L (21-32); CREATININE 3.84 mg/dl (0.60-1.20); GLUCOSE 85 mg/dl (70-99); POTASSIUM 4.9 mmol/L (3.5-5.1); SODIUM 142 mmol/L (136-145); TOTAL PROTEIN 7.2 gm/dl (6.4-8.2)
--- NOTE | 2017-04-30 07:12 | DIAGNOSTIC IMAGING REPORT ---
CHEST ONE VIEW PORTABLE CLINICAL HISTORY: non responsive RESPIRATORY ARREST COMPARISON STUDY: 04/25/2017 FINDINGS: The heart remains enlarged. There is a left-sided A-Port catheter present. There is mild pulmonary vascular congestion. There are nonspecific left basal airspace opacities. There is minor blunting of the left lateral costophrenic angle.[ IMPRESSION: Cardiomegaly and radiographic evidence of mild congestive failure/fluid overload. Left basal airspace opacities, atelectatic versus infectious/inflammatory. Electronically signed by: Van Hernandez M.D. 04/30/2017 7:11 AM Dictated Date/Time: 04/30/2017 7:10 AM
[2017-04-30] MEDS: ALBUT/IPRATROP 3MG/0.5MG NEB 3 ML VIAL INH SCH ×4 (07:18→19:16)
[2017-04-30] MEDS: RANITIDINE HCL 150 MG TAB PO SCH (07:39)
[2017-04-30] MEDS: GABAPENTIN 400 MG CAP PO SCH ×2 (07:39→14:00)
[2017-04-30] MEDS: MULTIVITAMIN TAB PO SCH (07:39)
[2017-04-30] MEDS: DOCUSATE SODIUM/SENNA 50/8.6MG TAB PO SCH ×2 (07:39→20:46)
[2017-04-30] MEDS: RIVASTIGMINE TARTRATE (EXELON) 1.5 MG CAP PO SCH ×2 (07:39→16:51)
[2017-04-30] MEDS: FERROUS SULFATE 325 MG TAB PO SCH ×2 (07:40→20:45)
[2017-04-30] MEDS: PHENYTOIN SODIUM ER 30 MG CAP PO SCH ×3 (07:41→20:45)
[2017-04-30] MEDS: HALOPERIDOL 1 MG TAB PO SCH ×2 (07:41→20:46)
[2017-04-30] MEDS: AMLODIPINE BESYLATE 5 MG TAB PO SCH (07:41)
[2017-04-30] MEDS: SODIUM CHLORIDE 1 GM TAB PO SCH (07:42)
[2017-04-30] MEDS: DULOXETINE HCL 20 MG CAP PO SCH (07:42)
[2017-04-30] MEDS: IPRATROPIUM BROMIDE/ALBUTEROL respimat INH INH SCH ×4 (07:43→20:45)
[2017-04-30] MEDS: HEPARIN SOD 5000 UNIT/0.5 ML CARP SQ SCH ×2 (07:46→20:50)
[2017-04-30 08:06] LABS: HEMOGLOBIN 8.2 g/dL (12.0-16.0); MEAN CORPUSCULAR HEMOGLOBIN 29.2 pg (25-34); MEAN CORPUSCULAR HGB CONC 32.8 g/dl (32-36); MEAN PLATELET VOLUME 8.9 fL (7.4-10.4); PLATELET COUNT 301 K/uL (130-400); RED CELL DISTRIBUTION WIDTH CV 15.5 % (11.5-14.5); RED CELL DISTRIBUTION WIDTH SD 50.7 fL (36.4-46.3); WHITE BLOOD COUNT 6.14 K/uL (4.8-10.8)
[2017-04-30 08:28] LABS: BASO % 0.3 %; BASO ABS # 0.02 K/uL (0-0.2); EOS % 3.1 %; EOS ABS # 0.19 K/uL (0-0.5); IG# 0.03 K/uL (0.00-0.02); LYMPH % 14.2 %; LYMPH ABS # 0.87 K/uL (1.2-3.4); MONO % 11.1 %; MONO ABS # 0.68 K/uL (0.11-0.59); NEUT % 70.8 %; NEUT ABS # 4.35 K/uL (1.4-6.5)
[2017-04-30 08:36] LABS: CALCIUM 8.7 mg/dl (8.5-10.1); CREATININE 3.8 mg/dl (0.60-1.20); POTASSIUM 4.4 mmol/L (3.5-5.1)
[2017-04-30] MEDS: ERTAPENEM IV 500 MG in SODIUM CHLORIDE 0.9% 50 ML IV SCH (11:53)
--- NOTE | 2017-04-30 13:42 | Hospitalist Progress Note ---
Hospitalist Progress Note Date of Service Apr 30, 2017. Subjective Pt evaluation today including: conversation w/ patient, conversation w/ family (Son, Fer, on phone ), physical exam, lab review, review of inpatient medication list Voiding: mejia catheter in place Patient resting in bed. Wakes to name. Asked if in any pain- states no. ROS cannot be obtained secondary to patient's status. Discussed w/ RN. No acute events this AM. Code purple last evening due to unresponsive episode. Treated w/ IV Lasix + Albumin, IV Calcium gluconate, IV sodium bicarbonate. Spoke w/ son Fer on phone- at baseline, patient is alert/oriented x3, able to have meaningful/fluent conversation, ambulates w/ assistance. He spoke w/ patient via phone- again, not at baseline as far as conversing. He and his brother live out of state. He is in [place]. Patient's brother is to be visiting patient sometime in the future. Medications Current Inpatient Medications Medications (Trade) Dose Ordered Sig/Benito Route Start Time Stop Time Status Last Admin Dose Admin Acetaminophen (Tylenol Tab) 650 mg Q4H PRN PO 04/25/17 17:00 05/25/17 16:59 04/26/17 00:04 650 MG Al Hydrox/Mg Hydrox/Simethicone (Maalox Max Susp) 15 ml Q4H PRN PO 04/25/17 17:00 05/25/17 16:59 Magnesium Hydroxide (Milk Of Magnesia Susp) 30 ml Q6H PRN PO 04/25/17 17:00 05/25/17 16:59 Polyethylene (Miralax Powder Packet) 17 gm DAILY PRN PO 04/25/17 17:00 05/25/17 16:59 Ondansetron HCl (Zofran Inj) 4 mg Q6H PRN IV 04/25/17 17:00 05/25/17 16:59 Heparin Sodium (Porcine) (Heparin Sq 5000 Unit/0.5ml) 5,000 unit Q12H SQ 04/25/17 20:00 05/25/17 19:59 04/30/17 07:46 5,000 UNIT Bisacodyl (Dulcolax Supp) 10 mg DAILY PRN [place] 04/25/17 17:00 05/25/17 16:59 Sodium Biphosphate/ Sodium Phosphate (Fleet Enema) 132 ml DAILY PRN MT 04/25/17 17:00 05/25/17 16:59 04/25/17 21:10 132 ML Amlodipine Besylate (Norvasc Tab) 2.5 mg DAILY PO 04/26/17 09:00 05/26/17 08:59 04/30/17 07:41 2.5 MG Duloxetine HCl (Cymbalta Cap) 40 mg QAM PO 04/26/17 09:00 05/26/17 08:59 04/30/17 07:42 40 MG Gabapentin (Neurontin Cap) 400 mg TID PO 04/25/17 21:00 05/25/17 20:59 04/30/17 07:39 400 MG Haloperidol (Haldol Tab) 1 mg BID PO 04/25/17 21:00 05/25/17 20:59 04/30/17 07:41 1 MG Albuterol/ Ipratropium (Combivent Respimat Inh) 1 puffs QID INH 04/25/17 17:00 05/25/17 16:59 04/30/17 07:43 1 PUFFS Magnesium Hydroxide (Milk Of Magnesia Susp) 30 ml DAILY PRN PO 04/25/17 17:00 05/25/17 16:59 Multivitamins (Multivitamin Tab) 1 tab QAM PO 04/26/17 09:00 05/26/17 08:59 04/30/17 07:39 1 TAB Oxycodone HCl (Roxicodone Immediate Rel Tab) 5 mg Q6H PRN PO 04/25/17 17:00 05/09/17 16:59 Phenytoin Sodium (Dilantin Er Cap) 60 mg HS PO 04/25/17 21:00 05/25/17 20:59 04/29/17 20:38 60 MG Phenytoin Sodium (Dilantin Er Cap) 90 mg BID@0830,1630 PO 04/25/17 18:30 05/25/17 18:29 04/30/17 07:41 90 MG Ranitidine HCl (zANTac TAB) 150 mg QAM PO 04/26/17 09:00 05/26/17 08:59 04/30/17 07:39 150 MG Senna/Docusate Sodium (Senokot S Tab) 1 tab BID PO 04/25/17 21:00 05/25/17 20:59 04/30/17 07:39 1 TAB Sodium Chloride (Sodium Chloride Tab) 1 gm QAM PO 04/26/17 09:00 05/26/17 08:59 04/30/17 07:42 1 GM Ferrous Sulfate (Feosol Tab) 325 mg BID PO 04/25/17 21:00 05/25/17 20:59 04/30/17 07:40 325 MG Rivastigmine Tartrate (Exelon Cap) 1.5 mg BIDM PO 04/25/17 18:30 05/25/17 18:29 04/30/17 07:39 1.5 MG Phenobarbital (Phenobarbital Tab) 64.8 mg HS PO 04/25/17 21:00 05/25/17 20:59 04/29/17 20:38 64.8 MG Ertapenem 500 mg/ Sodium Chloride 55 ml @ 110 mls/hr Q24H IV 04/27/17 12:00 05/11/17 11:59 04/30/17 11:53 110 MLS/HR Albuterol/ Ipratropium (Duoneb) 3 ml QIDR INH 04/30/17 08:00 05/30/17 07:59 04/30/17 11:15 3 ML Objective Vital Signs Date Time Temp Pulse Resp B/P (MAP) Pulse Ox O2 Delivery O2 Flow Rate FiO2 04/30/17 11:24 36.7 75 16 155/76 (102) 97 2.0 04/30/17 11:16 78 16 96 Nasal Cannula 2.0 04/30/17 08:00 Nasal Cannula 2.0 04/30/17 07:40 36.5 72 16 161/74 (103) 98 2.0 04/30/17 07:20 76 16 98 Nasal Cannula 2.0 04/30/17 04:00 Nasal Cannula 2.0 04/30/17 00:01 37.7 70 19 148/70 (96) 96 Nasal Cannula 04/30/17 00:00 Nasal Cannula 2.0 04/29/17 17:12 98 Nasal Cannula 2.0 04/29/17 14:26 37.6 73 18 136/69 (91) 98 Physical Exam General Appearance: no apparent distress, + pertinent finding (O2 NC ) Eyes: normal inspection, PERRL ENT: hearing grossly normal Neck: supple Respiratory/Chest: lungs clear, no respiratory distress, no accessory muscle use Cardiovascular: regular rate, rhythm, + systolic murmur Abdomen: normal bowel sounds, non tender, soft Extremities: no calf tenderness, + pedal edema (mild, non-pitting ) Neurologic/Psychiatric: alert, + disoriented Skin: warm/dry, no rash, + pallor Laboratory Results Last 24 Hours Test 04/30/17 02:20 04/30/17 02:36 04/30/17 07:47 Bedside Glucose 94 mg/dl White Blood Count 5.55 K/uL 6.14 K/uL Red Blood Count 2.66 M/uL 2.81 M/uL Hemoglobin 7.8 g/dL 8.2 g/dL Hematocrit 23.9 % 25.0 % Mean Corpuscular Volume 89.8 fL 89.0 fL Mean Corpuscular Hemoglobin 29.3 pg 29.2 pg Mean Corpuscular Hemoglobin Concent 32.6 g/dl 32.8 g/dl Platelet Count 293 K/uL 301 K/uL Mean Platelet Volume 9.6 fL 8.9 fL Neutrophils (%) (Auto) 65.6 % 70.8 % Lymphocytes (%) (Auto) 18.2 % 14.2 % Monocytes (%) (Auto) 10.6 % 11.1 % Eosinophils (%) (Auto) 4.7 % 3.1 % Basophils (%) (Auto) 0.4 % 0.3 % Neutrophils # (Auto) 3.64 K/uL 4.35 K/uL Lymphocytes # (Auto) 1.01 K/uL 0.87 K/uL Monocytes # (Auto) 0.59 K/uL 0.68 K/uL Eosinophils # (Auto) 0.26 K/uL 0.19 K/uL Basophils # (Auto) 0.02 K/uL 0.02 K/uL RDW Standard Deviation 50.7 fL 50.7 fL RDW Coefficient of Variation 15.6 % 15.5 % Immature Granulocyte % (Auto) 0.5 % 0.5 % Immature Granulocyte # (Auto) 0.03 K/uL 0.03 K/uL Red Blood Cell Morphology Unremarkable Arterial Blood pH 7.26 Arterial Blood Partial Pressure CO2 38 mmHg Arterial Blood Partial Pressure O2 120 mm/Hg Arterial Blood HCO3 17 mmol/L Arterial Blood Oxygen Saturation 95.8 % Arterial Blood Base Excess -9.7 mEq/L Arterial Blood Gas Delivery 3L Elieser Test POS Sodium Level 142 mmol/L 145 mmol/L Potassium Level 4.9 mmol/L 4.4 mmol/L Chloride Level 115 mmol/L 114 mmol/L Carbon Dioxide Level 17 mmol/L 20 mmol/L Anion Gap 10.0 mmol/L 11.0 mmol/L Blood Urea Nitrogen 63 mg/dl 63 mg/dl Creatinine 3.84 mg/dl 3.80 mg/dl Est Creatinine Clear Calc Drug Dose 12.4 ml/min 12.5 ml/min Estimated GFR () 12.9 13.1 Estimated GFR (Non- 11.1 11.3 BUN/Creatinine Ratio 16.3 16.5 Random Glucose 85 mg/dl 95 mg/dl Calcium Level 8.3 mg/dl 8.7 mg/dl Total Bilirubin 0.3 mg/dl Aspartate Amino Transf (AST/SGOT) 23 U/L Alanine Aminotransferase (ALT/SGPT) 18 U/L Alkaline Phosphatase 199 U/L Troponin I < 0.015 ng/ml Total Protein 7.2 gm/dl Albumin 1.7 gm/dl Globulin 5.5 gm/dl Albumin/Globulin Ratio 0.3 Large Platelets 1+ Assessment and Plan 71 y/o F with AMS, unsure of etiology: - Discussed w/ sonFer- patient normally able to have fluent/meaningful conversation, alert/oriented, ambulating at [facility] w/ assistance -- Son spoke to patient over phone- states that is NOT her baseline as far as conversing goes - Initially questioned related to infection, but patient on appropriate abx treatment w/ minimal improvement - Obtain MRI of brain - He states she is a FULL CODE Gram-negative sepsis, ESBL E. 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, h/o R nephrectomy d/t RCC: - Abdominal CT findings appear stable - Continue f/u w/ Hematology/Oncology Chronic anemia- baseline hgb 9-10- hgb 8.2 today- STABLE: Follow CBC Fecal impaction on CT- RESOLVED: Bowel regimen w/ MiraLAX PRN, Dulcolax suppository PRN , enema PRN, Senokot BID Seizure disorder, dementia, schizophrenia: - Continue Phenobarbital, Phenytoin, Cymbalta - Phenobarbital= 16.6 and Phenytoin= 9.7- no needs for medication adjustment Severe protein malnutrition- noted CAD s/p [place]- STABLE, HTN: Continue Amlodipine GERD: Zantac Code status: LEVEL I, FULL- discussed w/ son Fer DVT prophylaxis: Heparin subQ BID Disposition: From [facility]- CM following
[2017-04-30] MEDS: D5W AND 1/2NSS 1,000 ML IV SCH (17:21)
--- NOTE | 2017-04-30 18:23 | Nephrology Consultation ---
Nephrology Consultation Date & Providers Date of Consultation: Apr 30, 2017. Primary Care Provider: [facility] [place] Referring Provider: Reason for Consultation Evaluation of acute on CKD History of Present Illness Ms. Brewer is a 71 year old white female who is seen at the request of Dr. Baxter for evaluation of acute on CKD. The patient is lethargic and unable to provide any medical history. Medical records in the EMR were reviewed and are summarized as follows: Ms. Brewer is a resident of [facility] halfway. She carries a diagnosis of dementia. In 2005 she was found to have a R renal mass. R nephrectomy was performed. 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 In March 2016 Ms. Brewer was found to have a mass partially obstructing the L ureter. She underwent L ureterectomy w/ psoas hitch and ureteral reimplantation. 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 Ms. Brewer has required C.I.C. at the halfway. On 04/24 she developed a fever. Blood and urine cultures were + for ESBL E. Coli. Initially attempts were made to care for Ms. Brewer at [facility]. Unfortunately IV access could not be obtained. Ms. Brewer was admitted to [facility] 04/25 and started on IV Ertapenem. Despite antibiotic therapy, patient has become progressively obtunded and serum creatinine has risen from 1.[address] shows chronic stable L hydronephrosis. Urinalysis is c/w infection. 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 # Clear cell CA s/p R nephrectomy 2005 # COPD # ASCVD # Dementia # h/o alcoholism # HTN # Hypothyroidism # Seizure d/o # Schizophrenia # GERD # Hyponatremia # Frequent UTI Allergies Coded Allergies: Sulfa Antibiotics (Verified Allergy, Severe, mouth swells, bumps on roof of mouth, 04/17/17) Banana (Verified Allergy, Intermediate, RAW -ROOF OF MOUTH SWELLS, 04/17/17) Inpatient Medications Current Inpatient Medications Medications (Trade) Dose Ordered Sig/Benito Route Start Time Stop Time Status Last Admin Dose Admin Acetaminophen (Tylenol Tab) 650 mg Q4H PRN PO 04/25/17 17:00 05/25/17 16:59 04/26/17 00:04 650 MG Al Hydrox/Mg Hydrox/Simethicone (Maalox Max Susp) 15 ml Q4H PRN PO 04/25/17 17:00 05/25/17 16:59 Magnesium Hydroxide (Milk Of Magnesia Susp) 30 ml Q6H PRN PO 04/25/17 17:00 05/25/17 16:59 Polyethylene (Miralax Powder Packet) 17 gm DAILY PRN PO 04/25/17 17:00 05/25/17 16:59 Ondansetron HCl (Zofran Inj) 4 mg Q6H PRN IV 04/25/17 17:00 05/25/17 16:59 Heparin Sodium (Porcine) (Heparin Sq 5000 Unit/0.5ml) 5,000 unit Q12H SQ 04/25/17 20:00 05/25/17 19:59 04/30/17 07:46 5,000 UNIT Bisacodyl (Dulcolax Supp) 10 mg DAILY PRN [place] 04/25/17 17:00 05/25/17 16:59 Sodium Biphosphate/ Sodium Phosphate (Fleet Enema) 132 ml DAILY PRN [place] 04/25/17 17:00 05/25/17 16:59 04/25/17 21:10 132 ML Amlodipine Besylate (Norvasc Tab) 2.5 mg DAILY PO 04/26/17 09:00 05/26/17 08:59 04/30/17 07:41 2.5 MG Duloxetine HCl (Cymbalta Cap) 40 mg QAM PO 04/26/17 09:00 05/26/17 08:59 04/30/17 07:42 40 MG Gabapentin (Neurontin Cap) 400 mg TID PO 04/25/17 21:00 05/25/17 20:59 04/30/17 07:39 400 MG Haloperidol (Haldol Tab) 1 mg BID PO 04/25/17 21:00 05/25/17 20:59 04/30/17 07:41 1 MG Albuterol/ Ipratropium (Combivent Respimat Inh) 1 puffs QID INH 04/25/17 17:00 05/25/17 16:59 04/30/17 16:48 1 PUFFS Magnesium Hydroxide (Milk Of Magnesia Susp) 30 ml DAILY PRN PO 04/25/17 17:00 05/25/17 16:59 Multivitamins (Multivitamin Tab) 1 tab QAM PO 04/26/17 09:00 05/26/17 08:59 04/30/17 07:39 1 TAB Oxycodone HCl (Roxicodone Immediate Rel Tab) 5 mg Q6H PRN PO 04/25/17 17:00 05/09/17 16:59 Phenytoin Sodium (Dilantin Er Cap) 60 mg HS PO 04/25/17 21:00 05/25/17 20:59 04/29/17 20:38 60 MG Phenytoin Sodium (Dilantin Er Cap) 90 mg BID@0830,1630 PO 04/25/17 18:30 05/25/17 18:29 04/30/17 16:49 90 MG Ranitidine HCl (zANTac TAB) 150 mg QAM PO 04/26/17 09:00 05/26/17 08:59 04/30/17 07:39 150 MG Senna/Docusate Sodium (Senokot S Tab) 1 tab BID PO 04/25/17 21:00 05/25/17 20:59 04/30/17 07:39 1 TAB Sodium Chloride (Sodium Chloride Tab) 1 gm QAM PO 04/26/17 09:00 05/26/17 08:59 04/30/17 07:42 1 GM Ferrous Sulfate (Feosol Tab) 325 mg BID PO 04/25/17 21:00 05/25/17 20:59 04/30/17 07:40 325 MG Rivastigmine Tartrate (Exelon Cap) 1.5 mg BIDM PO 04/25/17 18:30 05/25/17 18:29 04/30/17 16:51 1.5 MG Phenobarbital (Phenobarbital Tab) 64.8 mg HS PO 04/25/17 21:00 05/25/17 20:59 04/29/17 20:38 64.8 MG Ertapenem 500 mg/ Sodium Chloride 55 ml @ 110 mls/hr Q24H IV 04/27/17 12:00 05/11/17 11:59 04/30/17 11:53 110 MLS/HR Albuterol/ Ipratropium (Duoneb) 3 ml QIDR INH 04/30/17 08:00 05/30/17 07:59 04/30/17 15:31 3 ML Heparin Sodium (Porcine) (Heparin 100 Unit/ml 5ml Flush) 5 ml PRN PRN IV 04/30/17 13:30 05/30/17 13:29 Dextrose/Sodium Chloride 1,000 ml @ 75 mls/hr [id number] IV 04/30/17 17:15 05/30/17 17:14 04/30/17 17:21 75 MLS/HR Family History Hypertension Negative for CKD / ESRD Social History Smoking Status: Former Smoker Drug Use: none Marital Status: Housing Status: halfway Occupation: retired, disabled . Retired. Former smoker Review of Systems Unable to participate in ROS Physical Exam Date Time Temp Pulse Resp B/P (MAP) Pulse Ox O2 Delivery O2 Flow Rate FiO2 04/30/17 15:31 83 16 96 Nasal Cannula 2.0 04/30/17 15:05 36.6 73 16 153/75 (101) 97 2.0 04/30/17 12:00 Nasal Cannula 2.0 04/30/17 11:24 36.7 75 16 155/76 (102) 97 2.0 04/30/17 11:16 78 16 96 Nasal Cannula 2.0 04/30/17 08:00 Nasal Cannula 2.0 04/30/17 07:40 36.5 72 16 161/74 (103) 98 2.0 04/30/17 07:20 76 16 98 Nasal Cannula 2.0 04/30/17 04:00 Nasal Cannula 2.0 04/30/17 00:01 37.7 70 19 148/70 (96) 96 Nasal Cannula 04/30/17 00:00 Nasal Cannula 2.0 General Appearance: + pertinent finding (chronically ill appearing) Head: atraumatic (temporal muscle wasting) Eyes: PERRL Respiratory/Chest: lungs clear Cardiovascular: regular rate, rhythm Abdomen/GI: non tender, soft Genitourinary - Female: + pertinent finding (mejia catheter draining clear yellow urine) Extremities/Musculoskelatal: no pedal edema, + pertinent finding (poor skin turgor) Neurologic/Psych: + pertinent finding (lethargic. Opens eyes to verbal commmand but remains nonconversant) Skin: warm/dry, + pertinent finding (poor skin turgor) Laboratory Results Last 24 Hours Test 04/30/17 02:20 04/30/17 02:36 04/30/17 07:47 Bedside Glucose 94 mg/dl White Blood Count 5.55 K/uL 6.14 K/uL Red Blood Count 2.66 M/uL 2.81 M/uL Hemoglobin 7.8 g/dL 8.2 g/dL Hematocrit 23.9 % 25.0 % Mean Corpuscular Volume 89.8 fL 89.0 fL Mean Corpuscular Hemoglobin 29.3 pg 29.2 pg Mean Corpuscular Hemoglobin Concent 32.6 g/dl 32.8 g/dl Platelet Count 293 K/uL 301 K/uL Mean Platelet Volume 9.6 fL 8.9 fL Neutrophils (%) (Auto) 65.6 % 70.8 % Lymphocytes (%) (Auto) 18.2 % 14.2 % Monocytes (%) (Auto) 10.6 % 11.1 % Eosinophils (%) (Auto) 4.7 % 3.1 % Basophils (%) (Auto) 0.4 % 0.3 % Neutrophils # (Auto) 3.64 K/uL 4.35 K/uL Lymphocytes # (Auto) 1.01 K/uL 0.87 K/uL Monocytes # (Auto) 0.59 K/uL 0.68 K/uL Eosinophils # (Auto) 0.26 K/uL 0.19 K/uL Basophils # (Auto) 0.02 K/uL 0.02 K/uL RDW Standard Deviation 50.7 fL 50.7 fL RDW Coefficient of Variation 15.6 % 15.5 % Immature Granulocyte % (Auto) 0.5 % 0.5 % Immature Granulocyte # (Auto) 0.03 K/uL 0.03 K/uL Red Blood Cell Morphology Unremarkable Arterial Blood pH 7.26 Arterial Blood Partial Pressure CO2 38 mmHg Arterial Blood Partial Pressure O2 120 mm/Hg Arterial Blood HCO3 17 mmol/L Arterial Blood Oxygen Saturation 95.8 % Arterial Blood Base Excess -9.7 mEq/L Arterial Blood Gas Delivery 3L Elieser Test POS Sodium Level 142 mmol/L 145 mmol/L Potassium Level 4.9 mmol/L 4.4 mmol/L Chloride Level 115 mmol/L 114 mmol/L Carbon Dioxide Level 17 mmol/L 20 mmol/L Anion Gap 10.0 mmol/L 11.0 mmol/L Blood Urea Nitrogen 63 mg/dl 63 mg/dl Creatinine 3.84 mg/dl 3.80 mg/dl Est Creatinine Clear Calc Drug Dose 12.4 ml/min 12.5 ml/min Estimated GFR () 12.9 13.1 Estimated GFR (Non- 11.1 11.3 BUN/Creatinine Ratio 16.3 16.5 Random Glucose 85 mg/dl 95 mg/dl Calcium Level 8.3 mg/dl 8.7 mg/dl Total Bilirubin 0.3 mg/dl Aspartate Amino Transf (AST/SGOT) 23 U/L Alanine Aminotransferase (ALT/SGPT) 18 U/L Alkaline Phosphatase 199 U/L Troponin I < 0.015 ng/ml Total Protein 7.2 gm/dl Albumin 1.7 gm/dl Globulin 5.5 gm/dl Albumin/Globulin Ratio 0.3 Large Platelets 1+ Impression (1) Acute kidney injury (2) Chronic kidney disease (3) Dehydration (4) Bacteremia (5) UTI (urinary tract infection) Recommendations -- Clinically doubt obstruction. Patient is nonoliguric. CT is unchanged from previous studies. L hydro is chronic and related to previous surgery -- Continue gentle hydration -- Continue Ertapenem -- Will reduce Gabapentin and stop Cymbalta due to ILIA -- Monitor serial PRP -- Prognosis is guarded. Patient is bacteremic and lethargic. She is not a dialysis candidate due to her h/o dementia, psychiatric illness and halfway status.
[2017-04-30] MEDS: PHENOBARBITAL 32.4 MG TAB PO SCH (20:46)
--- NOTE | 2017-04-30 22:26 | DIAGNOSTIC IMAGING REPORT ---
BRAIN WITHOUT CONTRAST HISTORY: Stroke r/o CVA TECHNIQUE: Multiplanar multisequence MRI of the brain was performed without the use of contrast. COMPARISON STUDY: 10/02/2016 FINDINGS: Diffusion-weighted images showed no evidence for an acute ischemic process. Moderate cerebellar as well as cerebral atrophy. Moderate chronic small vessel change. Several small old basal ganglia infarcts unchanged from the prior study. Ventricular system is midline. The sella and parasellar regions are unremarkable. Internal auditory canals are symmetric. IMPRESSION: 1. No acute intracranial abnormality. 2. Moderate cerebral atrophy with moderate chronic small vessel change. 3. Incidental note is made of mild mucosal thickening of the mastoid air cells The above report was generated using voice recognition software. It may contain grammatical, syntax or spelling errors. Electronically signed by: Kelvin Almaraz M.D. 04/30/2017 10:25 PM Dictated Date/Time: 04/30/2017 10:21 PM
[2017-05-01] VITALS (10 sets, daily range): BP systolic 123–155; BP diastolic 65–77; PULSE 62–85; TEMP 36.6–37.3; O2SAT 94–100
[2017-05-01 05:30] LABS: BASO % 0.2 %; BASO ABS # 0.01 K/uL (0-0.2); EOS % 5.3 %; EOS ABS # 0.28 K/uL (0-0.5); HEMATOCRIT 24.9 % (37-47); HEMOGLOBIN 7.8 g/dL (12.0-16.0); IG# 0.02 K/uL (0.00-0.02); LYMPH % 14.1 %; LYMPH ABS # 0.74 K/uL (1.2-3.4); MEAN CELL VOLUME 89.9 fL (80-100); MEAN CORPUSCULAR HEMOGLOBIN 28.2 pg (25-34); MEAN CORPUSCULAR HGB CONC 31.3 g/dl (32-36); MEAN PLATELET VOLUME 9.7 fL (7.4-10.4); MONO % 13.1 %; MONO ABS # 0.69 K/uL (0.11-0.59); NEUT % 66.9 %; NEUT ABS # 3.51 K/uL (1.4-6.5); PLATELET COUNT 322 K/uL (130-400); RED CELL DISTRIBUTION WIDTH CV 15.8 % (11.5-14.5); RED CELL DISTRIBUTION WIDTH SD 52.4 fL (36.4-46.3); WHITE BLOOD COUNT 5.25 K/uL (4.8-10.8)
[2017-05-01 06:06] LABS: CALCIUM 8.6 mg/dl (8.5-10.1); CREATININE 3.94 mg/dl (0.60-1.20); POTASSIUM 4.2 mmol/L (3.5-5.1)
[2017-05-01 06:07] LABS: PHOSPHORUS 6.6 mg/dl (2.5-4.9)
[2017-05-01] MEDS: ALBUT/IPRATROP 3MG/0.5MG NEB 3 ML VIAL INH SCH ×4 (07:09→20:57)
[2017-05-01] MEDS: D5W AND 1/2NSS 1,000 ML IV SCH ×2 (07:10→20:17)
[2017-05-01] MEDS: DOCUSATE SODIUM/SENNA 50/8.6MG TAB PO SCH ×2 (08:43→20:18)
[2017-05-01] MEDS: HALOPERIDOL 1 MG TAB PO SCH ×2 (08:43→20:18)
[2017-05-01] MEDS: RIVASTIGMINE TARTRATE (EXELON) 1.5 MG CAP PO SCH ×2 (08:43→16:46)
[2017-05-01] MEDS: GABAPENTIN 100 MG CAP PO SCH (08:43)
[2017-05-01] MEDS: FERROUS SULFATE 325 MG TAB PO SCH ×2 (08:43→20:18)
[2017-05-01] MEDS: PHENYTOIN SODIUM ER 30 MG CAP PO SCH ×3 (08:43→20:17)
[2017-05-01] MEDS: RANITIDINE HCL 150 MG TAB PO SCH (08:43)
[2017-05-01] MEDS: MULTIVITAMIN TAB PO SCH (08:43)
[2017-05-01] MEDS: SODIUM CHLORIDE 1 GM TAB PO SCH (08:43)
[2017-05-01] MEDS: AMLODIPINE BESYLATE 5 MG TAB PO SCH (08:44)
[2017-05-01] MEDS: IPRATROPIUM BROMIDE/ALBUTEROL respimat INH INH SCH ×4 (08:44→20:17)
[2017-05-01] MEDS: HEPARIN SOD 5000 UNIT/0.5 ML CARP SQ SCH ×2 (08:55→20:21)
--- NOTE | 2017-05-01 09:42 | Urology Consultation ---
History General Date of Service: May 01, 2017. Chief Complaint: left hydronephrosis Primary Care Physician: Lewis Simpson Pt seen a urologist before?: Yes (Dr. Ken) If yes, why?: RCC, left distal ureteral urothelial carcnimoa History of Present Illness 71 yo female admitted with AMS. consulted for ARF and left hydronephrosis. The pt is seen by Dr. Ken. She has a hx of RCC and right nephrectomy as well as distal left ureteral urothelial carcinoma. She is s/p distal left ureterectomy and ureteral reimplant with psoas hitch in May 2016. Recent CT showing ? left ureteral mass. She has been seeing Dr. Santacruz from oncology. Not a candidate for further chemo at this time. Pt noted to have worsening AMS this admission. She will open her eyes to physical stimulus and mumble when asked questions, but is groggy and incoherent. She is noted to have an ESBL e coli UTI as well. Cr this morning is 3.94. Imaging Imaging: CT Laboratory Last 24 Hours Test 05/01/17 05:16 White Blood Count 5.25 K/uL Red Blood Count 2.77 M/uL Hemoglobin 7.8 g/dL Hematocrit 24.9 % Mean Corpuscular Volume 89.9 fL Mean Corpuscular Hemoglobin 28.2 pg Mean Corpuscular Hemoglobin Concent 31.3 g/dl Platelet Count 322 K/uL Mean Platelet Volume 9.7 fL Neutrophils (%) (Auto) 66.9 % Lymphocytes (%) (Auto) 14.1 % Monocytes (%) (Auto) 13.1 % Eosinophils (%) (Auto) 5.3 % Basophils (%) (Auto) 0.2 % Neutrophils # (Auto) 3.51 K/uL Lymphocytes # (Auto) 0.74 K/uL Monocytes # (Auto) 0.69 K/uL Eosinophils # (Auto) 0.28 K/uL Basophils # (Auto) 0.01 K/uL RDW Standard Deviation 52.4 fL RDW Coefficient of Variation 15.8 % Immature Granulocyte % (Auto) 0.4 % Immature Granulocyte # (Auto) 0.02 K/uL Red Blood Cell Morphology Unremarkable Sodium Level 147 mmol/L Potassium Level 4.2 mmol/L Chloride Level 117 mmol/L Carbon Dioxide Level 21 mmol/L Anion Gap 9.0 mmol/L Blood Urea Nitrogen 64 mg/dl Creatinine 3.94 mg/dl Est Creatinine Clear Calc Drug Dose 12.1 ml/min Estimated GFR () 12.5 Estimated GFR (Non- 10.8 BUN/Creatinine Ratio 16.2 Random Glucose 113 mg/dl Calcium Level 8.6 mg/dl Phosphorus Level 6.6 mg/dl Magnesium Level 2.6 mg/dl Problem List Medical Problems: (1) Acute renal failure Status: Acute (2) Altered mental status Status: Acute (3) Anemia Status: Acute (4) Anemia Status: Acute (5) Bacteremia due to Gram-negative bacteria Status: Acute (6) Dementia Status: Chronic (7) E. 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 (12) Renal insufficiency Status: Acute (13) Syncope and collapse Status: Acute (14) Urinary tract infection Status: Acute Past History cancer (RCC right kidney, urothelial carcinoma left kidney, ), COPD, coronary artery disease, dementia, GERD, hypertension, hypothyroidism, myocardial infarction, other (CKD stage III, schizophrenia, hx of alcoholism ) Past Surgical History: spinal surgery, other (right nephrectomy, left distal ureterectomy ) Family History Hypertension [place] Social History Hx Tobacco Use In Past Year?: No Smoking: non-smoker Alcohol: history of alcohol abuse Drug use: none Marital status: Housing status: halfway Occupation status: retired, disabled Immunizations History of Influenza Vaccine: Unknown Influenza Vaccine Date: Nov 10, 2004 History of Tetanus Vaccine?: Unknown History of Pneumococcal: Unknown History of Hepatitis B Vaccine: Unknown History of MDRO Yes Type of MDRO: VRE, MRSA Allergies Coded Allergies: Sulfa Antibiotics (Verified Allergy, Severe, mouth swells, bumps on roof of mouth, 04/17/17) Banana (Verified Allergy, Intermediate, RAW -ROOF OF MOUTH SWELLS, 04/17/17) Medications Home Medications: Home Meds and Scripts Medications Dose Route/Sig Max Daily Dose Days Date Category Dose Instructions Roxicodone Ir (Oxycodone HCl) 5 Mg Tab 5 Mg PO Q6H PRN 04/25/17 Reported Milk Of Magnesia (Magnesium Hydroxide) 30 Ml Susp 30 Ml PO PRN UD 04/25/17 Reported Dulcolax (Bisacodyl) Unknown Strength Sup 1 Syr [place] PRN UD 04/25/17 Reported Combivent Respimat (Ipratropium-Albuterol) 1 Aer Aer 1 Puffs INH QID 04/25/17 Reported Roxicodone Ir (Oxycodone HCl) 5 Mg Tab 5 Mg PO BID 04/17/17 Reported Dilantin (Phenytoin Sodium Extended) 30 Mg Cap 60 Mg PO HS 12/23/16 Reported Norvasc (Amlodipine Besylate) 2.5 Mg Tab 2.5 Mg PO DAILY 12/23/16 Reported Dilantin (Phenytoin Sodium Extended) 30 Mg Cap 90 Mg PO BID 10/02/16 Reported GIVE AT 0830 AND 1630 Kp Ferrous Sulfate (Ferrous Sulfate) 325 Mg Tab 325 Mg PO BID 07/25/16 Reported Exelon (Rivastigmine Tartrate) 1.5 Mg Cap 1.5 Mg PO BID 04/30/16 Reported Sodium Chloride 1 Gm Tab 1 Tab PO QAM 04/30/16 Reported Neurontin (Gabapentin) 400 Mg Cap 400 Mg PO TID 09/25/14 Reported GIVE AT 0030/0830/1630 Haloperidol 1 Mg Tab 1 Mg PO BID 08/13/14 Reported Senna/Docusate Sodium (Sennosides-Docusate Sodium) 1 Tab Tab 1 Tab PO BID AT 0830 & 1630 08/13/14 Reported Phenobarbital 64.8 Mg Tab 64.8 Mg PO HS 01/05/14 Reported GIVE AT 2030 Zantac (Ranitidine HCl) 150 Mg Tab 150 Mg PO BID 02/13/13 Reported AM & HS Cymbalta (Duloxetine Hcl) 20 Mg Cap 40 Mg PO QAM 02/12/12 Reported Tylenol (Acetaminophen) 325 Mg Tab 650 Mg PO Q6 PRN 11/03/10 Reported DO NOT EXCEED 3000MG APAP/24 HOURS. Multivitamin (Multivitamins) Tab 1 Tablet PO QAM 11/21/09 Reported ONE A DAY [facility]OMAN'S. Inpatient Medications: Current Inpatient Medications Medications (Trade) Dose Ordered Sig/Benito Route Start Time Stop Time Status Last Admin Dose Admin Acetaminophen (Tylenol Tab) 650 mg Q4H PRN PO 04/25/17 17:00 05/25/17 16:59 04/26/17 00:04 650 MG Al Hydrox/Mg Hydrox/Simethicone (Maalox Max Susp) 15 ml Q4H PRN PO 04/25/17 17:00 05/25/17 16:59 Magnesium Hydroxide (Milk Of Magnesia Susp) 30 ml Q6H PRN PO 04/25/17 17:00 05/25/17 16:59 Polyethylene (Miralax Powder Packet) 17 gm DAILY PRN PO 04/25/17 17:00 05/25/17 16:59 Ondansetron HCl (Zofran Inj) 4 mg Q6H PRN IV 04/25/17 17:00 05/25/17 16:59 Heparin Sodium (Porcine) (Heparin Sq 5000 Unit/0.5ml) 5,000 unit Q12H SQ 04/25/17 20:00 05/25/17 19:59 05/01/17 08:55 5,000 UNIT Bisacodyl (Dulcolax Supp) 10 mg DAILY PRN [place] 04/25/17 17:00 05/25/17 16:59 Sodium Biphosphate/ Sodium Phosphate (Fleet Enema) 132 ml DAILY PRN [place] 04/25/17 17:00 05/25/17 16:59 04/25/17 21:10 132 ML Amlodipine Besylate (Norvasc Tab) 2.5 mg DAILY PO 04/26/17 09:00 05/26/17 08:59 05/01/17 08:44 2.5 MG Haloperidol (Haldol Tab) 1 mg BID PO 04/25/17 21:00 05/25/17 20:59 05/01/17 08:43 1 MG Albuterol/ Ipratropium (Combivent Respimat Inh) 1 puffs QID INH 04/25/17 17:00 05/25/17 16:59 05/01/17 08:44 1 PUFFS Magnesium Hydroxide (Milk Of Magnesia Susp) 30 ml DAILY PRN PO 04/25/17 17:00 05/25/17 16:59 Multivitamins (Multivitamin Tab) 1 tab QAM PO 04/26/17 09:00 05/26/17 08:59 05/01/17 08:43 1 TAB Oxycodone HCl (Roxicodone Immediate Rel Tab) 5 mg Q6H PRN PO 04/25/17 17:00 05/09/17 16:59 Phenytoin Sodium (Dilantin Er Cap) 60 mg HS PO 04/25/17 21:00 05/25/17 20:59 04/29/17 20:38 60 MG Phenytoin Sodium (Dilantin Er Cap) 90 mg BID@0830,1630 PO 04/25/17 18:30 05/25/17 18:29 05/01/17 08:43 90 MG Ranitidine HCl (zANTac TAB) 150 mg QAM PO 04/26/17 09:00 05/26/17 08:59 05/01/17 08:43 150 MG Senna/Docusate Sodium (Senokot S Tab) 1 tab BID PO 04/25/17 21:00 05/25/17 20:59 05/01/17 08:43 1 TAB Sodium Chloride (Sodium Chloride Tab) 1 gm QAM PO 04/26/17 09:00 05/26/17 08:59 05/01/17 08:43 1 GM Ferrous Sulfate (Feosol Tab) 325 mg BID PO 04/25/17 21:00 05/25/17 20:59 05/01/17 08:43 325 MG Rivastigmine Tartrate (Exelon Cap) 1.5 mg BIDM PO 04/25/17 18:30 05/25/17 18:29 05/01/17 08:43 1.5 MG Phenobarbital (Phenobarbital Tab) 64.8 mg HS PO 04/25/17 21:00 05/25/17 20:59 04/29/17 20:38 64.8 MG Ertapenem 500 mg/ Sodium Chloride 55 ml @ 110 mls/hr Q24H IV 04/27/17 12:00 05/11/17 11:59 04/30/17 11:53 110 MLS/HR Albuterol/ Ipratropium (Duoneb) 3 ml QIDR INH 04/30/17 08:00 05/30/17 07:59 05/01/17 07:09 3 ML Heparin Sodium (Porcine) (Heparin 100 Unit/ml 5ml Flush) 5 ml PRN PRN IV 04/30/17 13:30 05/30/17 13:29 Dextrose/Sodium Chloride 1,000 ml @ 75 mls/hr [id number] IV 04/30/17 17:15 05/30/17 17:14 05/01/17 07:10 75 MLS/HR Gabapentin (Neurontin Cap) 100 mg DAILY PO 05/01/17 09:00 05/31/17 08:59 05/01/17 08:43 100 MG Review of Systems Review of Systems Additional Comments: Pt unable to answer questions d/t AMS. Physical Exam Vital Signs: Vital Signs Past 12 Hours Date Time Temp Pulse Resp B/P (MAP) Pulse Ox O2 Delivery O2 Flow Rate FiO2 05/01/17 07:40 37.0 68 18 146/69 (94) 97 Room Air 05/01/17 07:09 85 16 96 Nasal Cannula 2.0 05/01/17 04:15 37.3 64 18 135/67 (89) 98 4.0 05/01/17 04:00 Nasal Cannula 2.0 05/01/17 00:00 Nasal Cannula 2.0 04/30/17 23:56 37.3 70 18 152/76 (101) 100 4.0 Physical Exam: General Appearance: no apparent distress Eyes: bilateral eyes normal inspection ENT: hearing grossly normal Neck: no JVD Respiratory/Chest: no respiratory distress, no accessory muscle use Cardiovascular: no JVD Extremities: normal inspection Neurologic/Psychiatric: + pertinent finding (pt is lethargic, responsive to physical touch with verbal command, but not speaking coherently) Skin: normal color Assessment & Plan Assessment & Plan A/P: ARF, left hydronephrosis, ? left ureteral lesion AFVSS. Pt seen and assessed with Dr. Chou this morning. Plan discussed with Dr. Baxter and Dr. Dominguez. Pt has decompensated cognitively this admission. Primary service plans to discuss with pt's sons their desires for care. is willing to got to the OR for cysto with left ureteral stent placement and left ureteroscopy if desired by pt's family and primary service. Will make the pt NPO, and await further guidance from Dr. Baxter as to the plan of care for pt. Thanks for the consult. Will continue to follow along with primary service.
[2017-05-01] MEDS: ERTAPENEM IV 500 MG in SODIUM CHLORIDE 0.9% 50 ML IV SCH (11:58)
--- NOTE | 2017-05-01 13:16 | Hospitalist Progress Note ---
Hospitalist Progress Note Date of Service May 01, 2017. Subjective Pt evaluation today including: conversation w/ patient, physical exam, lab review, review of inpatient medication list Voiding: mejia catheter in place Patient resting in bed. Wakes to name. States "I feel fine." ROS cannot be completed. Spoke w/ RN- no acute events. NPO for possible urological procedure. Took meds w / applesauce. Medications Current Inpatient Medications Medications (Trade) Dose Ordered Sig/Benito Route Start Time Stop Time Status Last Admin Dose Admin Acetaminophen (Tylenol Tab) 650 mg Q4H PRN PO 04/25/17 17:00 05/25/17 16:59 04/26/17 00:04 650 MG Al Hydrox/Mg Hydrox/Simethicone (Maalox Max Susp) 15 ml Q4H PRN PO 04/25/17 17:00 05/25/17 16:59 Magnesium Hydroxide (Milk Of Magnesia Susp) 30 ml Q6H PRN PO 04/25/17 17:00 05/25/17 16:59 Polyethylene (Miralax Powder Packet) 17 gm DAILY PRN PO 04/25/17 17:00 05/25/17 16:59 Ondansetron HCl (Zofran Inj) 4 mg Q6H PRN IV 04/25/17 17:00 05/25/17 16:59 Heparin Sodium (Porcine) (Heparin Sq 5000 Unit/0.5ml) 5,000 unit Q12H SQ 04/25/17 20:00 05/25/17 19:59 05/01/17 08:55 5,000 UNIT Bisacodyl (Dulcolax Supp) 10 mg DAILY PRN [place] 04/25/17 17:00 05/25/17 16:59 Sodium Biphosphate/ Sodium Phosphate (Fleet Enema) 132 ml DAILY PRN [place] 04/25/17 17:00 05/25/17 16:59 04/25/17 21:10 132 ML Amlodipine Besylate (Norvasc Tab) 2.5 mg DAILY PO 04/26/17 09:00 05/26/17 08:59 05/01/17 08:44 2.5 MG Haloperidol (Haldol Tab) 1 mg BID PO 04/25/17 21:00 05/25/17 20:59 05/01/17 08:43 1 MG Albuterol/ Ipratropium (Combivent Respimat Inh) 1 puffs QID INH 04/25/17 17:00 05/25/17 16:59 05/01/17 12:00 1 PUFFS Magnesium Hydroxide (Milk Of Magnesia Susp) 30 ml DAILY PRN PO 04/25/17 17:00 05/25/17 16:59 Multivitamins (Multivitamin Tab) 1 tab QAM PO 04/26/17 09:00 05/26/17 08:59 05/01/17 08:43 1 TAB Oxycodone HCl (Roxicodone Immediate Rel Tab) 5 mg Q6H PRN PO 04/25/17 17:00 05/09/17 16:59 Phenytoin Sodium (Dilantin Er Cap) 60 mg HS PO 04/25/17 21:00 05/25/17 20:59 04/29/17 20:38 60 MG Phenytoin Sodium (Dilantin Er Cap) 90 mg BID@0830,1630 PO 04/25/17 18:30 05/25/17 18:29 05/01/17 08:43 90 MG Ranitidine HCl (zANTac TAB) 150 mg QAM PO 04/26/17 09:00 05/26/17 08:59 05/01/17 08:43 150 MG Senna/Docusate Sodium (Senokot S Tab) 1 tab BID PO 04/25/17 21:00 05/25/17 20:59 05/01/17 08:43 1 TAB Sodium Chloride (Sodium Chloride Tab) 1 gm QAM PO 04/26/17 09:00 05/26/17 08:59 05/01/17 08:43 1 GM Ferrous Sulfate (Feosol Tab) 325 mg BID PO 04/25/17 21:00 05/25/17 20:59 05/01/17 08:43 325 MG Rivastigmine Tartrate (Exelon Cap) 1.5 mg BIDM PO 04/25/17 18:30 05/25/17 18:29 05/01/17 08:43 1.5 MG Phenobarbital (Phenobarbital Tab) 64.8 mg HS PO 04/25/17 21:00 05/25/17 20:59 04/29/17 20:38 64.8 MG Ertapenem 500 mg/ Sodium Chloride 55 ml @ 110 mls/hr Q24H IV 04/27/17 12:00 05/11/17 11:59 05/01/17 11:58 110 MLS/HR Albuterol/ Ipratropium (Duoneb) 3 ml QIDR INH 04/30/17 08:00 05/30/17 07:59 05/01/17 11:28 3 ML Heparin Sodium (Porcine) (Heparin 100 Unit/ml 5ml Flush) 5 ml PRN PRN IV 04/30/17 13:30 05/30/17 13:29 Dextrose/Sodium Chloride 1,000 ml @ 75 mls/hr [id number] IV 04/30/17 17:15 05/30/17 17:14 05/01/17 07:10 75 MLS/HR Gabapentin (Neurontin Cap) 100 mg DAILY PO 05/01/17 09:00 05/31/17 08:59 05/01/17 08:43 100 MG Objective Vital Signs Date Time Temp Pulse Resp B/P (MAP) Pulse Ox O2 Delivery O2 Flow Rate FiO2 05/01/17 12:00 Nasal Cannula 2.0 05/01/17 11:29 77 16 98 Nasal Cannula 2.0 05/01/17 08:00 Nasal Cannula 2.0 05/01/17 07:40 37.0 68 18 146/69 (94) 97 Room Air 05/01/17 07:09 85 16 96 Nasal Cannula 2.0 05/01/17 04:15 37.3 64 18 135/67 (89) 98 4.0 05/01/17 04:00 Nasal Cannula 2.0 05/01/17 00:00 Nasal Cannula 2.0 04/30/17 23:56 37.3 70 18 152/76 (101) 100 4.0 04/30/17 20:00 Nasal Cannula 2.0 04/30/17 19:16 85 16 96 Nasal Cannula 2.0 04/30/17 16:00 96 Nasal Cannula 2.0 04/30/17 15:31 83 16 96 Nasal Cannula 2.0 04/30/17 15:05 36.6 73 16 153/75 (101) 97 2.0 Physical Exam General Appearance: no apparent distress, + thin (frail appearing ), + pertinent finding (O2 NC ) Eyes: normal inspection, PERRL ENT: hearing grossly normal Neck: supple Respiratory/Chest: no respiratory distress, no accessory muscle use, + decreased breath sounds (throughout ) Cardiovascular: regular rate, rhythm Abdomen: normal bowel sounds, non tender, soft Extremities: no calf tenderness, + swelling (BLE non-pitting ) Neurologic/Psychiatric: alert, + disoriented Skin: warm/dry, no rash, + pallor Laboratory Results Last 24 Hours Test 05/01/17 05:16 White Blood Count 5.25 K/uL Red Blood Count 2.77 M/uL Hemoglobin 7.8 g/dL Hematocrit 24.9 % Mean Corpuscular Volume 89.9 fL Mean Corpuscular Hemoglobin 28.2 pg Mean Corpuscular Hemoglobin Concent 31.3 g/dl Platelet Count 322 K/uL Mean Platelet Volume 9.7 fL Neutrophils (%) (Auto) 66.9 % Lymphocytes (%) (Auto) 14.1 % Monocytes (%) (Auto) 13.1 % Eosinophils (%) (Auto) 5.3 % Basophils (%) (Auto) 0.2 % Neutrophils # (Auto) 3.51 K/uL Lymphocytes # (Auto) 0.74 K/uL Monocytes # (Auto) 0.69 K/uL Eosinophils # (Auto) 0.28 K/uL Basophils # (Auto) 0.01 K/uL RDW Standard Deviation 52.4 fL RDW Coefficient of Variation 15.8 % Immature Granulocyte % (Auto) 0.4 % Immature Granulocyte # (Auto) 0.02 K/uL Red Blood Cell Morphology Unremarkable Sodium Level 147 mmol/L Potassium Level 4.2 mmol/L Chloride Level 117 mmol/L Carbon Dioxide Level 21 mmol/L Anion Gap 9.0 mmol/L Blood Urea Nitrogen 64 mg/dl Creatinine 3.94 mg/dl Est Creatinine Clear Calc Drug Dose 12.1 ml/min Estimated GFR () 12.5 Estimated GFR (Non- 10.8 BUN/Creatinine Ratio 16.2 Random Glucose 113 mg/dl Calcium Level 8.6 mg/dl Phosphorus Level 6.6 mg/dl Magnesium Level 2.6 mg/dl Assessment and Plan 71 y/o F with Encephalopathy: - Discussed w/ sonFer- patient normally able to have fluent/meaningful conversation, alert/oriented, ambulating at [facility] w/ assistance -- Son spoke to patient over phone- states that is NOT her baseline as far as conversing goes - Initially questioned related to infection, but patient on appropriate abx treatment w/ minimal improvement - Obtain MRI of brain- no acute findings - FULL CODE per son- Dr. 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 coli: - Started Zosyn on 04/25 and switched to Ertapenem on 04/09 x14 days - Patient has been getting straight cath TID x 3 weeks per nursing at [facility]- likely source of infection- Mejia placed - BCx- NGTD ILIA on CKD stage II-III, progressive renal failure- test conductor 3.94- WORSENING: - Consult nephrology, appreciate recommendations- decrease Gabapentin and stop Cymbalta, gentle hydration, not a dialysis candidate Hypernatremia, dehydration: Treating w/ D5W 02/10 NSS @ 75 ml/hr Chronic anemia- baseline hgb 9-10- hgb 7.8 today- STABLE: Follow CBC Fecal impaction on CT- RESOLVED: Bowel regimen w/ MiraLAX PRN, Dulcolax suppository PRN , enema PRN, Senokot BID Seizure disorder, dementia, schizophrenia: - Continue Phenobarbital, Phenytoin - Cymbalta discontinued, Gabapentin decreased to 100 mg daily - Phenobarbital= 16.6 and Phenytoin= 9.7- no needs for medication adjustment Severe protein malnutrition- noted CAD s/p ID- STABLE, HTN: Continue Amlodipine GERD: Zantac Code status: LEVEL I, FULL DVT prophylaxis: Heparin SQ BID Disposition: From [facility]- CM following
--- NOTE | 2017-05-01 17:45 | Nephrology Progress Note ---
Nephrology Progress Note Date of Service May 01, 2017. Chief Complaint Evaluation of acute on CKD Subjective Ms. Brewer was seen & examined in her hospital room this morning. She opens her eyes to voice but remains nonconversant. She does not follow commands. Review of Systems Patient was unable to participate in ROS Vital Signs Last 8 Hrs Date Time Temp Pulse Resp B/P (MAP) Pulse Ox O2 Delivery O2 Flow Rate FiO2 05/01/17 16:00 Nasal Cannula 2.0 05/01/17 15:37 36.9 65 18 147/70 (95) 100 Nasal Cannula 2.0 05/01/17 15:21 81 16 95 Nasal Cannula 2.0 05/01/17 13:26 36.6 68 17 155/77 (103) 97 Nasal Cannula 2.0 05/01/17 12:00 Nasal Cannula 2.0 05/01/17 11:29 77 16 98 Nasal Cannula 2.0 I & O 24-Hour Column 05/02/17 08:00 Intake Total 663 ml Output Total 600 ml Balance 63 ml Last Recorded Weight Weight (Kilograms): 71.100 Physical Exam General Appearance: + pertinent finding (chronically ill appearing) Head: normocephalic, atraumatic Eyes: PERRL, EOMI Respiratory/Chest: lungs clear Cardiovascular: regular rate, rhythm Abdomen/GI: normal bowel sounds, non tender, soft Extremities/Musculoskelatal: no pedal edema Neurologic/Psych: + pertinent finding (lethargic) Family History Hypertension Negative for CKD / ESRD Social History Smoking Status: Former smoker Drug Use: none Marital Status: Housing Status: snf Occupation: retired, disabled . Retired. Former smoker Laboratory Results Past 24 Hours 05/01/17 05:16 Red Blood Count 2.77, Mean Corpuscular Volume 89.9, Mean Corpuscular Hemoglobin 28.2, Mean Corpuscular Hemoglobin Concent 31.3, Mean Platelet Volume 9.7, Neutrophils (%) (Auto) 66.9, Lymphocytes (%) (Auto) 14.1, Monocytes (%) (Auto) 13.1, Eosinophils (%) (Auto) 5.3, Basophils (%) (Auto) 0.2, Neutrophils # (Auto ) 3.51, Lymphocytes # (Auto) 0.74, Monocytes # (Auto) 0.69, Eosinophils # (Auto ) 0.28, Basophils # (Auto) 0.01 05/01/17 05:16 Test 05/01/17 05:16 White Blood Count 5.25 K/uL (4.8-10.8) Red Blood Count 2.77 M/uL (4.2-5.4) Hemoglobin 7.8 g/dL (12.0-16.0) Hematocrit 24.9 % (37-47) Mean Corpuscular Volume 89.9 fL (80-100) Mean Corpuscular Hemoglobin 28.2 pg (25-34) Mean Corpuscular Hemoglobin Concent 31.3 g/dl (32-36) Platelet Count 322 K/uL (130-400) Mean Platelet Volume 9.7 fL (7.4-10.4) Neutrophils (%) (Auto) 66.9 % Lymphocytes (%) (Auto) 14.1 % Monocytes (%) (Auto) 13.1 % Eosinophils (%) (Auto) 5.3 % Basophils (%) (Auto) 0.2 % Neutrophils # (Auto) 3.51 K/uL (1.4-6.5) Lymphocytes # (Auto) 0.74 K/uL (1.2-3.4) Monocytes # (Auto) 0.69 K/uL (0.11-0.59) Eosinophils # (Auto) 0.28 K/uL (0-0.5) Basophils # (Auto) 0.01 K/uL (0-0.2) RDW Standard Deviation 52.4 fL (36.4-46.3) RDW Coefficient of Variation 15.8 % (11.5-14.5) Immature Granulocyte % (Auto) 0.4 % Immature Granulocyte # (Auto) 0.02 K/uL (0.00-0.02) Red Blood Cell Morphology Unremarkable Anion Gap 9.0 mmol/L (3-11) Est Creatinine Clear Calc Drug Dose 12.1 ml/min Estimated GFR () 12.5 Estimated GFR (Non- 10.8 BUN/Creatinine Ratio 16.2 (10-20) Calcium Level 8.6 mg/dl (8.5-10.1) Phosphorus Level 6.6 mg/dl (2.5-4.9) Magnesium Level 2.6 mg/dl (1.8-2.4) Allergies Coded Allergies: Sulfa Antibiotics (Verified Allergy, Severe, mouth swells, bumps on roof of mouth, 04/17/17) Banana (Verified Allergy, Intermediate, RAW -ROOF OF MOUTH SWELLS, 04/17/17) Medications Current Inpatient Medications Medications (Trade) Dose Ordered Sig/Benito Route Start Time Stop Time Status Last Admin Dose Admin Acetaminophen (Tylenol Tab) 650 mg Q4H PRN PO 04/25/17 17:00 05/25/17 16:59 04/26/17 00:04 650 MG Al Hydrox/Mg Hydrox/Simethicone (Maalox Max Susp) 15 ml Q4H PRN PO 04/25/17 17:00 05/25/17 16:59 Magnesium Hydroxide (Milk Of Magnesia Susp) 30 ml Q6H PRN PO 04/25/17 17:00 05/25/17 16:59 Polyethylene (Miralax Powder Packet) 17 gm DAILY PRN PO 04/25/17 17:00 05/25/17 16:59 Ondansetron HCl (Zofran Inj) 4 mg Q6H PRN IV 04/25/17 17:00 05/25/17 16:59 Heparin Sodium (Porcine) (Heparin Sq 5000 Unit/0.5ml) 5,000 unit Q12H SQ 04/25/17 20:00 05/25/17 19:59 05/01/17 08:55 5,000 UNIT Bisacodyl (Dulcolax Supp) 10 mg DAILY PRN WY 04/25/17 17:00 05/25/17 16:59 Sodium Biphosphate/ Sodium Phosphate (Fleet Enema) 132 ml DAILY PRN WY 04/25/17 17:00 05/25/17 16:59 04/25/17 21:10 132 ML Amlodipine Besylate (Norvasc Tab) 2.5 mg DAILY PO 04/26/17 09:00 05/26/17 08:59 05/01/17 08:44 2.5 MG Haloperidol (Haldol Tab) 1 mg BID PO 04/25/17 21:00 05/25/17 20:59 05/01/17 08:43 1 MG Albuterol/ Ipratropium (Combivent Respimat Inh) 1 puffs QID INH 04/25/17 17:00 05/25/17 16:59 05/01/17 12:00 1 PUFFS Magnesium Hydroxide (Milk Of Magnesia Susp) 30 ml DAILY PRN PO 04/25/17 17:00 05/25/17 16:59 Multivitamins (Multivitamin Tab) 1 tab QAM PO 04/26/17 09:00 05/26/17 08:59 05/01/17 08:43 1 TAB Oxycodone HCl (Roxicodone Immediate Rel Tab) 5 mg Q6H PRN PO 04/25/17 17:00 05/09/17 16:59 Phenytoin Sodium (Dilantin Er Cap) 60 mg HS PO 04/25/17 21:00 05/25/17 20:59 04/29/17 20:38 60 MG Phenytoin Sodium (Dilantin Er Cap) 90 mg BID@0830,1630 PO 04/25/17 18:30 05/25/17 18:29 05/01/17 08:43 90 MG Ranitidine HCl (zANTac TAB) 150 mg QAM PO 04/26/17 09:00 05/26/17 08:59 05/01/17 08:43 150 MG Senna/Docusate Sodium (Senokot S Tab) 1 tab BID PO 04/25/17 21:00 05/25/17 20:59 05/01/17 08:43 1 TAB Sodium Chloride (Sodium Chloride Tab) 1 gm QAM PO 04/26/17 09:00 05/26/17 08:59 05/01/17 08:43 1 GM Ferrous Sulfate (Feosol Tab) 325 mg BID PO 04/25/17 21:00 05/25/17 20:59 05/01/17 08:43 325 MG Rivastigmine Tartrate (Exelon Cap) 1.5 mg BIDM PO 04/25/17 18:30 05/25/17 18:29 05/01/17 08:43 1.5 MG Phenobarbital (Phenobarbital Tab) 64.8 mg HS PO 04/25/17 21:00 05/25/17 20:59 04/29/17 20:38 64.8 MG Ertapenem 500 mg/ Sodium Chloride 55 ml @ 110 mls/hr Q24H IV 04/27/17 12:00 05/11/17 11:59 05/01/17 11:58 110 MLS/HR Albuterol/ Ipratropium (Duoneb) 3 ml QIDR INH 04/30/17 08:00 05/30/17 07:59 05/01/17 15:21 3 ML Heparin Sodium (Porcine) (Heparin 100 Unit/ml 5ml Flush) 5 ml PRN PRN IV 04/30/17 13:30 05/30/17 13:29 Dextrose/Sodium Chloride 1,000 ml @ 75 mls/hr [id number] IV 04/30/17 17:15 05/30/17 17:14 05/01/17 07:10 75 MLS/HR Gabapentin (Neurontin Cap) 100 mg DAILY PO 05/01/17 09:00 05/31/17 08:59 05/01/17 08:43 100 MG Impression (1) Acute kidney injury (2) Chronic kidney disease (3) Dehydration (4) Bacteremia (5) UTI (urinary tract infection) Recommendations -- Urology input reviewed. L ureteral stent planned -- Continue gentle hydration -- Continue Ertapenem -- Will reduce Gabapentin and stop Cymbalta due to ILIA. Gabapentin may have been contributing to MS changes -- Monitor serial PRP -- Prognosis is guarded. Patient is bacteremic and lethargic. Recommend supportive care. Dialysis will not provide quality of life.
[2017-05-01] MEDS: PHENOBARBITAL 32.4 MG TAB PO SCH (20:18)
[2017-05-02] VITALS (8 sets, daily range): BP systolic 97–132; BP diastolic 60–70; PULSE 69–74; TEMP 37.1–37.6; O2SAT 92–100
[2017-05-02 06:21] LABS: CALCIUM 8.7 mg/dl (8.5-10.1); CREATININE 3.81 mg/dl (0.60-1.20); POTASSIUM 3.7 mmol/L (3.5-5.1)
[2017-05-02] MEDS ORDERED: ACETAMINOPHEN IV 100 ML IV PRN (07:30)
[2017-05-02] MEDS: ALBUT/IPRATROP 3MG/0.5MG NEB 3 ML VIAL INH SCH ×2 (07:33→10:52)
[2017-05-02] MEDS: RIVASTIGMINE TARTRATE (EXELON) 1.5 MG CAP PO SCH (08:00)
[2017-05-02] MEDS: HEPARIN SOD 5000 UNIT/0.5 ML CARP SQ SCH (08:00)
[2017-05-02] MEDS ORDERED: PHENYTOIN SOD INJ 50 MG/ML 2 ML SYR IV STA (08:21)
[2017-05-02] MEDS ORDERED: PHENYTOIN IV INFUSION 1,000 MG in SODIUM CHLORIDE 0.9% 100ML 100 ML IV STA (08:29)
[2017-05-02] MEDS: PHENYTOIN SODIUM ER 30 MG CAP PO SCH (08:30)
[2017-05-02] MEDS: FERROUS SULFATE 325 MG TAB PO SCH (08:36)
[2017-05-02] MEDS: IPRATROPIUM BROMIDE/ALBUTEROL respimat INH INH SCH ×2 (08:36→13:00)
[2017-05-02] MEDS: MULTIVITAMIN TAB PO SCH (08:37)
[2017-05-02] MEDS: AMLODIPINE BESYLATE 5 MG TAB PO SCH (08:37)
[2017-05-02] MEDS: HALOPERIDOL 1 MG TAB PO SCH (08:37)
[2017-05-02] MEDS: RANITIDINE HCL 150 MG TAB PO SCH (08:37)
[2017-05-02] MEDS: SODIUM CHLORIDE 1 GM TAB PO SCH (08:37)
[2017-05-02] MEDS: GABAPENTIN 100 MG CAP PO SCH (08:37)
[2017-05-02] MEDS: DOCUSATE SODIUM/SENNA 50/8.6MG TAB PO SCH (08:37)
[2017-05-02 09:09] LABS: HEMATOCRIT 23.9 % (37-47); HEMOGLOBIN 7.8 g/dL (12.0-16.0); MEAN CELL VOLUME 89.8 fL (80-100); MEAN CORPUSCULAR HEMOGLOBIN 29.3 pg (25-34); MEAN PLATELET VOLUME 8.9 fL (7.4-10.4); PLATELET COUNT 291 K/uL (130-400); RED CELL DISTRIBUTION WIDTH CV 16.5 % (11.5-14.5); WHITE BLOOD COUNT 5.52 K/uL (4.8-10.8)
[2017-05-02 09:24] LABS: MEAN CORPUSCULAR HGB CONC 32.6 g/dl (32-36)
[2017-05-02] MEDS: LEVETIRACETAM IV 500 MG in DEXTROSE 5% 100ML 100 ML IV SCH ×2 (09:28→21:12)
[2017-05-02 10:05] LABS: BASO % 0.2 %; BASO ABS # 0.01 K/uL (0-0.2); EOS ABS # 0.22 K/uL (0-0.5); IG# 0.05 K/uL (0.00-0.02); LYMPH % 14.3 %; LYMPH ABS # 0.79 K/uL (1.2-3.4); MONO % 8.9 %; MONO ABS # 0.49 K/uL (0.11-0.59); NEUT % 71.7 %; NEUT ABS # 3.96 K/uL (1.4-6.5)
[2017-05-02] MEDS: DEXTROSE 5% 1000ML 1,000 ML IV SCH ×2 (10:25→23:33)
[2017-05-02] MEDS: ERTAPENEM IV 500 MG in SODIUM CHLORIDE 0.9% 50 ML IV SCH (11:52)
--- NOTE | 2017-05-02 12:58 | Nephrology Progress Note ---
Nephrology Progress Note Date of Service May 02, 2017. Chief Complaint Follow-up for acute kidney injury. Dg Crowe was seen and examined in her room this morning. She was nonverbal, did not respond to question or communicate any meaningful way. Seemed comfortable. Blood pressure relatively soft. Creatinine stable at 3.8, electrolyte acceptable. Non-oliguric. Review of Systems A complete review of systems was performed. Pertinent positives are noted above. All other systems are negative. Vital Signs Last 8 Hrs Date Time Temp Pulse Resp B/P (MAP) Pulse Ox O2 Delivery O2 Flow Rate FiO2 05/02/17 11:02 37.2 71 12 97/60 (72) 98 Nasal Cannula 2.0 05/02/17 10:54 70 12 98 Nasal Cannula 2.0 05/02/17 09:30 37.5 05/02/17 08:00 Nasal Cannula 2.0 05/02/17 07:34 73 10 100 Nasal Cannula 2.0 05/02/17 06:52 37.6 74 14 114/66 (82) 99 Nasal Cannula 2.0 Last Recorded Weight Weight (Kilograms): 71.500 Physical Exam GENERAL: Elderly female, lying in bed, eyes closed, did not respond to questions or follow comments, not in any distress. NECK: Supple RESPIRATORY: Normal breathing efforts, no accessory muscle use, clear to auscultation bilaterally, no wheezes or rales. CARDIOVASCULAR: S1, S2 normal, rate rhythm regular. EXTREMITY: Trace bilateral lower extremity edema NEURO: Nonverbal, did not follow comment Family History Hypertension Negative for CKD / ESRD Social History Smoking Status: Former smoker Drug Use: none Marital Status: Housing Status: senior care Occupation: retired, disabled . Retired. Former smoker Laboratory Results Past 24 Hours 05/02/17 08:33 Red Blood Count 2.66, Mean Corpuscular Volume 89.8, Mean Corpuscular Hemoglobin 29.3, Mean Corpuscular Hemoglobin Concent 32.6, Mean Platelet Volume 8.9, Neutrophils (%) (Auto) 71.7, Lymphocytes (%) (Auto) 14.3, Monocytes (%) (Auto) 8.9, Eosinophils (%) (Auto) 4.0, Basophils (%) (Auto) 0.2, Neutrophils # (Auto) 3.96, Lymphocytes # (Auto) 0.79, Monocytes # (Auto) 0.49, Eosinophils # (Auto) 0.22, Basophils # (Auto) 0.01 05/02/17 05:11 Test 05/02/17 05:11 05/02/17 08:33 Anion Gap 8.0 mmol/L (3-11) Est Creatinine Clear Calc Drug Dose 12.5 ml/min Estimated GFR () 13.0 Estimated GFR (Non- 11.2 BUN/Creatinine Ratio 15.7 (10-20) Calcium Level 8.7 mg/dl (8.5-10.1) White Blood Count 5.52 K/uL (4.8-10.8) Red Blood Count 2.66 M/uL (4.2-5.4) Hemoglobin 7.8 g/dL (12.0-16.0) Hematocrit 23.9 % (37-47) Mean Corpuscular Volume 89.8 fL (80-100) Mean Corpuscular Hemoglobin 29.3 pg (25-34) Mean Corpuscular Hemoglobin Concent 32.6 g/dl (32-36) Platelet Count 291 K/uL (130-400) Mean Platelet Volume 8.9 fL (7.4-10.4) Neutrophils (%) (Auto) 71.7 % Lymphocytes (%) (Auto) 14.3 % Monocytes (%) (Auto) 8.9 % Eosinophils (%) (Auto) 4.0 % Basophils (%) (Auto) 0.2 % Neutrophils # (Auto) 3.96 K/uL (1.4-6.5) Lymphocytes # (Auto) 0.79 K/uL (1.2-3.4) Monocytes # (Auto) 0.49 K/uL (0.11-0.59) Eosinophils # (Auto) 0.22 K/uL (0-0.5) Basophils # (Auto) 0.01 K/uL (0-0.2) RDW Standard Deviation 54.0 fL (36.4-46.3) RDW Coefficient of Variation 16.5 % (11.5-14.5) Immature Granulocyte % (Auto) 0.9 % Immature Granulocyte # (Auto) 0.05 K/uL (0.00-0.02) Red Blood Cell Morphology Unremarkable Allergies Coded Allergies: Sulfa Antibiotics (Verified Allergy, Severe, mouth swells, bumps on roof of mouth, 04/17/17) Banana (Verified Allergy, Intermediate, RAW -ROOF OF MOUTH SWELLS, 04/17/17) Medications Current Inpatient Medications Medications (Trade) Dose Ordered Sig/Benito Route Start Time Stop Time Status Last Admin Dose Admin Acetaminophen (Tylenol Tab) 650 mg Q4H PRN PO 04/25/17 17:00 05/25/17 16:59 04/26/17 00:04 650 MG Al Hydrox/Mg Hydrox/Simethicone (Maalox Max Susp) 15 ml Q4H PRN PO 04/25/17 17:00 05/25/17 16:59 Magnesium Hydroxide (Milk Of Magnesia Susp) 30 ml Q6H PRN PO 04/25/17 17:00 05/25/17 16:59 Polyethylene (Miralax Powder Packet) 17 gm DAILY PRN PO 04/25/17 17:00 05/25/17 16:59 Ondansetron HCl (Zofran Inj) 4 mg Q6H PRN IV 04/25/17 17:00 05/25/17 16:59 Heparin Sodium (Porcine) (Heparin Sq 5000 Unit/0.5ml) 5,000 unit Q12H SQ 04/25/17 20:00 05/25/17 19:59 05/01/17 20:21 5,000 UNIT Bisacodyl (Dulcolax Supp) [address] 04/25/17 17:00 05/25/17 16:59 Sodium Biphosphate/ Sodium Phosphate (Fleet Enema) [address] 04/25/17 17:00 05/25/17 16:59 04/25/17 21:10 132 ML Amlodipine Besylate (Norvasc Tab) 2.5 mg DAILY PO 04/26/17 09:00 05/26/17 08:59 05/01/17 08:44 2.5 MG Haloperidol (Haldol Tab) 1 mg BID PO 04/25/17 21:00 05/25/17 20:59 05/01/17 08:43 1 MG Albuterol/ Ipratropium (Combivent Respimat Inh) 1 puffs QID INH 04/25/17 17:00 05/25/17 16:59 05/01/17 12:00 1 PUFFS Magnesium Hydroxide (Milk Of Magnesia Susp) 30 ml DAILY PRN PO 04/25/17 17:00 05/25/17 16:59 Multivitamins (Multivitamin Tab) 1 tab QAM PO 04/26/17 09:00 05/26/17 08:59 05/01/17 08:43 1 TAB Oxycodone HCl (Roxicodone Immediate Rel Tab) 5 mg Q6H PRN PO 04/25/17 17:00 05/09/17 16:59 Phenytoin Sodium (Dilantin Er Cap) 60 mg HS PO 04/25/17 21:00 05/25/17 20:59 Future Hold 04/29/17 20:38 60 MG Phenytoin Sodium (Dilantin Er Cap) 90 mg BID@0830,1630 PO 04/25/17 18:30 05/25/17 18:29 Future Hold 05/01/17 08:43 90 MG Ranitidine HCl (zANTac TAB) 150 mg QAM PO 04/26/17 09:00 05/26/17 08:59 05/01/17 08:43 150 MG Senna/Docusate Sodium (Senokot S Tab) 1 tab BID PO 04/25/17 21:00 05/25/17 20:59 05/01/17 08:43 1 TAB Sodium Chloride (Sodium Chloride Tab) 1 gm QAM PO 04/26/17 09:00 05/26/17 08:59 05/01/17 08:43 1 GM Ferrous Sulfate (Feosol Tab) 325 mg BID PO 04/25/17 21:00 05/25/17 20:59 05/01/17 08:43 325 MG Rivastigmine Tartrate (Exelon Cap) 1.5 mg BIDM PO 04/25/17 18:30 05/25/17 18:29 05/01/17 08:43 1.5 MG Phenobarbital (Phenobarbital Tab) 64.8 mg HS PO 04/25/17 21:00 05/25/17 20:59 04/29/17 20:38 64.8 MG Ertapenem 500 mg/ Sodium Chloride 55 ml @ 110 mls/hr Q24H IV 04/27/17 12:00 05/11/17 11:59 05/02/17 11:52 110 MLS/HR Albuterol/ Ipratropium (Duoneb) 3 ml QIDR INH 04/30/17 08:00 05/30/17 07:59 05/02/17 10:52 3 ML Heparin Sodium (Porcine) (Heparin 100 Unit/ml 5ml Flush) 5 ml PRN PRN IV 04/30/17 13:30 05/30/17 13:29 05/02/17 09:37 5 ML Gabapentin (Neurontin Cap) 100 mg DAILY PO 05/01/17 09:00 05/31/17 08:59 05/01/17 08:43 100 MG Acetaminophen 100 ml @ 400 mls/hr Q8H PRN IV 05/02/17 07:30 06/01/17 07:29 05/02/17 07:53 400 MLS/HR Levetiracetam 500 mg/Dextrose 105 ml @ 420 mls/hr Q12H IV 05/02/17 09:00 06/01/17 08:59 05/02/17 09:28 420 MLS/HR Phenytoin Sodium 100 mg/Syringe 2 ml @ 1 mls/min Q8 IV 05/02/17 14:00 06/01/17 13:59 Dextrose 1,000 ml @ 75 mls/hr [id number] IV 05/02/17 10:15 06/01/17 10:14 05/02/17 10:25 75 MLS/HR Sodium Chloride 20 ml/Syringe 20 ml @ 0 mls/min Q8 IV 05/02/17 14:00 06/01/17 13:59 Impression (1) Acute kidney injury (2) Chronic kidney disease (3) Dehydration (4) Bacteremia (5) UTI (urinary tract infection) Recommendations -- creatinine stable around 3.8, electrolyte acceptable, creatinine seems to have take however no sign of recovery of renal function although remain non- oliguric. -- Continue gentle hydration -- Continue Ertapenem -- Monitor serial PRP -- Prognosis is guarded. Recommend supportive care/ hospice care. Dialysis will not provide quality of life.
--- NOTE | 2017-05-02 13:13 | Progress Note ---
Subjective Date of Service: May 02, 2017. Subjective Pt evaluation today including: conversation w/ family, physical exam, lab review, conversation w/ loss prevention consultant, review of inpatient medication list Pain: no pain PO Intake: nothing Voiding: mejia catheter in place michael alegria called this morning at 830am for brief seizure lasted about 15 seconds, patient non-responsive afterwards per RN, she really wasn't responding prior to the seizure, did not take medications last night or this morning seizure likely from poor intake of Dilantin, may not have been taking it consistently prior to admission either ordered Dilantin 1000mg IV now, Keppra 500mg IV q12 spoke with patient's son Fer and brother Jeffery over the phone discussed dire situation, patient made 1600cc of urine yesterday, ureteral stent would not help situation I had confirmed with Dr. March prior to talking with family in light of stage IV urothelial cancer, acute renal failure, not eating recommend palliative approach for patient's best interests patient's son and brother elect to make patient DNR at this point Jeffery is coming from [place] tomorrow reviewed labs, Cr 3.8, K is 3.7, hb still low at 7.8 Problem List Medical Problems: (1) Acute renal failure Status: Acute (2) Altered mental status Status: Acute (3) Anemia Status: Acute (4) Anemia Status: Acute (5) Bacteremia due to Gram-negative bacteria Status: Acute (6) Dementia Status: Chronic (7) E. 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 (12) Renal insufficiency Status: Acute (13) Syncope and collapse Status: Acute (14) Urinary tract infection Status: Acute Review of Systems cannot review due to altered mental status Medications Current Inpatient Medications Medications (Trade) Dose Ordered Sig/Benito Route Start Time Stop Time Status Last Admin Dose Admin Acetaminophen (Tylenol Tab) 650 mg Q4H PRN PO 04/25/17 17:00 05/25/17 16:59 04/26/17 00:04 650 MG Al Hydrox/Mg Hydrox/Simethicone (Maalox Max Susp) 15 ml Q4H PRN PO 04/25/17 17:00 05/25/17 16:59 Magnesium Hydroxide (Milk Of Magnesia Susp) 30 ml Q6H PRN PO 04/25/17 17:00 05/25/17 16:59 Polyethylene (Miralax Powder Packet) 17 gm DAILY PRN PO 04/25/17 17:00 05/25/17 16:59 Ondansetron HCl (Zofran Inj) 4 mg Q6H PRN IV 04/25/17 17:00 05/25/17 16:59 Heparin Sodium (Porcine) (Heparin Sq 5000 Unit/0.5ml) 5,000 unit Q12H SQ 04/25/17 20:00 05/25/17 19:59 05/01/17 20:21 5,000 UNIT Bisacodyl (Dulcolax Supp) 10 mg DAILY PRN TN 04/25/17 17:00 05/25/17 16:59 Sodium Biphosphate/ Sodium Phosphate (Fleet Enema) 132 ml DAILY PRN TN 04/25/17 17:00 05/25/17 16:59 04/25/17 21:10 132 ML Amlodipine Besylate (Norvasc Tab) 2.5 mg DAILY PO 04/26/17 09:00 05/26/17 08:59 05/01/17 08:44 2.5 MG Haloperidol (Haldol Tab) 1 mg BID PO 04/25/17 21:00 05/25/17 20:59 05/01/17 08:43 1 MG Albuterol/ Ipratropium (Combivent Respimat Inh) 1 puffs QID INH 04/25/17 17:00 05/25/17 16:59 05/01/17 12:00 1 PUFFS Magnesium Hydroxide (Milk Of Magnesia Susp) 30 ml DAILY PRN PO 04/25/17 17:00 05/25/17 16:59 Multivitamins (Multivitamin Tab) 1 tab QAM PO 04/26/17 09:00 05/26/17 08:59 05/01/17 08:43 1 TAB Oxycodone HCl (Roxicodone Immediate Rel Tab) 5 mg Q6H PRN PO 04/25/17 17:00 05/09/17 16:59 Phenytoin Sodium (Dilantin Er Cap) 60 mg HS PO 04/25/17 21:00 05/25/17 20:59 04/29/17 20:38 60 MG Phenytoin Sodium (Dilantin Er Cap) 90 mg BID@0830,1630 PO 04/25/17 18:30 05/25/17 18:29 05/01/17 08:43 90 MG Ranitidine HCl (zANTac TAB) 150 mg QAM PO 04/26/17 09:00 05/26/17 08:59 05/01/17 08:43 150 MG Senna/Docusate Sodium (Senokot S Tab) 1 tab BID PO 04/25/17 21:00 05/25/17 20:59 05/01/17 08:43 1 TAB Sodium Chloride (Sodium Chloride Tab) 1 gm QAM PO 04/26/17 09:00 05/26/17 08:59 05/01/17 08:43 1 GM Ferrous Sulfate (Feosol Tab) 325 mg BID PO 04/25/17 21:00 05/25/17 20:59 05/01/17 08:43 325 MG Rivastigmine Tartrate (Exelon Cap) 1.5 mg BIDM PO 04/25/17 18:30 05/25/17 18:29 05/01/17 08:43 1.5 MG Phenobarbital (Phenobarbital Tab) 64.8 mg HS PO 04/25/17 21:00 05/25/17 20:59 04/29/17 20:38 64.8 MG Ertapenem 500 mg/ Sodium Chloride 55 ml @ 110 mls/hr Q24H IV 04/27/17 12:00 05/11/17 11:59 05/01/17 11:58 110 MLS/HR Albuterol/ Ipratropium (Duoneb) 3 ml QIDR INH 04/30/17 08:00 05/30/17 07:59 05/02/17 07:33 3 ML Heparin Sodium (Porcine) (Heparin 100 Unit/ml 5ml Flush) 5 ml PRN PRN IV 04/30/17 13:30 05/30/17 13:29 05/02/17 09:37 5 ML Gabapentin (Neurontin Cap) 100 mg DAILY PO 05/01/17 09:00 05/31/17 08:59 05/01/17 08:43 100 MG Acetaminophen 100 ml @ 400 mls/hr Q8H PRN IV 05/02/17 07:30 06/01/17 07:29 05/02/17 07:53 400 MLS/HR Levetiracetam 500 mg/Dextrose 105 ml @ 420 mls/hr Q12H IV 05/02/17 09:00 06/01/17 08:59 05/02/17 09:28 420 MLS/HR Phenytoin Sodium 100 mg/Syringe 2 ml @ 1 mls/min Q8 IV 05/02/17 14:00 06/01/17 13:59 UNV Dextrose 1,000 ml @ 75 mls/hr [id number] IV 05/02/17 09:45 06/01/17 09:44 UNV Objective Vital Signs Date Time Temp Pulse Resp B/P (MAP) Pulse Ox O2 Delivery O2 Flow Rate FiO2 05/02/17 08:00 Nasal Cannula 2.0 05/02/17 07:34 73 10 100 Nasal Cannula 2.0 05/02/17 06:52 37.6 74 14 114/66 (82) 99 Nasal Cannula 2.0 05/02/17 04:00 Nasal Cannula 2.0 05/02/17 03:49 37.3 73 18 132/70 (90) 98 2.0 05/02/17 00:00 Nasal Cannula 2.0 05/01/17 22:42 36.8 75 18 150/72 (98) 94 Nasal Cannula 2.0 05/01/17 20:57 70 18 100 Nasal Cannula 2.0 05/01/17 20:00 Nasal Cannula 2.0 05/01/17 19:17 36.8 62 16 154/65 (94) 100 2.0 05/01/17 16:00 Nasal Cannula 2.0 05/01/17 15:37 36.9 65 18 147/70 (95) 100 Nasal Cannula 2.0 05/01/17 15:21 81 16 95 Nasal Cannula 2.0 05/01/17 13:26 36.6 68 17 155/77 (103) 97 Nasal Cannula 2.0 05/01/17 12:00 Nasal Cannula 2.0 05/01/17 11:29 77 16 98 Nasal Cannula 2.0 Physical Exam General Appearance: + pertinent finding (clammy, non-responsive) ENT: normal ENT inspection, hearing grossly normal, pharynx normal Neck: supple, no adenopathy, no JVD, trachea midline Respiratory/Chest: chest non-tender, no respiratory distress, no accessory muscle use, + decreased breath sounds Cardiovascular: regular rate, rhythm, no gallop, no JVD, no murmur Abdomen: non tender, soft, no organomegaly, + abnormal bowel sounds (hypoactive ) Extremities: non-tender, normal inspection, no calf tenderness, normal capillary refill, pelvis stable, + pedal edema Neurologic/Psychiatric: + pertinent finding (lethargic, unresponsive, not moving spontaneously, pupils reactive but sluggish) Skin: normal color, warm/dry, no rash Laboratory Results Last 24 Hours Test 05/02/17 05:11 05/02/17 08:33 Sodium Level 148 mmol/L Potassium Level 3.7 mmol/L Chloride Level 118 mmol/L Carbon Dioxide Level 22 mmol/L Anion Gap 8.0 mmol/L Blood Urea Nitrogen 60 mg/dl Creatinine 3.81 mg/dl Est Creatinine Clear Calc Drug Dose 12.5 ml/min Estimated GFR () 13.0 Estimated GFR (Non- 11.2 BUN/Creatinine Ratio 15.7 Random Glucose 120 mg/dl Calcium Level 8.7 mg/dl White Blood Count 5.52 K/uL Red Blood Count 2.66 M/uL Hemoglobin 7.8 g/dL Hematocrit 23.9 % Mean Corpuscular Volume 89.8 fL Mean Corpuscular Hemoglobin 29.3 pg Mean Corpuscular Hemoglobin Concent 32.6 g/dl Platelet Count 291 K/uL Mean Platelet Volume 8.9 fL RDW Standard Deviation 54.0 fL RDW Coefficient of Variation 16.5 % Assessment and Plan 71 yo female with history of dementia, schizophrenia, seizure disorder, stage IV urothelial cancer presented with altered mental status, worsening renal function and recent evidence of ESBL in her urine. - ILIA on CKD stage III, now her GFR is < 15 Cr continues to be high at 3.8, BUN 60 reviewed output, recorded at 1600cc yesterday appreciate nephrology recommendations, dialysis not indicated with stage IV cancer, would not improve quality of life discussed this with urology, they agree that the left hydronephrosis is not an obstruction, ureteral stent would likely not help given her deteriorating condition with a seizure this morning and continued altered mental status, changed to DNR continue supportive care with gentle fluids family will be here tomorrow - UTI with ESBL bacteremia: continue Ertapenem UTI due to repeated straight catheterizations at SNF for now, plan for 14 days of treatment blood cultures negative unlikely this is contributing to altered mental status, afebrile, WBC normal - Worsening encephalopathy: likely due to worsening uremia on top of mild dementia, mood disorder MRI brain negative for stroke CT head showed atrophy at time of admission today she is even less responsive after seizure, typical post ictal state - Seizure disorder: seizure today, lasted 15 seconds, generalized gave Dilantin 1000mg IV x 1, then 100mg IV q6 Keppra 500mg q12 likely iatrogenic from patient not taking adequate doses of Dilantin and Phenobarbitol by mouth - Ureteral cancer, s/p resection: reviewed outpatient note from Dr. Santacruz on 04/17 now stage IV with evidence of pulmonary nodules on CT would not be a candidate for treatment currently with her renal failure any treatment would be palliative in nature - Worsening anemia: likely from combination of chronic disease, CKD, malignancy , poor nutrition no plans for transfusion Hb 7.8 today Code status: DNR 60 minutes spent on patient today, 30 minutes in direct care
[2017-05-02] MEDS: PHENYTOIN IV 100 MG in SYRINGE 0 ML IV SCH ×2 (14:04→21:04)
[2017-05-02] MEDS: SODIUM CHLOR 0.9% 10ML FLUSH 20 ML in SYRINGE 0 ML IV SCH ×2 (14:05→21:05)
[2017-05-03] VITALS: O2SAT 92
[2017-05-03 00:05] VITALS: BP 136/71; PULSE 83; TEMP 38; O2SAT 95
[2017-05-03] MEDS ORDERED: SCOPOLAMINE 1.5 MG TDSY TD SCH (00:45)
[2017-05-03] MEDS: PHENYTOIN IV 100 MG in SYRINGE 0 ML IV SCH ×3 (06:05→21:40)
[2017-05-03] MEDS: SODIUM CHLOR 0.9% 10ML FLUSH 20 ML in SYRINGE 0 ML IV SCH ×3 (06:06→21:41)
[2017-05-03] MEDS: CHECK SCOPOLAMINE PATCH PLACEMENT SCH ×2 (07:57→15:51)
[2017-05-03] MEDS: LEVETIRACETAM IV 500 MG in DEXTROSE 5% 100ML 100 ML IV SCH ×2 (08:05→21:17)
[2017-05-03 08:07] VITALS: BP 114/69; PULSE 62; TEMP 37.2; O2SAT 98
[2017-05-03 09:38] VITALS: Ht 157.5 cm; Wt 71.5 kg
[2017-05-03] MEDS: ERTAPENEM IV 500 MG in SODIUM CHLORIDE 0.9% 50 ML IV SCH (12:12)
[2017-05-03] MEDS: DEXTROSE 5% 1000ML 1,000 ML IV SCH (12:13)
--- NOTE | 2017-05-03 12:16 | Progress Note ---
Subjective Date of Service: May 03, 2017. Subjective Pt evaluation today including: conversation w/ family, physical exam, conversation w/ reimbursement consultant, review of inpatient medication list Pain: no pain PO Intake: not safe to eat Voiding: mejia catheter in place patient again non-responsive updated patient's brother Jeffery and his at the bedside, drove up from [place] discussed that patient has stage IV urothelial cancer, renal failure, ESBL UTI, breakthrough seizures recommend hospice care, can be done at [facility] Jeffery and his in agreement, they will update son Fer over the phone, offered to call him as well if he still had questions Problem List Medical Problems: (1) Acute renal failure Status: Acute (2) Altered mental status Status: Acute (3) Anemia Status: Acute (4) Anemia Status: Acute (5) Bacteremia due to Gram-negative bacteria Status: Acute (6) Dementia Status: Chronic (7) E. 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 (12) Renal insufficiency Status: Acute (13) Syncope and collapse Status: Acute (14) Urinary tract infection Status: Acute Review of Systems cannot review, unresponsive Medications Current Inpatient Medications Medications (Trade) Dose Ordered Sig/Benito Route Start Time Stop Time Status Last Admin Dose Admin Polyethylene (Miralax Powder Packet) 17 gm DAILY PRN PO 04/25/17 17:00 05/25/17 16:59 Ondansetron HCl (Zofran Inj) 4 mg Q6H PRN IV 04/25/17 17:00 05/25/17 16:59 Ertapenem 500 mg/ Sodium Chloride 55 ml @ 110 mls/hr Q24H IV 04/27/17 12:00 05/11/17 11:59 05/02/17 11:52 110 MLS/HR Heparin Sodium (Porcine) (Heparin 100 Unit/ml 5ml Flush) 5 ml PRN PRN IV 04/30/17 13:30 05/30/17 13:29 05/02/17 09:37 5 ML Acetaminophen 100 ml @ 400 mls/hr Q8H PRN IV 05/02/17 07:30 06/01/17 07:29 05/02/17 07:53 400 MLS/HR Levetiracetam 500 mg/Dextrose 105 ml @ 420 mls/hr Q12H IV 05/02/17 09:00 06/01/17 08:59 05/03/17 08:05 420 MLS/HR Phenytoin Sodium 100 mg/Syringe 2 ml @ 1 mls/min Q8 IV 05/02/17 14:00 06/01/17 13:59 05/03/17 06:05 1 MLS/MIN Dextrose 1,000 ml @ 75 mls/hr [id number] IV 05/02/17 10:15 06/01/17 10:14 05/02/17 23:33 75 MLS/HR Sodium Chloride 20 ml/Syringe 20 ml @ 0 mls/min Q8 IV 05/02/17 14:00 06/01/17 13:59 05/03/17 06:06 10 MLS/MIN Scopolamine (Transderm-Scop Patch) 1.5 mg Q72H TD 05/03/17 00:45 06/02/17 00:44 05/03/17 01:25 1.5 MG Miscellaneous (Remove Transderm-Scop Patch) 1 ea Q72H N/A 05/06/17 00:45 06/05/17 00:44 Miscellaneous Information (Check Scopolamine Patch Placement) 1 ea QS N/A 05/03/17 08:00 06/02/17 07:59 05/03/17 07:57 1 EA Objective Vital Signs Date Time Temp Pulse Resp B/P (MAP) Pulse Ox O2 Delivery O2 Flow Rate FiO2 05/03/17 08:07 37.2 62 10 114/69 (84) 98 Nasal Cannula 2.0 05/03/17 08:00 Nasal Cannula 2.0 05/03/17 00:05 38.0 83 12 136/71 (92) 95 Nasal Cannula 3.0 05/03/17 00:00 92 Nasal Cannula 2.0 05/02/17 16:03 37.1 69 10 107/62 (77) 97 Nasal Cannula 2.0 05/02/17 16:00 92 Nasal Cannula 2.0 Physical Exam General Appearance: WD/WN, no apparent distress ENT: normal ENT inspection, hearing grossly normal, pharynx normal Neck: supple, no adenopathy, no JVD, trachea midline Respiratory/Chest: chest non-tender, no respiratory distress, no accessory muscle use, + decreased breath sounds Cardiovascular: regular rate, rhythm, no gallop, no JVD, no murmur Abdomen: non tender, soft, no organomegaly, + abnormal bowel sounds (hypoactive ) Extremities: non-tender, normal inspection, no calf tenderness, normal capillary refill, + pedal edema Neurologic/Psychiatric: + motor weakness, + depressed affect, + disoriented Skin: normal color, warm/dry, no rash Laboratory Results Last 24 Hours Test 05/03/17 10:07 Assessment and Plan 71 yo female with history of dementia, schizophrenia, seizure disorder, stage IV urothelial cancer presented with altered mental status, worsening renal function and recent evidence of ESBL in her urine. - ILIA on CKD stage III, now her GFR is < 15 Cr continues to be high at 3.8, BUN 60 on 05/02 reviewed output, recorded at 1600cc yesterday appreciate nephrology recommendations, dialysis not indicated with stage IV cancer, would not improve quality of life discussed this with urology, they agree that the left hydronephrosis is not an obstruction, ureteral stent would likely not help given her deteriorating condition with a seizure yesterday morning and continued altered mental status, changed to DNR per JUAN ANTONIO Monroe continue supportive care with gentle fluids plan to go to [facility] tomorrow on comfort care - UTI with ESBL bacteremia: continue Ertapenem UTI due to repeated straight catheterizations at [facility] continue Ertapenem while here but would stop on discharge with fever today blood cultures negative unlikely this is contributing to altered mental status - Worsening encephalopathy: likely due to worsening uremia on top of mild dementia, mood disorder MRI brain negative for stroke CT head showed atrophy at time of admission today she continues to be unresponsive - Seizure disorder: seizure on 05/02, lasted 15 seconds, generalized gave Dilantin 1000mg IV x 1, then 100mg IV q6 Keppra 500mg q12 likely iatrogenic from patient not taking adequate doses of Dilantin and Phenobarbitol by mouth - Ureteral cancer, s/p resection: reviewed outpatient note from Dr. Santacruz on 04/17 now stage IV with evidence of pulmonary nodules on CT would not be a candidate for treatment currently with her renal failure any treatment would be palliative in nature will pursue hospice at [facility] - Worsening anemia: likely from combination of chronic disease, CKD, malignancy , poor nutrition no plans for transfusion Hb 7.8 yesterday Code status: DNR plan to go to [facility] tomorrow on comfort care
[2017-05-03] MEDS ORDERED: SCOP1.5D2 TD ×2 (12:18)
[2017-05-03] MEDS ORDERED: RXNS10 PO ×2 (12:18)
--- NOTE | 2017-05-03 12:24 | Discharge Instructions ---
Discharge Instructions Date of Service May 03, 2017. Admission Reason for Admission: Acute Renal Failure, Bacteremia Due To Discharge Discharge Diagnosis / Problem: Acute renal failure, ESBL UTI, stage IV urothelial cancer Discharge Goals Goal(s): Decrease discomfort, Specific goals (palliative care) Activity Recommendations Activity Level: Bedrest . Additional Information Patient informed of condition: Yes Advance Directives: Yes DNR: Yes Level of Care: Skilled Communicable Disease: No Prognosis: Deteriorating Oxygen at (LPM): 2 liters [place] Catheter: Yes Instructions / Follow-Up Instructions / Follow-Up Medications: all medications stopped except those for comfort - SCOPOLAMINE PATCH: apply for secretions if needed - MORPHINE SULFATE: 0.25mL q4 as needed for pain or shortness of breath, may need to increase dose Patient presented with altered mental status, progressive renal failure, ESBL in urine patient's renal function continue to decline despite IV fluids there was consideration for left ureteral stent with hydronephrosis but she was making adequate urine she was treated with Ertapenem for the ESBL in urine, blood cultures negative , no signs of sepsis had a seizure on 05/02 due to poor intake of seizure medications, no further seizures after Dilantin IV started discussions held with wan Monroe, wan Pham and brothradha Gil agree with [facility] Hospital Diet Patient's current hospital diet: AHA Diet (Heart Healthy) Discharge Diet Recommended Diet: N/A Procedures Procedures Performed: none Pending Studies Studies pending at discharge: no Physician Orders On Transfer POLST Discussion: without POLST completion Medical Emergencies . Who to Call and When: Medical Emergencies: If at any time you feel your situation is an emergency, please call 911 immediately. . Non-Emergent Contact Non-Emergency issues call your: Primary Care Provider Call Non-Emergent contact if: you have any medication questions . . "Provider Documentation" section prepared by Cristo Baxter. . Core Measure Problem Core Measures: None [place] Drug Monitoring Program Search Results: no issues identified
[2017-05-03] MEDS ORDERED: SODIUM BICARB 8.4% INJ 50 MEQ/50 ML SYR IV ONE (13:44)
[2017-05-03] MEDS ORDERED: SODIUM CHLORIDE 0.9% 10ML FLUSH IV ONE (13:44)
[2017-05-03 16:29] VITALS: BP 124/68; PULSE 74; TEMP 36.6; O2SAT 95
[2017-05-03 23:56] VITALS: BP 121/66; PULSE 54; TEMP 37; O2SAT 99
[2017-05-04] MEDS: CHECK SCOPOLAMINE PATCH PLACEMENT SCH ×2 (00:29→07:44)
[2017-05-04] MEDS: DEXTROSE 5% 1000ML 1,000 ML IV SCH (02:01)
[2017-05-04] MEDS: PHENYTOIN IV 100 MG in SYRINGE 0 ML IV SCH ×2 (05:41→14:09)
[2017-05-04] MEDS: SODIUM CHLOR 0.9% 10ML FLUSH 20 ML in SYRINGE 0 ML IV SCH ×2 (05:41→14:10)
[2017-05-04 06:55] VITALS: BP 115/59; PULSE 52; TEMP 36.2; O2SAT 93
[2017-05-04 08:00] VITALS: O2SAT 93
[2017-05-04] MEDS: LEVETIRACETAM IV 500 MG in DEXTROSE 5% 100ML 100 ML IV SCH (08:22)
[2017-05-04 09:39] VITALS: BP 115/59; PULSE 52; TEMP 36.2; O2SAT 93
--- NOTE | 2017-05-04 09:54 | Progress Note ---
Subjective Date of Service: May 04, 2017. Subjective Pt evaluation today including: conversation w/ family, chart review, lab review Pt awaiting hospice placement at SNF. Continues to remain obtunded. Per her brother, she did say "good morning" this morning. Problem List Medical Problems: (1) Acute renal failure Status: Acute (2) Altered mental status Status: Acute (3) Anemia Status: Acute (4) Anemia Status: Acute (5) Bacteremia due to Gram-negative bacteria Status: Acute (6) Dementia Status: Chronic (7) E. 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 (12) Renal insufficiency Status: Acute (13) Syncope and collapse Status: Acute (14) Urinary tract infection Status: Acute Review of Systems Pt unable to answer d/t AMS. Objective Vital Signs Date Time Temp Pulse Resp B/P (MAP) Pulse Ox O2 Delivery O2 Flow Rate FiO2 05/04/17 08:00 93 Nasal Cannula 2.0 05/04/17 06:55 36.2 52 18 115/59 (77) 93 Nasal Cannula 2.0 05/04/17 00:00 Nasal Cannula 2.0 05/03/17 23:56 37.0 54 18 121/66 (84) 99 Nasal Cannula 2.0 05/03/17 16:29 36.6 74 12 124/68 (86) 95 Nasal Cannula 2.0 05/03/17 16:00 Nasal Cannula 2.0 Physical Exam General Appearance: no apparent distress Eyes: normal inspection ENT: hearing grossly normal Neck: no JVD Respiratory/Chest: no respiratory distress, no accessory muscle use Cardiovascular: no JVD Extremities: normal inspection Neurologic/Psychiatric: alert, normal mood/affect, oriented x 3 Skin: normal color Assessment and Plan A/P: ARF, left hydro, ? left ureteral tumor AFVSS. I spoke with the pt's brother in her room today. Family continues to desire hospice care. No plans for surgical intervention at this time. Recall PRN issues if plans change. Will sign off for now. Thanks for allowing us to participate in this pt's care.
[2017-05-04] MEDS ORDERED: LORA-741 PO ×2 (11:49)
[2017-05-04] MEDS: ERTAPENEM IV 500 MG in SODIUM CHLORIDE 0.9% 50 ML IV SCH (11:55)
--- NOTE | 2017-05-04 14:30 | Discharge Summary ---
Discharge Summary Date of Service May 04, 2017. Discharge Summary Admission Date: Apr 25, 2017 at 16:59 Discharge Date: May 04, 2017 Discharge Disposition: [facility] facility Principal Diagnosis: ILIA on CKD stage III, now is confirmation only Problems/Secondary Diagnoses: (1) Dementia Status: Chronic (2) Osteoporosis Nos Status: Chronic (3) Paranoid Schizo-Chronic Status: Chronic Immunizations: Have You Had Influenza Vaccine: Unknown Influenza Vaccine Date: Nov 10, 2004 History of Tetanus Vaccine?: Unknown History of Pneumococcal: Unknown History of Hepatitis B Vaccine: Unknown Consultations: Applications [employer] Medication Reconciliation New Medications: Lorazepam (Ativan) 0.5 Mg Tab 0.5 MG PO Q6H for anxiety for 3 Days, #12 TAB Morphine Sulfate (Morphine Sulfate) 10 Mg/0.5 Ml Soln 0.25 ML PO Q4 PRN for Pain, #50 ML 0 Refills Scopolamine (Transderm-Scop) 1 Mg/3 Days Dis 3 MG TD Q72H for 10 Days, #3 PATCH 0 Refills Discontinued Medications: Acetaminophen (Tylenol) 325 Mg Tab 650 MG PO Q6 PRN for Pain or Fever, 0 Refills DO NOT EXCEED 3000MG APAP/24 HOURS. Amlodipine (Norvasc) 2.5 Mg Tab 2.5 MG PO DAILY, TAB Bisacodyl (Dulcolax) Unknown Strength Sup 1 SYR NV PRN UD, SUP Duloxetine Hcl (Cymbalta) 20 Mg Cap 40 MG PO QAM Ferrous Sulfate (Kp Ferrous Sulfate) 325 Mg Tab 325 MG PO BID Gabapentin (Neurontin) 400 Mg Cap 400 MG PO TID GIVE AT 0030/0830/1630 Haloperidol (Haloperidol) 1 Mg Tab 1 MG PO BID Ipratropium-Albuterol (Combivent Respimat) 1 Aer Aer 1 PUFFS INH QID, INH Magnesium Hydroxide (Milk Of Magnesia) 30 Ml Susp 30 ML PO PRN UD for NO BM FOR 3 DAYS, ML Multivitamin (Multivitamin) Tab 1 TABLET PO QAM, 0 Refills ONE A DAY WOMAN'S. Oxycodone Immediate Rel Tab (Roxicodone Ir) 5 Mg Tab 5 MG PO Q6H PRN for Pain, TAB Oxycodone Ir (Roxicodone Ir) 5 Mg Tab 5 MG PO BID Phenobarbital (Phenobarbital) 64.8 Mg Tab 64.8 MG PO HS GIVE AT 2030 Phenytoin Sodium Extended (Dilantin) 30 Mg Cap 90 MG PO BID GIVE AT 0830 AND 1630 Phenytoin Sodium Extended (Dilantin) 30 Mg Cap 60 MG PO HS, CAP Ranitidine (Zantac) 150 Mg Tab 150 MG PO BID AM & HS Rivastigmine Tartrate (Exelon) 1.5 Mg Cap 1.5 MG PO BID, CAP Sennosides-Docusate Sodium (Senna/Docusate Sodium) 1 Tab Tab 1 TAB PO BID AT 0830 & 1630 Sodium Chloride (Sodium Chloride) 1 Gm Tab 1 TAB PO QAM Discharge Exam Comfort measures only, no uncomfortable interest occasional yelling, I heard throat secretions Review of Systems: Constitutional: + problem reported (No able to obtain because patient possibly is dying, and is on comfort measures) Physical Exam: General Appearance: + pertinent finding (Frail, pale, no pain, her throat fluids is increased) Eyes: + pertinent finding (Open eyes for me, so weak) Respiratory/Chest: + decreased breath sounds, + wheezing (Mild) Cardiovascular: regular rate, rhythm Abdomen / GI: soft, + abnormal bowel sounds (Decreased) Extremities: + swelling (2+ edema) Neurologic/Psychiatric: + pertinent finding (No facial droop) Skin: + pertinent finding (Pale) Hospital Course 71 yo female was admitted on April 25 because of acute on chronic kidney failure , She has a history of dementia, schizophrenia, seizure disorder, stage IV urothelial cancer Was having altered mental status upon admission, worsening renal function and was found to have recent evidence of ESBL in her urine. ILIA on CKD stage III, now her GFR is < 15, no dialysis UTI with ESBL bacteremia: continue Ertapenem, normal antibiotic Worsening encephalopathy: likely due to worsening uremia on top of mild dementia , mood disorder, colonic care is comfort measures only now Ureteral cancer, s/p resection: reviewed outpatient note from Dr. Santacruz on Worsening anemia: likely from combination of chronic disease, CKD, malignancy, poor nutrition Patient condition has been continued conditioning and declining, but note MD in geriatric case manager talk to patient's son who is in [place], has decided patient to be on hospice care and comfort measures only, Code status: DNR plan to go to [facility] on comfort care today, I agreed, hospice care in [facility] has been arranged Total Time Spent: Greater than 30 minutes This includes examination of the patient, discharge planning, medication reconciliation, and communication with other providers. Discharge Instructions Please refer to the electronic Patient Visit Report (Discharge Instructions) for additional information. Additional Copies To [facility]
== END 2017-05-04 14:25 | disposition hospice, inpatient (51) | DRG 871 ==
LOC: EDBD 14:01 → C.EDC 14:02 → C.MS2W 16:59 → UNDOADMIN 16:59 → ENRESERV 17:06
PROVIDERS: ADMIT Family Medicine; ATTEND Hospitalist
DX: R78.81 Bacteremia (principal); Z51.5 Encounter for palliative care; G93.40 Encephalopathy, unspecified; N39.0 Urinary tract infection, site not specified; C79.19 Secondary malignant neoplasm of other urinary organs; N17.9 Acute kidney failure, unspecified; E43 Unspecified severe protein-calorie malnutrition; F03.90 Unspecified dementia, unspecified severity, without behavioral disturbance, psychotic disturbance, mood disturbance, and anxiety; I25.10 Atherosclerotic heart disease of native coronary artery without angina pectoris; F20.0 Paranoid schizophrenia; I12.9 Hypertensive chronic kidney disease with stage 1 through stage 4 chronic kidney disease, or unspecified chronic kidney disease; C77.2 Secondary and unspecified malignant neoplasm of intra-abdominal lymph nodes; N13.30 Unspecified hydronephrosis; I25.2 Old myocardial infarction; Z88.2 Allergy status to sulfonamides; B96.20 Unspecified Escherichia coli [E. coli] as the cause of diseases classified elsewhere; Z85.820 Personal history of malignant melanoma of skin; Z87.891 Personal history of nicotine dependence; B96.89 Other specified bacterial agents as the cause of diseases classified elsewhere; N18.3 Chronic kidney disease, stage 3 (moderate); G40.909 Epilepsy, unspecified, not intractable, without status epilepticus; E86.0 Dehydration; B96.29 Other Escherichia coli [E. coli] as the cause of diseases classified elsewhere; M81.0 Age-related osteoporosis without current pathological fracture; E03.9 Hypothyroidism, unspecified; K56.41 Fecal impaction